=== PATIENT | female | born 1940 | race Caucasian/White ===

== ENCOUNTER 2016-11-30 17:49 | Inpatient (IN) | payer BC, OTHER ==
[~2016-11-30] VITALS: Ht 157.5 cm; Wt 96.7 kg
[~2016-11-30 17:49] MED LIST: ASPI81TA28 PO; COLE1TAB5 PO; GLC/500 PO; LEVO125T4 PO; LSN5 PO; METF-384 PO; OMEP20CA9 PO; PANC1CAP PO; PB30 PO; SIMV-151 PO; SOLI10TA2 PO; VENL75CA73 PO
[2016-11-30] MEDS ORDERED: DEXTROSE 50% 50 ML SYR IV STA ×2 (18:16→20:33)
--- NOTE | 2016-11-30 18:20 | DIAGNOSTIC IMAGING REPORT ---
SINGLE VIEW CHEST CLINICAL HISTORY: Syncope. FINDINGS: An AP, portable, upright chest radiograph is compared to study dated 04/17/2016. The examination is degraded by portable technique and patient rotation. The heart is top normal for projection and there is atherosclerotic calcification of the thoracic aorta. The pulmonary vasculature is noncongested. Chronic interstitial thickening is similar to previous. There is bibasilar atelectasis. No airspace consolidation is seen typical for pneumonia. There is no large pleural effusion or pneumothorax seen. The skeletal structures are osteopenic. Degenerative changes noted in the right shoulder and thoracic spine. Cholecystectomy clips are seen in the right upper quadrant. IMPRESSION: Bibasilar atelectasis with no acute cardiopulmonary abnormality. Electronically signed by: Mat Ramachandran M.D. 11/30/2016 6:18 PM Dictated Date/Time: 11/30/2016 6:17 PM
[2016-11-30 18:29] LABS: HEMATOCRIT 39.2 % (37-47); MEAN CELL VOLUME 86.3 fL (80-100); MEAN CORPUSCULAR HEMOGLOBIN 29.3 pg (25-34); MEAN CORPUSCULAR HGB CONC 33.9 g/dl (32-36); MEAN PLATELET VOLUME 11.8 fL (7.4-10.4); PLATELET COUNT 188 K/uL (130-400); RED BLOOD COUNT 4.54 M/uL (4.2-5.4); WHITE BLOOD COUNT 15.45 K/uL (4.8-10.8)
[2016-11-30 18:49] LABS: ALKALINE PHOSPHATASE 122 U/L (45-117); ALT/SGPT 25 U/L (12-78); AST/SGOT 12 U/L (15-37); BLOOD UREA NITROGEN 24 mg/dl (7-18); BUN/CREATININE RATIO 29.1 (10-20); CALCIUM 8.9 mg/dl (8.5-10.1); CARBON DIOXIDE 23 mmol/L (21-32); CHLORIDE 108 mmol/L (98-107); CREATININE 0.83 mg/dl (0.60-1.20); GLUCOSE 20 mg/dl (70-99); POTASSIUM 2.8 mmol/L (3.5-5.1); SODIUM 143 mmol/L (136-145)
[2016-11-30 18:51] LABS: BASO % 0.3 %; BASO ABS # 0.04 K/uL (0-0.2); COMPLETE YES; EOS % 0.8 %; IG% 0.3 %; LYMPH % 12.4 %; LYMPH ABS # 1.91 K/uL (1.2-3.4); NEUT % 80.2 %
[2016-11-30] MEDS ORDERED: AMR2 PO (18:51)
[2016-11-30] MEDS ORDERED: POTASSIUM CHLORIDE 10 MEQ TABCR PO STA (18:53)
[2016-11-30] MEDS ORDERED: POTASSIUM CHLORIDE 10 MEQ / 100ML WTR IV STA (18:53)
[2016-11-30] MEDS ORDERED: LEVE500T PO (18:55)
[2016-11-30] MEDS ORDERED: PHEN64.8 PO ×2 (19:01)
[2016-11-30 19:02] LABS: PARTIAL THROMBOPLASTIN RATIO 0.9; PROTHROMBIN TIME (PATIENT) 10.8 SECONDS (9.0-12.0)
[2016-11-30] MEDS ORDERED: BISACODYL 10 MG SUPP PR PRN (21:00)
[2016-11-30] MEDS ORDERED: MoRPHine SULFATE 4 MG/ML 1 ML CARP\\VIAL IV PRN (21:00)
[2016-11-30] MEDS ORDERED: MoRPHine SULFATE 2 MG/ML CARP IV PRN (21:00)
[2016-11-30] MEDS ORDERED: COLESTIPOL HCL 1 GM TAB PO PRN (21:00)
[2016-11-30] MEDS ORDERED: LORAZEPAM 2 MG/ML 1 ML VIAL IV PRN ×2 (21:00)
[2016-11-30] MEDS ORDERED: GLUCOSE 40% GEL 15 GM TUBE PO PRN (21:00)
[2016-11-30] MEDS ORDERED: PROMETHAZINE HCL INJ 12.5 MG in SODIUM CHLORIDE 0.9% 50ML 50 ML IV PRN (21:00)
[2016-11-30] MEDS ORDERED: ZOLPIDEM TARTRATE 5 MG TAB PO PRN (21:00)
[2016-11-30] MEDS ORDERED: SIMVASTATIN 20 MG TAB PO SCH (21:00)
[2016-11-30] MEDS ORDERED: DEXTROSE 50% 50 ML SYR IV PRN (21:00)
[2016-11-30] MEDS ORDERED: DiphenhydrAMINE HCL 50 MG/ML VIAL IV PRN (21:00)
[2016-11-30] MEDS ORDERED: GLUCAGON FOR INJ 1 MG VIAL SQ PRN (21:00)
[2016-11-30] MEDS ORDERED: PHENOBARBITAL 32.4 MG TAB PO SCH (21:00)
[2016-11-30] MEDS ORDERED: ONDANSETRON INJ 2 MG/ML 2 ML VIAL IV PRN ×2 (21:00)
[2016-11-30] MEDS ORDERED: GLUCOSE 10 TABS/TUBE PO PRN (21:00)
[2016-11-30] MEDS ORDERED: ACETAMINOPHEN 325 MG TAB PO PRN (21:00)
[2016-11-30] MEDS: DOCUSATE SODIUM 100 MG CAP PO SCH (21:00)
[2016-11-30] MEDS ORDERED: ALUMINUM/MAGNESIUM/SIMETH (MAALOX MAX) 30 ML UDC PO PRN (21:00)
[2016-11-30] MEDS ORDERED: MAGNESIUM HYDROXIDE SUSP 30 ML UDC PO PRN (21:00)
[2016-11-30] MEDS ORDERED: D5NSS + 20MEQ KCL 1,000 ML IV SCH (21:15)
[2016-11-30] MEDS ORDERED: NITROGLYCERIN 0.4 MG SL PER TAB CHARGE SL PRN (21:15)
[2016-11-30 21:38] VITALS: BMI 39.4
--- NOTE | 2016-11-30 21:43 | EMERGENCY ROOM VISIT NOTE ---
History Report prepared by Lalitha: Milka Ramirez Under the Supervision of: Dr. Elmer Lanier M.D. First contact with patient: 17:50 Chief Complaint: HYPOGLYCEMIA Stated Complaint: HYPOGLYCEMIA History of Present Illness The patient is a 76 year old female who presents to the Emergency Room via EMS with complaints of hypoglycemia that was first noticed an hour ago. Symptoms associated with this episode of hypoglycemia include altered mental status. weakness, and diaphoresis. Per the patient's granddaughter, the patient was saying her last goodbyes to her daughter today as her daughter is not well. The patient's granddaughter noticed that the patient was becoming weak and eventually passed out about an hour STARCHMAKER. She called the ambulance at this time. The patient's blood sugar was found to be 27 at this time, per the granddaughter. She was given IV dextrose by the ambulance crew after which she woke up. The patient suffers from dementia. Her granddaughter, who is her power of senior trial attorney, states that the patient took her own medications this morning. There are, however, 3 other pill boxes that she had access to and the other 2 people are on insulin and other diabetic medications. She also states that she only had an egg sandwich today and didn't need anything else. The granddaughters do not feel that the patient took an intentional overdose or is suicidal in any way. They will call home to see if any pills are missing. HPI Limited d/t dementia Source of History: family History Limited By: dementia Onset: 1 hour STARCHMAKER Position: other (Global ) Modifying Factors (Worsening): other (None) Associated Symptoms: + diaphoresis, + weakness, No SOB, No abdominal pain, No chest pain, No fevers, No headache, No vomiting Note: Additional associated symptoms include AMS Review of Systems Limited due to dementia. Past Medical & Surgical Medical Problems: (1) Congestive Heart Failure Nos (2) Coronary Atherosclerosis Of [place] Coronary Vessel (3) Diab Patsy Wo Compl, Type Ii Or Unspec Type, Not Uncntrld (4) Epilepsy (5) Hypertension Nos (6) Pericardial Disease Nos (7) pericardial window (8) Pneumonia, Organism Nos (9) Pure Hypercholesterolem (10) Urin Tract Infection Nos Surgical Problems: (1) History of cholecystectomy Family History Diabetes mellitus Hypertension Seizures Social History Smoking Status: Never Smoker Alcohol Use: none Drug Use: none Housing Status: lives with family Occupation Status: retired Current/Historical Medications Scheduled Aspirin (Aspirin Ec), 81 MG PO QAM Glimepiride (Glimepiride), 2 MG PO DAILY Levetiractam (Levetiracetam), 1,500 MG PO BID Levothyroxine Sodium (Levothyroxine Sodium), 125 MCG PO QAM Lisinopril (Lisinopril), 5 MG PO QAM Pancrelipase (Lipase-Protease- (Creon), 2 CAP PO AC Phenobarbital (Phenobarbital), 2 TABS PO HS Phenobarbital (Phenobarbital), 64.8 MG PO QAM Simvastatin (Simvastatin), 20 MG PO HS Solifenacin (Vesicare), 10 MG PO QAM Venlafaxine Hcl (Venlafaxine Extended Rel), 75 MG PO QAM Scheduled PRN Colestipol Hcl (Colestipol Hcl), 1 TAB PO DAILY PRN for Diarrhea Allergies Coded Allergies: Sulfa Antibiotics (Verified Allergy, Unknown, UNKNOWN, 11/30/16) Sitagliptin (Verified Adverse Reaction, Unknown, abd pain, 11/30/16) Physical Exam Vital Signs Date Time Temp Pulse Resp B/P Pulse Ox O2 Delivery O2 Flow Rate FiO2 11/30/16 20:57 80 20 141/76 97 Room Air 11/30/16 19:42 85 20 137/68 97 Room Air 11/30/16 19:09 86 11/30/16 18:17 36.7 102 18 176/81 93 Room Air Physical Exam Constitutional: Vital signs reviewed. Clammy to touch. Follows commands. Eyes: Pupils are equal round reactive to light. Conjunctiva are noninjected. ENT: Pharynx is clear without erythema or exudate. Mucous membranes are moist. Neck supple without meningeal signs. Respiratory: Clear to auscultation bilaterally. Breath sounds are equal bilaterally. Cardiovascular: Regular rate and rhythm. No rubs or gallops. GI: Soft, nondistended and nontender. Bowel sounds are present. Musculoskeletal: No peripheral edema. No lower extremity tenderness. Integumentary: No cyanosis. Neurological: The patient is awake and slow to respond. Cranial nerves II-XII are intact except very hard of hearing. Motor is intact in all extremities. Sensation is intact to light touch all extremities. Normal speech. No pronator drift. Psychiatric: Unable to assess affect secondary to dementia Medical Decision & Procedures ER Provider Diagnostic Interpretation: X-ray results as stated below per interpretation by me and the radiologist: SINGLE VIEW CHEST CLINICAL HISTORY: Syncope. FINDINGS: An AP, portable, upright chest radiograph is compared to study dated 04/17/2016. The examination is degraded by portable technique and patient rotation. The heart is top normal for projection and there is atherosclerotic calcification of the thoracic aorta. The pulmonary vasculature is noncongested. Chronic interstitial thickening is similar to previous. There is bibasilar atelectasis. No airspace consolidation is seen typical for pneumonia. There is no large pleural effusion or pneumothorax seen. The skeletal structures are osteopenic. Degenerative changes noted in the right shoulder and thoracic spine. Cholecystectomy clips are seen in the right upper quadrant. IMPRESSION: Bibasilar atelectasis with no acute cardiopulmonary abnormality. Electronically signed by: Mat Ramachandran M.D. 11/30/2016 6:18 PM Dictated Date/Time: 11/30/2016 6:17 PM Laboratory Results 11/30/16 18:21 Red Blood Count 4.54, Mean Corpuscular Volume 86.3, Mean Corpuscular Hemoglobin 29.3, Mean Corpuscular Hemoglobin Concent 33.9, Mean Platelet Volume 11.8, Neutrophils (%) (Auto) 80.2, Lymphocytes (%) (Auto) 12.4, Monocytes (%) (Auto) 6.0, Eosinophils (%) (Auto) 0.8, Basophils (%) (Auto) 0.3, Neutrophils # (Auto) 12.40, Lymphocytes # (Auto) 1.91, Monocytes # (Auto) 0.93, Eosinophils # (Auto) 0.13, Basophils # (Auto) 0.04 11/30/16 18:21 Test 11/30/16 18:21 11/30/16 18:30 11/30/16 21:01 White Blood Count 15.45 K/uL (4.8-10.8) Red Blood Count 4.54 M/uL (4.2-5.4) Hemoglobin 13.3 g/dL (12.0-16.0) Hematocrit 39.2 % (37-47) Mean Corpuscular Volume 86.3 fL (80-100) Mean Corpuscular Hemoglobin 29.3 pg (25-34) Mean Corpuscular Hemoglobin Concent 33.9 g/dl (32-36) Platelet Count 188 K/uL (130-400) Mean Platelet Volume 11.8 fL (7.4-10.4) Neutrophils (%) (Auto) 80.2 % Lymphocytes (%) (Auto) 12.4 % Monocytes (%) (Auto) 6.0 % Eosinophils (%) (Auto) 0.8 % Basophils (%) (Auto) 0.3 % Neutrophils # (Auto) 12.40 K/uL (1.4-6.5) Lymphocytes # (Auto) 1.91 K/uL (1.2-3.4) Monocytes # (Auto) 0.93 K/uL (0.11-0.59) Eosinophils # (Auto) 0.13 K/uL (0-0.5) Basophils # (Auto) 0.04 K/uL (0-0.2) RDW Standard Deviation 42.3 fL (36.4-46.3) RDW Coefficient of Variation 13.3 % (11.5-14.5) Immature Granulocyte % (Auto) 0.3 % Immature Granulocyte # (Auto) 0.04 K/uL (0.00-0.02) Red Blood Cell Morphology Unremarkable Prothrombin Time 10.8 SECONDS (9.0-12.0) Prothromb Time International Ratio 1.0 (0.9-1.1) Activated Partial Thromboplast Time 22.6 SECONDS (21.0-31.0) Partial Thromboplastin Ratio 0.9 Anion Gap 12.0 mmol/L (3-11) Est Creatinine Clear Calc Drug Dose 64.0 ml/min Estimated GFR () 79.9 Estimated GFR (Non- 69.0 BUN/Creatinine Ratio 29.1 (10-20) Calcium Level 8.9 mg/dl (8.5-10.1) Total Bilirubin 0.1 mg/dl (0.2-1) Direct Bilirubin < 0.1 mg/dl (0-0.2) Aspartate Amino Transf (AST/SGOT) 12 U/L (15-37) Alanine Aminotransferase (ALT/SGPT) 25 U/L (12-78) Alkaline Phosphatase 122 U/L (45-117) Total Protein 7.7 gm/dl (6.4-8.2) Albumin 3.9 gm/dl (3.4-5.0) Lipase 214 U/L (73-393) Bedside Troponin I 0.000 ng/ml (0-0.045) Bedside Glucose 69 mg/dl (70-90) Laboratory results as reviewed by me. Medications Administered Medications (Trade) Dose Ordered Sig/Jo Ann Route Start Time Stop Time Status Last Admin Dose Admin Dextrose (Dextrose 50% 50ML Syringe) 25 ml NOW STAT IV 11/30/16 18:16 11/30/16 18:17 DC 11/30/16 18:25 25 ML Potassium Chloride (Kcl 10 Meq / Wtr) 10 meq NOW STAT IV 11/30/16 18:53 11/30/16 18:54 DC 11/30/16 19:21 10 MEQ Potassium Chloride (Klor-Con M10) 40 meq NOW STAT PO 11/30/16 18:53 11/30/16 18:54 DC 11/30/16 19:20 40 MEQ Dextrose 25 ml 25 ml NOW STAT IV 11/30/16 20:33 11/30/16 20:34 DC 11/30/16 20:34 25 ML Potassium Chloride/Dextrose/ Sod Cl (D5nss + 20meq KCl) 1,000 ml @ 125 mls/hr Q8H IV 11/30/16 21:15 12/30/16 21:14 11/30/16 21:19 125 MLS/HR ECG Indication: weakness Rate (beats per minute): 102 Rhythm: sinus tachycardia Findings: other (Fusion complexes, non specific intraventricular block ) Comparison ECG Date: April 17, 2016 Change: no significant change ED Course 1753: The patient was evaluated in room B3. A complete history and physical exam was performed. 1810: according to the ED pharmacist, review of her external medication shows that the patient is also on Amaryl. 1815: The patient's blood sugar is 64 at this time. 1816: Ordered Dextrose 25 ml IV. 183: Per the nurse, the patient is awake, alert, and eating after d-50. 1843: Upon reevaluation, the patient is still awake and alert. 1853: Ordered Potassium Chloride 40 meq PO, Potassium Chloride 10 meq IV. 1901: The patient is still awake, alert, and eating. I discussed the test results with the patient and her granddaughters. 2032: Patient's granddaughters state there are no missing pills. IV potassium infusing at this time. The patient is awake and alert. 2032: Ordered Dextrose 25 ml IV. 2036: BSG 48. Patient awake and alert. Discussed plan to hospitalize. 2040: I spoke with Dr. Lennon of [facility]. We discussed the patient and her results. The patient will be further evaluated by Dr. Lennon. Medical Decision This is a 76-year-old female presents with altered mental status and hypoglycemia. I did perform a limited focused review of portions of the patient 's old chart on the electronic medical record. The patient has had no recent pertinent visits to this hospital. I did evaluate the patient as noted above. The patient is presenting with altered mental status secondary to hypoglycemia. I did obtain history from the patient as well as her granddaughter due to her altered mental status and history of dementia. The patient was placed on a continuous case monitor. I did check a bedside blood sugar which was low. The patient was given D50 25 mL IV. She came more awake and alert at that time and was able to drink and eat. I did order and personally review the patient's 12-lead EKG and chest x- ray as described above. I did order and review the patient's blood work as noted in the electronic medical record. She has hypokalemia and hypoglycemia. I did treat her with IV potassium as well as oral potassium. The patient's granddaughter states that the patient is not suicidal and they checked to see if any pills are missing and verified that there were not. She did not accidentally take more than she should've. Because she is on a sulfonylurea we did observe her for longer in the emergency department. She ate a full meal but her blood sugar began to trend downward again. She was given D50 25 mL IV again. I did recommend hospitalization for continued monitoring of her blood sugars. I did discuss the case with the hospitalist and case manager specialist. Consults Time Called: 2036 Consulting Physician: Dr. Lennon ([facility]) Returned Call: [address] Lennon of [facility]. We discussed the patient and her results. The patient will be further evaluated by Dr. Lennon. Impression Primary Impression: Hypoglycemia Additional Impression: Hypokalemia Scribe Attestation The scribe's documentation has been prepared under my direct and personally reviewed by me in its entirety. I confirm that the note above accurately reflects all work, treatment, procedures, and medical decision making performed by me. Departure Information Dispostion Being Evaluated By Hospitalist Referrals Kelli Gates C.R.N.P (PCP) Patient Instructions My [facility] Problem Qualifiers
[2016-11-30] MEDS ORDERED: PNEUMOCOCCAL ADMINISTRATION CHARGE ONE (22:00)
[2016-11-30] MEDS ORDERED: PNEUMOCOCCAL POLYSACCHARIDES 25 MCG/0.5 ML VIAL/SYR IM. ONE (22:00)
[2016-11-30] MEDS: INSULIN ASPART 100 UNITS/ML 3 ML PEN SC SCH (22:15)
[2016-11-30] MEDS: LEVETIRACETAM 500 MG TAB PO SCH (22:22)
[2016-11-30] MEDS: VESICARE~ORDER AWAITING ACTION SCH (22:29)
[2016-11-30 22:33] VITALS: BP 157/87; PULSE 87; TEMP 36.8; O2SAT 95
[2016-11-30 23:59] VITALS: O2SAT 95
[2016-12-01] VITALS (8 sets, daily range): BP systolic 105–135; BP diastolic 46–81; PULSE 73–80; TEMP 36.2–36.6; O2SAT 95–98; Ht 157.5 cm; Wt 96.7 kg
--- NOTE | 2016-12-01 03:35 | History and Physical ---
History & Physical Date & Time of Service: Dec 01, 2016 at 03:23 Chief Complaint: Altered Mental Status, Hypoglycemia Primary Care Physician: Kelli Gates C.R.N.P History of Present Illness Source: patient The patient is a 76-year-old female who presents emergency department via EMS due to an episode of low blood sugar that began 1 hour prior to arrival. She was first noted to have altered mental status, feeling generally weak, and sweaty and ultimately passed out. The patient has been in morning for her sick daughter, has not been eating as well as usual, and has been taking her glimepiride and metformin diabetic medications as usual. Her blood sugar was found to be 27 field, he was given IV dextrose by the ambulance crew briefly woke up. The patient does have dementia, and her granddaughter reports that the patient does take her medications. It is unknown at this time it the patient had taken additional medication than as directed. *. Past Medical/Surgical History Medical Problems: (1) Congestive Heart Failure Nos Status: Chronic (2) Coronary Atherosclerosis Of [place] Coronary Vessel Status: Chronic (3) Diab Patsy Wo Compl, Type Ii Or Unspec Type, Not Uncntrld Status: Chronic (4) Epilepsy Status: Chronic (5) Hypertension Nos Status: Chronic (6) Pericardial Disease Nos Status: Resolved (7) pericardial window Status: Resolved (8) Pneumonia, Organism Nos Status: Resolved (9) Pure Hypercholesterolem Status: Chronic (10) Urin Tract Infection Nos Status: Resolved Surgical Problems: (1) History of cholecystectomy Status: Resolved Family History Diabetes mellitus Hypertension Seizures Social History Smoking Status: Never Smoker Smokeless Tobacco Use: No Alcohol Use: none Drug Use: none Housing status: lives with family Occupational Status: retired Immunizations History of Influenza Vaccine: Yes Influenza Vaccine Date: Dec 30, 2007 History of Tetanus Vaccine?: Yes Tetanus Immunization Date: Dec 30, 2007 History of Pneumococcal: Yes Pneumococcal Date: Dec 30, 2007 History of Hepatitis B Vaccine: No Multi-Drug Resistant Organisms History of MDRO: No Allergies Coded Allergies: Sulfa Antibiotics (Verified Allergy, Unknown, UNKNOWN, 11/30/16) Sitagliptin (Verified Adverse Reaction, Unknown, abd pain, 11/30/16) Home Medications Scheduled Aspirin (Aspirin Ec), 81 MG PO QAM Glimepiride (Glimepiride), 2 MG PO DAILY Levetiractam (Levetiracetam), 1,500 MG PO BID Levothyroxine Sodium (Levothyroxine Sodium), 125 MCG PO QAM Lisinopril (Lisinopril), 5 MG PO QAM Pancrelipase (Lipase-Protease- (Creon), 2 CAP PO AC Phenobarbital (Phenobarbital), 2 TABS PO HS Phenobarbital (Phenobarbital), 64.8 MG PO QAM Simvastatin (Simvastatin), 20 MG PO HS Solifenacin (Vesicare), 10 MG PO QAM Venlafaxine Hcl (Venlafaxine Extended Rel), 75 MG PO QAM Scheduled PRN Colestipol Hcl (Colestipol Hcl), 1 TAB PO DAILY PRN for Diarrhea Review of Systems The patient denies chest pain, palpitations, shortness of breath, cough, lower extremity swelling, vision change, hearing change, sore throat, fevers, chills, sweats, weight change, fatigue, nausea, vomiting, abdominal pain, pelvic pain, blood in urine or stool, dysuria, urinary frequency or urgency, lightheadedness , dizziness, headache, memory loss, rash, abnormal bruising or bleeding, imbalance, focal weakness, numbness or tingling in arms or legs, arthralgias or myalgias, back or neck pain, night sweats, or allergy symptoms. The review of systems is otherwise negative other than for that already noted above, and at least 10 systems have been reviewed. Physical Exam Vital Signs Date Time Temp Pulse Resp B/P Pulse Ox O2 Delivery O2 Flow Rate FiO2 12/01/16 00:06 36.5 73 15 126/81 97 Room Air 11/30/16 23:59 95 Room Air 11/30/16 22:33 36.8 87 18 157/87 95 Room Air 11/30/16 21:38 Room Air 11/30/16 20:57 80 20 141/76 97 Room Air 11/30/16 19:42 85 20 137/68 97 Room Air 11/30/16 19:09 86 11/30/16 18:17 36.7 102 18 176/81 93 Room Air The patient is awake, well-developed and adequately nourished, alert and oriented 3, normocephalic and atraumatic, lying in bed and in no acute distress. HEENT--PERRL, EOMI, mucous membranes and oropharynx dry. Neck--supple, no JVD or bruits, thyroid normal, trachea midline, no adenopathy. Heart--normal S1 and S2, no extra beats, no murmurs, rubs or gallops. Lungs--clear bilaterally with good air movement, no respiratory distress, no accessory muscle use. Abdomen--normal bowel sounds and soft, nontender and nondistended, no hernias or masses, no organomegaly. Extremities--no cyanosis, clubbing or edema. There are good distal pulses b/l. Dermatologic--normal skin turgor, normal color, warm and dry, no abnormal lymph nodes, no rash. Neurologic--cranial nerves II through XII grossly intact, motor and sensory examination normal. Rheumatologic--normal range of motion, nontender, muscles and joints. Psychiatric--normal affect. Diagnostics Laboratory Results Results Past 24 Hours Test 11/30/16 18:12 11/30/16 18:21 11/30/16 18:30 11/30/16 19:12 Range/Units Bedside Glucose 64 158 70-90 mg/dl White Blood Count 15.45 4.8-10.8 K/uL Red Blood Count 4.54 4.2-5.4 M/uL Hemoglobin 13.3 12.0-16.0 g/dL Hematocrit 39.2 37-47 % Mean Corpuscular Volume 86.3 80-100 fL Mean Corpuscular Hemoglobin 29.3 25-34 pg Mean Corpuscular Hemoglobin Concent 33.9 32-36 g/dl Platelet Count 188 130-400 K/uL Mean Platelet Volume 11.8 7.4-10.4 fL Neutrophils (%) (Auto) 80.2 % Lymphocytes (%) (Auto) 12.4 % Monocytes (%) (Auto) 6.0 % Eosinophils (%) (Auto) 0.8 % Basophils (%) (Auto) 0.3 % Neutrophils # (Auto) 12.40 1.4-6.5 K/uL Lymphocytes # (Auto) 1.91 1.2-3.4 K/uL Monocytes # (Auto) 0.93 0.11-0.59 K/uL Eosinophils # (Auto) 0.13 0-0.5 K/uL Basophils # (Auto) 0.04 0-0.2 K/uL RDW Standard Deviation 42.3 36.4-46.3 fL RDW Coefficient of Variation 13.3 11.5-14.5 % Immature Granulocyte % (Auto) 0.3 % Immature Granulocyte # (Auto) 0.04 0.00-0.02 K/uL Red Blood Cell Morphology Unremarkable Prothrombin Time 10.8 9.0-12.0 SECONDS Prothromb Time International Ratio 1.0 0.9-1.1 Activated Partial Thromboplast Time 22.6 21.0-31.0 SECONDS Partial Thromboplastin Ratio 0.9 Sodium Level 143 136-145 mmol/L Potassium Level 2.8 3.5-5.1 mmol/L Chloride Level 108 98-107 mmol/L Carbon Dioxide Level 23 21-32 mmol/L Anion Gap 12.0 3-11 mmol/L Blood Urea Nitrogen 24 7-18 mg/dl Creatinine 0.83 0.60-1.20 mg/dl Est Creatinine Clear Calc Drug Dose 64.0 ml/min Estimated GFR () 79.9 Estimated GFR (Non- 69.0 BUN/Creatinine Ratio 29.1 10-20 Random Glucose 20 70-99 mg/dl Calcium Level 8.9 8.5-10.1 mg/dl Total Bilirubin 0.1 0.2-1 mg/dl Direct Bilirubin < 0.1 0-0.2 mg/dl Aspartate Amino Transf (AST/SGOT) 12 15-37 U/L Alanine Aminotransferase (ALT/SGPT) 25 12-78 U/L Alkaline Phosphatase 122 45-117 U/L Total Protein 7.7 6.4-8.2 gm/dl Albumin 3.9 3.4-5.0 gm/dl Lipase 214 73-393 U/L Bedside Troponin I 0.000 0-0.045 ng/ml Test 11/30/16 20:28 11/30/16 21:01 11/30/16 21:46 11/30/16 22:40 Range/Units Bedside Glucose 48 69 58 74 70-90 mg/dl Test 12/01/16 00:09 Range/Units Bedside Glucose 145 70-90 mg/dl Diagnostic Radiology [~ rep ct add3]] SINGLE VIEW CHEST CLINICAL HISTORY: Syncope. FINDINGS: An AP, portable, upright chest radiograph is compared to study dated 04/17/2016. The examination is degraded by portable technique and patient rotation. The heart is top normal for projection and there is atherosclerotic calcification of the thoracic aorta. The pulmonary vasculature is noncongested. Chronic interstitial thickening is similar to previous. There is bibasilar atelectasis. No airspace consolidation is seen typical for pneumonia. There is no large pleural effusion or pneumothorax seen. The skeletal structures are osteopenic. Degenerative changes noted in the right shoulder and thoracic spine. Cholecystectomy clips are seen in the right upper quadrant. IMPRESSION: Bibasilar atelectasis with no acute cardiopulmonary abnormality. Electronically signed by: Mat Ramachandran M.D. 11/30/2016 6:18 PM Dictated Date/Time: 11/30/2016 6:17 PM The status of this report is Signed. Draft = Not yet reviewed or approved by Radiologist. Signed = Reviewed and EKG EKG shows sinus tachycardia at 102 bpm, left axis deviation, intraventricular conduction delay, there are no acute ST-T changes. Impression Assessment and Plan Hypoglycemia in diabetes mellitus causing altered mental status--patient will be admitted to the telemetry unit for close glucose monitoring. We'll hold glyburide 2 mg by mouth daily and metformin. We'll follow blood sugars every 2 hours for the first 12 hours and then before meals and at bedtime. We'll place on D5 normal saline with potassium chloride 20 mEq at 125 ML's per hour. Hypertension/hypokalemia-- continue lisinopril 5 mg by mouth every morning, IV fluids noted above, and recheck BMP and magnesium level in a.m. Hypothyroidism--continue levothyroxine sodium 125 g by mouth every morning. Seizure disorder--continue phenobarbital at current dosing, and Keppra 1500 mg by mouth twice a day. Her symptoms were not caused by seizure-like activity. Hypercholesterolemia--continue simvastatin 20 mg by mouth at bedtime. Depression--continue venlafaxine ER 75 mg by mouth every morning. Bladder spasm--continue Vesicare 10 mg by mouth every morning. Pancreatic insufficiency--continue pancrelipase 2 capsules by mouth before meals Level of Care Telemetry Advanced Directives Existing Advance Directive: No Existing Living Will: Yes Existing Power of Endoscopy Support Specialist: Yes Resuscitation Status FULL RESUSCITATION VTE Prophylaxis VTE Risk Assessment Done? Y/N: Yes Risk Level: Moderate Given or contraindicated: SCD's Social Service Consult None Apply
[2016-12-01] MEDS ORDERED: NovoLIN-R INSULIN PER UNIT CHARGE SQ STA (04:21)
[2016-12-01 05:59] LABS: BASO % 0.2 %; BASO ABS # 0.01 K/uL (0-0.2); COMPLETE YES; EOS % 0.9 %; IG% 0.2 %; LYMPH ABS # 1.02 K/uL (1.2-3.4); MEAN CELL VOLUME 88.2 fL (80-100); MEAN CORPUSCULAR HEMOGLOBIN 29.5 pg (25-34); MEAN CORPUSCULAR HGB CONC 33.4 g/dl (32-36); MEAN PLATELET VOLUME 11.9 fL (7.4-10.4); MONO % 8.3 %; NEUT % 74.4 %; PLATELET COUNT 135 K/uL (130-400); RED BLOOD COUNT 3.97 M/uL (4.2-5.4); WHITE BLOOD COUNT 6.38 K/uL (4.8-10.8)
[2016-12-01] MEDS ORDERED: LEVOTHYROXINE 125 MCG TAB PO SCH (06:00)
[2016-12-01 06:10] LABS: PROTHROMBIN TIME (PATIENT) 11.2 SECONDS (9.0-12.0)
[2016-12-01] MEDS: PANCREAZE (LIPASE 16,800U) CAP PO SCH ×2 (06:15→12:29)
[2016-12-01 06:36] LABS: ALKALINE PHOSPHATASE 99 U/L (45-117); ALT/SGPT 20 U/L (12-78); AST/SGOT 17 U/L (15-37); BLOOD UREA NITROGEN 17 mg/dl (7-18); BUN/CREATININE RATIO 21.4 (10-20); CALCIUM 8.3 mg/dl (8.5-10.1); CARBON DIOXIDE 24 mmol/L (21-32); CHLORIDE 110 mmol/L (98-107); CREATININE 0.78 mg/dl (0.60-1.20); GLUCOSE 185 mg/dl (70-99); MAGNESIUM 1.6 mg/dl (1.8-2.4); POTASSIUM 4.6 mmol/L (3.5-5.1); SODIUM 142 mmol/L (136-145)
[2016-12-01] MEDS: VESICARE~ORDER AWAITING ACTION SCH (07:17)
[2016-12-01] MEDS: DOCUSATE SODIUM 100 MG CAP PO SCH (07:36)
[2016-12-01] MEDS: LEVETIRACETAM 500 MG TAB PO SCH (07:38)
[2016-12-01] MEDS: INSULIN ASPART 100 UNITS/ML 3 ML PEN SC SCH ×2 (07:46→12:28)
[2016-12-01] MEDS ORDERED: PHENOBARBITAL 32.4 MG TAB PO SCH (09:00)
[2016-12-01] MEDS ORDERED: NYSTATIN POWDER 15GM BTL EXT SCH (09:00)
[2016-12-01] MEDS ORDERED: ASPIRIN 81 MG ECTAB PO SCH (09:00)
[2016-12-01] MEDS ORDERED: VENLAFAXINE HCL XR 75 MG CAPXR PO SCH (09:00)
[2016-12-01] MEDS ORDERED: LISINOPRIL 5 MG TAB PO SCH (09:00)
--- NOTE | 2016-12-01 09:34 | Clinical Documentation Query ---
ENRIQUE KAPLAN : CLINICAL DOCUMENTATION QUERY Patient is a 76 year old female presenting for the evaluation and treatment of hypoglycemia in the setting of oral antidiabetics and limited oral intake. Symptoms included "altered mental status", weakness, diaphoresis, and ultimately loss of consciousness. She was administered IV dextrose by EMS staff with resolution of her symptoms. Consider clarification as suggested below as this directly impacts DRG assignment and therefore quantitative measures of risk of mortality and severity of illness. Thank you. In your clinical opinion is this patient being managed for: ( ) Metabolic encephalopathy secondary to drug induced hypoglycemia, POA, resolved ( ) Other explanation of clinical findings (Please Explain) ( ) Unable to determine (Please Define) ( ) Need to Discuss ( ) Not Agree The medical record reflects the following clinical findings, treatment, and risk factors. Clinical Indicators: As above Treatment: Telemetry, dextrose containing solutions IV, holding of glyburide and metformin, serial BSG's. Risk Factors: Administration of oral antidiabetics with limited oral intake. Please clarify and document your clinical opinion in the progress notes and discharge summary. Terms such as "probable", "suspected", "likely", "questionable", "possible", or "still to be ruled out" are acceptable. IF IN AGREEMENT, YOU MUST DOCUMENT ABOVE DIAGNOSTIC STATEMENT IN DAILY PROGRESS NOTES AND DISCHARGE SUMMARY. This document is not part of the patient's record. Thank You, eCcil Chowdary, SULEMA [phone]
--- NOTE | 2016-12-01 10:12 | Discharge Instructions ---
Discharge Instructions Date of Service Dec 01, 2016. Admission Reason for Admission: Altered Mental Status, Hypoglycemia Discharge Discharge Diagnosis / Problem: Hypoglycemia (low blood sugar) Discharge Goals Goal(s): Decrease discomfort, Improve function, Increase independence, Improve disease control Activity Recommendations Activity Limitations: resume your previous activity Lifting Limitations: no more than 25 pounds Exercise/Sports Limitations: as tolerated Shower/Bathe: no limitations (with assistance if needed) Driving or Machine Use: DO NOT DRIVE . Instructions / Follow-Up Instructions / Follow-Up You were admitted to [facility] with hypoglycemia ( low blood sugar) and diagnosed with hypoglycemia due to administration of Insulin. It is very important that you DO NOT TAKE ANOTHER PERSON's INSULIN! This can be extremely dangerous, causing your glucose levels to drop so low it can cause . Continue taking your glimepiride as directed every day. - You should continue this medication because it did not cause your blood sugar to drop down low. Your blood sugar dropped because of the Humalog which was given to you at home, which was not prescribed to you. - Check you blood sugar with all meals and at bedtime. - If glucose is high, consider washing your hands well, then recheck it. IF higher than 300, call your PCP. Monitor your diet to help control blood sugar at home. Limit the amount of carbohydrates (pasta, bread, potatoes, etc), and junk food like candy and soda. Call your primary care provider (PCP) or return to the emergency room if you develop lightheadedness, dizziness, weakness or confusion as these can be signs of hypoglycemia. If you blood glucose drops below 70 drink a glass of orange juice, or a small can of soda to help increase the number, recheck glucose level, and call your PCP. Follow up with your primary care physician within 1 week. Current Hospital Diet Patient's current hospital diet: Diabetes Type 2 Diet, AHA Diet (Heart Healthy) Discharge Diet Recommended Diet: AHA Diet (Heart Healthy), Diabetes Type 2 Diet Procedures Procedures Performed: None Pending Studies Studies pending at discharge: no Medical Emergencies . Who to Call and When: Medical Emergencies: If at any time you feel your situation is an emergency, please call 911 immediately. . Non-Emergent Contact Non-Emergency issues call your: Primary Care Provider Call Non-Emergent contact if: temperature is above 100.5, you have any medication questions Chest pain, shortness of breath, abdominal pain, nausea, vomiting, diarrhea, constipation, lightheadedness, dizziness, confusion, or if you have other concerns regarding your health. . . "Provider Documentation" section prepared by Sultana Dowell. VTE Core Measure Inpt VTE Proph given/why not?: SCD's
--- NOTE | 2016-12-01 10:58 | Discharge Summary ---
Discharge Summary Date of Service Dec 01, 2016. (Skylar Dowell PA-C) Discharge Summary Admission Date: Nov 30, 2016 at 21:06 Discharge Date: Dec 01, 2016 Discharge Disposition: Home Principal Diagnosis: Hypoglycemia Problems/Secondary Diagnoses: DM type Ii, HTN, CHF, CAD, hyperlipidemia, Epilepsy or other seizure disorder, pancreatic insufficiency, depression Immunizations: Have You Had Influenza Vaccine: Yes Influenza Vaccine Date: Dec 30, 2007 History of Tetanus Vaccine?: Yes Tetanus Immunization Date: Dec 30, 2007 History of Pneumococcal: Yes Pneumococcal Date: Dec 30, 2007 History of Hepatitis B Vaccine: No Procedures: SINGLE VIEW CHEST CLINICAL HISTORY: Syncope. FINDINGS: An AP, portable, upright chest radiograph is compared to study dated 04/17/2016. The examination is degraded by portable technique and patient rotation. The heart is top normal for projection and there is atherosclerotic calcification of the thoracic aorta. The pulmonary vasculature is noncongested. Chronic interstitial thickening is similar to previous. There is bibasilar atelectasis. No airspace consolidation is seen typical for pneumonia. There is no large pleural effusion or pneumothorax seen. The skeletal structures are osteopenic. Degenerative changes noted in the right shoulder and thoracic spine. Cholecystectomy clips are seen in the right upper quadrant. IMPRESSION: Bibasilar atelectasis with no acute cardiopulmonary abnormality. Electronically signed by: Mat Ramachandran M.D. 11/30/2016 6:18 PM Dictated Date/Time: 11/30/2016 6:17 PM The status of this report is Signed. Consultations: None (Skylar Dowell PA-C) Medication Reconciliation Continued Medications: Aspirin (Aspirin Ec) 81 Mg Tab 81 MG PO QAM Colestipol Hcl (Colestipol Hcl) 1 Gm Tab 1 TAB PO DAILY PRN for Diarrhea Glimepiride (Glimepiride) 2 Mg Tab 2 MG PO DAILY, #30 Levetiractam (Levetiracetam) 500 Mg Tab 1500 MG PO BID, #180 Levothyroxine Sodium (Levothyroxine Sodium) 125 Mcg Tab 125 MCG PO QAM Lisinopril (Lisinopril) 5 Mg Tab 5 MG PO QAM Pancrelipase (Lipase-Protease- (Creon) 1 Cap Cap 2 CAP PO AC Phenobarbital (Phenobarbital) 64.8 Mg Tab 2 TABS PO HS, #90 Phenobarbital (Phenobarbital) 64.8 Mg Tab 64.8 MG PO QAM Simvastatin (Simvastatin) 20 Mg Tab 20 MG PO HS Solifenacin (Vesicare) 10 Mg Tab 10 MG PO QAM, TAB Venlafaxine Hcl (Venlafaxine Extended Rel) 75 Mg Cap 75 MG PO QAM Discharge Exam The patient was seen and examined this morning. Pt reports doing well, feels tired this morning. She reports her daughters tammy gave her insulin the night before she came in for a blood glucose of >500 but is unsure how much. She reports eating and drinking the same as usual. Pt's daughter is dying, and she has been mourning this so would like to get home. She denies any other acute complaints. Review of Systems: Constitutional: No chills, No fever, No sweats Eyes: No problem reported ENT: No problem reported Respiratory: No cough, No shortness of breath, No sputum Cardiovascular: No chest pain, No palpitations Abdomen: No constipation, No diarrhea, No nausea, No pain, No vomiting Musculoskeletal: No calf pain, No joint pain, No swelling Genitourinary - Female: No dysuria Neurologic: No balance problems, No numbness/tingling, No weakness Endocrine: No fatigue Integumentary: No itch, No rash Physical Exam: General Appearance: WD/WN, no apparent distress Eyes: PERRL, EOMI ENT: hearing grossly normal, pharynx normal, + pertinent finding (mucous membranes moist) Neck: supple, no JVD Respiratory/Chest: chest non-tender, lungs clear, no respiratory distress, no accessory muscle use Cardiovascular: regular rate, rhythm, no murmur, normal peripheral pulses Abdomen / GI: normal bowel sounds, non tender, soft, no organomegaly Extremities: normal inspection, no calf tenderness, normal capillary refill , no pedal edema Neurologic/Psychiatric: alert, normal mood/affect, oriented x 3 Skin: normal color, warm/dry (Skylar Dowell PA-C) Hospital Course H&P per Dr. Webber History of Present Illness Source: patient The patient is a 76-year-old female who presents emergency department via EMS due to an episode of low blood sugar that began 1 hour prior to arrival. She was first noted to have altered mental status, feeling generally weak, and sweaty and ultimately passed out. The patient has been in morning for her sick daughter, has not been eating as well as usual, and has been taking her glimepiride and metformin diabetic medications as usual. Her blood sugar was found to be 27 field, he was given IV dextrose by the ambulance crew briefly woke up. The patient does have dementia, and her granddaughter reports that the patient does take her medications. It is unknown at this time it the patient had taken additional medication than as directed. Physical Exam Vital Signs Date Time Temp Pulse Resp B/P Pulse Ox O2 Delivery O2 Flow Rate FiO2 12/01/16 00:06 36.5 73 15 126/81 97 Room Air 11/30/16 23:59 95 Room Air 11/30/16 22:33 36.8 87 18 157/87 95 Room Air 11/30/16 21:38 Room Air 11/30/16 20:57 80 20 141/76 97 Room Air 11/30/16 19:42 85 20 137/68 97 Room Air 11/30/16 19:09 86 11/30/16 18:17 36.7 102 18 176/81 93 Room Air The patient is awake, well-developed and adequately nourished, alert and oriented 3, normocephalic and atraumatic, lying in bed and in no acute distress. HEENT--PERRL, EOMI, mucous membranes and oropharynx dry. Neck--supple, no JVD or bruits, thyroid normal, trachea midline, no adenopathy. Heart--normal S1 and S2, no extra beats, no murmurs, rubs or gallops. Lungs--clear bilaterally with good air movement, no respiratory distress, no accessory muscle use. Abdomen--normal bowel sounds and soft, nontender and nondistended, no hernias or masses, no organomegaly. Extremities--no cyanosis, clubbing or edema. There are good distal pulses b/l. Dermatologic--normal skin turgor, normal color, warm and dry, no abnormal lymph nodes, no rash. Neurologic--cranial nerves II through XII grossly intact, motor and sensory examination normal. Rheumatologic--normal range of motion, nontender, muscles and joints. Psychiatric--normal affect. Hospital Course: Hypoglycemia in diabetes mellitus causing altered mental status - secondary to administration of humalog 5 U by daughter's fiance. Discussion held with family members via phone to not use other medications when they are not prescribed to that person. - The patient does not take metformin, hasn't since Nov due to diarrhea. - Glucose improved with D5NS + KCl- 20 mEq at 125 ml/hr - The patient can resume glimiperide at the time of discharge. - Follow up has been scheduled with her PCP within 1 week by nurse navigator. - Discharge instructions as in EMR Hypertension/hypokalemia- continue lisinopril 5 mg by mouth every morning, IV fluids noted above, and recheck BMP and magnesium level in a.m. Hypothyroidism- continue levothyroxine sodium 125 g by mouth every morning. Seizure disorder- continue phenobarbital at current dosing, and Keppra 1500 mg by mouth twice a day. Her symptoms were not caused by seizure-like activity. Hypercholesterolemia- -continue simvastatin 20 mg by mouth at bedtime. Depression- -continue venlafaxine ER 75 mg by mouth every morning. Bladder spasm -continue Vesicare 10 mg by mouth every morning. Pancreatic insufficiency -continue pancrelipase 2 capsules by mouth before meals Total Time Spent: Greater than 30 minutes This includes examination of the patient, discharge planning, medication reconciliation, and communication with other providers. (Skylar Dowell PA-C) JOHANN Physician Supervision Note: I interviewed and examined the patient. Discussed with Skylar Dowell PAC and agree with findings and plan as documented in the note. Any exceptions or clarifications are listed here: None Pt presented with low blood glucose after been given insulin sc by her son that was prescribed to himself, no issues since admission vitals reviewed cardiac is regular, lungs are clear ok for discharge to resume her usual home medications Documented By: Elmer Vásquez (Elmer Vásquez M.D.) Discharge Instructions Please refer to the electronic Patient Visit Report (Discharge Instructions) for additional information. (Skylar Dowell, MARY) Follow-Up Follow up with your Primary Care Provider within 1 week. (Skylar Dowell PA-C) Additional Copies To Kelli Gates C.R.NNicholasP
[2017-04-12] MEDS ORDERED: CEFU1TAB35 PO (16:14)
== END 2016-12-01 13:47 | disposition home or self-care (01) | DRG 639 ==
LOC: ENRESERVDT → ENRESERVTM → EDBD 17:49 → C.EDB 17:49 → C.2E 21:06
PROVIDERS: ADMIT Hospitalist; ATTEND Internal Medicine
DX: E11.649 Type 2 diabetes mellitus with hypoglycemia without coma (principal); E87.6 Hypokalemia; F03.90 Unspecified dementia, unspecified severity, without behavioral disturbance, psychotic disturbance, mood disturbance, and anxiety; I11.0 Hypertensive heart disease with heart failure; N32.89 Other specified disorders of bladder; I50.9 Heart failure, unspecified; K86.89 Other specified diseases of pancreas; E03.9 Hypothyroidism, unspecified; I25.10 Atherosclerotic heart disease of native coronary artery without angina pectoris; G40.909 Epilepsy, unspecified, not intractable, without status epilepticus; E78.00 Pure hypercholesterolemia, unspecified; Z83.3 Family history of diabetes mellitus; Z82.49 Family history of ischemic heart disease and other diseases of the circulatory system; Z82.0 Family history of epilepsy and other diseases of the nervous system; Z79.82 Long term (current) use of aspirin; Z79.899 Other long term (current) drug therapy

== ENCOUNTER 2016-12-16 12:45 | Emergency (ER) | payer BC, OTHER ==
[~2016-12-16] VITALS: Ht 152.4 cm; Wt 95.0 kg
[~2016-12-16 12:45] MED LIST changes: +AMR2 PO; -GLC/500 PO; +LEVE500T PO; -METF-384 PO; -OMEP20CA9 PO; -PB30 PO; +PHEN64.8 PO
[2016-12-16 12:48] VITALS: TEMP 36.4; Ht 152.4 cm; Wt 95.0 kg
[2016-12-16 13:25] VITALS: O2SAT 97
[2016-12-16] MEDS ORDERED: SODIUM CHLORIDE 0.9% 500ML 500 ML IV STA (13:42)
[2016-12-16] MEDS ORDERED: SODIUM CHLORIDE 0.9% 1000ML 1,000 ML IV STA (13:42)
[2016-12-16 13:55] LABS: BASO % 0.4 %; BASO ABS # 0.02 K/uL (0-0.2); COMPLETE YES; EOS % 3.7 %; HEMATOCRIT 36.1 % (37-47); IG% 0.2 %; LYMPH % 16.3 %; LYMPH ABS # 0.84 K/uL (1.2-3.4); MEAN CELL VOLUME 90.9 fL (80-100); MEAN CORPUSCULAR HEMOGLOBIN 29.7 pg (25-34); MEAN CORPUSCULAR HGB CONC 32.7 g/dl (32-36); MEAN PLATELET VOLUME 11.7 fL (7.4-10.4); MONO % 5.8 %; NEUT % 73.6 %; PLATELET COUNT 127 K/uL (130-400); RED BLOOD COUNT 3.97 M/uL (4.2-5.4); WHITE BLOOD COUNT 5.14 K/uL (4.8-10.8)
[2016-12-16 14:06] LABS: PARTIAL THROMBOPLASTIN RATIO 0.8; PROTHROMBIN TIME (PATIENT) 10.6 SECONDS (9.0-12.0)
--- NOTE | 2016-12-16 14:09 | DIAGNOSTIC IMAGING REPORT ---
CHEST ONE VIEW PORTABLE CLINICAL HISTORY: Pain, radiating to the abdomen COMPARISON STUDY: 11/30/2016 FINDINGS: The heart is mildly enlarged. There is no failure. There is no lobar consolidation. There is minor basilar atelectasis. No pleural effusions are visualized. There is no free intraperitoneal air.[ IMPRESSION: No active disease in the chest. Electronically signed by: Micheal Perez M.D. 12/16/2016 2:07 PM Dictated Date/Time: 12/16/2016 2:07 PM
[2016-12-16 14:21] LABS: ALKALINE PHOSPHATASE 149 U/L (45-117); ALT/SGPT 22 U/L (12-78); AST/SGOT 23 U/L (15-37); BETA-HYDROXYBUTYRATE 0.61 mg/dL (0.2-2.81); BLOOD UREA NITROGEN 17 mg/dl (7-18); BUN/CREATININE RATIO 17.3 (10-20); CALCIUM 8.5 mg/dl (8.5-10.1); CARBON DIOXIDE 27 mmol/L (21-32); CHLORIDE 103 mmol/L (98-107); CKMB/CK RATIO 1.4 (0-3.0); GLUCOSE 445 mg/dl (70-99); MAGNESIUM 1.7 mg/dl (1.8-2.4); POTASSIUM 4.3 mmol/L (3.5-5.1); SODIUM 138 mmol/L (136-145)
--- NOTE | 2016-12-16 14:50 | DIAGNOSTIC IMAGING REPORT ---
CT HEAD WITHOUT CONTRAST (CT) CLINICAL HISTORY: Confusion, acute alteration in mental status. COMPARISON STUDY: 04/17/2016 TECHNIQUE: Axial CT of the brain is performed from the vertex to the skull base. IV contrast was not administered for this examination. CT DOSE: 614.27 mGy.cm FINDINGS: No intra or extra-axial mass lesions are visualized. There is no CT evidence of acute cortical infarction. There is no evidence of midline shift. There is no acute hemorrhage. No calvarial fractures are visualized. There are subtle white matter hypodensities likely on a small vessel basis. There is mild dilatation of the anterior horns of the lateral ventricles, similar to December 2013. There is no evidence of acute sinusitis. Post craniotomy changes are visualized on the left. IMPRESSION: Post craniotomy changes. No acute intracranial findings. Electronically signed by: Micheal Perez M.D. 12/16/2016 2:48 PM Dictated Date/Time: 12/16/2016 2:46 PM
[2016-12-16 14:54] LABS: URINE APPEARANCE CLOUDY (CLEAR); URINE BILIRUBIN NEG (NEG); URINE COLOR YELLOW; URINE EPITHELIAL CELL AUTO >30 /lpf (0-5); URINE NITRITE POS (NEG); URINE SPECIFIC GRAVITY 1.013 (1.000-1.030); UROBILINOGEN NEG (NEG)
[2016-12-16] MEDS ORDERED: ACETAMINOPHEN 500 MG TAB PO STA (14:59)
[2016-12-16 15:02] LABS: MANUAL MICROSCOPIC REQUIRED? NO; REVIEW REQ? NO
[2016-12-16 15:11] LABS: VEN BLOOD GAS BASE EXCESS 1.4 mmol/L; VENOUS BLOOD GAS PCO2 56 mmHg (38.0-50.0); VENOUS BLOOD GAS PO2 27 mmHg
[2016-12-16 15:12] LABS: VEN BLD GAS O2 SATURATION < 60.0 %
[2016-12-16] MEDS ORDERED: NovoLIN-R INSULIN PER UNIT CHARGE IV STA (15:40)
[2016-12-16] MEDS ORDERED: CEFTRIAXONE SOD INJ 1 GM ADDVIAL IV STA (15:40)
[2016-12-16] MEDS ORDERED: MAGNESIUM SULFATE 1GM / D5W 1 GM BAG IV STA (15:40)
[2016-12-16] MEDS ORDERED: INSULIN GLARGINE PER UNIT 15 UNITS in SYRINGE 0 ML SC STA (16:41)
[2016-12-16] MEDS ORDERED: NovoLIN-R INSULIN PER UNIT CHARGE SC STA (16:41)
[2016-12-16] MEDS ORDERED: LANTUS PER UNIT CHARGE SQ STA (16:44)
[2016-12-16] MEDS ORDERED: DTR5 PO (16:48)
[2016-12-16] MEDS ORDERED: PRLSR20 PO (16:48)
[2016-12-16] MEDS ORDERED: INSDGI SC (17:19)
[2016-12-16 18:00] VITALS: BP 129/55; PULSE 86; O2SAT 96
--- NOTE | 2016-12-16 22:17 | EMERGENCY ROOM VISIT NOTE ---
History Report prepared by Lalitha: Tonia Collins Under the Supervision of: Dr. Demetri Dalal D.O. First contact with patient: 13:32 Chief Complaint: HYPERGLYCEMIA Stated Complaint: BLOOD SUGAR IS 571 Nursing Triage Summary: PT HERE WITH HIGH BSG SINCE LAST PM. PT STATES IS WEAK. PT STATES HAS HAD COLD SX. POOR HISTORIAN History of Present Illness The patient is a 76 year old female who presents to the Emergency Room with complaints of persistent high blood sugar starting last night. Her blood sugar is up to 571. She had pancakes last night and some chips. She notes that she does not take insulin. She is unsure when she was diagnosed with diabetes. She has had trouble breathing which is not worse when she is lying flat. She reports more swelling in legs than usual. The patient has been urinating more than usual. The patient seems more confused than usual according to her family. They states that she has been staggering and off balance. Patient denies any chest pain, abdominal pain, nausea, vomiting, or fever. The patient has a history of hypertension, seizures, and high cholesterol. She has had a mini stroke. She denies any history of heart failure. She states she has been taking her medications. She denies any alcohol or tobacco use. She was seen in the ED not too long ago for hypoglycemia. Source of History: patient Onset: last night Position: other (global) Quality: other (high blood sugar) Timing: other (persistent) Associated Symptoms: + SOB, No abdominal pain, No chest pain, No fevers, No nausea, No vomiting Note: Pt reports increased swelling in the legs and increased urinary frequency. Pt seems confused and off balance according to her family. Review of Systems See HPI for pertinent positives & negatives. A total of 10 systems reviewed and were otherwise negative. Past Medical & Surgical Medical Problems: (1) Congestive Heart Failure Nos (2) Coronary Atherosclerosis Of [place] Coronary Vessel (3) Diab Patsy Wo Compl, Type Ii Or Unspec Type, Not Uncntrld (4) Epilepsy (5) Hypertension Nos (6) Pericardial Disease Nos (7) pericardial window (8) Pneumonia, Organism Nos (9) Pure Hypercholesterolem (10) Urin Tract Infection Nos Surgical Problems: (1) History of cholecystectomy Family History Diabetes mellitus Hypertension Seizures Social History Smoking Status: Never Smoker Alcohol Use: none Drug Use: none Housing Status: lives with family Occupation Status: retired Current/Historical Medications Scheduled Aspirin (Aspirin Ec), 81 MG PO QAM Glimepiride (Glimepiride), 2 MG PO DAILY Insulin Glargine (Lantus), 15 UNITS SC QAM Levothyroxine Sodium (Levothyroxine Sodium), 125 MCG PO QAM Lisinopril (Lisinopril), 5 MG PO QAM Omeprazole (Prilosec), 20 MG PO DAILY Oxybutynin Chloride (Oxybutynin Chloride), 2.5 MG PO BID Phenobarbital (Phenobarbital), 2 TABS PO HS Phenobarbital (Phenobarbital), 64.8 MG PO QAM Simvastatin (Simvastatin), 20 MG PO HS Venlafaxine Hcl (Venlafaxine Extended Rel), 75 MG PO QAM Scheduled PRN Colestipol Hcl (Colestipol Hcl), 1 TAB PO DAILY PRN for Diarrhea Allergies Coded Allergies: Sulfa Antibiotics (Verified Allergy, Unknown, UNKNOWN, 11/30/16) Sitagliptin (Verified Adverse Reaction, Unknown, abd pain, 11/30/16) Physical Exam Vital Signs Date Time Temp Pulse Resp B/P Pulse Ox O2 Delivery O2 Flow Rate FiO2 12/16/16 18:00 86 20 129/55 96 Room Air 12/16/16 17:15 Room Air 12/16/16 16:26 81 20 119/69 98 Room Air 12/16/16 14:45 68 18 127/60 98 Room Air 12/16/16 13:25 97 Room Air 12/16/16 13:23 73 12/16/16 12:48 36.4 79 16 169/87 97 Room Air Physical Exam GENERAL: Patient is awake, alert, and in no acute distress. Patient is resting comfortably and showing no signs of anxiety EYES: The conjunctivae are clear. The pupils are round and reactive. EARS, NOSE, MOUTH AND THROAT: The nose is without any evidence of any deformity. Mucous membranes are dry, tongue is midline NECK: The neck is nontender and supple. RESPIRATORY: Normal respiratory effort is noted there is no evidence of wheezing rhonchi or rales CARDIOVASCULAR: Regular rate and rhythm noted there no murmurs rubs or gallops normal S1 normal S2 GASTROINTESTINAL: The abdomen is soft. Bowel sounds are present in all quadrants. Abdomen is nontender MUSCULOSKELETAL/EXTREMITIES: There is no evidence of gross deformity full range of motion is noted in the hips and shoulders SKIN: Warm and dry. Trace pedal edema bilaterally. NEUROLOGIC: Patient is awake alert and oriented x3 strength is symmetric. Medical Decision & Procedures ER Provider Diagnostic Interpretation: X-ray results as stated below per interpretation by me and the radiologist. Radiology results as stated below per my review and radiologist interpretation: CHEST ONE VIEW PORTABLE CLINICAL HISTORY: Pain, radiating to the abdomen COMPARISON STUDY: 11/30/2016 FINDINGS: The heart is mildly enlarged. There is no failure. There is no lobar consolidation. There is minor basilar atelectasis. No pleural effusions are visualized. There is no free intraperitoneal air.[ IMPRESSION: No active disease in the chest. Electronically signed by: Micheal Perez M.D. 12/16/2016 2:07 PM Dictated Date/Time: 12/16/2016 2:[address] HEAD WITHOUT CONTRAST (CT) CLINICAL HISTORY: Confusion, acute alteration in mental status. COMPARISON STUDY: 04/17/2016 TECHNIQUE: Axial CT of the brain is performed from the vertex to the skull base. IV contrast was not administered for this examination. CT DOSE: 614.27 mGy.cm FINDINGS: No intra or extra-axial mass lesions are visualized. There is no CT evidence of acute cortical infarction. There is no evidence of midline shift. There is no acute hemorrhage. No calvarial fractures are visualized. There are subtle white matter hypodensities likely on a small vessel basis. There is mild dilatation of the anterior horns of the lateral ventricles, similar to December 2013. There is no evidence of acute sinusitis. Post craniotomy changes are visualized on the left. IMPRESSION: Post craniotomy changes. No acute intracranial findings. Electronically signed by: Micheal Perez M.D. 12/16/2016 2:48 PM Dictated Date/Time: 12/16/2016 2:46 PM Laboratory Results 12/16/16 13:15 Red Blood Count 3.97, Mean Corpuscular Volume 90.9, Mean Corpuscular Hemoglobin 29.7, Mean Corpuscular Hemoglobin Concent 32.7, Mean Platelet Volume 11.7, Neutrophils (%) (Auto) 73.6, Lymphocytes (%) (Auto) 16.3, Monocytes (%) (Auto) 5.8, Eosinophils (%) (Auto) 3.7, Basophils (%) (Auto) 0.4, Neutrophils # (Auto) 3.78, Lymphocytes # (Auto) 0.84, Monocytes # (Auto) 0.30, Eosinophils # (Auto) 0.19, Basophils # (Auto) 0.02 12/16/16 13:15 Test 12/16/16 13:15 12/16/16 14:13 12/16/16 14:55 12/16/16 17:43 White Blood Count 5.14 K/uL (4.8-10.8) Red Blood Count 3.97 M/uL (4.2-5.4) Hemoglobin 11.8 g/dL (12.0-16.0) Hematocrit 36.1 % (37-47) Mean Corpuscular Volume 90.9 fL (80-100) Mean Corpuscular Hemoglobin 29.7 pg (25-34) Mean Corpuscular Hemoglobin Concent 32.7 g/dl (32-36) Platelet Count 127 K/uL (130-400) Mean Platelet Volume 11.7 fL (7.4-10.4) Neutrophils (%) (Auto) 73.6 % Lymphocytes (%) (Auto) 16.3 % Monocytes (%) (Auto) 5.8 % Eosinophils (%) (Auto) 3.7 % Basophils (%) (Auto) 0.4 % Neutrophils # (Auto) 3.78 K/uL (1.4-6.5) Lymphocytes # (Auto) 0.84 K/uL (1.2-3.4) Monocytes # (Auto) 0.30 K/uL (0.11-0.59) Eosinophils # (Auto) 0.19 K/uL (0-0.5) Basophils # (Auto) 0.02 K/uL (0-0.2) RDW Standard Deviation 46.1 fL (36.4-46.3) RDW Coefficient of Variation 13.9 % (11.5-14.5) Immature Granulocyte % (Auto) 0.2 % Immature Granulocyte # (Auto) 0.01 K/uL (0.00-0.02) Prothrombin Time 10.6 SECONDS (9.0-12.0) Prothromb Time International Ratio 1.0 (0.9-1.1) Activated Partial Thromboplast Time 21.7 SECONDS (21.0-31.0) Partial Thromboplastin Ratio 0.8 Anion Gap 8.0 mmol/L (3-11) Est Creatinine Clear Calc Drug Dose 50.1 ml/min Estimated GFR () 63.8 Estimated GFR (Non- 55.1 BUN/Creatinine Ratio 17.3 (10-20) Calcium Level 8.5 mg/dl (8.5-10.1) Magnesium Level 1.7 mg/dl (1.8-2.4) Total Bilirubin 0.1 mg/dl (0.2-1) Direct Bilirubin mg/dl (0-0.2) Aspartate Amino Transf (AST/SGOT) 23 U/L (15-37) Alanine Aminotransferase (ALT/SGPT) 22 U/L (12-78) Alkaline Phosphatase 149 U/L (45-117) Total Creatine Kinase 59 U/L (26-192) Creatine Kinase MB 0.8 ng/ml (0.5-3.6) Creatine Kinase MB Ratio 1.4 (0-3.0) Troponin I < 0.015 ng/ml (0-0.045) Pro-B-Type Natriuretic Peptide 296 pg/ml (0-900) Total Protein 6.9 gm/dl (6.4-8.2) Albumin 3.5 gm/dl (3.4-5.0) Lipase 300 U/L (73-393) Beta-Hydroxybutyric Acid 0.61 mg/dL (0.2-2.81) Thyroid Stimulating Hormone (TSH) 5.500 uIu/ml (0.300-4.500) Free Thyroxine 0.89 ng/dl (0.80-1.60) Phenobarbital Level 30.4 mcg/mL (15.0-40.0) Urine Color YELLOW Urine Appearance CLOUDY (CLEAR) Urine pH 6.0 (4.5-7.5) Urine Specific [place] 1.013 (1.000-1.030) Urine Protein NEG (NEG) Urine Glucose (UA) 3+ (NEG) Urine Ketones NEG (NEG) Urine Occult Blood NEG (NEG) Urine Nitrite POS (NEG) Urine Bilirubin NEG (NEG) Urine Urobilinogen NEG (NEG) Urine Leukocyte Esterase SMALL (NEG) Urine WBC (Auto) >30 /hpf (0-5) Urine RBC (Auto) 5-10 /hpf (0-4) Urine Hyaline Casts (Auto) 1-5 /lpf (0-5) Urine Epithelial Cells (Auto) >30 /lpf (0-5) Urine Bacteria (Auto) 4+ (NEG) Venous Blood pH 7.32 (7.36-7.41) Venous Blood Partial Pressure CO2 56 mmHg (38.0-50.0) Venous Blood Partial Pressure O2 27 mmHg Venous Blood HCO3 28 mmol/L Venous Blood Oxygen Saturation < 60.0 % Venous Blood Base Excess 1.4 mmol/L Bedside Glucose 121 mg/dl (70-90) Laboratory results per my review. Medications Administered Medications (Trade) Dose Ordered Sig/Jo Ann Route Start Time Stop Time Status Last Admin Dose Admin Sodium Chloride 1,000 ml @ 125 mls/hr Q8H STAT IV 12/16/16 13:42 12/16/16 18:29 DC 12/16/16 14:44 125 MLS/HR Sodium Chloride (Nss 500ml) 500 ml @ 999 mls/hr Q31M STAT IV 12/16/16 13:42 12/16/16 14:12 DC 12/16/16 13:42 999 MLS/HR Acetaminophen (Tylenol Tab) 1,000 mg NOW STAT PO 12/16/16 14:59 12/16/16 15:00 DC 12/16/16 15:04 1,000 MG Magnesium Sulfate (Magnesium Sulfate) 1 gm NOW STAT IV 12/16/16 15:40 12/16/16 15:42 DC 12/16/16 15:59 1 GM Ceftriaxone Sodium (Rocephin Inj) 1 gm NOW STAT IV 12/16/16 15:40 12/16/16 15:42 DC 12/16/16 15:59 1 GM Insulin Human Regular (novoLIN-R U-100 PER UNIT) 6 units NOW STAT IV 12/16/16 15:40 12/16/16 15:42 DC 12/16/16 15:58 6 UNITS Insulin Glargine (Lantus Per Unit) 15 units NOW STAT SQ 12/16/16 16:44 12/16/16 16:45 DC 12/16/16 17:47 15 UNITS ECG Indication: weakness Rate (beats per minute): 73 Rhythm: normal sinus Findings: no ectopy, other (no ST segment abnormalities) Comparison ECG Date: 12/01/2016 Change: no significant change ED Course 1341: The patient was evaluated in room A9B. A complete history and physical examination were performed. 1342: NSS 500 ml @ 999 mls/hr IV, NSS 1000 ml @ 125 mls/hr IV. 1459: Acetaminophen 1000 mg PO. 1540: Insulin Human Regular 6 units IV, Rocephin Inj 1 gm IV, Magnesium Sulfate 1 gm IV. 1641: Insulin Human Regular 6 units SC. 1644: Insulin Glargine 15 units SQ. 1718: Upon reevaluation, the patient is resting comfortably. I discussed the results and treatment plan with her. She verbalized agreement of the treatment plan. She was discharged home. Medical Decision Prior records/ancillary studies reviewed and summarized above. Nursing notes reviewed. Additional history obtained from the patient's family members. Differential diagnosis: Etiologies such as metabolic, infection, hypo/hyperglycemia, electrolyte abnormalities, cardiac sources, intracerebral event, toxicologic, neurologic, as well as others were entertained. The patient is a 76-year-old female who presented to the emergency department for evaluation of hyperglycemia. The patient is a history of diabetes but only takes oral diabetes medications at this time. The patient is treated with IV fluids as well as insulin in the emergency apartment the patient also was found have signs of urinary tract infection. She was started on IV antibiotics. I discussed the patient's laboratory and radiographic studies with her. She was encouraged to drink plenty clear liquids and continue all medications as prescribed. I discussed his case with the emergency department case liner. They were able to discuss the case with the diabetic teaching nurse. At this time I discussed the case with the emergency department pharmacist and we were able to determine a starting dose for insulin on this patient. She was encouraged to continue all medications as prescribed and follow-up with her primary care physician as soon as possible. She was also encouraged to return to the emergency department immediately if symptoms change worsen or the need arises. Impression Primary Impression: Hyperglycemia Additional Impressions: UTI (urinary tract infection) Hypomagnesemia Dehydration Scribe Attestation The scribe's documentation has been prepared under my direction and personally reviewed by me in its entirety. I confirm that the note above accurately reflects all work, treatment, procedures, and medical decision making performed by me. Departure Information Dispostion Home / Self-Care Prescriptions Insulin Glargine (Lantus) 100 Unit/Ml Inj 15 UNITS SC QAM, #6 VIAL Prov: Demetri Dalal, DO 12/16/16 Referrals Kelli Gates C.R.N.P (PCP) Forms HOME CARE DOCUMENTATION FORM, IMPORTANT VISIT INFORMATION, WORK / SCHOOL INSTRUCTIONS Patient Instructions Hyperglycemia, My [facility], Urinary Tract Infecs Women Additional Instructions Follow-up with your family doctor this Monday. Drink plenty clear liquids. Continue all medications as prescribed. I would recommend having her electrolytes rechecked again with her family doctor next week. Problem Qualifiers Additional Impressions: UTI (urinary tract infection) Urinary tract infection type: acute cystitis Hematuria presence: without hematuria Qualified Codes: N30.00 - Acute cystitis without hematuria
[2016-12-16] MEDS ORDERED: CEPH500C2 PO (22:18)
[2016-12-17 05:40] LABS: ESTIMATED AVERAGE GLUCOSE 189 mg/dl; HA1C FLAG Normal (Normal)
[2017-04-12] MEDS ORDERED: CEFU1TAB35 PO (16:14)
== END 2016-12-16 18:02 | disposition home or self-care (01) ==
LOC: C.EDB 12:47 → C.EDA 18:02
DX: E11.65 Type 2 diabetes mellitus with hyperglycemia (principal); N30.00 Acute cystitis without hematuria; E83.42 Hypomagnesemia; E86.0 Dehydration; I10 Essential (primary) hypertension; G40.909 Epilepsy, unspecified, not intractable, without status epilepticus; E78.00 Pure hypercholesterolemia, unspecified; Z86.73 Personal history of transient ischemic attack (TIA), and cerebral infarction without residual deficits; I50.9 Heart failure, unspecified; I25.10 Atherosclerotic heart disease of native coronary artery without angina pectoris; Z83.3 Family history of diabetes mellitus; Z82.49 Family history of ischemic heart disease and other diseases of the circulatory system; Z82.0 Family history of epilepsy and other diseases of the nervous system; Z79.82 Long term (current) use of aspirin; Z79.4 Long term (current) use of insulin

== ENCOUNTER → 2017-01-04 | Outpatient (CLI) | payer BC ==
[~2017-01-04] MED LIST changes: +CEFU1TAB35 PO; +CEPH500C2 PO; +CHOL20007 PO; +DTR5 PO; +FLUT0.15 NAE; +INSDGI SC; +LCTX; -LEVE500T PO; -LEVO125T4 PO; +LEVO125T5 PO; +MIRA1TAB3 PO; +PRLSR20 PO; -SOLI10TA2 PO
== END | disposition home or self-care (01) ==
LOC: C.LABPVFM 11:33
PROVIDERS: ATTEND Nurse Practitioner
DX: E55.9 Vitamin D deficiency, unspecified (principal)

== ENCOUNTER → 2017-04-10 | Outpatient (CLI) | payer BC ==
[~2017-04-10] MED LIST changes: +LEVO125T4 PO; -LEVO125T5 PO
== END | disposition home or self-care (01) ==
LOC: C.LABSPEC 17:11
PROVIDERS: ATTEND Nurse Practitioner Family
DX: N39.0 Urinary tract infection, site not specified (principal)

== ENCOUNTER → 2017-04-11 | Outpatient (CLI) | payer BC ==
--- NOTE | 2017-04-11 15:18 | DIAGNOSTIC IMAGING REPORT ---
(RENAL)RETROPERITON COMP HISTORY: Tract infection N39.0 Recurrent [id number] COMPARISON: None. FINDINGS: Right kidney: Maximum dimension 10.7 cm. No evidence for hydronephrosis. Normal corticomedullary differentiation and cortical thickness. Left kidney: Maximum dimension 9.6 cm. No evidence for hydronephrosis. Normal corticomedullary differentiation and cortical thickness. Bladder: No bladder wall thickening. The bilateral ureteral jets were identified. IMPRESSION: Normal renal ultrasound. The above report was generated using voice recognition software. It may contain grammatical, syntax or spelling errors. Electronically signed by: Billy Mar M.D. 04/11/2017 3:16 PM Dictated Date/Time: 04/11/2017 3:16 PM
== END | disposition home or self-care (01) ==
LOC: C.ULTR 14:02
PROVIDERS: ATTEND Nurse Practitioner Family
DX: N39.0 Urinary tract infection, site not specified (principal)

== ENCOUNTER 2017-04-14 15:19 | Emergency (ER) | payer BC ==
[~2017-04-14] VITALS: Ht 152.4 cm; Wt 98.4 kg
[~2017-04-14 15:19] MED LIST changes: -CHOL20007 PO; -FLUT0.15 NAE; -LCTX; -MIRA1TAB3 PO; -PANC1CAP PO
[2017-04-14 15:26] VITALS: TEMP 36.7; Ht 152.4 cm; Wt 98.4 kg
--- NOTE | 2017-04-14 16:02 | EMERGENCY ROOM VISIT NOTE ---
History Report prepared by Lalitha: Milka Ramirez Under the Supervision of: Dr. Khadijah Valadez D.O. First contact with patient: 15:55 Chief Complaint: NAUSEA Stated Complaint: STOMACH PAIN Nursing Triage Summary: nausea all day denies v/d/or constipation History of Present Illness The patient is a 77 year old female who presents to the Emergency Room with complaints of constant nausea that started yesterday. Associated symptoms include urinary frequency, abdominal discomfort and loss of appetite. The patient reports having a bladder and kidney ultrasound performed yesterday secondary to abdominal pressure. States she is being evaluated for issues of incontinence. She denies vomiting, diarrhea, hematochezia, fevers, chills. hematuria, or any additional associated symptoms. Denies any recent travel, no recent illness, no change in medications, no change in diet. Patient denies sick contact recently. Source of History: patient Onset: Yesterday Position: abdomen, other (GI System ) Timing: constant Modifying Factors (Worsening): other (None) Modifying Factors (Relieving): other (None) Associated Symptoms: + urinary symptoms (Frequency), No fevers, No chills, No vomiting, No hematochezia, No diarrhea Review of Systems See HPI for pertinent positives & negatives. A total of 10 systems reviewed and were otherwise negative. 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 (3) Diab Patsy Wo Compl, Type Ii Or Unspec Type, Not Uncntrld (4) Epilepsy (5) Hypertension Nos (6) Pericardial Disease Nos (7) pericardial window (8) Pneumonia, Organism Nos (9) Pure Hypercholesterolem (10) Urin Tract Infection Nos Surgical Problems: (1) History of cholecystectomy Family History Diabetes mellitus Hypertension Seizures Social History Smoking Status: Never Smoker Alcohol Use: none Drug Use: none Housing Status: lives with family Occupation Status: retired Current/Historical Medications Scheduled Cefuroxime Axetil (Cefuroxime Axetil), 500 MG PO BID Cholecalciferol (Vitamin D3), 2,000 UNIT PO DAILY Fluticasone Propionate (Nasal) (Flonase Allergy Relief), 1 SPRAY SHARMILA BID Glimepiride (Glimepiride), 2 MG PO DAILY Insulin Glargine (Lantus), 15 UNITS SC QAM Levothyroxine Sodium (Levothyroxine Sodium), 125 MCG PO QAM Lisinopril (Lisinopril), 5 MG PO QAM Mirabegron (Myrbetriq Er), 50 MG PO DAILY Omeprazole (Prilosec), 20 MG PO DAILY Oxybutynin Chloride (Oxybutynin Chloride), 2.5 MG PO BID Pancrelipase (Lipase-Protease- (Creon), 72,000 UNIT PO UD Phenobarbital (Phenobarbital), 129.6 MG PO HS Phenobarbital (Phenobarbital), 64.8 MG PO QAM Simvastatin (Simvastatin), 20 MG PO HS Venlafaxine Hcl (Venlafaxine Extended Rel), 75 MG PO QAM Scheduled PRN Colestipol Hcl (Colestipol Hcl), 1 TAB PO DAILY PRN for Diarrhea Miscellaneous Medications Lactobacillus Acidophilus (Floranex), Unknown Dose Allergies Coded Allergies: Sulfa Antibiotics (Verified Allergy, Unknown, UNKNOWN, 04/14/17) Sitagliptin (Verified Adverse Reaction, Unknown, abd pain, 04/14/17) Physical Exam Vital Signs Date Time Temp Pulse Resp B/P (MAP) Pulse Ox O2 Delivery O2 Flow Rate FiO2 04/14/17 20:25 79 20 116/65 94 Room Air 04/14/17 18:27 73 16 113/56 95 Room Air 04/14/17 17:01 89 04/14/17 16:55 72 16 113/56 94 Room Air 04/14/17 15:26 36.7 85 20 122/58 94 Room Air Physical Exam GENERAL: alert, well appearing, well nourished, no distress, non-toxic EYE EXAM: normal conjunctiva, PERRL and EOM's grossly intact OROPHARYNX: Edentulous. no exudate, no erythema, lips, buccal mucosa, and tongue normal and mucous membranes are moist NECK: supple, no nuchal rigidity, no adenopathy, non-tender LUNGS: Clear to auscultation. Normal chest wall mechanics HEART: no murmurs, S1 normal and S2 normal ABDOMEN: Central abdominal discomfort, dull to percussion, abdomen soft, normo- active bowel sounds, no masses, no rebound or guarding. BACK: Back is symmetrical on inspection and there is no deformity, no midline tenderness, no CVA tenderness. SKIN: no rashes and no bruising UPPER EXTREMITIES: upper extremities are grossly normal. LOWER EXTREMITIES: No pitting edema. NEURO EXAM: Normal sensorium, cranial nerves II-XII grossly intact, normal speech, no gross weakness of arms, no gross weakness of legs. Medical Decision & Procedures ER Provider Diagnostic Interpretation: Radiology results have been interpreted by the radiologist and reviewed by me. CT ABD/PELVIS IV CONTRAST ONLY CLINICAL HISTORY: Abdominal pain, nausea, vomiting. COMPARISON STUDY: 03/29/2015 TECHNIQUE: Following the IV administration of 116 mL of Optiray-320, CT scan of the abdomen and pelvis was performed from the lung bases to the proximal femurs. Images are reviewed in the axial, sagittal, and coronal planes. IV contrast was administered without complication. A dose lowering technique was utilized adhering to the principles of ALARA. CT DOSE: 1198.07 mGy.cm FINDINGS: Lower chest: There is a calcified granuloma within the right middle lobe. There is respiratory motion artifact Liver: There is mild intrahepatic biliary ductal dilatation, similar to the prior study Gallbladder: Surgically absent Spleen: Normal in size and attenuation. Pancreas: Unremarkable. Adrenal glands: Unremarkable. Kidneys: No renal masses are visualized. There is no significant hydronephrosis. There is minimal prominence the proximal right ureter. Bowel: There are no transition zones indicate bowel obstruction. The appendix appears normal. There is no acute diverticulitis. There is fecal retention. Peritoneum: There is no intraperitoneal free air or abdominal ascites. Vasculature: The abdominal aorta is normal in course and caliber. Adenopathy: None. Pelvic viscera: The uterus is surgically absent. Prominence of the vaginal tissues remain similar to prior studies. Skeletal structures: No destructive osseous lesions are seen. IMPRESSION: 1. No acute abdominal or pelvic findings 2. Surgically absent gallbladder with stable mild intrahepatic biliary ductal dilatation 3. Normal appendix 4. No evidence of bowel obstruction. No evidence of free air 5. Fecal retention 6. No evidence of acute diverticulitis Electronically signed by: Micheal Perez M.D. 04/14/2017 7:12 PM Dictated Date/Time: 04/14/2017 7:03 PM Laboratory Results 04/14/17 16:22 Red Blood Count 4.18, Mean Corpuscular Volume 90.9, Mean Corpuscular Hemoglobin 29.4, Mean Corpuscular Hemoglobin Concent 32.4, Mean Platelet Volume 12.0, Neutrophils (%) (Auto) 76.5, Lymphocytes (%) (Auto) 15.1, Monocytes (%) (Auto) 5.5, Eosinophils (%) (Auto) 2.4, Basophils (%) (Auto) 0.4, Neutrophils # (Auto) 5.15, Lymphocytes # (Auto) 1.02, Monocytes # (Auto) 0.37, Eosinophils # (Auto) 0.16, Basophils # (Auto) 0.03 04/14/17 16:22 Test 04/14/17 16:22 04/14/17 17:34 04/14/17 18:23 White Blood Count 6.74 K/uL (4.8-10.8) Red Blood Count 4.18 M/uL (4.2-5.4) Hemoglobin 12.3 g/dL (12.0-16.0) Hematocrit 38.0 % (37-47) Mean Corpuscular Volume 90.9 fL (80-100) Mean Corpuscular Hemoglobin 29.4 pg (25-34) Mean Corpuscular Hemoglobin Concent 32.4 g/dl (32-36) Platelet Count 133 K/uL (130-400) Mean Platelet Volume 12.0 fL (7.4-10.4) Neutrophils (%) (Auto) 76.5 % Lymphocytes (%) (Auto) 15.1 % Monocytes (%) (Auto) 5.5 % Eosinophils (%) (Auto) 2.4 % Basophils (%) (Auto) 0.4 % Neutrophils # (Auto) 5.15 K/uL (1.4-6.5) Lymphocytes # (Auto) 1.02 K/uL (1.2-3.4) Monocytes # (Auto) 0.37 K/uL (0.11-0.59) Eosinophils # (Auto) 0.16 K/uL (0-0.5) Basophils # (Auto) 0.03 K/uL (0-0.2) RDW Standard Deviation 44.9 fL (36.4-46.3) RDW Coefficient of Variation 13.7 % (11.5-14.5) Immature Granulocyte % (Auto) 0.1 % Immature Granulocyte # (Auto) 0.01 K/uL (0.00-0.02) Anion Gap 5.0 mmol/L (3-11) Est Creatinine Clear Calc Drug Dose 55.3 ml/min Estimated GFR () 71.0 Estimated GFR (Non- 61.3 BUN/Creatinine Ratio 29.6 (10-20) Calcium Level 8.8 mg/dl (8.5-10.1) Total Bilirubin 0.5 mg/dl (0.2-1) Aspartate Amino Transf (AST/SGOT) 14 U/L (15-37) Alanine Aminotransferase (ALT/SGPT) 20 U/L (12-78) Alkaline Phosphatase 111 U/L (45-117) Troponin I < 0.015 ng/ml (0-0.045) Total Protein 6.8 gm/dl (6.4-8.2) Albumin 3.5 gm/dl (3.4-5.0) Globulin 3.3 gm/dl (2.5-4.0) Albumin/Globulin Ratio 1.1 (0.9-2) Lipase 193 U/L (73-393) Urine Color YELLOW Urine Appearance CLEAR (CLEAR) Urine pH 5.5 (4.5-7.5) Urine Specific [place] 1.010 (1.000-1.030) Urine Protein NEG (NEG) Urine Glucose (UA) NEG (NEG) Urine Ketones NEG (NEG) Urine Occult Blood NEG (NEG) Urine Nitrite NEG (NEG) Urine Bilirubin NEG (NEG) Urine Urobilinogen NEG (NEG) Urine Leukocyte Esterase SMALL (NEG) Urine WBC (Auto) 1-5 /hpf (0-5) Urine RBC (Auto) 0-4 /hpf (0-4) Urine Hyaline Casts (Auto) 1-5 /lpf (0-5) Urine Epithelial Cells (Auto) >30 /lpf (0-5) Urine Bacteria (Auto) NEG (NEG) Lactic Acid Level 0.5 mmol/L (0.4-2.0) Laboratory results per my review. Medications Administered Medications (Trade) Dose Ordered Sig/Jo Ann Route Start Time Stop Time Status Last Admin Dose Admin Ondansetron HCl (Zofran Inj) 4 mg NOW STAT IV 04/14/17 16:07 04/14/17 16:09 DC 04/14/17 16:07 4 MG Sodium Chloride 1,000 ml @ 250 mls/hr Q4H STAT IV 04/14/17 16:07 04/14/17 20:06 DC 7/21/17 16:07 250 MLS/HR ECG Indication: nausea Rate (beats per minute): 72 Rhythm: sinus rhythm Findings: no acute ischemic change, left axis deviation, no ectopy, other ( Normal intervals ) ED Course 1556: The patient was evaluated in room C12. A complete history and physical exam was performed. 1607: Ordered Sodium Chloride 1,000 ml @ 250 mls/hr IV, Zofran Injection 4 mg IV. 1917: Upon reevaluation, the patient has no further nausea or pain. Patient will complete PO challenge. 1930: Upon reevaluation, the patient is feeling better. I discussed the findings and the treatment plan with the patient. She verbalizes agreement and understanding. She was discharged home. Medical Decision Differential diagnosis: Etiologies such as gastroenteritis, food borne illness, infections, appendicitis , diverticulitis, inflammatory bowel disease, obstruction, GI bleed, biliary pathology, as well as others were entertained. Patient well-appearing here despite complaints. Vital signs reassuring. No evidence of bacteremia/sepsis, CT otherwise reassuring. Discussed possibly related to constipation. No evidence of additional infectious process, acute GI or pathology, no evidence of vascular pathology. Doubt cardiac pathology given negative troponin after greater than 8 hours of symptoms and reassuring EKG. Patient tolerated by mouth here without incident, was able to her with a steady gait. Discussed adequate hydration and diet, occasional use of over-the- counter GI medications to aid in constipation. Doubt UTI, urine specimen suboptimal. Patient and family aware of all results, discussed close follow-up with family doctor as a precaution, symptoms to watch and return for, they verbalized understanding were agreeable with plan. Blood Pressure Screening Patient's blood pressure: Elevated blood pressure Blood pressure disposition: Elevated BP felt to be situational Impression Primary Impression: Abdominal pain Additional Impressions: Nausea Constipation Scribe Attestation The scribe's documentation has been prepared under my direction and personally reviewed by me in its entirety. I confirm that the note above accurately reflects all work, treatment, procedures, and medical decision making performed by me. Departure Information Dispostion Home / Self-Care Referrals No Doctor, Assigned (PCP) Forms HOME CARE DOCUMENTATION FORM, IMPORTANT VISIT INFORMATION Patient Instructions My [facility] [id number] Additional Instructions Please continue regular medications as prescribed. Please sip water at frequent intervals to stay well-hydrated and eat a bland diet until you're feeling better. Please follow up with your family doctor to recheck your condition. If you have any recurrent or worsening abdominal pain, develop recurrent nausea or started vomiting, develop fevers or chills, notice a change in your bowel movements including black or bloody stools, develop dizziness, chest pain, trouble breathing, or you have any other new concerns, please return to the emergency room. Problem Qualifiers Primary Impression: Abdominal pain Abdominal location: generalized Qualified Codes: R10.84 - Generalized abdominal pain Additional Impressions: Constipation Constipation type: unspecified constipation type Qualified Codes: K59.00 - Constipation, unspecified
[2017-04-14] MEDS ORDERED: SODIUM CHLORIDE 0.9% 1000ML 1,000 ML IV STA (16:07)
[2017-04-14] MEDS ORDERED: ONDANSETRON INJ 2 MG/ML 2 ML VIAL IV STA (16:07)
[2017-04-14] MEDS ORDERED: FLUT0.15 NAE (16:14)
[2017-04-14] MEDS ORDERED: MIRA1TAB3 PO (16:14)
[2017-04-14] MEDS ORDERED: CHOL20007 PO (16:14)
[2017-04-14] MEDS ORDERED: PANC1CAP PO (16:14)
[2017-04-14] MEDS ORDERED: LCTX (16:14)
[2017-04-14 17:04] LABS: BASO % 0.4 %; BASO ABS # 0.03 K/uL (0-0.2); COMPLETE YES; EOS % 2.4 %; IG% 0.1 %; LYMPH % 15.1 %; LYMPH ABS # 1.02 K/uL (1.2-3.4); MEAN CELL VOLUME 90.9 fL (80-100); MEAN CORPUSCULAR HEMOGLOBIN 29.4 pg (25-34); MEAN CORPUSCULAR HGB CONC 32.4 g/dl (32-36); MONO % 5.5 %; NEUT % 76.5 %; PLATELET COUNT 133 K/uL (130-400); RED BLOOD COUNT 4.18 M/uL (4.2-5.4); WHITE BLOOD COUNT 6.74 K/uL (4.8-10.8)
[2017-04-14 17:27] LABS: ALT/SGPT 20 U/L (12-78); AST/SGOT 14 U/L (15-37); BLOOD UREA NITROGEN 27 mg/dl (7-18); BUN/CREATININE RATIO 29.6 (10-20); CALCIUM 8.8 mg/dl (8.5-10.1); CARBON DIOXIDE 27 mmol/L (21-32); CHLORIDE 108 mmol/L (98-107); CREATININE 0.91 mg/dl (0.60-1.20); GLUCOSE 100 mg/dl (70-99); POTASSIUM 4.3 mmol/L (3.5-5.1); SODIUM 140 mmol/L (136-145)
[2017-04-14 17:33] LABS: ALB/GLOB RATIO 1.1 (0.9-2); ALKALINE PHOSPHATASE 111 U/L (45-117)
[2017-04-14 17:50] LABS: URINE APPEARANCE CLEAR (CLEAR); URINE BILIRUBIN NEG (NEG); URINE COLOR YELLOW; URINE EPITHELIAL CELL AUTO >30 /lpf (0-5); URINE NITRITE NEG (NEG); URINE PH 5.5 (4.5-7.5); UROBILINOGEN NEG (NEG); ZZUR CULT IF INDIC CLEAN CATCH NO
[2017-04-14 17:54] LABS: MANUAL MICROSCOPIC REQUIRED? NO; REVIEW REQ? NO
[2017-04-14] MEDS ORDERED: OPTIRAY 320 IV PRN (19:00)
--- NOTE | 2017-04-14 19:13 | DIAGNOSTIC IMAGING REPORT ---
CT ABD/PELVIS IV CONTRAST ONLY CLINICAL HISTORY: Abdominal pain, nausea, vomiting. COMPARISON STUDY: 03/29/2015 TECHNIQUE: Following the IV administration of 116 mL of Optiray-320, CT scan of the abdomen and pelvis was performed from the lung bases to the proximal femurs. Images are reviewed in the axial, sagittal, and coronal planes. IV contrast was administered without complication. A dose lowering technique was utilized adhering to the principles of ALARA. CT DOSE: 1198.07 mGy.cm FINDINGS: Lower chest: There is a calcified granuloma within the right middle lobe. There is respiratory motion artifact Liver: There is mild intrahepatic biliary ductal dilatation, similar to the prior study Gallbladder: Surgically absent Spleen: Normal in size and attenuation. Pancreas: Unremarkable. Adrenal glands: Unremarkable. Kidneys: No renal masses are visualized. There is no significant hydronephrosis. There is minimal prominence the proximal right ureter. Bowel: There are no transition zones indicate bowel obstruction. The appendix appears normal. There is no acute diverticulitis. There is fecal retention. Peritoneum: There is no intraperitoneal free air or abdominal ascites. Vasculature: The abdominal aorta is normal in course and caliber. Adenopathy: None. Pelvic viscera: The uterus is surgically absent. Prominence of the vaginal tissues remain similar to prior studies. Skeletal structures: No destructive osseous lesions are seen. IMPRESSION: 1. No acute abdominal or pelvic findings 2. Surgically absent gallbladder with stable mild intrahepatic biliary ductal dilatation 3. Normal appendix 4. No evidence of bowel obstruction. No evidence of free air 5. Fecal retention 6. No evidence of acute diverticulitis Electronically signed by: Micheal Perez M.D. 04/14/2017 7:12 PM Dictated Date/Time: 04/14/2017 7:03 PM
[2017-04-14 20:25] VITALS: BP 116/65; PULSE 79; O2SAT 94
== END 2017-04-14 20:31 | disposition home or self-care (01) ==
LOC: C.EDB 15:24 → C.EDC 20:31
DX: R10.9 Unspecified abdominal pain (principal); R11.0 Nausea; K59.00 Constipation, unspecified; I10 Essential (primary) hypertension; E78.00 Pure hypercholesterolemia, unspecified; I25.10 Atherosclerotic heart disease of native coronary artery without angina pectoris; I50.9 Heart failure, unspecified; G40.909 Epilepsy, unspecified, not intractable, without status epilepticus; Z87.440 Personal history of urinary (tract) infections; Z90.49 Acquired absence of other specified parts of digestive tract; Z79.4 Long term (current) use of insulin; Z79.899 Other long term (current) drug therapy; Z88.2 Allergy status to sulfonamides; Z88.8 Allergy status to other drugs, medicaments and biological substances; Z83.3 Family history of diabetes mellitus; Z82.49 Family history of ischemic heart disease and other diseases of the circulatory system; Z82.0 Family history of epilepsy and other diseases of the nervous system

== ENCOUNTER → 2017-05-01 | Outpatient (CLI) | payer BC ==
[~2017-05-01] MED LIST changes: -ASPI81TA28 PO; -CEPH500C2 PO; +CHOL20007 PO; +FLUT0.15 NAE; +LCTX; +MIRA1TAB3 PO; +PANC1CAP PO
[2017-05-01 18:43] LABS: ALT/SGPT 22 U/L (12-78); BLOOD UREA NITROGEN 28 mg/dl (7-18); BUN/CREATININE RATIO 25.2 (10-20); CALCIUM 8.5 mg/dl (8.5-10.1); CARBON DIOXIDE 30 mmol/L (21-32); CHLORIDE 105 mmol/L (98-107); GLUCOSE 85 mg/dl (70-99); POTASSIUM 4.6 mmol/L (3.5-5.1); SODIUM 139 mmol/L (136-145)
[2017-05-01 18:56] LABS: ALB/GLOB RATIO 1.1 (0.9-2); ALKALINE PHOSPHATASE 113 U/L (45-117); AST/SGOT 18 U/L (15-37)
[2017-05-02 06:38] LABS: ESTIMATED AVERAGE GLUCOSE 143 mg/dl; HA1C FLAG Normal (Normal)
== END | disposition home or self-care (01) ==
LOC: C.LABPVFM 14:06
PROVIDERS: ATTEND Nurse Practitioner
DX: E03.9 Hypothyroidism, unspecified (principal); E11.65 Type 2 diabetes mellitus with hyperglycemia

== ENCOUNTER → 2017-08-31 | Outpatient (CLI) | payer BC ==
[~2017-08-31] MED LIST changes: -INSDGI SC; -LEVO125T4 PO; +LEVO125T5 PO
[2017-08-31 18:07] LABS: CHOLESTEROL/HDL RATIO 2.3
[2017-08-31 18:55] LABS: BASO % 0.3 %; BASO ABS # 0.02 K/uL (0-0.2); COMPLETE YES; EOS % 3.3 %; HEMATOCRIT 37.5 % (37-47); IG% 0.3 %; LYMPH ABS # 1.14 K/uL (1.2-3.4); MEAN CELL VOLUME 91.7 fL (80-100); MEAN CORPUSCULAR HEMOGLOBIN 30.6 pg (25-34); MEAN CORPUSCULAR HGB CONC 33.3 g/dl (32-36); MEAN PLATELET VOLUME 12.9 fL (7.4-10.4); MONO % 7.7 %; NEUT % 69.4 %; PLATELET COUNT 127 K/uL (130-400); PLT ESTIMATE DECREASED; RED BLOOD COUNT 4.09 M/uL (4.2-5.4)
[2017-09-01 06:44] LABS: ESTIMATED AVERAGE GLUCOSE 151 mg/dl; HA1C FLAG Normal (Normal)
== END | disposition home or self-care (01) ==
LOC: C.LABPVFM 14:10
PROVIDERS: ATTEND Nurse Practitioner
DX: E78.5 Hyperlipidemia, unspecified (principal); G40.909 Epilepsy, unspecified, not intractable, without status epilepticus; E11.65 Type 2 diabetes mellitus with hyperglycemia

== ENCOUNTER → 2017-09-20 | Outpatient (CLI) | payer BC ==
[~2017-09-20] MED LIST changes: +ACET-1693 PO; +CEPH500C PO; +INSDGI SC; +INSDGI SQ; +LACT1TAB4 PO; +LISI-730 PO; -LSN5 PO; +LSX20 PO; +PHEN-876 PO; +POLY1POW2 PO; +SOLI10TA2 PO
--- NOTE | 2017-09-21 13:48 | MAMMOGRAPHY REPORT ---
BILATERAL DIGITAL SCREENING MAMMOGRAM TOMOSYNTHESIS WITH CAD: 09/20/2017 CLINICAL HISTORY: Routine screening. Patient has no complaints. TECHNIQUE: Breast tomosynthesis in addition to standard 2D mammography was performed. Current study was also evaluated with a Computer Aided Detection (CAD) system. COMPARISON: Comparison is made to exams dated: 08/23/2016 mammogram, 11/26/2012 mammogram, 11/25/2011 ma mmogram, 11/23/2010 mammogram, 11/18/2009 mammogram - [facility], and 10/31/2008. BREAST COMPOSITION: There are scattered areas of fibroglandular density in both breasts. FINDINGS: There are diffuse bilateral benign rim calcifications, coarse rodlike calcifications and mi ld vascular calcifications in the breasts. No suspicious mass, architectural distortion or cluster o f suspicious microcalcifications is seen. IMPRESSION: ACR BI-RADS CATEGORY 1: NEGATIVE There is no mammographic evidence of malignancy. A 1 year screening mammogram is recommended. The pa tient will receive written notification of the results. Approximately 10% of breast cancers are not detected with mammography. A negative mammographic report should not delay biopsy if a clinically suggestive mass is present. Ariela Gonzalez M.D. ay/:09/20/2017 17:37:57 Geology Associate: Katy CLAYTON(Florencia)(Barry), [facility] letter sent: Normal 1/2 BI-RADS Code: ACR BI-RADS Category 1: Negative
== END | disposition home or self-care (01) ==
LOC: C.MAMM 17:25
PROVIDERS: ATTEND Nurse Practitioner
DX: Z12.31 Encounter for screening mammogram for malignant neoplasm of breast (principal)

== ENCOUNTER 2017-10-16 19:44 | Emergency (ER) | payer BC ==
[~2017-10-16] VITALS: Ht 154.9 cm; Wt 110.2 kg
[~2017-10-16 19:44] MED LIST changes: -ACET-1693 PO; -CEPH500C PO; -INSDGI SC; -INSDGI SQ; -LACT1TAB4 PO; -LISI-730 PO; +LSN5 PO; -LSX20 PO; -PHEN-876 PO; -POLY1POW2 PO; -SOLI10TA2 PO
[2017-10-16 19:47] VITALS: TEMP 36.5; Ht 154.9 cm; Wt 110.2 kg
--- NOTE | 2017-10-16 21:15 | EMERGENCY ROOM VISIT NOTE ---
History Report prepared by Lalitha: Subha Wright Under the Supervision of: Dr. Khadijah Valadez D.O. First contact with patient: 20:59 Chief Complaint: CHEST PAIN Stated Complaint: CHEST PAIN Nursing Triage Summary: Pt complains of right sided chest pain since this afternoon. Pt has scabbed area to right upper chest. Denies any cardiac history. History of Present Illness The patient is a 77 year old female who presents to the Emergency Room with complaints of intermittent right sided chest pain beginning about 9 hours ago. The patient states her pain shoots straight through to her back. She denies and radiation of her pain to her arm. She states her pain worsens with she takes a deep breath and with movement. The patient denies any recent illness. The patient denies any cardiac history. Pt denies headache, cough, change in vision , fevers, dizziness, lightheadedness, shortness of breath, nausea, vomiting, diarrhea, pain with urination, and melena. No recent medication changes. No similar episodes prior. No current pain. Source of History: patient Onset: 9 hours ago Position: chest (right) Quality: other (radiated straight through to back) Modifying Factors (Worsening): breathing Associated Symptoms: + chest pain, + back pain, No fevers, No headache, No cough, No SOB, No nausea, No vomiting, No diarrhea, No urinary symptoms Review of Systems See HPI for pertinent positives & negatives. A total of 10 systems reviewed and were otherwise negative. 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 (3) Diab Patsy Wo Compl, Type Ii Or Unspec Type, Not Uncntrld (4) Epilepsy (5) Hypertension Nos (6) Pericardial Disease Nos (7) pericardial window (8) Pneumonia, Organism Nos (9) Pure Hypercholesterolem (10) Urin Tract Infection Nos Surgical Problems: (1) History of cholecystectomy Family History Diabetes mellitus Hypertension Seizures Social History Smoking Status: Never Smoker Alcohol Use: none Drug Use: none Housing Status: lives with family Occupation Status: retired Current/Historical Medications Scheduled Cholecalciferol (Vitamin D3), 2,000 UNIT PO DAILY Fluticasone Propionate (Nasal) (Flonase Allergy Relief), 1 SPRAY SHARMILA BID Glimepiride (Glimepiride), 2 MG PO DAILY Insulin Glargine (Lantus), 15 UNITS SQ QAM Levothyroxine Sodium (Levothyroxine Sodium), 125 MCG PO QAM Lisinopril (Lisinopril), 5 MG PO QAM Mirabegron (Myrbetriq Er), 50 MG PO DAILY Omeprazole (Prilosec), 20 MG PO DAILY Oxybutynin Chloride (Oxybutynin Chloride), 2.5 MG PO BID Pancrelipase (Lipase-Protease- (Creon), 72,000 UNIT PO UD Phenobarbital (Phenobarbital), 129.6 MG PO HS Phenobarbital (Phenobarbital), 64.8 MG PO QAM Simvastatin (Simvastatin), 20 MG PO HS Venlafaxine Hcl (Venlafaxine Extended Rel), 75 MG PO QAM Scheduled PRN Colestipol Hcl (Colestipol Hcl), 1 TAB PO DAILY PRN for Diarrhea Allergies Coded Allergies: Sulfa Antibiotics (Verified Allergy, Unknown, UNKNOWN, 10/16/17) Sitagliptin (Verified Adverse Reaction, Unknown, abd pain, 10/16/17) Physical Exam Vital Signs Date Time Temp Pulse Resp B/P (MAP) Pulse Ox O2 Delivery O2 Flow Rate FiO2 10/17/17 01:10 70 18 142/76 96 Room Air 10/16/17 23:07 72 18 141/74 96 Room Air 10/16/17 21:52 73 10/16/17 21:22 80 18 137/53 96 Room Air 10/16/17 19:47 36.5 81 20 136/76 95 Room Air Physical Exam GENERAL: alert, well appearing, well nourished, no distress, non-toxic EYE EXAM: normal conjunctiva, PERRL and EOM's grossly intact OROPHARYNX: no exudate, no erythema, lips, buccal mucosa, and tongue normal and mucous membranes are moist NECK: supple, no nuchal rigidity, no adenopathy, non-tender LUNGS: Clear to auscultation. Normal chest wall mechanics HEART: no murmurs, S1 normal and S2 normal ABDOMEN: abdomen soft, non-tender, normo-active bowel sounds, no masses, no rebound or guarding. BACK: Back is symmetrical on inspection and there is no deformity, no midline tenderness, no CVA tenderness. CHEST: Mild reproducible right chest wall pain, no evidence of trauma. Single area of excoriation noted right upper chest wall, no surrounding erythema, not consistent with cellulitis or zoster SKIN: no rashes and no bruising UPPER EXTREMITIES: upper extremities are grossly normal. Nml ROM, nml pulses, no edema. LOWER EXTREMITIES: No pitting edema. Nml pulses, nml ROM. NEURO EXAM: Normal sensorium, cranial nerves II-XII grossly intact, normal speech, no gross weakness of arms, no gross weakness of legs. Medical Decision & Procedures ER Provider Diagnostic Interpretation: Radiology results have been interpreted by the radiologist and reviewed by me. CHEST ONE VIEW PORTABLE FINDINGS: Mild cardiomegaly. Lungs are clear. Diaphragms are smooth. Costophrenic angles are sharp. IMPRESSION: Mild cardiomegaly. Otherwise negative study. The above report was generated using voice recognition software. It may contain grammatical, syntax or spelling errors. Electronically signed by: Billy Mar M.D. Laboratory Results 10/16/17 22:10 Red Blood Count 3.99, Mean Corpuscular Volume 92.5, Mean Corpuscular Hemoglobin 30.3, Mean Corpuscular Hemoglobin Concent 32.8, Mean Platelet Volume 11.9, Neutrophils (%) (Auto) 73.8, Lymphocytes (%) (Auto) 15.5, Monocytes (%) (Auto) 7.6, Eosinophils (%) (Auto) 2.5, Basophils (%) (Auto) 0.3, Neutrophils # (Auto) 4.49, Lymphocytes # (Auto) 0.94, Monocytes # (Auto) 0.46, Eosinophils # (Auto) 0.15, Basophils # (Auto) 0.02 10/16/17 21:30 Test 10/16/17 21:30 10/16/17 22:10 Anion Gap 6.0 mmol/L (3-11) Est Creatinine Clear Calc Drug Dose 59.7 ml/min Estimated GFR () 70.1 Estimated GFR (Non- 60.5 BUN/Creatinine Ratio 27.1 (10-20) Calcium Level 8.5 mg/dl (8.5-10.1) Magnesium Level 1.6 mg/dl (1.8-2.4) Total Bilirubin 0.1 mg/dl (0.2-1) Aspartate Amino Transf (AST/SGOT) 15 U/L (15-37) Alanine Aminotransferase (ALT/SGPT) 21 U/L (12-78) Alkaline Phosphatase 131 U/L (45-117) Troponin I < 0.015 ng/ml (0-0.045) Pro-B-Type Natriuretic Peptide 343 pg/ml (0-1800) Total Protein 7.0 gm/dl (6.4-8.2) Albumin 3.4 gm/dl (3.4-5.0) Globulin 3.6 gm/dl (2.5-4.0) Albumin/Globulin Ratio 1.0 (0.9-2) White Blood Count 6.08 K/uL (4.8-10.8) Red Blood Count 3.99 M/uL (4.2-5.4) Hemoglobin 12.1 g/dL (12.0-16.0) Hematocrit 36.9 % (37-47) Mean Corpuscular Volume 92.5 fL (80-100) Mean Corpuscular Hemoglobin 30.3 pg (25-34) Mean Corpuscular Hemoglobin Concent 32.8 g/dl (32-36) Platelet Count 112 K/uL (130-400) Mean Platelet Volume 11.9 fL (7.4-10.4) Neutrophils (%) (Auto) 73.8 % Lymphocytes (%) (Auto) 15.5 % Monocytes (%) (Auto) 7.6 % Eosinophils (%) (Auto) 2.5 % Basophils (%) (Auto) 0.3 % Neutrophils # (Auto) 4.49 K/uL (1.4-6.5) Lymphocytes # (Auto) 0.94 K/uL (1.2-3.4) Monocytes # (Auto) 0.46 K/uL (0.11-0.59) Eosinophils # (Auto) 0.15 K/uL (0-0.5) Basophils # (Auto) 0.02 K/uL (0-0.2) RDW Standard Deviation 47.3 fL (36.4-46.3) RDW Coefficient of Variation 14.0 % (11.5-14.5) Immature Granulocyte % (Auto) 0.3 % Immature Granulocyte # (Auto) 0.02 K/uL (0.00-0.02) Activated Partial Thromboplast Time 24.4 SECONDS (21.0-31.0) Partial Thromboplastin Ratio 0.9 D-Dimer 560 ug/L FEU (0-500) Laboratory results per my review. Medications Administered Medications (Trade) Dose Ordered Sig/Jo Ann Route Start Time Stop Time Status Last Admin Dose Admin Magnesium Sulfate (Magnesium Sulfate) 2 gm NOW STAT IV 10/16/17 22:06 10/16/17 22:09 DC 10/16/17 22:14 2 GM ECG Indication: chest pain Rate (beats per minute): 76 Rhythm: sinus rhythm Findings: T-wave inversion (in aVL), no acute ischemic change, left axis deviation, no ectopy, other (normal intervals baseline artifact ) Comparison ECG Date: 04/14/17 Change: T wave changes are new. EKG interpreted by me. ED Course 2107: The patient was evaluated in room C2B. A complete history and physical exam was performed. 0035: Pt reevaluated and updated on results. CTA chest pending. Will sign out to Dr. De Jesus. Medical Decision Differential diagnosis: Etiologies such as cardiac ischemia, aortic dissection, pulmonary embolism, pneumonia, pneumothorax, musculoskeletal, infections, pericarditis, myocarditis , esophageal rupture, gastrointestinal, as well as others were entertained. I have a low suspicion for ACS or acute cardiac pathology. Patient's troponin negative after greater than 8 hours of pain intermittently. Pain reproducible and seems worse with movement of the arm and palpation despite patient not recalling any specific trauma or change in activity. No evidence of acute respiratory pathology, labs otherwise reassuring, vital signs stable throughout patient with some hypertension noted here, however has history of hypertension. Doubt hypertensive urgency/emergency. No evidence of vascular pathology, doubt occult infectious etiology. Patient otherwise had no complaints, was well -appearing throughout, tolerating sips of by mouth at bedside. Discussed plan with she and family that if patient continues to be well-appearing and CAT scan of the chest negative, but I feel she can be safely discharged home to follow closely with her family doctor. They verbalized understanding were agreeable with plan. Discussed symptoms to watch and return for, they verbalized understanding. Medication Reconcilliation Current Medication List: was personally reviewed by me Blood Pressure Screening Patient's blood pressure: Elevated blood pressure Blood pressure disposition: Elevated BP felt to be situational Impression Primary Impression: Right-sided chest pain Scribe Attestation The scribe's documentation has been prepared under my direction and personally reviewed by me in its entirety. I confirm that the note above accurately reflects all work, treatment, procedures, and medical decision making performed by me. Departure Information Dispostion Home / Self-Care Referrals Kelli Gates C.R.N.P (PCP) Patient Instructions My [facility] Additional Instructions Please call and follow-up with your regular doctor about your pain today. If you have any worsening symptoms or new concerns, please return to the emergency room. Please continue your regular medicines as prescribed. Please drink plenty of water. Do not engage in any heavy lifting or strenuous activity until you are seen by your family doctor. If you have any recurrent pain, develop trouble breathing, vomiting, fevers, dizziness, pain into the arm, or you have any other new or concerning symptoms, please return to the emergency room.
--- NOTE | 2017-10-16 21:51 | DIAGNOSTIC IMAGING REPORT ---
CHEST ONE VIEW PORTABLE CLINICAL HISTORY: chest pain dyspnea COMPARISON STUDY: 12/16/2016 FINDINGS: Mild cardiomegaly. Lungs are clear. Diaphragms are smooth. Costophrenic angles are sharp. IMPRESSION: Mild cardiomegaly. Otherwise negative study. The above report was generated using voice recognition software. It may contain grammatical, syntax or spelling errors. Electronically signed by: Billy Mar M.D. 10/16/2017 9:50 PM Dictated Date/Time: 10/16/2017 9:49 PM
[2017-10-16 21:59] LABS: ALBUMIN 3.4 gm/dl (3.4-5.0); ALT/SGPT 21 U/L (12-78); BLOOD UREA NITROGEN 25 mg/dl (7-18); CALCIUM 8.5 mg/dl (8.5-10.1); CARBON DIOXIDE 27 mmol/L (21-32); CREATININE 0.92 mg/dl (0.60-1.20); GLUCOSE 235 mg/dl (70-99); POTASSIUM 4.3 mmol/L (3.5-5.1); SODIUM 139 mmol/L (136-145)
[2017-10-16 22:05] LABS: ALKALINE PHOSPHATASE 131 U/L (45-117); AST/SGOT 15 U/L (15-37)
[2017-10-16] MEDS ORDERED: MAGNESIUM SULFATE 1GM / D5W 1 GM BAG IV STA (22:06)
[2017-10-16 22:17] LABS: BASO % 0.3 %; BASO ABS # 0.02 K/uL (0-0.2); EOS % 2.5 %; EOS ABS # 0.15 K/uL (0-0.5); HEMATOCRIT 36.9 % (37-47); HEMOGLOBIN 12.1 g/dL (12.0-16.0); IG# 0.02 K/uL (0.00-0.02); LYMPH % 15.5 %; LYMPH ABS # 0.94 K/uL (1.2-3.4); MEAN CELL VOLUME 92.5 fL (80-100); MEAN CORPUSCULAR HEMOGLOBIN 30.3 pg (25-34); MEAN CORPUSCULAR HGB CONC 32.8 g/dl (32-36); MEAN PLATELET VOLUME 11.9 fL (7.4-10.4); MONO % 7.6 %; MONO ABS # 0.46 K/uL (0.11-0.59); NEUT % 73.8 %; NEUT ABS # 4.49 K/uL (1.4-6.5); PLATELET COUNT 112 K/uL (130-400); RED CELL DISTRIBUTION WIDTH SD 47.3 fL (36.4-46.3); WHITE BLOOD COUNT 6.08 K/uL (4.8-10.8)
[2017-10-16 22:38] LABS: PTT PATIENT 24.4 SECONDS (21.0-31.0)
[2017-10-16] MEDS ORDERED: OPTIRAY 320 IV PRN (23:15)
[2017-10-16] MEDS ORDERED: INSDGI SQ (23:42)
[2017-10-17 01:10] VITALS: BP 142/76; PULSE 70; O2SAT 96
--- NOTE | 2017-10-17 06:58 | EMERGENCY ROOM VISIT NOTE ---
ED Visit Note First contact with patient: 00:20 77 yr old female signed out to me by Dr Valadez pending CT PE study. Already here several hours after having symptoms > 6 hours of reproducible right chest discomfort worse with moving right arm and palpation. She is in no distress, happy and looks well. CT PE is read as negative. Patient was discharged per plan in no distress very much wanting to go home.
--- NOTE | 2017-10-17 07:34 | DIAGNOSTIC IMAGING REPORT ---
CHEST CTA for PULMONARY ARTERIES CT DOSE: 437.39 mGy.cm HISTORY: Atypical chest pain. Elevated d-dimer. TECHNIQUE: Multiaxial CT images of the chest were performed following the intravenous administration of contrast to evaluate the pulmonary arteries. Maximal intensity projection images were also obtained. A dose lowering technique was utilized adhering to the principles of ALARA. COMPARISON STUDY: Chest 10/16/2017. FINDINGS: Punctate calcified granuloma within the spleen. Cholecystectomy. The visualized liver appears unremarkable. The heart is mildly enlarged. No pleural or pericardial effusions. A few borderline enlarged mediastinal lymph nodes. Dominant right peritracheal lymph node measures 10 mm. Punctate calcified granuloma seen within the left upper lobe and right middle lobe. Linear densities within the right middle lobe favor subsegmental atelectasis. No focal lung consolidations to suggest pneumonia. Normal caliber thoracic aorta with no evidence for dissection. No filling defects to suggest pulmonary embolus. IMPRESSION: 1. No evidence for pulmonary embolus. 2. A few borderline enlarged mediastinal lymph nodes. 3. Mild cardiomegaly. Electronically signed by: Nate Holt M.D. 10/17/2017 7:33 AM Dictated Date/Time: 10/17/2017 7:27 AM
== END 2017-10-17 01:18 | disposition home or self-care (01) ==
LOC: C.EDB 19:45 → C.EDC 10-17 01:18
DX: R07.9 Chest pain, unspecified (principal); I10 Essential (primary) hypertension; I25.10 Atherosclerotic heart disease of native coronary artery without angina pectoris; E11.9 Type 2 diabetes mellitus without complications; G40.909 Epilepsy, unspecified, not intractable, without status epilepticus; E78.00 Pure hypercholesterolemia, unspecified; Z79.4 Long term (current) use of insulin; Z83.3 Family history of diabetes mellitus; Z82.49 Family history of ischemic heart disease and other diseases of the circulatory system; Z82.0 Family history of epilepsy and other diseases of the nervous system

== ENCOUNTER → 2017-10-20 | Outpatient (CLI) | payer BC ==
[~2017-10-20] MED LIST changes: -CEFU1TAB35 PO; +INSDGI SQ; -LCTX
== END | disposition home or self-care (01) ==
LOC: C.LABPVFM 15:05
PROVIDERS: ATTEND Nurse Practitioner Family
DX: E83.42 Hypomagnesemia (principal); R07.89 Other chest pain

== ENCOUNTER → 2017-12-25 | Outpatient (CLI) | payer BC ==
[2017-12-25 17:38] LABS: BASO % 0.5 %; BASO ABS # 0.03 K/uL (0-0.2); EOS % 4.1 %; EOS ABS # 0.27 K/uL (0-0.5); IG# 0.01 K/uL (0.00-0.02); LYMPH % 20.7 %; LYMPH ABS # 1.35 K/uL (1.2-3.4); MEAN CELL VOLUME 91.1 fL (80-100); MEAN CORPUSCULAR HEMOGLOBIN 30.4 pg (25-34); MEAN CORPUSCULAR HGB CONC 33.3 g/dl (32-36); MEAN PLATELET VOLUME 12.3 fL (7.4-10.4); MONO % 7.5 %; MONO ABS # 0.49 K/uL (0.11-0.59); NEUT ABS # 4.37 K/uL (1.4-6.5); PLATELET COUNT 139 K/uL (130-400); RED CELL DISTRIBUTION WIDTH CV 13.8 % (11.5-14.5); RED CELL DISTRIBUTION WIDTH SD 45.5 fL (36.4-46.3); WHITE BLOOD COUNT 6.52 K/uL (4.8-10.8)
[2017-12-25 17:49] LABS: ALBUMIN 3.7 gm/dl (3.4-5.0); ALT/SGPT 30 U/L (12-78); AST/SGOT 17 U/L (15-37); BLOOD UREA NITROGEN 21 mg/dl (7-18); CALCIUM 8.7 mg/dl (8.5-10.1); CARBON DIOXIDE 28 mmol/L (21-32); CREATININE 1.15 mg/dl (0.60-1.20); GLUCOSE 120 mg/dl (70-99); POTASSIUM 4.5 mmol/L (3.5-5.1); SODIUM 139 mmol/L (136-145)
[2017-12-25 17:51] LABS: ALKALINE PHOSPHATASE 145 U/L (45-117); TOTAL PROTEIN 7.3 gm/dl (6.4-8.2)
[2017-12-26 07:00] LABS: HEMOGLOBIN A1C 8.3 % (4.5-5.6)
== END | disposition home or self-care (01) ==
LOC: C.LABPVFM 15:08
PROVIDERS: ATTEND Nurse Practitioner
DX: E83.42 Hypomagnesemia (principal); E11.65 Type 2 diabetes mellitus with hyperglycemia; D69.6 Thrombocytopenia, unspecified

== ENCOUNTER → 2018-01-01 | Outpatient (CLI) | payer BC | END | disposition home or self-care (01) | LOC: C.LABSPEC 17:06 | PROVIDERS: ATTEND Urology | DX: N39.0 Urinary tract infection, site not specified (principal) ==

== ENCOUNTER 2018-01-05 14:35 | Emergency (ER) | payer BC ==
[~2018-01-05] VITALS: Ht 152.4 cm; Wt 110.0 kg
[2018-01-05 14:39] VITALS: TEMP 36.7; Ht 152.4 cm; Wt 110.0 kg
--- NOTE | 2018-01-05 15:28 | EMERGENCY ROOM VISIT NOTE ---
History Report prepared by Lalitha: Willy Torrez Under the Supervision of: Dr. Cooper Gomez M.D. First contact with patient: 15:20 Chief Complaint: SORETHROAT Stated Complaint: SORE THROAT, FILLING UP WITH FLUID History of Present Illness The patient is a 77 year old female who presents to the Emergency Room with complaints of a persistent illness that started a couple days ago. She states that she has a sore throat, and her legs are swelling up with fluid. The patient says that the swelling started a couple days ago as well. She adds that she has had a mild cough that is productive. She notes that she has chest pain with shortness of breath. Per the patient's family, the patient was recently seen at the [facility], and was diagnosed with a UTI, but has not picked up the antibiotics prescribed yet. The patient notes no history of CHF. She denies any recent long travels. Source of History: patient, family Onset: A couple days ago Position: other (global) Quality: other (illness) Associated Symptoms: + sorethroat, + cough, + chest pain, + SOB Note: Associated symptoms: Leg swelling. Review of Systems See HPI for pertinent positives and negatives. A total of ten systems were reviewed and were otherwise negative. Past Medical & Surgical Medical Problems: (1) Congestive Heart Failure Nos (2) Coronary Atherosclerosis Of [place] Coronary Vessel (3) Diab Patsy Wo Compl, Type Ii Or Unspec Type, Not Uncntrld (4) Epilepsy (5) Hypertension Nos (6) Pericardial Disease Nos (7) pericardial window (8) Pneumonia, Organism Nos (9) Pure Hypercholesterolem (10) Urin Tract Infection Nos Surgical Problems: (1) History of cholecystectomy Family History Diabetes mellitus Hypertension Seizures Social History Smoking Status: Never Smoker Alcohol Use: none Drug Use: none Housing Status: lives with family Occupation Status: retired Current/Historical Medications Scheduled Cholecalciferol (Vitamin D3), 2,000 UNIT PO DAILY Fluticasone Propionate (Nasal) (Flonase Allergy Relief), 1 SPRAY SHARMILA BID Glimepiride (Glimepiride), 2 MG PO DAILY Insulin Glargine (Lantus), 15 UNITS SQ QAM Levothyroxine Sodium (Levothyroxine Sodium), 125 MCG PO QAM Lisinopril (Lisinopril), 5 MG PO QAM Mirabegron (Myrbetriq Er), 50 MG PO DAILY Omeprazole (Prilosec), 20 MG PO DAILY Oxybutynin Chloride (Oxybutynin Chloride), 2.5 MG PO BID Pancrelipase (Lipase-Protease- (Creon), 72,000 UNIT PO UD Phenobarbital (Phenobarbital), 129.6 MG PO HS Phenobarbital (Phenobarbital), 64.8 MG PO QAM Simvastatin (Simvastatin), 20 MG PO HS Venlafaxine Hcl (Venlafaxine Extended Rel), 75 MG PO QAM Scheduled PRN Colestipol Hcl (Colestipol Hcl), 1 TAB PO DAILY PRN for Diarrhea Allergies Coded Allergies: Sulfa Antibiotics (Verified Allergy, Unknown, UNKNOWN, 10/16/17) Sitagliptin (Verified Adverse Reaction, Unknown, abd pain, 10/16/17) Physical Exam Vital Signs Date Time Temp Pulse Resp B/P (MAP) Pulse Ox O2 Delivery O2 Flow Rate FiO2 01/05/18 19:55 78 20 124/52 96 Room Air 01/05/18 19:36 89 01/05/18 18:08 77 18 114/55 94 Room Air 01/05/18 16:38 81 18 122/61 94 Room Air 01/05/18 15:54 96 Room Air 01/05/18 15:54 95 Room Air 01/05/18 15:26 82 01/05/18 14:45 93 Room Air 01/05/18 14:39 36.7 101 20 126/70 94 Room Air Physical Exam Physical Exam GENERAL: She is oriented to person, place, and time. She appears well- developed and well-nourished. She does not appear distressed. ____ HENT: Exam performed. Head: Normocephalic and atraumatic. Right Ear: External ear normal. No mastoid tenderness. Left Ear: External ear normal. No mastoid tenderness. Mouth/Throat: No teeth. The oropharynx is clear and moist. No trismus in the jaw. No dental abscesses or uvula swelling. No oropharyngeal exudate or tonsillar abscesses. ____ EYES: Conjunctivae and EOM are normal. Pupils are equal, round, and reactive to light. Right eye exhibits no discharge. Left eye exhibits no discharge. No scleral icterus. ____ NECK: Normal range of motion. Neck supple. No JVD present. No spinous process tenderness present. No carotid bruit present. No rigidity. No tracheal deviation and normal range of motion present. No Brudzinski's sign and no Kernig 's sign noted. ____ CV: Normal rate, regular rhythm, normal heart sounds and intact distal pulses. There is no peripheral edema. Palpable radial pulses bue. ____ PULM/CHEST: Effort normal and breath sounds normal. No respiratory distress. No stridor. She has no wheezes. She has no rales. Chest Wall: She exhibits no tenderness. ____ ABD: The abdomen is soft. Bowel sounds are normal. She has no distension. No mass is present. There is no tenderness. There is no rebound, no guarding, no Winn's sign and no tenderness at McBurney's point. Rovsig negative MUSC/SKEL: Normal range of motion. 2+ pitting edema bilateral lower extremities. LYMPH: No cervical adenopathy. ____ NEURO: She is alert and oriented to person, place, and time. She has normal strength. No cranial nerve deficit or sensory deficit. Coordination and gait normal. GCS eye subscore is 4. GCS verbal subscore is 5. GCS motor subscore is 6. Cerebellar tests wnl. ____ SKIN: Skin is warm and dry. She is not diaphoretic. ____ PSYCH: She has a normal mood and affect. She behavior is normal. Judgment and thought content normal. ____ Medical Decision & Procedures ER Provider Diagnostic Interpretation: X-ray: Per my interpretation, radiologist review. CHEST 2 VIEWS ROUTINE CLINICAL HISTORY: 77 years-old Female presenting with cp sob. TECHNIQUE: PA and lateral views of the chest were obtained. COMPARISON: 10/16/2017 and CTA from 10/17/2017. FINDINGS: Atherosclerosis of aortic arch. Cardiac silhouette enlarged. Mildly low lung volumes. No focal opacity. No pleural effusion or pneumothorax. Osseous structures normal. Cholecystectomy clips noted. IMPRESSION: 1. Cardiomegaly. No other convincing evidence of acute cardiopulmonary disease. Electronically signed by: Marvel Arellano M.D. 01/05/2018 4:23 PM Dictated Date/Time: 01/05/2018 4:22 PM Laboratory Results 01/05/18 15:45 Red Blood Count 4.03, Mean Corpuscular Volume 89.8, Mean Corpuscular Hemoglobin 29.3, Mean Corpuscular Hemoglobin Concent 32.6, Mean Platelet Volume 12.1, Neutrophils (%) (Auto) 70.4, Lymphocytes (%) (Auto) 18.1, Monocytes (%) (Auto) 6.4, Eosinophils (%) (Auto) 4.4, Basophils (%) (Auto) 0.5, Neutrophils # (Auto) 3.84, Lymphocytes # (Auto) 0.99, Monocytes # (Auto) 0.35, Eosinophils # (Auto) 0.24, Basophils # (Auto) 0.03 01/05/18 15:45 Test 01/05/18 15:45 01/05/18 16:48 01/05/18 18:34 White Blood Count 5.46 K/uL (4.8-10.8) Red Blood Count 4.03 M/uL (4.2-5.4) Hemoglobin 11.8 g/dL (12.0-16.0) Hematocrit 36.2 % (37-47) Mean Corpuscular Volume 89.8 fL (80-100) Mean Corpuscular Hemoglobin 29.3 pg (25-34) Mean Corpuscular Hemoglobin Concent 32.6 g/dl (32-36) Platelet Count 124 K/uL (130-400) Mean Platelet Volume 12.1 fL (7.4-10.4) Neutrophils (%) (Auto) 70.4 % Lymphocytes (%) (Auto) 18.1 % Monocytes (%) (Auto) 6.4 % Eosinophils (%) (Auto) 4.4 % Basophils (%) (Auto) 0.5 % Neutrophils # (Auto) 3.84 K/uL (1.4-6.5) Lymphocytes # (Auto) 0.99 K/uL (1.2-3.4) Monocytes # (Auto) 0.35 K/uL (0.11-0.59) Eosinophils # (Auto) 0.24 K/uL (0-0.5) Basophils # (Auto) 0.03 K/uL (0-0.2) RDW Standard Deviation 44.7 fL (36.4-46.3) RDW Coefficient of Variation 13.6 % (11.5-14.5) Immature Granulocyte % (Auto) 0.2 % Immature Granulocyte # (Auto) 0.01 K/uL (0.00-0.02) Platelet Estimate DECREASED Anion Gap 1.0 mmol/L (3-11) Est Creatinine Clear Calc Drug Dose 46.8 ml/min Estimated GFR () 53.5 Estimated GFR (Non- 46.2 BUN/Creatinine Ratio 26.5 (10-20) Calcium Level 8.4 mg/dl (8.5-10.1) Magnesium Level 1.8 mg/dl (1.8-2.4) Pro-B-Type Natriuretic Peptide 222 pg/ml (0-1800) Urine Color YELLOW Urine Appearance CLOUDY (CLEAR) Urine pH 6.0 (4.5-7.5) Urine Specific [place] 1.018 (1.000-1.030) Urine Protein NEG (NEG) Urine Glucose (UA) NEG (NEG) Urine Ketones NEG (NEG) Urine Occult Blood 1+ (NEG) Urine Nitrite POS (NEG) Urine Bilirubin NEG (NEG) Urine Urobilinogen NEG (NEG) Urine Leukocyte Esterase MODERATE (NEG) Urine WBC (Auto) >30 /hpf (0-5) Urine RBC (Auto) 10-30 /hpf (0-4) Urine Hyaline Casts (Auto) 1-5 /lpf (0-5) Urine Epithelial Cells (Auto) >30 /lpf (0-5) Urine Bacteria (Auto) 4+ (NEG) Troponin I < 0.015 ng/ml (0-0.045) Laboratory results reviewed by me ECG Per My Interpretation Indication: SOB/dyspnea Rate (beats per minute): 82 Rhythm: sinus rhythm Findings: PVC, other (NV, QRS, and QTC intervals are within normal limits. No ST elevation or ST depression.) ED Course 152: The patient was evaluated in room B7. A complete history and physical exam was performed. 1940: Vital signs stable. Labs including 2 sets of troponins, proBNP, rapid strep, and imaging within normal limits. I reevaluated the patient and she is resting comfortably. Discussed results and discharge instructions: she verbalized understanding and agreement. The patient is ready for discharge. DISCHARGE - Plan of care discussed with patient and questions answered. The patient was given both verbal and printed discharge instructions. The patient verbalized understanding and ability to comply. The patient is to seek outpatient follow up as noted in the discharge instructions. The patient verbalized understanding and ability to comply. The patient is discharged in stable condition. The patient was instructed to return for worsening symptoms. Medical Decision Vital signs stable. Labs including 2 sets of troponins, proBNP, rapid strep, and imaging within normal limits. I reevaluated the patient and she is resting comfortably. Discussed results and discharge instructions: she verbalized understanding and agreement. The patient is ready for discharge. DISCHARGE - Plan of care discussed with patient and questions answered. The patient was given both verbal and printed discharge instructions. The patient verbalized understanding and ability to comply. The patient is to seek outpatient follow up as noted in the discharge instructions. The patient verbalized understanding and ability to comply. The patient is discharged in stable condition. The patient was instructed to return for worsening symptoms. Medication Reconcilliation Current Medication List: was personally reviewed by me Blood Pressure Screening Patient's blood pressure: Normal blood pressure Impression Primary Impression: Viral syndrome Additional Impression: Dyspnea Scribe Attestation The scribe's documentation has been prepared under my direction and personally reviewed by me in its entirety. I confirm that the note above accurately reflects all work, treatment, procedures, and medical decision making performed by me. The chart was completed utilizing [employer] voice recognition software. Grammatical errors, random word insertions, pronoun errors, and incomplete sentences are an occasional consequence of this system due to software limitations, ambient noise, and hardware issues. Any formal questions or concerns about the content, text, or information contained within the body of this dictation should be directly addressed to the physician for clarification. Departure Information Dispostion Home / Self-Care Referrals No Doctor, Assigned (PCP) [facility] Patient Instructions ED Dyspnea Shortness of Breath, ED Viral Syndrome, [facility] Problem Qualifiers Additional Impression: Dyspnea Dyspnea type: unspecified Qualified Codes: R06.00 - Dyspnea, unspecified
[2018-01-05 15:54] VITALS: O2SAT 96
[2018-01-05 16:22] LABS: HEMATOCRIT 36.2 % (37-47); HEMOGLOBIN 11.8 g/dL (12.0-16.0); MEAN CELL VOLUME 89.8 fL (80-100); MEAN CORPUSCULAR HEMOGLOBIN 29.3 pg (25-34); MEAN CORPUSCULAR HGB CONC 32.6 g/dl (32-36); MEAN PLATELET VOLUME 12.1 fL (7.4-10.4); PLATELET COUNT 124 K/uL (130-400); RED CELL DISTRIBUTION WIDTH CV 13.6 % (11.5-14.5); RED CELL DISTRIBUTION WIDTH SD 44.7 fL (36.4-46.3); WHITE BLOOD COUNT 5.46 K/uL (4.8-10.8)
[2018-01-05 16:23] LABS: BASO % 0.5 %; BASO ABS # 0.03 K/uL (0-0.2); BLOOD UREA NITROGEN 30 mg/dl (7-18); CALCIUM 8.4 mg/dl (8.5-10.1); CARBON DIOXIDE 29 mmol/L (21-32); CREATININE 1.15 mg/dl (0.60-1.20); EOS % 4.4 %; EOS ABS # 0.24 K/uL (0-0.5); GLUCOSE 221 mg/dl (70-99); IG# 0.01 K/uL (0.00-0.02); LYMPH % 18.1 %; LYMPH ABS # 0.99 K/uL (1.2-3.4); MONO % 6.4 %; MONO ABS # 0.35 K/uL (0.11-0.59); NEUT % 70.4 %; NEUT ABS # 3.84 K/uL (1.4-6.5); SODIUM 138 mmol/L (136-145)
--- NOTE | 2018-01-05 16:24 | DIAGNOSTIC IMAGING REPORT ---
CHEST 2 VIEWS ROUTINE CLINICAL HISTORY: 77 years-old Female presenting with cp sob. TECHNIQUE: PA and lateral views of the chest were obtained. COMPARISON: 10/16/2017 and CTA from 10/17/2017. FINDINGS: Atherosclerosis of aortic arch. Cardiac silhouette enlarged. Mildly low lung volumes. No focal opacity. No pleural effusion or pneumothorax. Osseous structures normal. Cholecystectomy clips noted. IMPRESSION: 1. Cardiomegaly. No other convincing evidence of acute cardiopulmonary disease. Electronically signed by: Marvel Arellano M.D. 01/05/2018 4:23 PM Dictated Date/Time: 01/05/2018 4:22 PM
[2018-01-05 19:55] VITALS: BP 124/52; PULSE 78; O2SAT 96
== END 2018-01-05 19:58 | disposition home or self-care (01) ==
LOC: C.EDB 14:36
DX: B34.9 Viral infection, unspecified (principal); R06.00 Dyspnea, unspecified; I11.0 Hypertensive heart disease with heart failure; I25.10 Atherosclerotic heart disease of native coronary artery without angina pectoris; E11.9 Type 2 diabetes mellitus without complications; G40.909 Epilepsy, unspecified, not intractable, without status epilepticus; Z87.01 Personal history of pneumonia (recurrent); E78.00 Pure hypercholesterolemia, unspecified; Z90.49 Acquired absence of other specified parts of digestive tract; Z87.440 Personal history of urinary (tract) infections; Z83.3 Family history of diabetes mellitus; Z82.49 Family history of ischemic heart disease and other diseases of the circulatory system; Z82.0 Family history of epilepsy and other diseases of the nervous system; Z79.4 Long term (current) use of insulin; Z79.899 Other long term (current) drug therapy; Z88.2 Allergy status to sulfonamides; Z88.8 Allergy status to other drugs, medicaments and biological substances

== ENCOUNTER 2018-01-18 12:28 | Emergency (ER) | payer BC ==
[~2018-01-18] VITALS: Ht 152.4 cm; Wt 109.3 kg
[2018-01-18 12:39] VITALS: TEMP 36.9; Ht 152.4 cm; Wt 109.3 kg
[2018-01-18] MEDS ORDERED: ONDANSETRON INJ 2 MG/ML 2 ML VIAL IV STA (12:44)
[2018-01-18] MEDS ORDERED: SODIUM CHLORIDE 0.9% 1000ML 1,000 ML IV STA (12:44)
[2018-01-18] MEDS ORDERED: MoRPHine SULFATE 4 MG/ML 1 ML CARP\\VIAL IV STA (12:45)
[2018-01-18] MEDS ORDERED: OPTIRAY 320 IV PRN (13:00)
[2018-01-18 13:20] LABS: ALBUMIN 3.1 gm/dl (3.4-5.0); ALT/SGPT 17 U/L (12-78); AST/SGOT 12 U/L (15-37); BLOOD UREA NITROGEN 27 mg/dl (7-18); CALCIUM 8.3 mg/dl (8.5-10.1); CARBON DIOXIDE 26 mmol/L (21-32); CREATININE 1.12 mg/dl (0.60-1.20); GLUCOSE 265 mg/dl (70-99); LIPASE 180 U/L (73-393); SODIUM 137 mmol/L (136-145)
[2018-01-18 13:23] LABS: ALKALINE PHOSPHATASE 127 U/L (45-117); TOTAL PROTEIN 6.8 gm/dl (6.4-8.2)
[2018-01-18 13:31] LABS: BASO % 0.4 %; BASO ABS # 0.02 K/uL (0-0.2); EOS % 3.2 %; EOS ABS # 0.15 K/uL (0-0.5); HEMATOCRIT 36.4 % (37-47); IG# 0.02 K/uL (0.00-0.02); LYMPH % 14.4 %; LYMPH ABS # 0.67 K/uL (1.2-3.4); MEAN PLATELET VOLUME 12.6 fL (7.4-10.4); MONO ABS # 0.42 K/uL (0.11-0.59); NEUT % 72.6 %; NEUT ABS # 3.38 K/uL (1.4-6.5); PLATELET COUNT 97 K/uL (130-400); RED CELL DISTRIBUTION WIDTH CV 13.7 % (11.5-14.5); RED CELL DISTRIBUTION WIDTH SD 45.8 fL (36.4-46.3); WHITE BLOOD COUNT 4.66 K/uL (4.8-10.8)
--- NOTE | 2018-01-18 14:11 | DIAGNOSTIC IMAGING REPORT ---
CT ABD/PELVIS IV CONTRAST ONLY CLINICAL HISTORY: Right lower quadrant abdominal pain COMPARISON STUDY: 04/14/2017 TECHNIQUE: Following the IV administration of 93 mL of [id number]-320, CT scan of the abdomen and pelvis was performed from the lung bases to the proximal femurs. Images are reviewed in the axial, sagittal, and coronal planes. IV contrast was administered without complication. A dose lowering technique was utilized adhering to the principles of ALARA. CT DOSE: 1501.73 mGy.cm FINDINGS: Lower chest: There are borderline enlarged left hilar lymph nodes. The heart is mildly enlarged. There is respiratory motion artifact. There are no pleural effusions. Liver: There is mild central biliary ductal prominence, unchanged the prior study. No focal masses are visualized. Gallbladder: Surgically absent Spleen: Normal in size and attenuation. Pancreas: Unremarkable. Adrenal glands: Unremarkable. Kidneys: There is mild right-sided hydronephrosis and hydroureter, down to the level of the iliac crossing. No calculi are visualized. This finding is slightly more pronounced than on the preceding examination. The kidneys are lobulated in contour. No solid renal masses are visualized. Bowel: There are no transition zones indicate bowel obstruction. The appendix appears normal. There is mild fecal retention. There is no evidence of acute diverticulitis. Peritoneum: There is no intraperitoneal free air or abdominal ascites. Vasculature: The abdominal aorta is normal in course and caliber. Adenopathy: None. Pelvic viscera: The uterus is surgically absent. Skeletal structures: No destructive osseous lesions are seen. IMPRESSION: 1. No evidence of bowel obstruction. No evidence of free air 2. Surgically absent gallbladder with stable mild intrahepatic biliary ductal dilatation 3. Normal appendix 4. Mild fecal retention 5. No evidence of acute diverticulitis 6. Mild right-sided hydronephrosis and hydroureter down to the level of the iliac crossing. This finding is more pronounced than on the preceding study. No ureteral calculi are visualized. Electronically signed by: Micheal Perez M.D. 01/18/2018 2:09 PM Dictated Date/Time: 01/18/2018 1:56 PM
[2018-01-18] MEDS ORDERED: POLY1POW2 PO (14:19)
[2018-01-18 15:40] VITALS: BP 121/97; PULSE 78; O2SAT 98
--- NOTE | 2018-01-18 19:05 | EMERGENCY ROOM VISIT NOTE ---
History Report prepared by Lalitha: Popeye Pham Under the Supervision of: Dr. Suman Botello D.O. First contact with patient: 12:29 Chief Complaint: ABDOMINAL PAIN Stated Complaint: abd pain History of Present Illness The patient is a 77 year old female who presents to the Emergency Room with complaints of constant abdominal pain that began this morning at 0900, 3 hours and 45 minutes ago. The patient describes her pain as a "sharp" sensation, and notes that it is focal to the lower abdomen. She rates the severity of her pain as a 3/10. There has not been any nausea, vomiting, diarrhea, urinary burning, or URI symptoms. She had a bowel movement yesterday. The patient has a history of cholecystectomy and hysterectomy. No other exacerbating or remitting factors. Source of History: patient Onset: 3 hours and 45 minutes ago Position: abdomen Symptom Intensity: 3/10 Quality: sharp Timing: constant Associated Symptoms: No nausea, No vomiting, No diarrhea, No urinary symptoms Review of Systems See HPI for pertinent positives & negatives. A total of 10 systems reviewed and were otherwise negative. Past Medical & Surgical Medical Problems: (1) Congestive Heart Failure Nos (2) Coronary Atherosclerosis Of [place] Coronary Vessel (3) Diab Patsy Wo Compl, Type Ii Or Unspec Type, Not Uncntrld (4) Epilepsy (5) Hypertension Nos (6) Pericardial Disease Nos (7) pericardial window (8) Pneumonia, Organism Nos (9) Pure Hypercholesterolem (10) Urin Tract Infection Nos Surgical Problems: (1) History of cholecystectomy Family History Diabetes mellitus Hypertension Seizures Social History Smoking Status: Never Smoker Alcohol Use: none Drug Use: none Housing Status: lives with family Occupation Status: retired Current/Historical Medications Scheduled Cholecalciferol (Vitamin D3), 2,000 UNIT PO DAILY Fluticasone Propionate (Nasal) (Flonase Allergy Relief), 1 SPRAY SHARMILA BID Glimepiride (Glimepiride), 2 MG PO DAILY Insulin Glargine (Lantus), 15 UNITS SQ QAM Levothyroxine Sodium (Levothyroxine Sodium), 125 MCG PO QAM Lisinopril (Lisinopril), 5 MG PO QAM Omeprazole (Prilosec), 20 MG PO DAILY Oxybutynin Chloride (Oxybutynin Chloride), 2.5 MG PO BID Pancrelipase (Lipase-Protease- (Creon), 72,000 UNIT PO UD Phenobarbital (Phenobarbital), 129.6 MG PO HS Phenobarbital (Phenobarbital), 64.8 MG PO QAM Polyethylene Glycol 3350 (Bulk (Polyethylene Glycol 3350), 17 GM PO DAILY Simvastatin (Simvastatin), 20 MG PO HS Venlafaxine Hcl (Venlafaxine Extended Rel), 75 MG PO QAM Scheduled PRN Colestipol Hcl (Colestipol Hcl), 1 TAB PO DAILY PRN for Diarrhea Allergies Coded Allergies: Sulfa Antibiotics (Verified Allergy, Unknown, UNKNOWN, 01/18/18) Sitagliptin (Verified Adverse Reaction, Unknown, abd pain, 01/18/18) Physical Exam Vital Signs Date Time Temp Pulse Resp B/P (MAP) Pulse Ox O2 Delivery O2 Flow Rate FiO2 01/18/18 15:40 78 18 121/97 98 Room Air 01/18/18 13:59 76 18 131/71 93 Room Air 01/18/18 12:43 84 01/18/18 12:39 36.9 83 14 151/73 96 Room Air Physical Exam GENERAL: Sitting up in bed, alert, well appearing, well nourished, no distress, non-toxic EYE EXAM: normal conjunctiva. OROPHARYNX: no exudate, no erythema, lips, buccal mucosa, and tongue normal and mucous membranes are moist NECK: supple, no nuchal rigidity, no adenopathy, non-tender LUNGS: Clear to auscultation. Normal chest wall mechanics HEART: no murmurs, S1 normal and S2 normal ABDOMEN: abdomen soft, and tender to palpation in the RLQ, normo-active bowel sounds, no masses, no rebound or guarding. BACK: Back is symmetrical on inspection and there is no deformity, no midline tenderness, no CVA tenderness. SKIN: no rashes and no bruising UPPER EXTREMITIES: upper extremities are grossly normal. LOWER EXTREMITIES: No pitting edema. NEURO EXAM: Normal sensorium, cranial nerves II-XII grossly intact, normal speech, no gross weakness of arms, no gross weakness of legs. Medical Decision & Procedures ER Provider Diagnostic Interpretation: Radiology results as stated below per my review and the radiologist's interpretation: CT ABD/PELVIS IV CONTRAST ONLY CLINICAL HISTORY: Right lower quadrant abdominal pain COMPARISON STUDY: 04/14/2017 TECHNIQUE: Following the IV administration of 93 mL of [id number]-320, CT scan of the abdomen and pelvis was performed from the lung bases to the proximal femurs. Images are reviewed in the axial, sagittal, and coronal planes. IV contrast was administered without complication. A dose lowering technique was utilized adhering to the principles of ALARA. CT DOSE: 1501.73 mGy.cm FINDINGS: Lower chest: There are borderline enlarged left hilar lymph nodes. The heart is mildly enlarged. There is respiratory motion artifact. There are no pleural effusions. Liver: There is mild central biliary ductal prominence, unchanged the prior study. No focal masses are visualized. Gallbladder: Surgically absent Spleen: Normal in size and attenuation. Pancreas: Unremarkable. Adrenal glands: Unremarkable. Kidneys: There is mild right-sided hydronephrosis and hydroureter, down to the level of the iliac crossing. No calculi are visualized. This finding is slightly more pronounced than on the preceding examination. The kidneys are lobulated in contour. No solid renal masses are visualized. Bowel: There are no transition zones indicate bowel obstruction. The appendix appears normal. There is mild fecal retention. There is no evidence of acute diverticulitis. Peritoneum: There is no intraperitoneal free air or abdominal ascites. Vasculature: The abdominal aorta is normal in course and caliber. Adenopathy: None. Pelvic viscera: The uterus is surgically absent. Skeletal structures: No destructive osseous lesions are seen. IMPRESSION: 1. No evidence of bowel obstruction. No evidence of free air 2. Surgically absent gallbladder with stable mild intrahepatic biliary ductal dilatation 3. Normal appendix 4. Mild fecal retention 5. No evidence of acute diverticulitis 6. Mild right-sided hydronephrosis and hydroureter down to the level of the iliac crossing. This finding is more pronounced than on the preceding study. No ureteral calculi are visualized. Electronically signed by: Micheal Perez M.D. 01/18/2018 2:09 PM Dictated Date/Time: 01/18/2018 1:56 PM Laboratory Results 01/18/18 12:55 Red Blood Count 4.00, Mean Corpuscular Volume 91.0, Mean Corpuscular Hemoglobin 30.0, Mean Corpuscular Hemoglobin Concent 33.0, Mean Platelet Volume 12.6, Neutrophils (%) (Auto) 72.6, Lymphocytes (%) (Auto) 14.4, Monocytes (%) (Auto) 9.0, Eosinophils (%) (Auto) 3.2, Basophils (%) (Auto) 0.4, Neutrophils # (Auto) 3.38, Lymphocytes # (Auto) 0.67, Monocytes # (Auto) 0.42, Eosinophils # (Auto) 0.15, Basophils # (Auto) 0.02 01/18/18 12:55 Test 01/18/18 12:55 01/18/18 14:35 White Blood Count 4.66 K/uL (4.8-10.8) Red Blood Count 4.00 M/uL (4.2-5.4) Hemoglobin 12.0 g/dL (12.0-16.0) Hematocrit 36.4 % (37-47) Mean Corpuscular Volume 91.0 fL (80-100) Mean Corpuscular Hemoglobin 30.0 pg (25-34) Mean Corpuscular Hemoglobin Concent 33.0 g/dl (32-36) Platelet Count 97 K/uL (130-400) Mean Platelet Volume 12.6 fL (7.4-10.4) Neutrophils (%) (Auto) 72.6 % Lymphocytes (%) (Auto) 14.4 % Monocytes (%) (Auto) 9.0 % Eosinophils (%) (Auto) 3.2 % Basophils (%) (Auto) 0.4 % Neutrophils # (Auto) 3.38 K/uL (1.4-6.5) Lymphocytes # (Auto) 0.67 K/uL (1.2-3.4) Monocytes # (Auto) 0.42 K/uL (0.11-0.59) Eosinophils # (Auto) 0.15 K/uL (0-0.5) Basophils # (Auto) 0.02 K/uL (0-0.2) RDW Standard Deviation 45.8 fL (36.4-46.3) RDW Coefficient of Variation 13.7 % (11.5-14.5) Immature Granulocyte % (Auto) 0.4 % Immature Granulocyte # (Auto) 0.02 K/uL (0.00-0.02) Platelet Estimate DECREASED Giant Platelets 1+ Anion Gap 4.0 mmol/L (3-11) Est Creatinine Clear Calc Drug Dose 47.9 ml/min Estimated GFR () 55.3 Estimated GFR (Non- 47.7 BUN/Creatinine Ratio 23.7 (10-20) Calcium Level 8.3 mg/dl (8.5-10.1) Total Bilirubin 0.3 mg/dl (0.2-1) Direct Bilirubin < 0.1 mg/dl (0-0.2) Aspartate Amino Transf (AST/SGOT) 12 U/L (15-37) Alanine Aminotransferase (ALT/SGPT) 17 U/L (12-78) Alkaline Phosphatase 127 U/L (45-117) Total Protein 6.8 gm/dl (6.4-8.2) Albumin 3.1 gm/dl (3.4-5.0) Lipase 180 U/L (73-393) Urine Color YELLOW Urine Appearance CLEAR (CLEAR) Urine pH 6.0 (4.5-7.5) Urine Specific [employer] 1.018 (1.000-1.030) Urine Protein NEG (NEG) Urine Glucose (UA) NEG (NEG) Urine Ketones NEG (NEG) Urine Occult Blood NEG (NEG) Urine Nitrite NEG (NEG) Urine Bilirubin NEG (NEG) Urine Urobilinogen NEG (NEG) Urine Leukocyte Esterase NEG (NEG) Urine WBC (Auto) 1-5 /hpf (0-5) Urine RBC (Auto) 0-4 /hpf (0-4) Urine Hyaline Casts (Auto) 0 /lpf (0-5) Urine Epithelial Cells (Auto) 10-20 /lpf (0-5) Urine Bacteria (Auto) NEG (NEG) Laboratory results per my review. Medications Administered Medications (Trade) Dose Ordered Sig/Jo Ann Route Start Time Stop Time Status Last Admin Dose Admin Sodium Chloride 1,000 ml @ 999 mls/hr Q1H1M STAT IV 01/18/18 12:44 01/18/18 13:44 DC 01/18/18 13:14 999 MLS/HR Ondansetron HCl (Zofran Inj) 4 mg NOW STAT IV 01/18/18 12:44 01/18/18 12:45 DC 01/18/18 13:14 4 MG Morphine Sulfate (MoRPHine SULFATE INJ) 4 mg NOW STAT IV 01/18/18 12:45 01/18/18 12:46 DC 01/18/18 13:15 4 MG ED Course ED COURSE: Vital signs were reviewed and showed situationally hypertensive vitals. The patients medical record was reviewed The above diagnostic studies were performed and reviewed. ED treatments and interventions as stated above. 1232: The patient was evaluated in room C5. A complete history and physical examination was performed. 1244: Ordered Zofran 4 mg IV, Sodium Chloride 1000 mL @ 999 mL/hr IV, Morphine Sulfate 4 mg IV. 1421: I checked on the patient she is updated and comfortable. 1508: I discussed the case with Dr. Kell Puente. She states the patient can follow up as an outpatient. 1515: Upon reevaluation, the patient is resting in bed.I discussed my findings with the patient and she understands and agrees with the treatment plan. Based on the patients age, coexisting illnesses, exam and lab findings the decision to treat as an outpatient was made. The patient remained stable while under my care. The patient appeared well at the time of discharge. Medical Decision Differential diagnoses includes but is not limited to gastritis, peptic ulcer disease, GERD, gallbladder disease, pancreatitis, small bowel obstruction, acute coronary syndrome, pericarditis, ischemic bowel, irritable bowel disease, irritable bowel syndrome, appendicitis, diverticulitis, malignancy, hernia, urinary tract infection, torsion, perforation, trauma, infectious. Pt with RLQ abd pain. Benign abdomen on exam. Mild hydro on CT but otherwise benign. Labs including CBC and BMP is unremarkable. elevated BSG. Bili and lfts were normal. UA clean on cath. D/w Uro recommend follow up as out patient. [place] was not B/L to suggest 2/2 urinary retention. Pt given IV narcs. [place] better. vitals stable. Discussed with Pt concerning signs and symptoms to watch out for. Pt was instructed to follow up with their PCP and discussed with the patient their option to return to the ED at anytime for persistent or worsening symptoms. The appropriate anticipatory guidance and out-patient management, including indications for return to the emergency department, were explained at length to the patient and understood. Consults Time Called: 1509 Consulting Physician: Dr. Kell Puente Returned Call: 1503 I discussed the case with Dr. Kell Puente. She states the patient can follow up as an outpatient. Impression Primary Impression: RLQ abdominal pain Additional Impression: Hydroureter Scribe Attestation The scribe's documentation has been prepared under my direction and personally reviewed by me in its entirety. I confirm that the note above accurately reflects all work, treatment, procedures, and medical decision making performed by me. Departure Information Dispostion Home / Self-Care Referrals No Doctor, Assigned (PCP) Forms Call Back Authorization, HOME CARE DOCUMENTATION FORM, IMPORTANT VISIT INFORMATION Patient Instructions My [facility] Additional Instructions Please follow up with your primary care doctor with in the next 24 hours. Any worsening of your symptoms, please return to the ED immediately. This includes any fevers greater than 100.4, worsening pain, chest pain, shortness breath, persistent nausea, vomiting, unable to eat or drink, or any other concerning signs or symptoms from your standpoint. Please follow-up with urology as she had some mild swelling of the right ureter. You have an appointment Monday at [address] Bae office. Problem Qualifiers
== END 2018-01-18 16:02 | disposition home or self-care (01) ==
LOC: EDBD 12:28 → C.EDC 12:29
DX: R10.31 Right lower quadrant pain (principal); N13.4 Hydroureter; G40.909 Epilepsy, unspecified, not intractable, without status epilepticus; I25.10 Atherosclerotic heart disease of native coronary artery without angina pectoris; E11.9 Type 2 diabetes mellitus without complications; I10 Essential (primary) hypertension; Z87.01 Personal history of pneumonia (recurrent); Z87.440 Personal history of urinary (tract) infections; Z90.710 Acquired absence of both cervix and uterus; Z90.49 Acquired absence of other specified parts of digestive tract; Z88.1 Allergy status to other antibiotic agents; Z88.8 Allergy status to other drugs, medicaments and biological substances; Z83.3 Family history of diabetes mellitus; Z82.49 Family history of ischemic heart disease and other diseases of the circulatory system; Z82.0 Family history of epilepsy and other diseases of the nervous system; Z79.4 Long term (current) use of insulin; Z79.899 Other long term (current) drug therapy

== ENCOUNTER 2018-02-14 17:06 | Emergency (ER) | payer BC ==
[~2018-02-14] VITALS: Ht 154.9 cm; Wt 111.1 kg
[~2018-02-14 17:06] MED LIST changes: -ACET-1693 PO; -INSDGI SC; -LACT1TAB4 PO; -MIRA1TAB3 PO; -OPTIRAY 300 IV PRN; -SOLI10TA2 PO
[2018-02-14 17:11] VITALS: TEMP 36.6; Ht 154.9 cm; Wt 111.1 kg
[2018-02-14] MEDS ORDERED: SOLI10TA2 PO (17:56)
[2018-02-14] MEDS ORDERED: ACET-1693 PO (17:56)
[2018-02-14] MEDS ORDERED: LACT1TAB4 PO (17:56)
[2018-02-14] MEDS ORDERED: MIRA1TAB3 PO (17:56)
[2018-02-14] MEDS ORDERED: INSDGI SC (17:56)
--- NOTE | 2018-02-14 18:18 | EMERGENCY ROOM VISIT NOTE ---
History First contact with patient: 17:16 Chief Complaint: FALL Stated Complaint: FELL HERE WHILE HAVING TEST,HIT HEAD BACK CHIN History of Present Illness The patient is a 77 year old female who presents to the Emergency Room after having a fall at the hospital. Patient was having a intravenous pyelogram done in the hospital earlier today. She was sitting on a stool when the stool slid out from underneath her. She fell and hit her back and her head. She did not become unconscious, no urinary incontinence, bowel incontinence, tongue biting, shaking, arm, weakness, leg weakness, facial droop, chest pain, palpitations or shortness of breath. After the fall she went home and this is when she told her family about the fall so they brought her back into the hospital to be evaluated. Ever since the fall she has been complaining of a mild headache and upper back pain. Source of History: patient Onset: this afternoon Position: head Symptom Intensity: mild Quality: dull Timing: constant Associated Symptoms: + headache, + back pain Review of Systems 10 systems were reviewed and were negative except for pertinent positives and negatives as noted in the HPI Past Medical/Surgical History Medical Problems: (1) Congestive Heart Failure Nos (2) Coronary Atherosclerosis Of [place] Coronary Vessel (3) Diab Patsy Wo Compl, Type Ii Or Unspec Type, Not Uncntrld (4) Epilepsy (5) Hypertension Nos (6) Pericardial Disease Nos (7) pericardial window (8) Pneumonia, Organism Nos (9) Pure Hypercholesterolem (10) Urin Tract Infection Nos Surgical Problems: (1) History of cholecystectomy Family History Diabetes mellitus Hypertension Seizures Social History Smoking Status: Never Smoker Alcohol Use: none Drug Use: none Housing Status: lives with family Occupation Status: retired Current/Historical Medications Scheduled Cholecalciferol (Vitamin D3), 2,000 UNIT PO QAM Fluticasone Propionate (Nasal) (Flonase Allergy Relief), 1 SPRAY SHARMILA BID Glimepiride (Glimepiride), 2 MG PO QAM Insulin Glargine (Lantus), 15 UNITS SQ QAM Insulin Glargine (Lantus), 10 UNITS SC QPM Lactobacillus (Floranex), 1 TAB PO QAM Levothyroxine Sodium (Levothyroxine Sodium), 125 MCG PO QAM Lisinopril (Lisinopril), 5 MG PO QAM Mirabegron (Myrbetriq Er), 50 MG PO QAM Omeprazole (Prilosec), 20 MG PO QAM Pancrelipase (Lipase-Protease- (Creon), 72,000 UNIT PO UD Phenobarbital (Phenobarbital), 129.6 MG PO HS Phenobarbital (Phenobarbital), 64.8 MG PO QAM Simvastatin (Simvastatin), 20 MG PO HS Solifenacin (Vesicare), 10 MG PO QAM Venlafaxine Hcl (Venlafaxine Extended Rel), 75 MG PO QAM Scheduled PRN Acetaminophen Tab (Tylenol), 325-650 MG PO Q4H PRN for Pain Colestipol Hcl (Colestipol Hcl), 1 TAB PO QAM PRN for Diarrhea Physical Exam Vital Signs Date Time Temp Pulse Resp B/P (MAP) Pulse Ox O2 Delivery O2 Flow Rate FiO2 02/14/18 19:06 72 17 151/82 97 Room Air 02/14/18 17:11 36.6 86 16 110/57 95 Room Air Physical Exam HEENT: Head - normocephalic and atraumatic. Pupils are equal, round, and reactive to light. Extraocular eye muscles are intact and sclera are anicteric. Ears - bilaterally patent canals with noninjected tympanic membranes and no evidence of hemotympanum. Nose - moist nasal mucosa without discharge. Mouth - poor dentition. Oropharynx is nonerythematous and there is no tonsillar exudate or edema noted. Neck: Supple; no JVD, nuchal rigidity, cervical lymphadenopathy, or auscultated bruits. Heart: Regular rate and rhythm. There is a normal S1 and S2 with no murmurs, clicks, or gallops appreciated. Lungs: Clear to auscultation bilaterally with no wheezes, rales, or rhonchi. Abdomen: Soft, completely nontender, nondistended, with good bowel sounds. There are no palpable pulsatile masses or hepatosplenomegaly. There is no guarding, rigidity, or rebound noted. Extremities: No evidence of cyanosis, or clubbing. There are easily palpable peripheral pulses. Mild lower extremity pitting edema Neuro:The patient is awake and alert, oriented to day, time, and place. Muscle strength is 5/5 in all 4 extremities. The patient has equal permanent waver strength and equal pedal push and pull. There are no cerebellar signs. Back: no obvious deformities, pain to palpation at T4 along spinous process, no paraspinal pain Chest: pain to palpation over left upper chest over the ribs Head: no contusion of head, no bleeding of scalp Medical Decision & Procedures ER Provider Diagnostic Interpretation: Images were reviewed by myself and radiology TWO VIEW CHEST CLINICAL HISTORY: Atypical chest pain. Fall. FINDINGS: PA and lateral chest radiographs are compared to study dated 01/05/2018. The AP view is degraded by apical lordotic positioning. The heart is enlarged and there is atherosclerotic calcification of the thoracic aorta. The pulmonary vasculature is noncongested. Chronic interstitial thickening is similar to previous. No airspace consolidation or pleural effusion is identified. Calcified granulomas are noted at the right lung base. There is no pneumothorax. The skeletal structures are osteopenic. The bony thorax appears intact. Calcific tendinopathy is seen in the left shoulder. Cholecystectomy clips are identified in the upper abdomen. IMPRESSION: Cardiomegaly with no active disease in the chest. CT SCAN OF THE BRAIN WITHOUT IV CONTRAST CLINICAL HISTORY: Fall with head injury. COMPARISON STUDY: CT of the brain dated 12/16/2016. TECHNIQUE: Unenhanced axial CT scan of the brain is performed from the vertex to the skull base. A dose lowering technique was utilized adhering to the principles of ALARA. CT DOSE: 537.48 mGy.cm FINDINGS: Brain parenchyma: There are age-related involutional changes noting mild subcortical and periventricular microangiopathic change. Small chronic lacunar infarcts are identified in the left cerebellar hemisphere. There is no hemorrhage, mass effect, or evidence of acute territorial ischemia by CT criteria. [place]-white matter is preserved. No extra-axial fluid collection is seen. Ventricles, sulci, cisterns: Prominent secondary to involutional change. Intracranial vasculature: There is atherosclerotic calcification of the cavernous carotid and vertebral arteries. Calvarium: The skeletal structures are osteopenic. No depressed calvarial fracture is seen. There are postoperative changes from left frontal craniotomy. Sinuses and mastoids: The visualized paranasal sinuses are clear. The mastoid air cells are well pneumatized. Orbits: The bony orbits are grossly intact. There are bilateral ocular lens implants. IMPRESSION: There is no hemorrhage, mass effect, or evidence of acute territorial ischemia by CT criteria. THORACIC SPINE 3 VIEWS CLINICAL HISTORY: Fall with thoracic back pain. FINDINGS: AP, lateral, and swimmer's views of the thoracic spine are compared to study dated 01/26/2008. The skeletal structures are osteopenic. There is no radiographic evidence of acute fracture or malalignment. Vertebral body height and alignment are maintained throughout the thoracic spine. The transverse processes and pedicles are grossly intact as seen on the frontal view. Mild multilevel degenerative disc space narrowing is noted. The heart is enlarged. The lung parenchyma is clear as imaged. Cholecystectomy clips are noted. IMPRESSION: There is no radiographic evidence of fracture or malalignment involving the thoracic spine. ED Course 174: patient was seen and examined by myself 1800: I discussed the plan with Dr. Yang and it was decided to order CT head, CXR and XRay of thoracic spine 194: CT scan of the patients head and CXR returned without any acute findings. Patient was reassessed and was doing well and in no distress 2030: Phone radiology and got xray results of thoracic spine which were normal. Patient was updated and was given instructions and plan for discharge. Patient was in agreement. Medical Decision Differential diagnosis includes subarachnoid haemorrhoid, skull fracture, cervical spine fracture, rib fracture, pneumothorax Donna is a 77 year old female who fell of a stool while at the radiology department in the hospital. Her vitals signs were stable during her time in the ED and she had minimal tenderness to palpation of the left upper chest and thoracic spine. Due to the fact that she had hit her head, a CT scan of her head was ordered as well as a CXR and thoracic spine xray. All of these returned without any acute changes. She was instructed to use tylenol as well as ice the area of discomfort. Patient was discharged home with family and is to follow up with her PCP in the next 3-4 days. Patient was in agreement with this plan. Impression Primary Impression: Fall Additional Impression: Thoracic back pain Departure Information Dispostion Home / Self-Care Condition GOOD Referrals Kelli Gates, C.R.N.P (PCP) Patient Instructions My [facility] Indexing Additional Instructions Patient had a fall where she hit her head. Images ordered included a CXR, thoracic spine xray and CT of her head. These all returned as normal. Please use ice and tylenol to help with your pain from the fall. If you have any recurrent falls, worsening headache, worsening back pain, visual changes or difficulty breathing then please come back to the emergency department, otherwise please follow up with your PCP in the next 2-3 days. Problem Qualifiers
--- NOTE | 2018-02-14 18:20 | EMERGENCY ROOM VISIT NOTE ---
History Report prepared by Lalitha: Subha Wright Under the Supervision of: Dr. Mat Yang M.D. First contact with patient: 17:16 Chief Complaint: FALL Stated Complaint: FELL HERE WHILE HAVING TEST,HIT HEAD BACK CHIN History of Present Illness The patient is a 77 year old female who presents to the Emergency Room with complaints of an episode of a fall occurring this afternoon. The patient had an IVP study today at [facility], [place]. After the study she was sitting on a stool when she slipped back off of the stool and hit her head and back on the ground. She denies any loss of consciousness, vision changes, neck pain, chest pain, or palpitations. The patient then went home and told her family that she fell and they made her come to the ED to be evaluated for her fall. The patient notes a mild headache, upper back soreness, and right shoulder pain. She is not on any blood thinners. The patient has a history of epilepsy, TIA, and diabetes. Source of History: patient Onset: this afternoon Position: other (generalized) Quality: other (fall) Timing: other (episode) Associated Symptoms: + headache, + back pain, No LOC, No neck pain, No chest pain Review of Systems See HPI for pertinent positives & negatives. A total of 10 systems reviewed and were otherwise negative. Past Medical & Surgical Medical Problems: (1) Congestive Heart Failure Nos (2) Coronary Atherosclerosis Of [place] Coronary Vessel (3) Diab Patsy Wo Compl, Type Ii Or Unspec Type, Not Uncntrld (4) Epilepsy (5) Hypertension Nos (6) Pericardial Disease Nos (7) pericardial window (8) Pneumonia, Organism Nos (9) Pure Hypercholesterolem (10) Urin Tract Infection Nos Surgical Problems: (1) History of cholecystectomy Family History Diabetes mellitus Hypertension Seizures Social History Smoking Status: Never Smoker Alcohol Use: none Drug Use: none Housing Status: lives with family Occupation Status: retired Current/Historical Medications Scheduled Cholecalciferol (Vitamin D3), 2,000 UNIT PO QAM Fluticasone Propionate (Nasal) (Flonase Allergy Relief), 1 SPRAY SHARMILA BID Glimepiride (Glimepiride), 2 MG PO QAM Insulin Glargine (Lantus), 15 UNITS SQ QAM Insulin Glargine (Lantus), 10 UNITS SC QPM Lactobacillus (Floranex), 1 TAB PO QAM Levothyroxine Sodium (Levothyroxine Sodium), 125 MCG PO QAM Lisinopril (Lisinopril), 5 MG PO QAM Mirabegron (Myrbetriq Er), 50 MG PO QAM Omeprazole (Prilosec), 20 MG PO QAM Pancrelipase (Lipase-Protease- (Creon), 72,000 UNIT PO UD Phenobarbital (Phenobarbital), 129.6 MG PO HS Phenobarbital (Phenobarbital), 64.8 MG PO QAM Simvastatin (Simvastatin), 20 MG PO HS Solifenacin (Vesicare), 10 MG PO QAM Venlafaxine Hcl (Venlafaxine Extended Rel), 75 MG PO QAM Scheduled PRN Acetaminophen Tab (Tylenol), 325-650 MG PO Q4H PRN for Pain Colestipol Hcl (Colestipol Hcl), 1 TAB PO QAM PRN for Diarrhea Allergies Coded Allergies: Sulfa Antibiotics (Verified Allergy, Unknown, UNKNOWN, 02/14/18) Sitagliptin (Verified Adverse Reaction, Intermediate, ABD PAIN, 02/14/18) Physical Exam Vital Signs Date Time Temp Pulse Resp B/P (MAP) Pulse Ox O2 Delivery O2 Flow Rate FiO2 02/14/18 21:22 68 135/71 97 02/14/18 19:06 72 17 151/82 97 Room Air 02/14/18 17:11 36.6 86 16 110/57 95 Room Air Physical Exam GENERAL: Patient is in no acute distress. HEENT: No acute trauma, normocephalic atraumatic, mucous membranes moist, no nasal congestion, no scleral icterus. No scalpel hematoma. NECK: No stridor, no adenopathy, no meningismus, trachea is midline. No posterior C-spine tenderness. BACK: Tender to upper thoracic spine, no contusion or bony stepoff. LUNGS: Clear to auscultation bilaterally, no wheeze, no rhonchi, breath sounds equal. HEART: Without murmurs gallops or rubs, regular rate and rhythm. ABDOMEN: Soft, nontender, bowel sounds positive, no hernias, no peritonitis. EXTREMITIES: Moderate bilateral pedal edema. No cyanosis, full range of motion of all the joints without pain or difficulty, no signs for acute trauma. NEUROLOGIC: Oriented x 3, no acute motor or sensory deficits, no focal weakness. SKIN: No rash, no jaundice, no diaphoresis. Medical Decision & Procedures ER Provider Diagnostic Interpretation: Radiology results as stated below per my review and radiologist interpretation: CT SCAN OF THE BRAIN WITHOUT IV CONTRAST FINDINGS: Brain parenchyma: There are age-related involutional changes noting mild subcortical and periventricular microangiopathic change. Small chronic lacunar infarcts are identified in the left cerebellar hemisphere. There is no hemorrhage, mass effect, or evidence of acute territorial ischemia by CT criteria. Brooks-white matter is preserved. No extra-axial fluid collection is seen. Ventricles, sulci, cisterns: Prominent secondary to involutional change. Intracranial vasculature: There is atherosclerotic calcification of the cavernous carotid and vertebral arteries. Calvarium: The skeletal structures are osteopenic. No depressed calvarial fracture is seen. There are postoperative changes from left frontal craniotomy. Sinuses and mastoids: The visualized paranasal sinuses are clear. The mastoid air cells are well pneumatized. Orbits: The bony orbits are grossly intact. There are bilateral ocular lens implants. IMPRESSION: There is no hemorrhage, mass effect, or evidence of acute territorial ischemia by CT criteria. Electronically signed by: Mat Ramachandran M.D. TWO VIEW CHEST CLINICAL HISTORY: Atypical chest pain. Fall. FINDINGS: PA and lateral chest radiographs are compared to study dated 01/05/2018. The AP view is degraded by apical lordotic positioning. The heart is enlarged and there is atherosclerotic calcification of the thoracic aorta. The pulmonary vasculature is noncongested. Chronic interstitial thickening is similar to previous. No airspace consolidation or pleural effusion is identified. Calcified granulomas are noted at the right lung base. There is no pneumothorax. The skeletal structures are osteopenic. The bony thorax appears intact. Calcific tendinopathy is seen in the left shoulder. Cholecystectomy clips are identified in the upper abdomen. IMPRESSION: Cardiomegaly with no active disease in the chest. Electronically signed by: Mat Ramachandran M.D. THORACIC SPINE 3 VIEWS CLINICAL HISTORY: Fall with thoracic back pain. FINDINGS: AP, lateral, and swimmer's views of the thoracic spine are compared to study dated 01/26/2008. The skeletal structures are osteopenic. There is no radiographic evidence of acute fracture or malalignment. Vertebral body height and alignment are maintained throughout the thoracic spine. The transverse processes and pedicles are grossly intact as seen on the frontal view. Mild multilevel degenerative disc space narrowing is noted. The heart is enlarged. The lung parenchyma is clear as imaged. Cholecystectomy clips are noted. IMPRESSION: There is no radiographic evidence of fracture or malalignment involving the thoracic spine. Electronically signed by: Mat Ramachandran M.D. ED Course 1814: The patient was evaluated in room C2B. A complete history and physical exam was performed. Medical Decision Differential diagnoses include: intracranial bleed, skull fracture, rib fracture , C-spine or T-spine injury. The patient presents after a fall earlier today. She fell off a stool. No loss of consciousness. Brain CT shows no acute bleed or mass-effect. No skull fracture. On exam, there was no evidence for injury to the cervical spine. Thoracic spine series shows some arthritis, no acute fracture. Chest film does not show pneumonia, pneumothorax or rib fracture. On exam, the patient did not have any evidence for injury to her extremities. Her abdomen was soft and nontender. She was not toxic. The patient was reassured by her testing. She is being discharged with ice, Tylenol and some time. If worsening, she can return. She has contused her back , the head injury seems superficial. Medication Reconcilliation Current Medication List: was personally reviewed by me Blood Pressure Screening Patient's blood pressure: Elevated blood pressure Blood pressure disposition: Elevated BP felt to be situational Impression Primary Impression: Head trauma Additional Impressions: Thoracic back pain Fall Scribe Attestation The scribe's documentation has been prepared under my direction and personally reviewed by me in its entirety. I confirm that the note above accurately reflects all work, treatment, procedures, and medical decision making performed by me. Departure Information Dispostion Home / Self-Care Referrals Kelli Gates C.R.N.P (PCP) Forms HOME CARE DOCUMENTATION FORM, IMPORTANT VISIT INFORMATION Patient Instructions My [facility] Additional Instructions You had a fall at the radiologists office. We did a CXR, Thoracic spine Xray and CT scan of your head which did not show any acute findings. We will be sending you home with follow up with your PCP. Please make sure to stay well hydrated and avoid ambulation if you are feeling dizzy or light headed. Problem Qualifiers
--- NOTE | 2018-02-14 19:05 | DIAGNOSTIC IMAGING REPORT ---
CT SCAN OF THE BRAIN WITHOUT IV CONTRAST CLINICAL HISTORY: Fall with head injury. COMPARISON STUDY: CT of the brain dated 12/16/2016. TECHNIQUE: Unenhanced axial CT scan of the brain is performed from the vertex to the skull base. A dose lowering technique was utilized adhering to the principles of ALARA. CT DOSE: 537.48 mGy.cm FINDINGS: Brain parenchyma: There are age-related involutional changes noting mild subcortical and periventricular microangiopathic change. Small chronic lacunar infarcts are identified in the left cerebellar hemisphere. There is no hemorrhage, mass effect, or evidence of acute territorial ischemia by CT criteria. Brooks-white matter is preserved. No extra-axial fluid collection is seen. Ventricles, sulci, cisterns: Prominent secondary to involutional change. Intracranial vasculature: There is atherosclerotic calcification of the cavernous carotid and vertebral arteries. Calvarium: The skeletal structures are osteopenic. No depressed calvarial fracture is seen. There are postoperative changes from left frontal craniotomy. Sinuses and mastoids: The visualized paranasal sinuses are clear. The mastoid air cells are well pneumatized. Orbits: The bony orbits are grossly intact. There are bilateral ocular lens implants. IMPRESSION: There is no hemorrhage, mass effect, or evidence of acute territorial ischemia by CT criteria. Electronically signed by: Mat Ramachandran M.D. 02/14/2018 7:04 PM Dictated Date/Time: 02/14/2018 7:01 PM
--- NOTE | 2018-02-14 19:57 | DIAGNOSTIC IMAGING REPORT ---
TWO VIEW CHEST CLINICAL HISTORY: Atypical chest pain. Fall. FINDINGS: PA and lateral chest radiographs are compared to study dated 01/05/2018. The AP view is degraded by apical lordotic positioning. The heart is enlarged and there is atherosclerotic calcification of the thoracic aorta. The pulmonary vasculature is noncongested. Chronic interstitial thickening is similar to previous. No airspace consolidation or pleural effusion is identified. Calcified granulomas are noted at the right lung base. There is no pneumothorax. The skeletal structures are osteopenic. The bony thorax appears intact. Calcific tendinopathy is seen in the left shoulder. Cholecystectomy clips are identified in the upper abdomen. IMPRESSION: Cardiomegaly with no active disease in the chest. Electronically signed by: Mat Ramachandran M.D. 02/14/2018 7:56 PM Dictated Date/Time: 02/14/2018 7:55 PM
--- NOTE | 2018-02-14 21:01 | DIAGNOSTIC IMAGING REPORT ---
THORACIC SPINE 3 VIEWS CLINICAL HISTORY: Fall with thoracic back pain. FINDINGS: AP, lateral, and swimmer's views of the thoracic spine are compared to study dated 01/26/2008. The skeletal structures are osteopenic. There is no radiographic evidence of acute fracture or malalignment. Vertebral body height and alignment are maintained throughout the thoracic spine. The transverse processes and pedicles are grossly intact as seen on the frontal view. Mild multilevel degenerative disc space narrowing is noted. The heart is enlarged. The lung parenchyma is clear as imaged. Cholecystectomy clips are noted. IMPRESSION: There is no radiographic evidence of fracture or malalignment involving the thoracic spine. Electronically signed by: Mat Ramachandran M.D. 02/14/2018 8:59 PM Dictated Date/Time: 02/14/2018 7:56 PM
[2018-02-14 21:22] VITALS: BP 135/71; PULSE 68; O2SAT 97
== END 2018-02-14 21:15 | disposition home or self-care (01) ==
LOC: C.EDB 17:07 → C.EDC 21:15
DX: M54.6 Pain in thoracic spine (principal); W08.XXXA Fall from other furniture, initial encounter; I50.9 Heart failure, unspecified; Y92.239 Unspecified place in hospital as the place of occurrence of the external cause; I25.10 Atherosclerotic heart disease of native coronary artery without angina pectoris; E11.9 Type 2 diabetes mellitus without complications; G40.909 Epilepsy, unspecified, not intractable, without status epilepticus; I11.0 Hypertensive heart disease with heart failure; Z87.01 Personal history of pneumonia (recurrent); E78.00 Pure hypercholesterolemia, unspecified; Z87.440 Personal history of urinary (tract) infections; Z86.73 Personal history of transient ischemic attack (TIA), and cerebral infarction without residual deficits; Z79.899 Other long term (current) drug therapy; Z79.4 Long term (current) use of insulin; Z90.49 Acquired absence of other specified parts of digestive tract; Z83.3 Family history of diabetes mellitus; Z82.49 Family history of ischemic heart disease and other diseases of the circulatory system; Z82.0 Family history of epilepsy and other diseases of the nervous system

== ENCOUNTER → 2018-02-14 | Outpatient (CLI) | payer BC ==
[~2018-02-14] MED LIST changes: +ACET-1693 PO; +INSDGI SC; +LACT1TAB4 PO; +OPTIRAY 300 IV PRN; +POLY1POW2 PO; +SOLI10TA2 PO
--- NOTE | 2018-02-14 15:58 | DIAGNOSTIC IMAGING REPORT ---
IVP W/OR W/O TOMOGRAMS CLINICAL HISTORY: 77 years-old Female presenting with N13.30 Hydronephrosis of right kidney. TECHNIQUE: Initially, an abdominal disaster or damage control specialist radiograph was obtained. Subsequently, an intravenous pyelogram was performed following administration of 100 mL of Optiray 300 with tomographic images acquired in the corticomedullary and excretory phases of enhancement. Overhead views of the renal collecting system and bladder were obtained in multiple obliquities both pre and post voiding. COMPARISON: CT from 01/18/2018. FINDINGS: Initial radiograph demonstrates moderate stool burden, which degrades evaluation for renal calculi. Allowing for this, no radiographic evidence of nephrolithiasis. Left pelvic phleboliths noted. No gross pneumoperitoneum. Degenerative changes of the lumbar spine. After intravenous contrast menstruation, symmetric enhancement of the kidneys. Excretion is noted from both kidneys. Evaluation limited by patient body habitus. The right kidney demonstrates mild pelvocaliectasis and moderate right hydroureter. The right ureter remains dilated without evidence of filling defect at least to the level of the pelvic brim. The distal right ureter is poorly visualized and nondistended. The left urinary collecting system does not demonstrate filling defect to suggest mass. No stenosis of the left ureter. The bladder distends normally. Adequate decompression of the urinary bladder on post void imaging. IMPRESSION: 1. 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 Findings are unchanged since most recent CT. As no mass or calculus is apparent, findings could suggest adhesions/scarring as a cause of stenosis given the patient's clinical history of hysterectomy. Electronically signed by: Marvel Arellano M.D. 02/14/2018 3:56 PM Dictated Date/Time: 02/14/2018 3:52 PM
== END | disposition home or self-care (01) ==
LOC: C.RAD 13:06
PROVIDERS: ATTEND Urology
DX: N13.30 Unspecified hydronephrosis (principal)

== ENCOUNTER → 2018-04-27 | Outpatient (CLI) | payer BC ==
[~2018-04-27] MED LIST changes: +ACET-1693 PO; -COLE1TAB5 PO; -DTR5 PO; +INSDGI SC; +LACT1TAB4 PO; +LISI-730 PO; -LSN5 PO; +MIRA1TAB3 PO; -POLY1POW2 PO; +SOLI10TA2 PO
[2018-04-27 18:00] LABS: BLOOD UREA NITROGEN 29 mg/dl (7-18); CALCIUM 8.3 mg/dl (8.5-10.1); CARBON DIOXIDE 27 mmol/L (21-32); CREATININE 1.26 mg/dl (0.60-1.20); GLUCOSE 261 mg/dl (70-99); POTASSIUM 4.6 mmol/L (3.5-5.1); SODIUM 136 mmol/L (136-145)
[2018-04-28 06:19] LABS: HEMOGLOBIN A1C 8.9 % (4.5-5.6)
== END | disposition home or self-care (01) ==
LOC: C.LABPVFM 14:53
PROVIDERS: ATTEND Nurse Practitioner
DX: E11.65 Type 2 diabetes mellitus with hyperglycemia (principal); E03.9 Hypothyroidism, unspecified; E55.9 Vitamin D deficiency, unspecified

== ENCOUNTER 2018-05-22 18:22 | Emergency (ER) | payer BC ==
[~2018-05-22] VITALS: Ht 160 cm; Wt 109.0 kg
[~2018-05-22 18:22] MED LIST changes: -LEVO125T5 PO; -PHEN64.8 PO; -SIMV-151 PO
[2018-05-22 18:25] VITALS: TEMP 37; Ht 160 cm; Wt 109.0 kg
[2018-05-22] MEDS ORDERED: CEPHALEXIN MONOHYDRATE 250 MG CAP PO STA (18:34)
[2018-05-22] MEDS ORDERED: PHENAZOPYRIDINE HCL 200 MG TAB PO STA (18:34)
[2018-05-22] MEDS ORDERED: LEVO125T5 PO (18:36)
--- NOTE | 2018-05-22 18:36 | EMERGENCY ROOM VISIT NOTE ---
History Report prepared by Lalitha: Pura Mcintosh Under the Supervision of: Dr. Mat Yang M.D. First contact with patient: 18:27 Chief Complaint: URINARY SYMPTOMS Stated Complaint: BLADDER INFECTION History of Present Illness The patient is a 78 year old female who presents to the Emergency Room with complaints of constant urinary infection symptoms beginning 3 days ago. She notes she has been attempting to urinate, but is only able to produce a small amount of urine, and experiences burning. The patient denies fevers, vomiting, flank pain, diarrhea, or vomiting. She reports a long history of UTIs, but is unsure when her most recent one was. Source of History: patient Onset: 3 days ago Position: pelvis Quality: other (urinary infection symptoms) Timing: constant Associated Symptoms: No fevers, No vomiting Review of Systems See HPI for pertinent positives & negatives. A total of 10 systems reviewed and were otherwise negative. Past Medical & Surgical Medical Problems: (1) Congestive Heart Failure Nos (2) Coronary Atherosclerosis Of [place] Coronary Vessel (3) Diab Patsy Wo Compl, Type Ii Or Unspec Type, Not Uncntrld (4) Epilepsy (5) Hypertension Nos (6) Pericardial Disease Nos (7) pericardial window (8) Pneumonia, Organism Nos (9) Pure Hypercholesterolem (10) Urin Tract Infection Nos Surgical Problems: (1) History of cholecystectomy Family History Diabetes mellitus Hypertension Seizures Social History Smoking Status: Never Smoker Alcohol Use: none Drug Use: none Housing Status: lives with family Occupation Status: retired Current/Historical Medications Scheduled Cephalexin Monohydrate (Keflex), 500 MG PO TID Cholecalciferol (Vitamin D3), 2,000 UNIT PO QAM Fluticasone Propionate (Nasal) (Flonase Allergy Relief), 1 SPRAY SHARMILA BID Furosemide (Furosemide), 10 MG PO DAILY Glimepiride (Glimepiride), 2 MG PO QAM Insulin Glargine (Lantus), 15 UNITS SQ QAM Insulin Glargine (Lantus), 10 UNITS SC QPM Insulin Glargine (Lantus), 18 UNITS SQ QAM Lactobacillus (Floranex), 1 TAB PO QAM Levothyroxine Sodium (Levothyroxine Sodium), 125 MCG PO QAM Lisinopril (Lisinopril), 5 MG PO QAM Mirabegron (Myrbetriq Er), 50 MG PO QAM Omeprazole (Prilosec), 20 MG PO QAM Pancrelipase (Lipase-Protease- (Creon), 72,000 UNIT PO UD Phenobarbital (Phenobarbital), 129.6 MG PO HS Phenobarbital (Phenobarbital), 64.8 MG PO QAM Simvastatin (Simvastatin), 20 MG PO HS Solifenacin (Vesicare), 10 MG PO QAM Venlafaxine Hcl (Venlafaxine Extended Rel), 75 MG PO QAM Scheduled PRN Acetaminophen Tab (Tylenol), 325-650 MG PO Q4H PRN for Pain Colestipol Hcl (Colestipol Hcl), 1 GM PO DAILY PRN for DIARRHEA Phenazopyridine HCl (Pyridium), 200 MG PO TID PRN for Frequency/Burning w/ Urination Allergies Coded Allergies: Sulfa Antibiotics (Verified Allergy, Unknown, UNKNOWN, 03/02/18) Sitagliptin (Verified Adverse Reaction, Intermediate, ABD PAIN, 03/02/18) Physical Exam Vital Signs Date Time Temp Pulse Resp B/P (MAP) Pulse Ox O2 Delivery O2 Flow Rate FiO2 05/22/18 18:25 37.0 89 20 129/80 94 Physical Exam GENERAL: Patient is in no acute distress. HEENT: No acute trauma, normocephalic atraumatic, mucous membranes moist, no nasal congestion, no scleral icterus. NECK: No stridor, no adenopathy, no meningismus, trachea is midline. LUNGS: Clear to auscultation bilaterally, no wheeze, no rhonchi, breath sounds equal. HEART: Without murmurs gallops or rubs, regular rate and rhythm. ABDOMEN: Soft, bowel sounds positive, no hernias, no peritonitis. Mild tenderness over bladder. BACK: No flank discomfort with percussion. EXTREMITIES: No cyanosis or edema, full range of motion of all the joints without pain or difficulty, no signs for acute trauma. NEUROLOGIC: Oriented x 3, no acute motor or sensory deficits, no focal weakness. SKIN: No rash, no jaundice, no diaphoresis. Medical Decision & Procedures Laboratory Results Test 05/22/18 18:45 Urine Color YELLOW Urine Appearance CLOUDY (CLEAR) Urine pH 7.0 (4.5-7.5) Urine Specific [place] 1.021 (1.000-1.030) Urine Protein 3+ (NEG) Urine Glucose (UA) NEG (NEG) Urine Ketones NEG (NEG) Urine Occult Blood 1+ (NEG) Urine Nitrite POS (NEG) Urine Bilirubin NEG (NEG) Urine Urobilinogen NEG (NEG) Urine Leukocyte Esterase LARGE (NEG) Urine WBC (Auto) >30 /hpf (0-5) Urine RBC (Auto) 5-10 /hpf (0-4) Urine Hyaline Casts (Auto) 1-5 /lpf (0-5) Urine Epithelial Cells (Auto) 20-30 /lpf (0-5) Urine Bacteria (Auto) 4+ (NEG) Urine Pathogenic Casts /lpf (0) Laboratory results reviewed by me. Medications Administered Medications (Trade) Dose Ordered Sig/Jo Ann Route Start Time Stop Time Status Last Admin Dose Admin Phenazopyridine HCl (Pyridium Tab) 200 mg NOW STAT PO 05/22/18 18:34 05/22/18 18:35 DC 05/22/18 18:57 200 MG Cephalexin Monohydrate (Keflex Cap) 500 mg NOW STAT PO 05/22/18 18:34 05/22/18 18:35 DC 05/22/18 18:57 500 MG ED Course 182: The patient was evaluated in room C1B. A complete history and physical exam was performed. 1833: Ordered Keflex Cap 500 mg PO, Pyridium Tab 200 mg PO. 1920: Reevaluated the patient. Discussed results and discharge instructions: she verbalized understanding and agreement. The patient is ready for discharge. Medical Decision Differential diagnoses include: UTI, urinary retention, pyelonephritis, dehydration, vaginal irritation. Patient presents with urinary symptoms. She has no fever, there has been no vomiting, there is no flank pain. She has a history of UTI. Urinalysis does show infection, urine culture is pending. The patient was given oral Keflex and oral Pyridium. She is being discharged on both of these meds, if worsening, she can return. Medication Reconcilliation Current Medication List: was personally reviewed by me Blood Pressure Screening Patient's blood pressure: Normal blood pressure Blood pressure disposition: Did not require urgent referral Impression Primary Impression: UTI (urinary tract infection) Scribe Attestation The scribe's documentation has been prepared under my direction and personally reviewed by me in its entirety. I confirm that the note above accurately reflects all work, treatment, procedures, and medical decision making performed by me. Departure Information Dispostion Home / Self-Care Prescriptions Phenazopyridine HCl (Pyridium) 200 Mg Tab 200 MG PO TID Y for Frequency/Burning w/Urination, #6 TAB Prov: Mat Yang M.D. 05/22/18 Cephalexin Monohydrate (Keflex) 500 Mg Cap 500 MG PO TID for 7 Days, #21 CAP Prov: Mat Yang M.D. 05/22/18 Referrals Kelli Gates C.R.N.P (PCP) Forms HOME CARE DOCUMENTATION FORM, IMPORTANT VISIT INFORMATION Patient Instructions My [facility] Additional Instructions keflex 3x per day for 1 week use pyridium 3x per day for 2 days fluids rest return for fever, vomiting or worsening symptoms Problem Qualifiers Primary Impression: UTI (urinary tract infection) Urinary tract infection type: acute cystitis Hematuria presence: without hematuria Qualified Codes: N30.00 - Acute cystitis without hematuria
[2018-05-22] MEDS ORDERED: PHEN64.8 PO ×2 (19:01)
[2018-05-22] MEDS ORDERED: LSX20 PO (19:29)
[2018-05-22] MEDS ORDERED: COLE1TAB5 PO (19:29)
[2018-05-22] MEDS ORDERED: INSDGI SQ (19:29)
[2018-05-22] MEDS ORDERED: CEPH500C PO (19:31)
[2018-05-22] MEDS ORDERED: PHEN-876 PO (19:31)
[2018-05-22 19:41] VITALS: BP 107/80; PULSE 67; O2SAT 92
[2018-05-22] MEDS ORDERED: MIRA1TAB3 PO (19:46)
[2018-05-22] MEDS ORDERED: AMR2 PO (19:46)
[2018-05-22] MEDS ORDERED: SIMV-151 PO (21:27)
== END 2018-05-22 19:41 | disposition home or self-care (01) ==
LOC: C.EDB 18:23 → C.EDC 19:41
DX: N30.00 Acute cystitis without hematuria (principal); I50.9 Heart failure, unspecified; I25.10 Atherosclerotic heart disease of native coronary artery without angina pectoris; E11.9 Type 2 diabetes mellitus without complications; G40.909 Epilepsy, unspecified, not intractable, without status epilepticus; I11.0 Hypertensive heart disease with heart failure; E78.00 Pure hypercholesterolemia, unspecified; Z79.4 Long term (current) use of insulin; Z79.899 Other long term (current) drug therapy; Z88.2 Allergy status to sulfonamides; Z88.8 Allergy status to other drugs, medicaments and biological substances

== ENCOUNTER 2022-01-06 03:00 | Observation (INO) ==
[2022-01-06 04:05] LABS: Basophils # (auto) 0.01 K/uL (0-0.2); Basophils % (auto) 0.1 %; Eosinophils # (auto) 0.13 K/uL (0-0.5); Eosinophils % (auto) 1.9 %; Hematocrit (blood only) 37.2 % (37-47); Hemoglobin 12.3 g/dL (12.0-16.0); Immature Granulocytes # (auto) 0.02 K/uL (0.00-0.02); Immature Granulocytes % (auto) 0.3 %; Lymphocytes # (auto) 0.71 K/uL (1.2-3.4); Lymphocytes % (auto) 10.5 %; Mean Corpuscular Hemoglobin 30.3 pg (25-34); Mean Corpuscular Hgb Conc 33.1 g/dL (32-36); Mean Corpuscular Volume 91.6 fL (80-100); Mean Platelet Volume 12.2 fL (7.4-10.4); Monocytes # (auto) 0.43 K/uL (0.11-0.59); Monocytes % (auto) 6.4 %; Neutrophils # (auto) 5.45 K/uL (1.4-6.5); Neutrophils % (auto) 80.8 %; Platelet Count 145 K/uL (130-400); RDW Coefficient of Variation 13.5 % (11.5-14.5); RDW Standard Deviation 44.8 fL (36.4-46.3); Red Blood Count 4.06 M/uL (4.2-5.4); White Blood Count 6.75 K/uL (4.8-10.8)
[2022-01-06] MEDS: SODIUM CHLORIDE 0.9% 1000ML 1,000 ML IV SCH ×3 (04:18→22:22)
[2022-01-06 04:27] LABS: Alanine Aminotransferase 12 U/L (7-52); Albumin Globulin Ratio 1.3 (0.9-2); Albumin Level 3.8 gm/dl (3.4-5.0); Alkaline Phosphatase 111 U/L (34-104); Anion Gap 7 (3-11); Aspartate Aminotransferase 12 U/L (13-39); BUN Creatinine Ratio 32.1 (10-20); Bilirubin,Total 0.3 mg/dl (0.2-1.0); Blood Urea Nitrogen 27 mg/dl (6-23); Calcium 8.8 mg/dl (8.5-10.1); Carbon Dioxide 27 mmol/L (21-32); Chloride 101 mmol/L (98-107); Est GFR (African American) 76.1 ml/min; Est GFR (Non-African American) 65.6 ml/min; Globulin 2.9 gm/dl (2.5-4.0); Lipase 28 U/L (11-82); Magnesium 1.5 mg/dl (1.7-2.4); Potassium 4.4 mmol/L (3.5-5.1); Sodium 135 mmol/L (136-145); Total Protein 6.7 gm/dl (6.0-8.3); Troponin I High Sensitivity 16.1 pg/ml (0-14)
[2022-01-06 04:28] LABS: Glucose 311 mg/dl (70-99(Fasting))
[2022-01-06 04:34] LABS: Thyroid Stimulating Hormone 6.481 uIu/ml (0.300-4.500)
[2022-01-06 04:49] LABS: Appearance Urine Clear (Clear); Bacteria Urine Automated 4+ (Negative); Bilirubin Urine Negative (Negative); Blood Urine Negative (Negative); Cast Urine Automated 0 /lpf (0-5); Color Urine Yellow; Glucose Urine UA Negative (Negative); Ketones Urine Negative (Negative); Leukocyte Esterase Urine 1+ (Negative); Nitrite Urine Negative (Negative); Protein Urine Negative (Negative); RBC Urine Automated 0-4 /hpf (0-4); Specific Gravity Urine 1.011 (1.000-1.030); Urobilinogen Urine Negative (Negative); pH Urine 5.5 (4.5-7.5)
[2022-01-06] MEDS: MAGNESIUM SULFATE / D5W 1 GM/100 ML BAG IV SCH ×2 (05:15→06:16)
[2022-01-06 05:30] LABS: T4 Free Thyroxine 0.79 ng/dl (0.61-1.60)
--- NOTE | 2022-01-06 06:18 | Emergency Department Note ---
History of Present Illness General Chief complaint: Fall Stated complaint: Fall, Dizziness, Nausea Time Seen by Provider: 01/06/22 03:22 Source: patient and family Mode of arrival: EMS Limitations: patient cooperation History of Present Illness Provider complaint: Dizziness, weakness, fall Onset (ago): day(s) 2 Treatments prior to arrival: none This is an 81-year-old female comes in complaining of weakness, dizziness, and fall. Patient is hard of hearing and is a poor historian. Daughter at bedside tries to assist with history. Daughter bedside does live with the patient and states she got up and was using her walker attempting to go to the bathroom when she fell. Patient denies striking her head or losing consciousness. She states she fell landing on her right hand side. Daughter states she has been lightheaded intermittently over the last 2 days. She denies any change in diet or medications. Denies any recent fevers or chills. She denies any change in bowel movements. She states she does urinate frequently however has not noticed any change in the color or odor. Patient denies any recent illness, fevers or chills. She denies any abdominal pain. She states she is intermittently nauseated although does not vomit. She cannot pinpoint a pattern for or trigger for her episodes of lightheadedness or her nausea. Pt seen during a time of high acuity and national emergency pandemic while wearing PPE. Home Medications Medication Instructions Recorded Confirmed Type aspirin 81 mg tablet,delayed 81 mg PO DAILY 08/20/19 11/26/21 History release cholecalciferol (vitamin D3) 50 2,000 unit PO DAILY 08/20/19 11/26/21 History mcg (2,000 unit) tablet (Vitamin D3) multivitamin 1 tab PO DAILY 08/20/19 11/26/21 History lancets 33 gauge (OneTouch Delica #100 ea 08/13/20 11/26/21 Rx Lancets) colestipol 1 gram tablet 1 g PO DAILY PRN #30 tab 03/25/21 11/26/21 Rx lisinopril 5 mg tablet 5 mg PO DAILY #30 tab 04/01/21 11/26/21 Rx simvastatin 20 mg tablet 20 mg PO HS #30 tab 04/01/21 11/26/21 Rx venlafaxine 75 mg capsule,extended 75 mg PO DAILY #30 cap 04/01/21 11/26/21 Rx release 24 hr furosemide 20 mg tablet 10 mg PO QAM #15 tab 09/23/21 11/26/21 Rx blood sugar diagnostic #100 ea 10/14/21 11/26/21 Rx mirabegron 50 mg tablet,extended 50 mg PO DAILY #90 tab 11/10/21 11/26/21 Rx release 24 hr (Myrbetriq) solifenacin 10 mg tablet 10 mg PO DAILY #90 tab 11/10/21 11/26/21 Rx insulin aspar prot-insulin aspart 25 unit SUBCUT BID #15 ml 11/26/21 11/26/21 Rx 100 unit/mL (70-30) subcutaneous pen (Novolog Mix 70-30FlexPen U-100) levothyroxine 137 mcg capsule 137 mcg PO DAILY #30 cap 11/26/21 Rx omeprazole 40 mg capsule,delayed 40 mg PO QAM #30 cap 11/29/21 Rx release [id number]-[id number] 2 cap PO .COMPLEX #240 cap 12/31/21 Rx 36,000-114,000-180,000 unit capsule,delay rel (Creon) pen needle, diabetic 31 gauge x #60 ea 12/31/21 Rx 3/16" (Unifine Pentips) phenobarbital 64.8 mg tablet See Rx Instructions .ROUTE 12/31/21 Rx .COMPLEX #90 tab Allergies Allergy/AdvReac Type Severity Reaction Status Date / Time Sulfa (Sulfonamide Allergy Intermediate SICK TO Verified 11/26/21 08:21 Antibiotics) STOMACH sitagliptin AdvReac Intermediate ABD PAIN Verified 11/26/21 08:21 Past Med/Surg History Medical History (Updated 01/09/22 @ 03:44 by Khadijah Valadez, DO) Balance problems Choking episode occurring during daytime Depression Diabetes mellitus type 2 with complications, uncontrolled Dyslipidemia Epilepsy Falls frequently Gait abnormality GERD (gastroesophageal reflux disease) Hydronephrosis of right kidney Hypertension Hypothyroidism Memory impairment Osteoarthritis Pancreatic insufficiency Peripheral neuropathy Subdural hematoma, chronic Urinary symptom or sign Surgical History (Updated 01/06/22 @ 10:06 by Rock Vance) History of cholecystectomy History of cholecystectomy History of craniotomy ? 5 YEARS AGO - [facility] History of hysterectomy History of nasal surgery VERBALIZED NOSE SURGERY History of tooth extraction Family History Daughter Family history of diabetes mellitus Colorectal cancer Denies family history of Ovarian cancer Prostate cancer Myocardial infarction Breast cancer Social History (Updated 01/06/22 @ 10:06 by Rock Vance) Smoking Status: Never smoker Second Hand Exposure: No; Do You Dip or Chew Tobacco: No; Tobacco Cessation Education Requested by Patient: No Hx Alcohol Use: No Hx Substance Use: No Preferred Language: Indonesian Communication Ability: Effective Euclid Operator Required: No Beliefs That Will Affect Care: None marital status: / Current Living Situation: Family Current Living Situation Comment: lives with daughter current occupational status: retired Other Information That Helps Us Care for You: No Feels Safe at Home: Yes Safety Concerns: Feels Safe At This Time Dental Care, Regularly: No Seatbelt Use: always Assistive Devices: Walker Review of Systems A total of 10 systems reviewed and were otherwise negative All systems reviewed & are unremarkable except as noted in HPI & below Physical Exam Vital Signs Vital Signs - 24 hr 01/06/22 03:03 01/06/22 03:33 01/06/22 04:00 Temperature 36.8 C Temperature Source Oral Pulse Rate 95 H 88 86 Pulse Rate from SpO2 Sensor 88 87 Respiratory Rate 18 14 14 Respiratory Effort / Characteristics Non-Labored Spontaneous Respiratory Depth Normal Respiratory Pattern Regular Blood Pressure 151/75 H 167/85 H Blood Pressure Mean 100 112 Pulse Oximetry 94 93 94 Oxygen Delivery Method Room Air Sepsis Recent Fever Within 48 Hours No Sepsis New/Unexplained Change in Mental Status No Sepsis Action Taken by Nursing No Action Required 01/06/22 04:28 01/06/22 05:00 01/06/22 05:01 Temperature Temperature Source Pulse Rate 98 H 85 89 Pulse Rate from SpO2 Sensor 97 H 89 Respiratory Rate 15 14 13 Respiratory Effort / Characteristics Respiratory Depth Respiratory Pattern Blood Pressure 167/85 H 135/72 Blood Pressure Mean 112 93 Pulse Oximetry 95 96 Oxygen Delivery Method Sepsis Recent Fever Within 48 Hours Sepsis New/Unexplained Change in Mental Status Sepsis Action Taken by Nursing 01/06/22 06:00 01/06/22 07:00 Temperature Temperature Source Pulse Rate 86 80 Pulse Rate from SpO2 Sensor 86 81 Respiratory Rate 15 16 Respiratory Effort / Characteristics Respiratory Depth Respiratory Pattern Blood Pressure 134/55 L 147/76 H Blood Pressure Mean 81 99 Pulse Oximetry 94 96 Oxygen Delivery Method Sepsis Recent Fever Within 48 Hours Sepsis New/Unexplained Change in Mental Status Sepsis Action Taken by Nursing GENERAL: alert, well appearing, well nourished, no distress, non-toxic, [place] HEAD: nc/at, no reyes signs, no raccoon eyes EYE EXAM: normal conjunctiva, PERRL and EOM's grossly intact OROPHARYNX: no exudate, no erythema, lips, buccal mucosa, and tongue normal and mucous membranes are dry NECK: supple, no nuchal rigidity, no adenopathy, non-tender LUNGS: Clear to auscultation. Normal chest wall mechanics, no w/r/r HEART: no murmurs, S1 normal and S2 normal ABDOMEN: abdomen soft, non-tender, normo-active bowel sounds, no masses, no rebound or guarding. BACK: Back is symmetrical on inspection and there is no deformity, no midline tenderness, no CVA tenderness. SKIN: no rashes and no bruising UPPER EXTREMITIES: upper extremities are grossly normal. FROM, nml pulses b/l. No deformity or evidence of trauma. No pain with palpation. LOWER EXTREMITIES: No pitting edema. FROM, nml pulses b/l. No deformity or evidence of trauma. No pain with palpation NEURO EXAM: Confused to chronology events but knows person, place, and general time constraints, cranial nerves II-XII grossly intact, normal speech, no gross weakness of arms, no gross weakness of legs. Gross sensation intact. Of note when nursing staff was helping to get her situated and disrobed, several live insects were noted within the patient's clothing and coming off of her while they were assisting her in getting into a gown Course Course 0612: Discussed with daughter, Emani. Administered Medications Acetaminophen (Acetaminophen 325 Mg Tab) 650 mg PO Q4H PRN PRN Reason: Pain or Fever Stop: 02/05/22 11:35 Last Admin: 01/07/22 22:29 Dose: 650 mg Documented by: [id number] Admin: 01/07/22 08:00 Dose: 650 mg Documented by: [id number] Admin: 01/06/22 19:27 Dose: 650 mg Documented by: [id number] Lipase/Protease/Amylase (Pancreaze (Lipase 10,500u) Cap) 2 cap PO TIDM KIRA Stop: 02/05/22 11:35 Last Admin: 01/08/22 17:06 Dose: 2 cap Documented by: [id number] Admin: 01/08/22 12:20 Dose: 2 cap Documented by: [id number] Admin: 01/08/22 08:05 Dose: 2 cap Documented by: [id number] Admin: 01/07/22 17:31 Dose: 2 cap Documented by: [id number] Admin: 01/07/22 12:25 Dose: 2 cap Documented by: [id number] Admin: 01/07/22 07:52 Dose: 2 cap Documented by: [id number] Admin: 01/06/22 17:16 Dose: 2 cap Documented by: [id number] Admin: 01/06/22 14:16 Dose: Not Given Documented by: [id number] Admin: 01/06/22 13:49 Dose: 2 cap Documented by: [id number] Aspirin (Aspirin 81 Mg Ectab) 81 mg PO DAILY KIRA Stop: 02/06/22 08:59 Last Admin: 01/08/22 08:06 Dose: 81 mg Documented by: [id number] Admin: 01/07/22 07:52 Dose: 81 mg Documented by: [id number] Cephalexin HCl (Cephalexin 500 Mg Cap) 500 mg PO BID KIRA Stop: 01/13/22 08:59 Last Admin: 01/08/22 20:41 Dose: 500 mg Documented by: [id number] Admin: 01/08/22 09:48 Dose: 500 mg Documented by: [id number] Cyanocobalamin (Cyanocobalamin 1000 Mcg/Ml Vial) 1,000 mcg IM QAM KIRA Stop: 01/12/22 08:59 Last Admin: 01/08/22 08:07 Dose: 1,000 mcg Documented by: [id number] Admin: 01/07/22 11:14 Dose: 1,000 mcg Documented by: [id number] Diclofenac Sodium (Diclofenac Sod 1% Gel 100 Gm Tube) 4 gm EXT QID KIRA Stop: 02/05/22 16:59 Last Admin: 01/08/22 20:39 Dose: 4 gm Documented by: [id number] Admin: 01/08/22 17:07 Dose: 4 gm Documented by: [id number] Admin: 01/08/22 12:19 Dose: 4 gm Documented by: [id number] Admin: 01/08/22 08:08 Dose: 4 gm Documented by: [id number] Admin: 01/07/22 21:26 Dose: 4 gm Documented by: [id number] Admin: 01/07/22 17:31 Dose: 4 gm Documented by: [id number] Admin: 01/07/22 12:25 Dose: 4 gm Documented by: [id number] Admin: 01/07/22 07:52 Dose: 4 gm Documented by: [id number] Admin: 01/06/22 20:51 Dose: 4 gm Documented by: [id number] Admin: 01/06/22 17:33 Dose: 4 gm Documented by: [id number] Heparin Sodium (Porcine) (Heparin Sod 5,000 Unit/0.5 Ml Vial) 5,000 units SQ Q8 KIRA Stop: 02/06/22 08:59 Last Admin: 01/08/22 20:43 Dose: 5,000 units Documented by: [id number] Admin: 01/08/22 13:37 Dose: 5,000 units Documented by: [id number] Admin: 01/08/22 06:24 Dose: 5,000 units Documented by: [id number] Admin: 01/07/22 21:36 Dose: 5,000 units Documented by: [id number] Admin: 01/07/22 14:31 Dose: 5,000 units Documented by: [id number] Admin: 01/07/22 07:53 Dose: 5,000 units Documented by: [id number] Insulin Aspart (Insulin Aspart Per Unit) 0 units SC ACHS KIRA Stop: 02/05/22 11:35 Last Admin: 01/08/22 20:38 Dose: Not Given Documented by: [id number] Cosigned by: [id number] Admin: 01/08/22 17:18 Dose: 1 units Documented by: [id number] Cosigned by: [id number] Admin: 01/08/22 12:32 Dose: 8 units Documented by: [id number] Cosigned by: [id number] Admin: 01/08/22 08:34 Dose: 1 units Documented by: [id number] Cosigned by: [id number] Admin: 01/07/22 21:36 Dose: 3 units Documented by: [id number] Cosigned by: [id number] Admin: 01/07/22 17:26 Dose: 9 units Documented by: [id number] Cosigned by: [id number] Admin: 01/07/22 12:11 Dose: 11 units Documented by: [id number] Cosigned by: [id number] Admin: 01/07/22 08:00 Dose: 8 units Documented by: [id number] Cosigned by: [id number] Admin: 01/06/22 21:25 Dose: Not Given Documented by: [id number] Cosigned by: [id number] Admin: 01/06/22 17:41 Dose: 10 units Documented by: [id number] Cosigned by: [id number] Admin: 01/06/22 14:12 Dose: 9 units Documented by: [id number] Cosigned by: [id number] Insulin Glargine (Insulin Glargine Solostar 100 Units/Ml 3 Ml Pen) 15 units SC BID [facility] Stop: 02/05/22 20:59 Last Admin: 01/08/22 20:40 Dose: 15 units Documented by: [id number] Cosigned by: [id number] Admin: 01/08/22 08:34 Dose: 15 units Documented by: [id number] Cosigned by: [id number] Admin: 01/07/22 21:36 Dose: 15 units Documented by: [id number] Cosigned by: [id number] Admin: 01/07/22 07:53 Dose: 15 units Documented by: [id number] Cosigned by: [id number] Admin: 01/06/22 21:26 Dose: 15 units Documented by: [id number] Cosigned by: [id number] Lactobacillus Acidophilus (Advanced Probiotic 1250 Mg Capsule) 2 cap PO DAILY [facility] Stop: 02/06/22 08:59 Last Admin: 01/08/22 08:06 Dose: 2 cap Documented by: [id number] Admin: 01/07/22 07:52 Dose: 2 cap Documented by: [id number] Levothyroxine Sodium ([facility]othy[facility]ine S[facility] 150 [facility]g [facility]: 02/06/22 06:29 Last Admin: 01/08/22 06:24 Dose: 150 mcg Documented by: [id number] Admin: 01/07/22 06:10 Dose: 150 mcg Documented by: [id number] Miconazole Nitrate (Miconazole Nitrate Powder 43 Gm) 1 appln EXT PRN PRN PRN Reason: Affected Skin Folds Stop: 02/05/22 14:42 Last Admin: 01/07/22 08:01 Dose: 1 appln Documented by: [id number] Admin: 01/06/22 16:03 Dose: 1 appln Documented by: [id number] Multivitamins (Multivitamin Tab) 1 tab PO DAILY [facility] Stop: 02/06/22 08:59 Last Admin: 01/08/22 08:06 Dose: 1 tab Documented by: [id number] Admin: 01/07/22 07:52 Dose: 1 tab Documented by: [id number] Pantoprazole Sodium (Pantoprazole 40 Mg Tab) 40 mg PO QAM KIRA Stop: 02/06/22 08:59 Last Admin: 01/08/22 08:07 Dose: 40 mg Documented by: [id number] Admin: 01/07/22 07:52 Dose: 40 mg Documented by: [id number] Phenobarbital (Phenobarbital 30 Mg Tab) 120 mg PO QPM KIRA Stop: 02/05/22 20:59 Last Admin: 01/08/22 20:38 Dose: 120 mg Documented by: [id number] Admin: 01/07/22 21:27 Dose: 120 mg Documented by: [id number] Admin: 01/06/22 20:55 Dose: 120 mg Documented by: [id number] Phenobarbital (Phenobarbital 30 Mg Tab) 60 mg PO QAM [facility] Stop: 02/05/22 08:59 Last Admin: 01/08/22 09:47 Dose: 60 mg Documented by: [id number] Admin: 01/07/22 08:06 Dose: 60 mg Documented by: [id number] Simvastatin (Simvastatin 20 Mg Tab) 20 mg PO HS [facility] Stop: 02/05/22 20:59 Last Admin: 01/08/22 20:42 Dose: 20 mg Documented by: [id number] Admin: 01/07/22 21:28 Dose: 20 mg Documented by: [id number] Admin: 01/06/22 20:52 Dose: 20 mg Documented by: [id number] Sucralfate (Sucralfate 1 Gm/10 Ml Udc) 1 gm PO QID KIRA Stop: 02/06/22 20:59 Last Admin: 01/08/22 20:40 Dose: 1 gm Documented by: [id number] Admin: 01/08/22 17:12 Dose: 1 gm Documented by: [id number] Admin: 01/08/22 12:19 Dose: 1 gm Documented by: [id number] Admin: 01/08/22 08:07 Dose: 1 gm Documented by: [id number] Admin: 01/07/22 21:30 Dose: 1 gm Documented by: [id number] Thiamine HCl (Thiamine Hcl 100 Mg Tab) 200 mg PO BID KIRA Stop: 02/07/22 08:59 Last Admin: 01/08/22 20:42 Dose: 200 mg Documented by: [id number] Admin: 01/08/22 09:48 Dose: 200 mg Documented by: [id number] Venlafaxine HCl (Venlafaxine Hcl Xr 75 Mg Capxr) 75 mg PO DAILY KIRA Stop: 02/06/22 08:59 Last Admin: 01/08/22 08:06 Dose: 75 mg Documented by: [id number] Admin: 01/07/22 07:52 Dose: 75 mg Documented by: [id number] Vitamin D (Cholecalciferol 1,000 Units 25 Mcg Tab) 2,000 units PO DAILY KIRA Stop: 02/06/22 08:59 Last Admin: 01/08/22 08:07 Dose: 2,000 units Documented by: [id number] Admin: 01/07/22 07:51 Dose: 2,000 units Documented by: [id number] Discontinued Medications Ceftriaxone Sodium (Ceftriaxone Sodium 2000mg/70ml D5w) Confirm Administered Dose 2,000 mg IV .ST-MED ONE Stop: 01/06/22 10:48 Last Admin: 01/06/22 11:01 Dose: Not Given Documented by: [id number] Sodium Chloride (Nss 1000ml) 1,000 mls @ 75 mls/hr IV .[id number] [facility] Stop: 02/05/22 03:59 Last Infusion: 01/07/22 09:54 Dose: 0 mls/hr Documented by: [id number] Admin: 01/06/22 22:22 Dose: 75 mls/hr Documented by: [id number] Infusion: 01/06/22 22:22 Dose: 75 mls/hr Documented by: [id number] Infusion: 01/06/22 19:20 Dose: 75 mls/hr Documented by: [id number] Admin: 01/06/22 13:49 Dose: 125 mls/hr Documented by: [id number] Infusion: 01/06/22 13:49 Dose: 125 mls/hr Documented by: [id number] Infusion: 01/06/22 11:00 Dose: 125 mls/hr Documented by: [id number] Infusion: 01/06/22 09:00 Dose: 0 mls/hr Documented by: [id number] Admin: 01/06/22 04:18 Dose: 125 mls/hr Documented by: [id number] Magnesium Sulfate/Dextrose (Magnesium Sulfate / D5w) 1 gm in 100 mls @ 100 mls/hr IV Q1H KIRA Stop: 01/06/22 06:49 Last Infusion: 01/06/22 07:15 Dose: 0 mls/hr Documented by: [id number] Admin: 01/06/22 06:16 Dose: 100 mls/hr Documented by: [id number] Infusion: 01/06/22 06:15 Dose: 100 mls/hr Documented by: [id number] Admin: 01/06/22 05:15 Dose: 100 mls/hr Documented by: [id number] Ceftriaxone Sodium (Rocephin) 2,000 mg in 70 mls @ 140 mls/hr IV NOW [facility] Stop: 01/06/22 08:34 Last Infusion: 01/06/22 11:30 Dose: 0 mls/hr Documented by: [id number] Admin: 01/06/22 11:00 Dose: 140 mls/hr Documented by: [id number] Ceftriaxone Sodium 2,000 mg/ (Dextrose) 70 mls @ 100 mls/hr IV DAILY [facility]; Protocol Stop: 01/12/22 08:59 Last Infusion: 01/07/22 08:42 Dose: 0 mls/hr Documented by: [id number] Admin: 01/07/22 08:00 Dose: 100 mls/hr Documented by: [id number] Insulin Glargine (Insulin Glargine Solostar 100 Units/Ml 3 Ml Pen) 10 units SC BID [facility] Stop: 02/05/22 11:35 Last Admin: 01/06/22 14:13 Dose: 10 units Documented by: [id number] Cosigned by: [id number] Miscellaneous (Patient's Height And/Or Weight Needed) 1 ea N/A Q2H [facility] Stop: 02/05/22 12:14 Last Admin: 01/06/22 14:22 Dose: 1 ea Documented by: [id number] Admin: 01/06/22 14:16 Dose: 1 ea Documented by: [id number] Admin: 01/06/22 13:49 Dose: 1 ea Documented by: [id number] Phenobarbital (Phenobarbital 30 Mg Tab) 60 mg PO QAM [facility] Stop: 02/05/22 08:59 Last Admin: 01/06/22 19:13 Dose: Not Given Documented by: [id number] Medical Decision Making Differential Diagnosis Differential diagnosis includes etiologies such as benign positional vertigo, dehydration, hypovolemia, anemia, tumor, infection, hypoglycemia, electrolyte abnormalities, cardiac sources, intracerebral event, toxicologic, neurologic, as well as others were entertained. Medical Records Attestation: I reviewed the patient's medical records. Home Medications Current Medication List: was personally reviewed by me Laboratory Data Attestation: I reviewed the patient's lab results. Result diagrams: 01/06/22 03:15 01/07/22 05:32 Lab Results 01/06/22 01/06/22 01/06/22 Range/Units 03:15 03:15 03:15 WBC 6.75 (4.8-10.8) K/uL RBC 4.06 L (4.2-5.4) M/uL Hgb 12.3 (12.0-16.0) g/dL Hct 37.2 (37-47) % MCV 91.6 (80-100) fL MCH 30.3 (25-34) pg MCHC 33.1 (32-36) g/dL RDW Std Deviation 44.8 (36.4-46.3) fL RDW Coeff of Mauro 13.5 (11.5-14.5) % Plt Count 145 (130-400) K/uL MPV 12.2 H (7.4-10.4) fL Immature Gran % (Auto) 0.3 % Neut % (Auto) 80.8 % Lymph % (Auto) 10.5 % Dawes % (Auto) 6.4 % Eos % (Auto) 1.9 % Baso % (Auto) 0.1 % Neut # (Auto) 5.45 (1.4-6.5) K/uL Lymph # (Auto) 0.71 L (1.2-3.4) K/uL Dawes # (Auto) 0.43 (0.11-0.59) K/uL Eos # (Auto) 0.13 (0-0.5) K/uL Baso # (Auto) 0.01 (0-0.2) K/uL Immature Gran # (Auto) 0.02 (0.00-0.02) K/uL Sodium 135 L (136-145) mmol/L Potassium 4.4 (3.5-5.1) mmol/L Chloride 101 (98-107) mmol/L Carbon Dioxide 27 (21-32) mmol/L Anion Gap 7 (3-11) BUN 27 H (6-23) mg/dl Creatinine 0.84 (0.6-1.2) mg/dl Est Cr Clr Drug Dosing Not Reportable Est GFR ( Amer) 76.1 ml/min Est GFR (Non-Af Amer) 65.6 ml/min BUN/Creatinine Ratio 32.1 H (10-20) Glucose 311 H* (70-99(Fasting)) mg/dl Estimat Average Glucose mg/dl Hemoglobin A1c (4.5-5.6) % Calcium 8.8 (8.5-10.1) mg/dl Magnesium 1.5 L (1.7-2.4) mg/dl Total Bilirubin 0.3 (0.2-1.0) mg/dl AST 12 L (13-39) U/L ALT 12 (7-52) U/L Alkaline Phosphatase 111 H (34-104) U/L Troponin I High Sens 16.1 H (0-14) pg/ml Total Protein 6.7 (6.0-8.3) gm/dl Albumin 3.8 (3.4-5.0) gm/dl Globulin 2.9 (2.5-4.0) gm/dl Albumin/Globulin Ratio 1.3 (0.9-2) Lipase 28 (11-82) U/L TSH 6.481 H (0.300-4.500) uIu/ml Free T4 0.79 (0.61-1.60) ng/dl Urine Color Urine Appearance (Clear) Urine pH (4.5-7.5) Ur Specific [place] (1.000-1.030) Urine Protein (Negative) Urine Glucose (UA) (Negative) Urine Ketones (Negative) Urine Blood (Negative) Urine Nitrite (Negative) Urine Bilirubin (Negative) Urine Urobilinogen (Negative) Ur Leukocyte Esterase (Negative) Urine WBC (Auto) (0-5) /hpf Urine RBC (Auto) (0-4) /hpf U Hyaline Cast (Auto) (0-5) /lpf U Epithel Cells (Auto) (0-5) /lpf Urine Bacteria (Auto) (Negative) 01/06/22 01/06/22 01/06/22 Range/Units 03:15 04:30 06:32 WBC (4.8-10.8) K/uL RBC (4.2-5.4) M/uL Hgb (12.0-16.0) g/dL Hct (37-47) % MCV (80-100) fL MCH (25-34) pg MCHC (32-36) g/dL RDW Std Deviation (36.4-46.3) fL RDW Coeff of Mauro (11.5-14.5) % Plt Count (130-400) K/uL MPV (7.4-10.4) fL Immature Gran % (Auto) % Neut % (Auto) % Lymph % (Auto) % Dawes % (Auto) % Eos % (Auto) % Baso % (Auto) % Neut # (Auto) (1.4-6.5) K/uL Lymph # (Auto) (1.2-3.4) K/uL Dawes # (Auto) (0.11-0.59) K/uL Eos # (Auto) (0-0.5) K/uL Baso # (Auto) (0-0.2) K/uL Immature Gran # (Auto) (0.00-0.02) K/uL Sodium (136-145) mmol/L Potassium (3.5-5.1) mmol/L Chloride (98-107) mmol/L Carbon Dioxide (21-32) mmol/L Anion Gap (3-11) BUN (6-23) mg/dl Creatinine (0.6-1.2) mg/dl Est Cr Clr Drug Dosing Est GFR ( Amer) ml/min Est GFR (Non-Af Amer) ml/min BUN/Creatinine Ratio (10-20) Glucose (70-99(Fasting)) mg/dl Estimat Average Glucose 214 mg/dl Hemoglobin A1c 9.1 H (4.5-5.6) % Calcium (8.5-10.1) mg/dl Magnesium (1.7-2.4) mg/dl Total Bilirubin (0.2-1.0) mg/dl AST (13-39) U/L ALT (7-52) U/L Alkaline Phosphatase (34-104) U/L Troponin I High Sens 15.2 H (0-14) pg/ml Total Protein (6.0-8.3) gm/dl Albumin (3.4-5.0) gm/dl Globulin (2.5-4.0) gm/dl Albumin/Globulin Ratio (0.9-2) Lipase (11-82) U/L TSH (0.300-4.500) uIu/ml Free T4 (0.61-1.60) ng/dl Urine Color Yellow Urine Appearance Clear (Clear) Urine pH 5.5 (4.5-7.5) Ur Specific [place] 1.011 (1.000-1.030) Urine Protein Negative (Negative) Urine Glucose (UA) Negative (Negative) Urine Ketones Negative (Negative) Urine Blood Negative (Negative) Urine Nitrite Negative (Negative) Urine Bilirubin Negative (Negative) Urine Urobilinogen Negative (Negative) Ur Leukocyte Esterase 1+ H (Negative) Urine WBC (Auto) 10-30 H (0-5) /hpf Urine RBC (Auto) 0-4 (0-4) /hpf U Hyaline Cast (Auto) 0 (0-5) /lpf U Epithel Cells (Auto) 5-10 H (0-5) /lpf Urine Bacteria (Auto) 4+ H (Negative) Imaging Data Radiologist's Impression: Cervical Spine CT 01/06/22 03:[address] DOSE: 432.03 mGycm HISTORY: fall TECHNIQUE: Multiaxial CT images of the cervical spine were performed and reformatted in the sagittal and coronal plane without the use of contrast. A dose lowering technique was utilized adhering to the principles of ALARA. COMPARISON: None. FINDINGS: No fractures. No subluxation. Prevertebral soft tissues and the C1-C2 interval are intact. No pneumothorax. Severe degenerative disc disease with reversal of the normal lordotic curvature. IMPRESSION: No fractures within the cervical spine. ACT 112: Negative or not required by law. Electronically signed by: Nate Holt M.D. 01/06/2022 7:41 AM Chest X-Ray 01/06/22 03:54 XR chest 1V portable HISTORY: 81 years-old Female dizzy, weak acute weakness COMPARISON: Chest radiograph 01/16/2020 TECHNIQUE: Portable AP view of the chest FINDINGS: Linear transversely oriented lucency projecting over the lower chest is likely artifactual. The cardiac silhouette is enlarged. Subcentimeter calcified granulomata of the right lung base redemonstrated along with subsegmental bibasilar atelectasis. No pneumothorax, pleural effusion or overt pulmonary ed radha. Degenerative changes of the shoulders and spine. IMPRESSION: Cardiomegaly without acute process. ACT 112: Negative or not required by law. The above report was generated using voice recognition software. It may contain grammatical, syntax or spelling errors. Electronically signed by: Channing Craig M.D. 01/06/2022 6:[address] 01/06/22 03:54 CT head/brain wo con CLINICAL HISTORY: 81 years-old Female with dizzy, fall. Acute head trauma status post fall. Acute dizziness TECHNIQUE: Multiple axial CT images of the head were obtained without contrast. A dose lowering technique was utilized adhering to the principles of ALARA. CT DOSE: 638.56 mGycm COMPARISON: CT cervical spine of same day, head CT 07/22/2019 FINDINGS: No acute intracranial hemorrhage, midline shift, intracranial mass, hydrocephalus, territorial ischemia or abnormal extra-axial collection. Mild ventriculomegaly is redemonstrated, likely on an ex vacuo basis. The transverse dimension of the lateral ventricles measures up to 5.5 cm on image 11 which is unchanged. Age-related involutional changes. No acute calvarial fracture. Prior left frontal craniotomy. The paranasal sinuses, mastoid air cells, and middle ear cavities are clear. IMPRESSION: No acute intracranial abnormality. ACT 112: Negative or not required by law. The above report was generated using voice recognition software. It may contain grammatical, syntax or spelling errors. Electronically signed by: Channing Craig M.D. 01/06/2022 7:[address] C-spine: Impression: No evidence of fracture or malalignment. Reversal of the normal cervical lordosis centered at C3-4. Multilevel cervical spondylosis noted. The prevertebral and paraspinal soft tissues are grossly unremarkable. Visualized lung apices are clear. Radiologist: Gilmer Taylor MD ECG Data Attestation: I personally reviewed and interpreted this ECG as follows: Indication: + weakness Rate (beats per minute): 95 Rhythm: + normal sinus ECG Intervals/blocks: + First degree AV block, + Normal QRS and + Normal QT ECG [place]: + Left axis deviation ECG ST segments: + Nonspecific ST abnormalities MDM Narrative This is an elderly female who presents with weakness and dizziness and fall this evening. She is a poor historian but admits to dizziness the last 2 days. Denies injury. Labs sent and imaging performed. Patient unable to stand at bedside with assistance. She did appear dehydrated and given complaint for ur inary frequency, antibiotics given for possible evolving UTI. Given concern for poor hygiene and living conditions that family at bedside did not disclose or seem concerned by, I did contact additional family listed for the patient. Case discussed with hospitalist for additional evaluation given weakness and need for case mgmt involvement. An order was placed for continuous cardiac monitoring. The monitor shows a rate of __72_ with _normal sinus_ rhythm. Impression & Plan Weakness, Fall, Dehydration, Acute UTI (urinary tract infection), Poor hygiene Discharge Plan Visit Data Chief Complaint: Fall Stated Complaint: Fall, Dizziness, Nausea Discharge Problem: Weakness, Fall, Dehydration, Acute UTI (urinary tract infection), Poor hygiene Patient Disposition: Admitted As Inpatient Discharge Instructions Interventions: ED Discharge Assessment Last Done: 01/06/22 10:16 Discharge Problem: Fall Qualifiers: Encounter type: initial encounter Qualified Code(s): W19.XXXA - Unspecified fall, initial encounter
--- NOTE | 2022-01-06 06:48 | XRay Report ---
XR chest 1V portable HISTORY: 81 years-old Female dizzy, weak acute weakness COMPARISON: Chest radiograph 01/16/2020 TECHNIQUE: Portable AP view of the chest FINDINGS: Linear transversely oriented lucency projecting over the lower chest is likely artifactual. The cardi ac silhouette is enlarged. Subcentimeter calcified granulomata of the right lung base redemonstrated along with subsegmental bibasilar atelectasis. No pneumothorax, pleural effusion or overt pulmonary e magdiel. Degenerative changes of the shoulders and spine. IMPRESSION: Cardiomegaly without acute process. ACT 112: Negative or not required by law. The above report was generated using voice recognition software. It may contain grammatical, syntax o r spelling errors. Electronically signed by: Channing Craig M.D. 01/06/2022 6:46 AM
--- NOTE | 2022-01-06 07:05 | CT Scan Report ---
CT head/brain wo con CLINICAL HISTORY: 81 years-old Female with dizzy, fall. Acute head trauma status post fall. Acute di zziness TECHNIQUE: Multiple axial CT images of the head were obtained without contrast. A dose lowering tech nique was utilized adhering to the principles of ALARA. CT DOSE: 638.56 mGycm COMPARISON: CT cervical spine of same day, head CT 07/22/2019 FINDINGS: No acute intracranial hemorrhage, midline shift, intracranial mass, hydrocephalus, territorial ischem ia or abnormal extra-axial collection. Mild ventriculomegaly is redemonstrated, likely on an ex vacuo basis. The transverse dimension of the lateral ventricles measures up to 5.5 cm on image 11 which is unchanged. Age-related involutional changes. No acute calvarial fracture. Prior left frontal craniotomy. The paranasal sinuses, mastoid air cells , and middle ear cavities are clear. IMPRESSION: No acute intracranial abnormality. ACT 112: Negative or not required by law. The above report was generated using voice recognition software. It may contain grammatical, syntax o r spelling errors. Electronically signed by: Channing Craig M.D. 01/06/2022 7:03 AM
--- NOTE | 2022-01-06 07:42 | CT Scan Report ---
CERVICAL SPINE CT CT DOSE: 432.03 mGycm HISTORY: fall TECHNIQUE: Multiaxial CT images of the cervical spine were performed and reformatted in the sagittal and coronal plane without the use of contrast. A dose lowering technique was utilized adhering to th e principles of ALARA. COMPARISON: None. FINDINGS: No fractures. No subluxation. Prevertebral soft tissues and the C1-C2 interval are intact. No pneumothorax. Severe degenerative disc disease with reversal of the normal lordotic curvature. IMPRESSION: No fractures within the cervical spine. ACT 112: Negative or not required by law. Electronically signed by: Nate Holt M.D. 01/06/2022 7:41 AM
[2022-01-06] MEDS ORDERED: cefTRIAXone SODIUM 2,000 MG/70 ML BAG IV STA (08:05)
[2022-01-06] MEDS ORDERED: PHENobarbitaL 30 MG TAB PO SCH (09:00)
--- NOTE | 2022-01-06 10:08 | History & Physical Report ---
Date of Service January 06, 2022 Assessment & Plan (1) Fall: Plan: h/o frequent falls in the past. 1 such fall led to SDH years ago requiring craniotomy at [facility]? She has peripheral neuropathy - likely due to diabetes - along with OA of knees and probable OA of hips. All of these issues will lend itself to falls. Fortunately it does not appear she has had any bony injuries from today's fall. Dizziness/lightheadedness precipitated her fall today. She does not describe discrete vertigo. CT head negative for ICH or fracture. Check orthostatics. Check a vitamin B12 level. Check pelvic x-rays and b/l hips given her c/o left anterior hip pain. Check CPK due to her fall. PT, OT evals. HOLD anticholinergic agents for urinary incontinence as these meds can cause dizziness and enhance fall risk. (2) UTI (urinary tract infection): Plan: u/a suggestive of UTI. send culture. s/p rocephin in ER; will continue upon admission. (3) Hypomagnesemia: Plan: likely 2nd to lasix use. replace. repeat level in am. (4) Left hip pain: Plan: In light of her fall check pelvic and b/l hip films - r/o hip fracture, r/o pelvic fracture. Suspect some element of OA of hip at minimum. (5) Diabetes mellitus type 2 with complications, uncontrolled: Plan: HbA1C >9%. Change 70/30 insulin to lantus-novolog. Start lantus 10 units BID. Novolog - correction factor 30, carb ratio 1:10. DM diet. BSGs ac/hs. Has associated diabetic neuropathy. (6) Dyslipidemia: Plan: Continue statin. (7) Epilepsy: Plan: I presume she developed seizures in the setting of her prior SDH?? She takes phenobarbital at home. Ordered level - therapeutic. Continue phenobarbital at home dosing. (8) GERD (gastroesophageal reflux disease): Plan: Cont PPI. (9) Gait abnormality: Plan: Likely multifactorial. Leg-length discrepancy, OA of knees and/or hips, neuropathy, previous brain injury from SDH, etc. PT, OT evals. (10) Hypertension: Plan: Hold lasix. Hold lisinopril. Trend BPs. (11) Hypothyroidism: Plan: TSH was high at 11 in early November. In response to such her synthroid was increased from 125mcg to 137mcg. Her TSH has improved but has not achieved euthyroid state despite that dose increase. Since it has been about 5-6 weeks of the new dose reasonable to increase synthroid to 150mcg starting tomorrow. Repeat TSH in 6 weeks as outpatient. (12) Memory impairment: Plan: By report. Due to prior SDH? Other? (13) Pancreatic insufficiency: Plan: Continue creon TID w/ meals + snacks prn. (14) Peripheral neuropathy: Plan: I assume it is due to uncontrolled DM. Check B12 to be complete. Suspect that her neuropathy is contributing to fall risk. (15) Depression: Plan: Cont home meds. (16) History of subdural hematoma: Plan: Noted. No acute SDH or other ICH on CT head today. (17) Infestation by bed bug: Plan: According to the ER attending and ER staff there was evidence of suspected bed bugs on examination in the ER. As precautionary measure she has been placed on contact precautions. (18) DVT prophylaxis: Plan: Heparin 5000 TID starting tomorrow. Plan: Daughter Emani Herrera updated by phone extensively. History of Present Illness Chief Complaint: fall Primary Care Provider: SUDARSHAN Stoner 81yo female with h/o T2DM, seizure disorder, prior h/o SDH, pancreatic insufficiency, hyperlipidemia, HTN, hypothyroidism, and cognitive impairment who presents from home due to a fall. Patient states she was in her bedroom, got out of bed to go to the bathroom, took a few steps, then fell to the ground. She did have mild dizziness/lightheadedness just prior to the fall but did not lose consciousness. She denies any pain in any location as a result of the fall. Denies hitting her head. She reports feeling mildly dizzy for 2-3 days. No vertigo. No focal motor weakness. However, while in the ER, she was very weak and it took 2 nurses to stand her at bedside. Patient has a history of falls over the years. She had an additional fall sometime in the last month. Upon presentation today her blood sugar was quite elevated at ~300. I spoke with her daughter, Emani Herrera, who stated that her mother's sugars are always high and that BSGs in the 300s is typical. Emani also reported that her mother is very sedentary. During the ER attending's physical exam assessment there was concern for bed bug infestation. Emani reported that she went to her mother's home and, with the assistance of her sister Vidya, they looked throughout the house and under the beds but found no e vidence of bed bugs. Of note - the patient lives with her daughter, Vidya Hernandez. During my assessment the patient denied any pruritis of her skin in any location. Allergies Allergy/AdvReac Type Severity Reaction Status Date / Time Sulfa (Sulfonamide Allergy Intermediate SICK TO Verified 11/26/21 08:21 Antibiotics) STOMACH sitagliptin AdvReac Intermediate ABD PAIN Verified 11/26/21 08:21 Home Medications Medication Instructions Recorded Confirmed Type aspirin 81 mg tablet,delayed 81 mg PO DAILY 08/20/19 11/26/21 History release cholecalciferol (vitamin D3) 50 2,000 unit PO DAILY 08/20/19 11/26/21 History mcg (2,000 unit) tablet (Vitamin D3) multivitamin 1 tab PO DAILY 08/20/19 11/26/21 History lancets 33 gauge (OneTouch Delica #100 ea 08/13/20 11/26/21 Rx Lancets) colestipol 1 gram tablet 1 g PO DAILY PRN #30 tab 03/25/21 11/26/21 Rx lisinopril 5 mg tablet 5 mg PO DAILY #30 tab 04/01/21 11/26/21 Rx simvastatin 20 mg tablet 20 mg PO HS #30 tab 04/01/21 11/26/21 Rx venlafaxine 75 mg capsule,extended 75 mg PO DAILY #30 cap 04/01/21 11/26/21 Rx release 24 hr furosemide 20 mg tablet 10 mg PO QAM #15 tab 09/23/21 11/26/21 Rx blood sugar diagnostic #100 ea 10/14/21 11/26/21 Rx mirabegron 50 mg tablet,extended 50 mg PO DAILY #90 tab 11/10/21 11/26/21 Rx release 24 hr (Myrbetriq) solifenacin 10 mg tablet 10 mg PO DAILY #90 tab 11/10/21 11/26/21 Rx insulin aspar prot-insulin aspart 25 unit SUBCUT BID #15 ml 11/26/21 11/26/21 Rx 100 unit/mL (70-30) subcutaneous pen (Novolog Mix 70-30FlexPen U-100) levothyroxine 137 mcg capsule 137 mcg PO DAILY #30 cap 11/26/21 Rx omeprazole 40 mg capsule,delayed 40 mg PO QAM #30 cap 11/29/21 Rx release rrutdm-rcafyyuc-qxhofun 2 cap PO .COMPLEX #240 cap 12/31/21 Rx 36,000-114,000-180,000 unit capsule,delay rel (Creon) pen needle, diabetic 31 gauge x #60 ea 12/31/21 Rx 3/16" (Unifine Pentips) phenobarbital 64.8 mg tablet See Rx Instructions .ROUTE 12/31/21 Rx .COMPLEX #90 tab Past Med/Surg History Medical History (Updated 01/06/22 @ 20:15 by Rock Vance) Balance problems Choking episode occurring during daytime Depression Diabetes mellitus type 2 with complications, uncontrolled Dyslipidemia Epilepsy Falls frequently Gait abnormality GERD (gastroesophageal reflux disease) Hydronephrosis of right kidney Hypertension Hypothyroidism Memory impairment Osteoarthritis Pancreatic insufficiency Peripheral neuropathy Subdural hematoma, chronic Urinary symptom or sign Surgical History (Updated 01/06/22 @ 10:06 by Rock Vance) History of cholecystectomy History of cholecystectomy History of craniotomy ? 5 YEARS AGO - [facility] History of hysterectomy History of nasal surgery VERBALIZED NOSE SURGERY History of tooth extraction Family History Daughter Family history of diabetes mellitus Colorectal cancer Denies family history of Ovarian cancer Prostate cancer Myocardial infarction Breast cancer Social History (Updated 01/06/22 @ 10:06 by Rock Vance) Smoking Status: Never smoker Second Hand Exposure: No; Do You Dip or Chew Tobacco: No; Tobacco Cessation Education Requested by Patient: No Hx Alcohol Use: No Hx Substance Use: No Preferred Language: Swedish Communication Ability: Effective Pressure Welder Required: No Beliefs That Will Affect Care: None marital status: Current Living Situation: Family Current Living Situation Comment: lives with daughter current occupational status: retired Other Information That Helps Us Care for You: No Feels Safe at Home: Yes Safety Concerns: Feels Safe At This Time Dental Care, Regularly: No Seatbelt Use: always Assistive Devices: Cane, Glasses and Walker Review of Systems Review of Systems: gen - no fevers or chills; good appetite; no weight change eyes - no visual change HENT - no sore throat; some chronic dysphagia neck - no pain CV - no chest pain or orthopnea pulm - no dyspnea; chronic cough GI - mild upper abd pain due to "hiatal hernia"; no vomiting, diarrhea, blood in stool - no hematuria or dysuria musculo - b/l knee pain chronic; chronic "soreness" left anterior hip neuro - no paresthesias; no headaches; dizziness x 2-3 days but no vertigo skin - denies rash or pruritis endo - when asked about blood sugars at home she couldn't tell me specific values psych - chronic depression due to losing her years ago Physical Exam Physical Exam: Gen - obese, NAD, pleasant Eyes - Pupils equal b/l HENT - MM modestly dry, no lesions Neck - no JVD, no thyroidmegaly Heart - RRR, s1 s2, no murmur Lungs - CTA b/l Abd - soft NT ND BS+ Ext - <1+ edema b/l, pulses 2+ b/l Musculo - OA changes of b/l knees, crepitus of knees; marked decreased passive ROM of both hips but particularly the left hip; no pain with doing passive ROM of her hips or knees; left leg is shorter than her right leg Skin - intertrigo of pannus; I don't see bed bug bites on her torso, limbs Psych - awake, alert, oriented to person/place Neuro - strength 5/5 x 4 exts; no facial droop; DTRs 2+ b/l upper/lower extremities Results & Data Results & Data ([facility]) Vital Signs (Past 12 Hours) Vital Signs Temp Pulse Resp BP Pulse Ox 01/06/22 07:00 80 16 147/76 H 96 01/06/22 06:00 86 15 134/55 L 94 01/06/22 05:01 89 13 135/72 96 01/06/22 05:00 85 14 01/06/22 04:28 98 H 15 167/85 H 95 01/06/22 04:00 86 14 167/85 H 94 01/06/22 03:33 88 14 93 01/06/22 03:03 36.8 C 95 H 18 151/75 H 94 Laboratory Results Laboratory Results - last 24 hr 01/06/22 01/06/22 01/06/22 03:15 03:15 03:15 WBC 6.75 RBC 4.06 L Hgb 12.3 Hct 37.2 MCV 91.6 MCH 30.3 MCHC 33.1 RDW Std Deviation 44.8 RDW Coeff of Mauro 13.5 Plt Count 145 MPV 12.2 H Immature Gran % (Auto) 0.3 Neut % (Auto) 80.8 Lymph % (Auto) 10.5 Burt % (Auto) 6.4 Eos % (Auto) 1.9 Baso % (Auto) 0.1 Neut # (Auto) 5.45 Lymph # (Auto) 0.71 L Burt # (Auto) 0.43 Eos # (Auto) 0.13 Baso # (Auto) 0.01 Immature Gran # (Auto) 0.02 Sodium 135 L Potassium 4.4 Chloride 101 Carbon Dioxide 27 Anion Gap 7 BUN 27 H Creatinine 0.84 Est Cr Clr Drug Dosing Not Reportable Est GFR ( Amer) 76.1 Est GFR (Non-Af Amer) 65.6 BUN/Creatinine Ratio 32.1 H Glucose 311 H* POC Glucose Estimat Average Glucose Hemoglobin A1c Calcium 8.8 Magnesium 1.5 L Total Bilirubin 0.3 AST 12 L ALT 12 Alkaline Phosphatase 111 H Total Creatine Kinase Troponin I High Sens 16.1 H Total Protein 6.7 Albumin 3.8 Globulin 2.9 Albumin/Globulin Ratio 1.3 Lipase 28 Vitamin B12 TSH 6.481 H Free T4 0.79 Urine Color Urine Appearance Urine pH Ur Specific [place] Urine Protein Urine Glucose (UA) Urine Ketones Urine Blood Urine Nitrite Urine Bilirubin Urine Urobilinogen Ur Leukocyte Esterase Urine WBC (Auto) Urine RBC (Auto) U Hyaline Cast (Auto) U Epithel Cells (Auto) Urine Bacteria (Auto) Phenobarbital SARS-CoV-2, RNA, NAAT 01/06/22 01/06/22 01/06/22 03:15 04:30 06:32 WBC RBC Hgb Hct MCV MCH MCHC RDW Std Deviation RDW Coeff of Mauro Plt Count MPV Immature Gran % (Auto) Neut % (Auto) Lymph % (Auto) Burt % (Auto) Eos % (Auto) Baso % (Auto) Neut # (Auto) Lymph # (Auto) Burt # (Auto) Eos # (Auto) Baso # (Auto) Immature Gran # (Auto) Sodium Potassium Chloride Carbon Dioxide Anion Gap BUN Creatinine Est Cr Clr Drug Dosing Est GFR ( Amer) Est GFR (Non-Af Amer) BUN/Creatinine Ratio Glucose POC Glucose Estimat Average Glucose 214 Hemoglobin A1c 9.1 H Calcium Magnesium Total Bilirubin AST ALT Alkaline Phosphatase Total Creatine Kinase Troponin I High Sens 15.2 H Total Protein Albumin Globulin Albumin/Globulin Ratio Lipase Vitamin B12 TSH Free T4 Urine Color Yellow Urine Appearance Clear Urine pH 5.5 Ur Specific [place] 1.011 Urine Protein Negative Urine Glucose (UA) Negative Urine Ketones Negative Urine Blood Negative Urine Nitrite Negative Urine Bilirubin Negative Urine Urobilinogen Negative Ur Leukocyte Esterase 1+ H Urine WBC (Auto) 10-30 H Urine RBC (Auto) 0-4 U Hyaline Cast (Auto) 0 U Epithel Cells (Auto) 5-10 H Urine Bacteria (Auto) 4+ H Phenobarbital SARS-CoV-2, RNA, NAAT 01/06/22 01/06/22 01/06/22 09:11 10:18 13:41 WBC RBC Hgb Hct MCV MCH MCHC RDW Std Deviation RDW Coeff of Mauro Plt Count MPV Immature Gran % (Auto) Neut % (Auto) Lymph % (Auto) Burt % (Auto) Eos % (Auto) Baso % (Auto) Neut # (Auto) Lymph # (Auto) Burt # (Auto) Eos # (Auto) Baso # (Auto) Immature Gran # (Auto) Sodium Potassium Chloride Carbon Dioxide Anion Gap BUN Creatinine Est Cr Clr Drug Dosing Est GFR ( Amer) Est GFR (Non-Af Amer) BUN/Creatinine Ratio Glucose POC Glucose 306 H* Estimat Average Glucose Hemoglobin A1c Calcium Magnesium Total Bilirubin AST ALT Alkaline Phosphatase Total Creatine Kinase Troponin I High Sens Total Protein Albumin Globulin Albumin/Globulin Ratio Lipase Vitamin B12 TSH Free T4 Urine Color Urine Appearance Urine pH Ur Specific [place] Urine Protein Urine Glucose (UA) Urine Ketones Urine Blood Urine Nitrite Urine Bilirubin Urine Urobilinogen Ur Leukocyte Esterase Urine WBC (Auto) Urine RBC (Auto) U Hyaline Cast (Auto) U Epithel Cells (Auto) Urine Bacteria (Auto) Phenobarbital 29.2 SARS-CoV-2, RNA, NAAT NEGATIVE 01/06/22 01/06/22 01/06/22 16:45 17:55 17:55 WBC RBC Hgb Hct MCV MCH MCHC RDW Std Deviation RDW Coeff of Mauro Plt Count MPV Immature Gran % (Auto) Neut % (Auto) Lymph % (Auto) Burt % (Auto) Eos % (Auto) Baso % (Auto) Neut # (Auto) Lymph # (Auto) Burt # (Auto) Eos # (Auto) Baso # (Auto) Immature Gran # (Auto) Sodium Potassium Chloride Carbon Dioxide Anion Gap BUN Creatinine Est Cr Clr Drug Dosing Est GFR ( Amer) Est GFR (Non-Af Amer) BUN/Creatinine Ratio Glucose POC Glucose 261 H Estimat Average Glucose Hemoglobin A1c Calcium Magnesium Total Bilirubin AST ALT Alkaline Phosphatase Total Creatine Kinase 69 Troponin I High Sens 13.4 Total Protein Albumin Globulin Albumin/Globulin Ratio Lipase Vitamin B12 Pending TSH Free T4 Urine Color Urine Appearance Urine pH Ur Specific [place] Urine Protein Urine Glucose (UA) Urine Ketones Urine Blood Urine Nitrite Urine Bilirubin Urine Urobilinogen Ur Leukocyte Esterase Urine WBC (Auto) Urine RBC (Auto) U Hyaline Cast (Auto) U Epithel Cells (Auto) Urine Bacteria (Auto) Phenobarbital SARS-CoV-2, RNA, NAAT 01/06/22 19:41 WBC RBC Hgb Hct MCV MCH MCHC RDW Std Deviation RDW Coeff of Mauro Plt Count MPV Immature Gran % (Auto) Neut % (Auto) Lymph % (Auto) Burt % (Auto) Eos % (Auto) Baso % (Auto) Neut # (Auto) Lymph # (Auto) Burt # (Auto) Eos # (Auto) Baso # (Auto) Immature Gran # (Auto) Sodium Potassium Chloride Carbon Dioxide Anion Gap BUN Creatinine Est Cr Clr Drug Dosing Est GFR ( Amer) Est GFR (Non-Af Amer) BUN/Creatinine Ratio Glucose POC Glucose 117 H Estimat Average Glucose Hemoglobin A1c Calcium Magnesium Total Bilirubin AST ALT Alkaline Phosphatase Total Creatine Kinase Troponin I High Sens Total Protein Albumin Globulin Albumin/Globulin Ratio Lipase Vitamin B12 TSH Free T4 Urine Color Urine Appearance Urine pH Ur Specific [place] Urine Protein Urine Glucose (UA) Urine Ketones Urine Blood Urine Nitrite Urine Bilirubin Urine Urobilinogen Ur Leukocyte Esterase Urine WBC (Auto) Urine RBC (Auto) U Hyaline Cast (Auto) U Epithel Cells (Auto) Urine Bacteria (Auto) Phenobarbital SARS-CoV-2, RNA, NAAT Diagnostic Findings CXR - no infiltrates CT head - FINDINGS: No acute intracranial hemorrhage, midline shift, intracranial mass, hydrocephalus, territorial ischemia or abnormal extra-axial collection. Mild ventriculomegaly is redemonstrated, likely on an ex vacuo basis. The transverse dimension of the lateral ventricles measures up to 5.5 cm on image 11 which is unchanged. Age-related involutional changes. No acute calvarial fracture. Prior left frontal craniotomy. The paranasal sinuses, mastoid air cells, and middle ear cavities are clear. IMPRESSION: No acute intracranial abnormality. Cervical Spine CT - no fractures EKG - my reading - NSR, left axis deviation, ILBBB, 1st degree AV block, no ST changes Code Status & VTE Plan Code Status DNR/DNI PG Care Time/CCT Total # of Minutes Spent Total Time Spent with Patient: Total time spent is greater than 50% in coordination of care (as documented) at patient's floor/unit and/or counseling patient: Coding Level of Care Code 16575 Initial Inpt Care Lvl 3 Diagnoses Fall W19.XXXA UTI (urinary tract infection) N39.0 Hypomagnesemia E83.42 Diabetes mellitus type 2 with complications, uncontrolled E11.8; E11.65 Dyslipidemia E78.5 Epilepsy G40.909 GERD (gastroesophageal reflux disease) K21.9 Gait abnormality R26.9 Hypertension I10 Hypothyroidism E03.9 Memory impairment R41.3 Pancreatic insufficiency K86.89 Peripheral neuropathy G62.9 Depression F32.9 History of subdural hematoma Z86.79 DVT prophylaxis Z29.9 Infestation by bed bug B88.8 Left hip pain M25.552
[2022-01-06 10:32] LABS: Estimated Average Glucose 214 mg/dl; Hemoglobin A1C 9.1 % (4.5-5.6)
[2022-01-06] MEDS ORDERED: cefTRIAXone SODIUM 2000MG/70ML D5W IV ONE (10:47)
[2022-01-06] MEDS ORDERED: ONDANSETRON INJ 2 MG/ML 2 ML VIAL IV PRN (11:36)
[2022-01-06] MEDS ORDERED: INSULIN GLARGINE SOLOSTAR 100 UNITS/ML 3 ML PEN SC SCH (11:36)
[2022-01-06] MEDS ORDERED: COLESTIPOL HCL 1 GM TAB PO PRN (11:36)
[2022-01-06] MEDS ORDERED: PANCREAZE (LIPASE 10,500U) CAP PO PRN (12:21)
[2022-01-06] MEDS: PANCREAZE (LIPASE 10,500U) CAP PO SCH ×3 (13:49→17:16)
[2022-01-06] MEDS: PATIENT'S HEIGHT AND/OR WEIGHT NEEDED SCH ×3 (13:49→14:22)
[2022-01-06] MEDS: INSULIN ASPART PER UNIT SC SCH ×3 (14:12→21:25)
[2022-01-06] MEDS: MICONAZOLE NITRATE POWDER 43 GM EXT PRN (16:03)
[2022-01-06] MEDS: DICLOFENAC SOD 1% GEL 100 GM TUBE EXT SCH ×2 (17:33→20:51)
--- NOTE | 2022-01-06 17:40 | XRay Report ---
XR hip RENATO 2v w pelvis CLINICAL HISTORY: s/p fall, left hip pain; eval fx. COMPARISON STUDY: No previous studies for comparison. TECHNIQUE: AP pelvis and 2 bilateral hip views FINDINGS: This is a limited examination due to a large panniculus superimposed over the hips bilatera lly. Bones: There is no evidence for an acute fracture or dislocation. There is no lytic or blastic lesion . Joints: There is mild narrowing hip joint spaces superiorly, bilaterally. The bones are in anatomic a lignment. Soft tissues: There is no focal soft tissue abnormality. There is no radiopaque foreign body. IMPRESSION: 1. Limited examination with no definite evidence for displaced hip fracture. 2. If the patient's pain persists, CT of the pelvis and both hips would be necessary for further eval uation. ACT 112: Negative or not required by law. Electronically signed by: Greyson Waggoner M.D. 01/06/2022 5:38 PM
[2022-01-06 18:34] LABS: Troponin I High Sensitivity 13.4 pg/ml (0-14)
[2022-01-06] MEDS: ACETAMINOPHEN 325 MG TAB PO PRN (19:27)
[2022-01-06] MEDS: SIMVASTATIN 20 MG TAB PO SCH (20:52)
[2022-01-06] MEDS: PHENobarbitaL 30 MG TAB PO SCH (20:55)
[2022-01-06] MEDS: INSULIN GLARGINE SOLOSTAR 100 UNITS/ML 3 ML PEN SC SCH (21:26)
[2022-01-07] MEDS: LEVOTHYROXINE SODIUM 150 MCG TABLET PO SCH (06:10)
--- NOTE | 2022-01-07 06:21 | Electrocardiogram Report ---
Test Reason : Blood Pressure : / mmHG Vent. Rate : 095 BPM Atrial Rate : 095 BPM P-R Int : 216 ms QRS Dur : 116 ms QT Int : 376 ms P-R-T Axes : 076 -51 076 degrees QTc Int : 472 ms Sinus rhythm with 1st degree A-V block Left axis deviation Low voltage QRS Abnormal ECG When compared with ECG of 16-JAN-2020 15:48, ME interval has increased Nonspecific T wave abnormality no longer evident in Inferior leads Confirmed by Rao Holley ([id number]) on 01/07/2022 6:21:22 AM Referred By: REFERRED SELF Confirmed By:Rao Holley
[2022-01-07] MEDS ORDERED: LEVOTHYROXINE SODIUM 137 MCG TABLET PO SCH (06:30)
[2022-01-07 07:37] LABS: BUN Creatinine Ratio 18.8 (10-20); Calcium 8.4 mg/dl (8.5-10.1); Creatinine Clr Calc Pharmacy 66.2 ml/min; Est GFR (Non-African American) 64.7 ml/min; Magnesium 1.8 mg/dl (1.7-2.4); Potassium 3.8 mmol/L (3.5-5.1)
[2022-01-07] MEDS: CHOLECALCIFEROL 1,000 UNITS 25 MCG TAB PO SCH (07:51)
[2022-01-07] MEDS: PANCREAZE (LIPASE 10,500U) CAP PO SCH ×3 (07:52→17:31)
[2022-01-07] MEDS: ADVANCED PROBIOTIC 1250 MG CAPSULE PO SCH (07:52)
[2022-01-07] MEDS: PANTOprazole 40 MG TAB PO SCH (07:52)
[2022-01-07] MEDS: MULTIVITAMIN TAB PO SCH (07:52)
[2022-01-07] MEDS: DICLOFENAC SOD 1% GEL 100 GM TUBE EXT SCH ×4 (07:52→21:26)
[2022-01-07] MEDS: ASPIRIN 81 MG ECTAB PO SCH (07:52)
[2022-01-07] MEDS: VENLAFAXINE HCL XR 75 MG CAPXR PO SCH (07:52)
[2022-01-07] MEDS: HEPARIN SOD 5,000 UNIT/0.5 ML VIAL SQ SCH ×3 (07:53→21:36)
[2022-01-07] MEDS: INSULIN GLARGINE SOLOSTAR 100 UNITS/ML 3 ML PEN SC SCH ×2 (07:53→21:36)
[2022-01-07] MEDS: ACETAMINOPHEN 325 MG TAB PO PRN ×2 (08:00→22:29)
[2022-01-07] MEDS: INSULIN ASPART PER UNIT SC SCH ×4 (08:00→21:36)
[2022-01-07] MEDS: MICONAZOLE NITRATE POWDER 43 GM EXT PRN (08:01)
[2022-01-07] MEDS: PHENobarbitaL 30 MG TAB PO SCH ×2 (08:06→21:27)
[2022-01-07] MEDS ORDERED: cefTRIAXone SODIUM 2,000 MG in DEXTROSE 5% 50 ML IV SCH (09:00)
[2022-01-07] MEDS: CYANOCOBALAMIN 1000 MCG/ML VIAL IM SCH (11:14)
--- NOTE | 2022-01-07 21:07 | Hospitalist Progress Note ---
Date of Service January 07, 2022 Assessment & Plan (1) Vitamin B12 deficiency: Plan: level = 214. in light of gait disturbance, balance issues/falls, neuropathy, and low platelets will replace parenterally while hospitalized. start IM shots 1000mcg daily x 5 days. then change to PO B12 1000mcg daily thereafter. replace 6-12 months. check B1 and folate levels to be complete. (2) Physical deconditioning: Plan: multifactorial - #1, poorly controlled DM, obesity, hip OA, knee OA, etc. PT, OT. both advising rehab. (3) Fall: Plan: h/o frequent falls in the past. 1 such fall led to SDH years ago requiring craniotomy at [facility]? She has peripheral neuropathy - likely due to diabetes - along with OA of knees and probable OA of hips. All of these issues will lend itself to falls. #1 above can also contribute. Fortunately it does not appear she has had any bony injuries from her pre- admission fall. Dizziness/lightheadedness precipitated her fall. She does not describe discrete vertigo. CT head negative for ICH or fracture. Orthostatics negative. Replace low B12. Check a B1 level. Pelvic x-rays/hip x-rays noted to be neg for fracture. CPK wnl. Cont PT, OT. stop anticholingergic agents as these can precipitate dizziness. (4) UTI (urinary tract infection): Plan: 2nd to GNR. cont rocephin. hopefully convert to PO abx tomorrow pending final cx result. (5) Hypomagnesemia: Plan: replaced resolved (6) Left hip pain: Plan: no fracture 2nd to OA (7) Diabetes mellitus type 2 with complications, uncontrolled: Plan: HbA1C >9%. Changed 70/30 insulin to lantus-novolog. Improved control with basal-bolus insulin. Cont both. (8) Dyslipidemia: Plan: Continue statin. (9) Epilepsy: Plan: I presume she developed seizures in the setting of her prior SDH?? She takes phenobarbital at home. Ordered level - therapeutic. Continue phenobarbital at home dosing. (10) GERD (gastroesophageal reflux disease): Plan: Cont PPI. This may be the cause of her mild upper abdominal discomfort. Add carafate 1gm QID and re-eval. (11) Gait abnormality: Plan: Likely multifactorial. Leg-length discrepancy, OA of knees and/or hips, neuropathy, previous brain injury from SDH, etc. PT, OT evals done; rehab advised. B12 def will contribute to gait issues. (12) Hypertension: Plan: BPs are rising. Will need to resume her BP meds in am tomorrow. (13) Hypothyroidism: Plan: TSH was high at 11 in early November. In response to such her synthroid was increased from 125mcg to 137mcg as outpatient. Her TSH has improved but has not achieved euthyroid state despite that dose increase. Since it has been about 5-6 weeks of the new dose reasonable to increase synthroid to 150mcg. Repeat TSH in 6 weeks as outpatient. (14) Memory impairment: Plan: By report. Due to prior SDH? B12 def could contribute. Check a B1 level to be complete. can't rule out early MCI or dementia. (15) Pancreatic insufficiency: Plan: Continue creon TID w/ meals + snacks prn. (16) Peripheral neuropathy: Plan: I assume it is due to uncontrolled DM. B12 def could be contributing. Replace low B12. Could consider gabapentin but hold off for now. (17) Depression: Plan: Cont home meds. (18) History of subdural hematoma: Plan: Noted. No acute SDH or other ICH on CT head at time of ER presentation. (19) Infestation by bed bug: Plan: According to the ER attending and ER staff there was evidence of suspected bed bugs on examination in the ER. I confirmed today that an actual bed bug was indeed captured and confirmed to be such by EVS. Infection control aware. I do not see evidence of head lice on exam today. Remains on contact precautions. (20) DVT prophylaxis: Plan: Heparin 5000 TID Plan: Daughter Emani Herrera updated by phone extensively yesterday and again today I confirmed with Emani that her mother's case has been referred to our Service Excellence team in response to the lost/discarded personal belongings including eye glasses & shoes dispo planning - rehab if patient agreeable Admission and Anticipated Discharge Date Admission Date: January 06, 2022 Subjective tele overnight wnl pt resting in bed during the visit she is distressed by the whole issue of the bed bugs discovered at ER presentation she is upset that her clothes, diabetic shoes, and new glasses were thrown away inadvertently she wants to go home denies any new physical complaints eating well Review of Systems Review of Systems: gen - no fevers cv - no cp, no orthopnea pulm - no cough or dyspnea at rest GI - slight abd pain upper epigastric region, nausea or emesis Physical Exam Physical Exam: Gen - obese, NAD HENT - MMM today Neck - no JVD Heart - RRR, s1 s2, no murmur Lungs - CTA b/l Abd - soft; slight tenderness high epigastric region; ND BS+ Ext - trace edema b/l, pulses 2+ b/l Skin - I don't see bed bug bites on her torso, limbs; no actual bed bugs witnessed during the visit; scalp/hair - no nits, no louse, no evidence of head lice psych - anxious/agitated Results & Data Results & Data ([facility]) Vital Signs (Past 12 Hours) Vital Signs Temp Pulse Pulse Resp BP Pulse Ox 01/07/22 16:49 36.2 C L 88 20 169/82 H 94 01/07/22 14:19 73 Laboratory Results Laboratory Results - last 24 hr 01/06/22 01/07/22 01/07/22 17:55 05:32 07:21 Sodium 141 Potassium 3.8 Chloride 107 Carbon Dioxide 28 Anion Gap 6 BUN 16 Creatinine 0.85 Est Cr Clr Drug Dosing 66.2 Est GFR ( Amer) 75.0 Est GFR (Non-Af Amer) 64.7 BUN/Creatinine Ratio 18.8 Glucose 105 H POC Glucose 128 H Calcium 8.4 L Magnesium 1.8 Vitamin B12 214 01/07/22 01/07/22 01/07/22 11:12 15:45 20:14 Sodium Potassium Chloride Carbon Dioxide Anion Gap BUN Creatinine Est Cr Clr Drug Dosing Est GFR ( Amer) Est GFR (Non-Af Amer) BUN/Creatinine Ratio Glucose POC Glucose 183 H 151 H 176 H Calcium Magnesium Vitamin B12 Diagnostic Findings urine cx - GNR PG Care Time/CCT Total # of Minutes Spent Total Time Spent with Patient: Total time spent is greater than 50% in coordination of care (as documented) at patient's floor/unit and/or counseling patient: Coding Level of Care Code 84999 Subseq Hosp Care Lvl 3 Diagnoses Fall W19.XXXA UTI (urinary tract infection) N39.0 Hypomagnesemia E83.42 Left hip pain M25.552 Diabetes mellitus type 2 with complications, uncontrolled E11.8; E11.65 Dyslipidemia E78.5 Epilepsy G40.909 GERD (gastroesophageal reflux disease) K21.9 Gait abnormality R26.9 Hypertension I10 Hypothyroidism E03.9 Memory impairment R41.3 Pancreatic insufficiency K86.89 Peripheral neuropathy G62.9 Depression F32.9 History of subdural hematoma Z86.79 Infestation by bed bug B88.8 DVT prophylaxis Z29.9 Vitamin B12 deficiency E53.8 Physical deconditioning R53.81
[2022-01-07] MEDS: SIMVASTATIN 20 MG TAB PO SCH (21:28)
[2022-01-07] MEDS: SUCRALFATE 1 GM/10 ML UDC PO SCH (21:30)
[2022-01-08] MEDS: HEPARIN SOD 5,000 UNIT/0.5 ML VIAL SQ SCH ×3 (06:24→20:43)
[2022-01-08] MEDS: LEVOTHYROXINE SODIUM 150 MCG TABLET PO SCH (06:24)
[2022-01-08] MEDS: PANCREAZE (LIPASE 10,500U) CAP PO SCH ×3 (08:05→17:06)
[2022-01-08] MEDS: MULTIVITAMIN TAB PO SCH (08:06)
[2022-01-08] MEDS: VENLAFAXINE HCL XR 75 MG CAPXR PO SCH (08:06)
[2022-01-08] MEDS: ADVANCED PROBIOTIC 1250 MG CAPSULE PO SCH (08:06)
[2022-01-08] MEDS: ASPIRIN 81 MG ECTAB PO SCH (08:06)
[2022-01-08] MEDS: CYANOCOBALAMIN 1000 MCG/ML VIAL IM SCH (08:07)
[2022-01-08] MEDS: SUCRALFATE 1 GM/10 ML UDC PO SCH ×4 (08:07→20:40)
[2022-01-08] MEDS: PANTOprazole 40 MG TAB PO SCH (08:07)
[2022-01-08] MEDS: CHOLECALCIFEROL 1,000 UNITS 25 MCG TAB PO SCH (08:07)
[2022-01-08] MEDS: DICLOFENAC SOD 1% GEL 100 GM TUBE EXT SCH ×4 (08:08→20:39)
[2022-01-08] MEDS: INSULIN ASPART PER UNIT SC SCH ×5 (08:34→20:38)
[2022-01-08] MEDS: INSULIN GLARGINE SOLOSTAR 100 UNITS/ML 3 ML PEN SC SCH ×2 (08:34→20:40)
[2022-01-08] MEDS: PHENobarbitaL 30 MG TAB PO SCH ×2 (09:47→20:38)
[2022-01-08] MEDS: THIAMINE HCL 100 MG TAB PO SCH ×2 (09:48→20:42)
[2022-01-08] MEDS: cephALEXin 500 MG CAP PO SCH ×2 (09:48→20:41)
[2022-01-08] MEDS: SIMVASTATIN 20 MG TAB PO SCH (20:42)
--- NOTE | 2022-01-08 21:01 | Hospitalist Progress Note ---
Date of Service January 08, 2022 Assessment & Plan (1) Vitamin B12 deficiency: Plan: level = 214. in light of gait disturbance, balance issues/falls, neuropathy, and low platelets will replace parenterally while hospitalized. start IM shots 1000mcg daily x 5 days. first dose 01/07/22. then change to PO B12 1000mcg daily thereafter. replace 6-12 months. check B1 and folate levels to be complete. while waiting for B1 level (send-out, will take a week) will place on thiamine 200mg BID empirically. (2) Physical deconditioning: Plan: multifactorial - #1, poorly controlled DM, obesity, hip OA, knee OA, etc. PT, OT. both advising rehab. she is agreeable. social work to help with post-d/c dispo. (3) Fall: Plan: h/o frequent falls in the past. 1 such fall led to SDH years ago requiring craniotomy at [facility]? She has peripheral neuropathy - likely due to diabetes - along with OA of knees and probable OA of hips. All of these issues will lend itself to falls. #1 above can also contribute. Fortunately it does not appear she has had any bony injuries from her pre- admission fall. Dizziness/lightheadedness precipitated her fall. She does not describe discrete vertigo. CT head negative for ICH or fracture. Orthostatics negative. Replace low B12. Check a B1 level. Pelvic x-rays/hip x-rays noted to be neg for fracture. CPK wnl. Cont PT, OT. stop anticholingergic agents as these can precipitate dizziness. pt reports dizziness is now fully resolved. was she dizzy due to UTI?? (4) UTI (urinary tract infection): Plan: 2nd to castillo-sensitive e.coli. change rocephin to keflex 500mg BID x 5 additional days. (5) Hypomagnesemia: Plan: replaced resolved (6) Left hip pain: Plan: no fracture 2nd to OA (7) Diabetes mellitus type 2 with complications, uncontrolled: Plan: HbA1C >9%. Changed 70/30 insulin to lantus-novolog. Improved control with basal-bolus insulin. Cont both without changes today. (8) Dyslipidemia: Plan: Continue statin. (9) Epilepsy: Plan: I presume she developed seizures in the setting of her prior SDH?? She takes phenobarbital at home. Ordered level - therapeutic. Continue phenobarbital at home dosing. (10) GERD (gastroesophageal reflux disease): Plan: Cont PPI. This may be the cause of her mild upper abdominal discomfort. Added carafate 1gm QID yesterday and it seemed to help. IF she continues with c/o pain will consider CT a/p. (11) Gait abnormality: Plan: Likely multifactorial. Leg-length discrepancy, OA of knees and/or hips, neuropathy, previous brain injury from SDH, etc. PT, OT evals done; rehab advised. B12 def will contribute to gait issues. May have component of R sided trochanteric bursitis, too, which will make gait issues worse. Could consider a steroid injection for such if she continues with pain. (12) Hypertension: Plan: BPs are rising but at times are very normal. Hold off on resuming SILVIA; cont to monitor. (13) Hypothyroidism: Plan: TSH was high at 11 in early November. In response to such her synthroid was increased from 125mcg to 137mcg as outpatient. Her TSH has improved but has not achieved euthyroid state despite that dose increase. Since it has been about 5-6 weeks of the new dose reasonable to increase synthroid to 150mcg. Repeat TSH in 6 weeks as outpatient. (14) Memory impairment: Plan: By report. Due to prior SDH? B12 def could contribute. Check a B1 level to be complete. While awaiting the level place on empiric B1 as noted above. can't rule out early MCI or dementia. (15) Pancreatic insufficiency: Plan: Continue creon TID w/ meals + snacks prn. (16) Peripheral neuropathy: Plan: I assume it is due to uncontrolled DM. B12 def could be contributing. Replace low B12. Could consider gabapentin but hold off for now. (17) Depression: Plan: Cont home meds. (18) History of subdural hematoma: Plan: Noted. No acute SDH or other ICH on CT head at time of ER presentation. (19) Infestation by bed bug: Plan: According to the ER attending and ER staff there was evidence of suspected bed bugs on examination in the ER. I confirmed today that an actual bed bug was indeed captured and confirmed to be such by EVS. Infection control aware. I once again do not see evidence of head lice on exam today. Remains on contact precautions. (20) DVT prophylaxis: Plan: Heparin 5000 TID Plan: Daughter Emani Herrera updated by phone extensively yesterday I confirmed with Emani that her mother's case has been referred to our Service Excellence team in response to the lost/discarded personal belongings including eye glasses & shoes dispo planning - rehab post-d/c patient agreeable can stop telemetry -- move to med/surg Admission and Anticipated Discharge Date Admission Date: January 06, 2022 Subjective tele overnight once again wl we discussed rehab post-d/c -- she is agreeable to such denies ANY itchy rash in any location denies scalp pruritis still with a mild amount of post-prandial upper epigastric discomfort but not severe enough that she is unable to eat no N/V no diarrhea dizziness resolved no new complaints of note - daughter dropped off glasses to her and she is happy about that Review of Systems Review of Systems: gen - no fevers, good appetite, energy ok cv - no chest pain, no orthopnea pulm - no dyspnea GI - no lower abdominal pain musculo - chronic lateral R hip pain - worse with walking; does not hurt to lay on it at night-time Physical Exam Physical Exam: Gen - obese, NAD HENT - MMM Neck - no JVD Heart - RRR, s1 s2, no murmur Lungs - CTA b/l Abd - soft; again slight tenderness high epigastric region; ND BS+; no peritoneal signs Ext - trace edema b/l, pulses 2+ b/l musculo - tender over R trochanteric bursal region with palpation; right leg is longer than left leg; bony OA changes of b/l knees; right leg is larger in girth in comparison to left leg Skin - scalp/hair - again no nits, no louse, no evidence of head lice psych - pleasant today, no anxiety like yesterday Results & Data Results & Data ([facility]) Vital Signs (Past 12 Hours) Vital Signs Temp Pulse Pulse Resp BP Pulse Ox Pulse Ox 01/08/22 20:00 36.5 C 68 20 143/76 H 94 01/08/22 11:38 36.7 C 72 18 156/87 H 94 01/08/22 11:00 94 01/08/22 09:13 69 Laboratory Results Laboratory Results - last 24 hr 01/08/22 01/08/22 01/08/22 07:18 07:18 07:21 POC Glucose 117 H Vitamin B1 Pending Folate 15.69 01/08/22 01/08/22 01/08/22 11:28 16:32 20:19 POC Glucose 218 H 99 102 H Vitamin B1 Folate PG Care Time/CCT Total # of Minutes Spent Total Time Spent with Patient: Total time spent is greater than 50% in coordination of care (as documented) at patient's floor/unit and/or counseling patient: Coding Level of Care Code 84593 Subseq Hosp Care Lvl 2 Diagnoses Vitamin B12 deficiency E53.8 Physical deconditioning R53.81 Fall W19.XXXA UTI (urinary tract infection) N39.0 Hypomagnesemia E83.42 Left hip pain M25.552 Diabetes mellitus type 2 with complications, uncontrolled E11.8; E11.65 Dyslipidemia E78.5 Epilepsy G40.909 GERD (gastroesophageal reflux disease) K21.9 Gait abnormality R26.9 Hypertension I10 Hypothyroidism E03.9 Memory impairment R41.3 Pancreatic insufficiency K86.89 Peripheral neuropathy G62.9 Depression F32.9 History of subdural hematoma Z86.79 Infestation by bed bug B88.8 DVT prophylaxis Z29.9
[2022-01-09] MEDS: LEVOTHYROXINE SODIUM 150 MCG TABLET PO SCH (06:26)
[2022-01-09] MEDS: HEPARIN SOD 5,000 UNIT/0.5 ML VIAL SQ SCH ×3 (06:26→21:52)
[2022-01-09] MEDS: MULTIVITAMIN TAB PO SCH (09:13)
[2022-01-09] MEDS: cephALEXin 500 MG CAP PO SCH ×2 (09:13→21:51)
[2022-01-09] MEDS: PANCREAZE (LIPASE 10,500U) CAP PO SCH ×3 (09:13→17:41)
[2022-01-09] MEDS: ADVANCED PROBIOTIC 1250 MG CAPSULE PO SCH (09:13)
[2022-01-09] MEDS: SUCRALFATE 1 GM/10 ML UDC PO SCH ×4 (09:13→21:50)
[2022-01-09] MEDS: CHOLECALCIFEROL 1,000 UNITS 25 MCG TAB PO SCH (09:13)
[2022-01-09] MEDS: ASPIRIN 81 MG ECTAB PO SCH (09:13)
[2022-01-09] MEDS: PANTOprazole 40 MG TAB PO SCH (09:13)
[2022-01-09] MEDS: VENLAFAXINE HCL XR 75 MG CAPXR PO SCH (09:13)
[2022-01-09] MEDS: THIAMINE HCL 100 MG TAB PO SCH ×2 (09:13→21:49)
[2022-01-09] MEDS: INSULIN GLARGINE SOLOSTAR 100 UNITS/ML 3 ML PEN SC SCH ×2 (09:14→21:54)
[2022-01-09] MEDS: DICLOFENAC SOD 1% GEL 100 GM TUBE EXT SCH ×4 (09:14→21:48)
[2022-01-09] MEDS: CYANOCOBALAMIN 1000 MCG/ML VIAL IM SCH (09:14)
[2022-01-09] MEDS: INSULIN ASPART PER UNIT SC SCH ×4 (09:15→21:52)
[2022-01-09] MEDS: PHENobarbitaL 30 MG TAB PO SCH ×2 (09:29→21:48)
[2022-01-09 10:00] LABS: Calcium 8.7 mg/dl (8.5-10.1); Creatinine Clr Calc Pharmacy 53.4 ml/min; Est GFR (African American) 58.1 ml/min; Est GFR (Non-African American) 50.1 ml/min; Potassium 3.9 mmol/L (3.5-5.1)
[2022-01-09] MEDS: SIMVASTATIN 20 MG TAB PO SCH (21:51)
--- NOTE | 2022-01-09 22:20 | Hospitalist Progress Note ---
Date of Service January 09, 2022 Assessment & Plan (1) Vitamin B12 deficiency: Plan: level = 214. in light of gait disturbance, balance issues/falls, neuropathy, and low platelets will replace parenterally while hospitalized. start IM shots 1000mcg daily x 5 days. first dose 01/07/22. then change to PO B12 1000mcg daily thereafter. replace 6-12 months. check B1 and folate levels to be complete. while waiting for B1 level (send-out, will take a week) she is on thiamine 200mg BID empirically. (2) Physical deconditioning: Plan: multifactorial - #1, poorly controlled DM, obesity, hip OA, knee OA, etc. PT, OT. both advising rehab. she is agreeable for the most part. social work to help with post-d/c dispo. (3) Fall: Plan: h/o frequent falls in the past. 1 such fall led to SDH years ago requiring craniotomy at [facility]? She has peripheral neuropathy - likely due to diabetes - along with OA of knees and probable OA of hips. All of these issues will lend itself to falls. #1 above can also contribute. Fortunately it does not appear she has had any bony injuries from her pre- admission fall. Dizziness/lightheadedness precipitated her fall. She does not describe discrete vertigo. CT head negative for ICH or fracture. Orthostatics negative. Replace low B12. Check a B1 level. Pelvic x-rays/hip x-rays noted to be neg for fracture. CPK wnl. Cont PT, OT. stop anticholingergic agents as these can precipitate dizziness. pt reports dizziness is now fully resolved. My suspicion is that the UTI was a big culprit in her presentation. (4) UTI (urinary tract infection): Plan: 2nd to castillo-sensitive e.coli. s/p rocephin x 2 days. now on keflex 500mg BID x 5 additional days, day #2 of PO abx. (5) Hypomagnesemia: Plan: replaced resolved (6) Left hip pain: Plan: no fracture 2nd to OA also c/o R lateral hip pain at times - likely trochanteric bursitis follow for now (7) Diabetes mellitus type 2 with complications, uncontrolled: Plan: HbA1C >9%. Changed 70/30 insulin to lantus-novolog. Improved control with basal-bolus insulin. Cont both without changes today. (8) Dyslipidemia: Plan: Continue statin. (9) Epilepsy: Plan: I presume she developed seizures in the setting of her prior SDH. She takes phenobarbital at home. level here therapeutic. Continue phenobarbital at home dosing. (10) GERD (gastroesophageal reflux disease): Plan: Cont PPI. Yesterday's mild epigastric pain resolved with addition of carafate. Cont both the PPI + carafate. (11) Gait abnormality: Plan: Likely multifactorial. Leg-length discrepancy, OA of knees and/or hips, neuropathy, previous brain injury from SDH, etc. PT, OT evals done; rehab advised. B12 def will contribute to gait issues. May have component of R sided trochanteric bursitis, too, which will make gait issues worse. Could consider a steroid injection for such but pain is better today so defer for now. (12) Hypertension: Plan: BPs are rising but at times are very normal. Hold off on resuming SILVIA; cont to monitor. (13) Hypothyroidism: Plan: TSH was high at 11 in early November. In response to such her synthroid was increased from 125mcg to 137mcg as outpatient. Her TSH has improved but has not achieved euthyroid state despite that dose increase. Since it has been about 5-6 weeks of the new dose reasonable to increase synthroid to 150mcg. Repeat TSH in 6 weeks as outpatient. (14) Memory impairment: Plan: By report. Due to prior SDH? B12 def could contribute. Check a B1 level to be complete. While awaiting the level place on empiric B1 as noted above. can't rule out early MCI or dementia. (15) Pancreatic insufficiency: Plan: Continue creon TID w/ meals + snacks prn. (16) Peripheral neuropathy: Plan: I assume it is due to uncontrolled DM. B12 def could be contributing. Replacing the low B12. Could consider gabapentin but hold off for now given her gait issues, tendency towards dizziness, etc. (17) Depression: Plan: Cont home meds. (18) History of subdural hematoma: Plan: Noted. No acute SDH or other ICH on CT head at time of ER presentation. (19) Infestation by bed bug: Plan: According to the ER attending and ER staff there was evidence of suspected bed bugs on examination in the ER. I confirmed today that an actual bed bug was indeed captured and confirmed to be such by EVS. Infection control aware. Remains on contact precautions. (20) DVT prophylaxis: Plan: Heparin 5000 TID Plan: Daughter Emani Herrera updated by phone this evening She would still like her mother to go to rehab post-d/c I previously had told Emani that her mother's case had been referred to our Service Excellence team in response to the lost/discarded personal belongings including eye glasses & shoes dispo planning - rehab post-d/c Admission and Anticipated Discharge Date Admission Date: January 06, 2022 Subjective no events overnight feels good dizziness completely resolved no epigastric discomfort R lateral hip pain - better today knees better w/ voltaren gel no N/V she voiced that perhaps she doesn't want to go to rehab post-d/c "I need to get home to my daughter" Review of Systems Review of Systems: gen - no fevers or chills cv - no chest pain, dyspnea, orthopnea pulm - no cough or congestion or dyspnea at rest GI - no abd pain, nausea, emesis; moving bowels Physical Exam Physical Exam: Gen - obese, NAD, looks good HENT - MMM Neck - no JVD Heart - RRR, s1 s2, no murmur Lungs - CTA b/l Abd - soft; NT; ND; BS+ Ext - trace edema b/l, pulses 2+ b/l musculo - no tenderness over R trochanteric bursal region with palpation; right leg is longer than left leg; bony OA changes of b/l knees; right leg is larger in girth in comparison to left leg as well Results & Data Results & Data ([facility]) Vital Signs (Past 12 Hours) Vital Signs Temp Pulse Resp BP Pulse Ox 01/09/22 16:00 36.7 C 75 20 127/74 94 01/09/22 11:30 36.4 C L 74 18 125/78 95 Laboratory Results Laboratory Results - last 24 hr 01/09/22 01/09/22 01/09/22 07:37 08:25 12:26 Sodium 140 Potassium 3.9 Chloride 105 Carbon Dioxide 29 Anion Gap 6 BUN 20 Creatinine 1.05 Est Cr Clr Drug Dosing 53.4 Est GFR ( Amer) 58.1 Est GFR (Non-Af Amer) 50.1 BUN/Creatinine Ratio 19.0 Glucose 128 H POC Glucose 81 125 H Calcium 8.7 01/09/22 01/09/22 17:23 20:06 Sodium Potassium Chloride Carbon Dioxide Anion Gap BUN Creatinine Est Cr Clr Drug Dosing Est GFR ( Amer) Est GFR (Non-Af Amer) BUN/Creatinine Ratio Glucose POC Glucose 154 H 150 H Calcium PG Care Time/CCT Total # of Minutes Spent Total Time Spent with Patient: Total time spent is greater than 50% in coordination of care (as documented) at patient's floor/unit and/or counseling patient: Coding Level of Care Code 71865 Subseq Hosp Care Lvl 2 Diagnoses Vitamin B12 deficiency E53.8 Physical deconditioning R53.81 Fall W19.XXXA UTI (urinary tract infection) N39.0 Hypomagnesemia E83.42 Left hip pain M25.552 Diabetes mellitus type 2 with complications, uncontrolled E11.8; E11.65 Dyslipidemia E78.5 Epilepsy G40.909 GERD (gastroesophageal reflux disease) K21.9 Gait abnormality R26.9 Hypertension I10 Hypothyroidism E03.9 Memory impairment R41.3 Pancreatic insufficiency K86.89 Peripheral neuropathy G62.9 Depression F32.9 History of subdural hematoma Z86.79 Infestation by bed bug B88.8 DVT prophylaxis Z29.9
[2022-01-10] MEDS: HEPARIN SOD 5,000 UNIT/0.5 ML VIAL SQ SCH ×3 (06:04→21:16)
[2022-01-10] MEDS: LEVOTHYROXINE SODIUM 150 MCG TABLET PO SCH (06:05)
[2022-01-10] MEDS: INSULIN ASPART PER UNIT SC SCH ×4 (08:32→21:25)
[2022-01-10] MEDS: PANTOprazole 40 MG TAB PO SCH (08:41)
[2022-01-10] MEDS: PHENobarbitaL 30 MG TAB PO SCH ×2 (08:41→21:21)
[2022-01-10] MEDS: cephALEXin 500 MG CAP PO SCH ×2 (08:41→21:16)
[2022-01-10] MEDS: THIAMINE HCL 100 MG TAB PO SCH ×2 (08:41→21:14)
[2022-01-10] MEDS: CHOLECALCIFEROL 1,000 UNITS 25 MCG TAB PO SCH (08:41)
[2022-01-10] MEDS: VENLAFAXINE HCL XR 75 MG CAPXR PO SCH (08:41)
[2022-01-10] MEDS: PANCREAZE (LIPASE 10,500U) CAP PO SCH ×3 (08:41→16:44)
[2022-01-10] MEDS: ADVANCED PROBIOTIC 1250 MG CAPSULE PO SCH (08:42)
[2022-01-10] MEDS: ASPIRIN 81 MG ECTAB PO SCH (08:42)
[2022-01-10] MEDS: CYANOCOBALAMIN 1000 MCG/ML VIAL IM SCH (08:42)
[2022-01-10] MEDS: DICLOFENAC SOD 1% GEL 100 GM TUBE EXT SCH ×4 (08:42→21:16)
[2022-01-10] MEDS: MULTIVITAMIN TAB PO SCH (08:42)
[2022-01-10] MEDS: INSULIN GLARGINE SOLOSTAR 100 UNITS/ML 3 ML PEN SC SCH ×2 (08:43→21:22)
[2022-01-10] MEDS: SUCRALFATE 1 GM/10 ML UDC PO SCH ×4 (08:43→21:14)
--- NOTE | 2022-01-10 19:34 | Hospitalist Progress Note ---
Date of Service January 10, 2022 Assessment & Plan (1) Vitamin B12 deficiency: Plan: level = 214. in light of gait disturbance, balance issues/falls, neuropathy, and low platelets will replace parenterally while hospitalized. started IM shots 1000mcg daily x 5 days. first dose 01/07/22. last dose 01/11/22. then change to PO B12 1000mcg daily thereafter. replace 6-12 months. checked B1 and folate levels to be complete. while waiting for B1 level (send-out, will take a week) she is on thiamine 200mg BID empirically. folate was normal. (2) Physical deconditioning: Plan: multifactorial - #1, poorly controlled DM, obesity, hip OA, knee OA, etc. PT, OT. both advising rehab. she is agreeable. social work with referrals to SNF for such. (3) Fall: Plan: h/o frequent falls in the past. 1 such fall led to SDH years ago requiring craniotomy at [facility]? She has peripheral neuropathy - likely due to diabetes - along with OA of knees and probable OA of hips. All of these issues will lend itself to falls. #1 above can also contribute. Fortunately it does not appear she has had any bony injuries from her pre- admission fall. Dizziness/lightheadedness precipitated her fall. She does not describe discrete vertigo. CT head negative for ICH or fracture. Orthostatics negative. Replacing low B12. Empiric thiamine supplementation while awaiting B1 level. Pelvic x-rays/hip x-rays noted to be neg for fracture. CPK wnl. Cont PT, OT. I stopped urinary anticholingergic agents as these can precipitate dizziness. pt reports dizziness is fully resolved. My suspicion is that the UTI was a big culprit in her presentation +/- too much BP medication (see below) +/- medication side effects from bladder spasm agents +/- B12 deficiency +/- low magnesium. (4) UTI (urinary tract infection): Plan: 2nd to castillo-sensitive e.coli. s/p rocephin x 2 days. now on keflex 500mg BID x 5 additional days, day #3 of PO abx. (5) Hypomagnesemia: Plan: replaced resolved (6) Left hip pain: Plan: no fracture 2nd to OA also c/o R lateral hip pain at times - likely trochanteric bursitis given her leg-length discrepancy follow for now (7) Diabetes mellitus type 2 with complications, uncontrolled: Plan: HbA1C >9%. Changed 70/30 insulin to lantus-novolog. Improved control with basal-bolus insulin. Cont both without changes today. (8) Dyslipidemia: Plan: Continue statin. (9) Epilepsy: Plan: I presume she developed seizures in the setting of her prior SDH years ago. She is on chronic phenobarbital. level here therapeutic. Continue phenobarbital at home dosing. (10) GERD (gastroesophageal reflux disease): Plan: Cont PPI. Earlier in the stay she had mild epigastric pain worsened by eating. Resolved with addition of carafate. Cont both the PPI + carafate. (11) Gait abnormality: Plan: Likely multifactorial. Leg-length discrepancy, OA of knees and/or hips, neuropathy, previous brain injury from SDH, etc. PT, OT evals done; rehab advised. B12 deficiency will contribute to gait issues as well. May have component of R sided trochanteric bursitis, too, which will make gait issues worse. Could consider a steroid injection for such but pain is better so defer for now. (12) Hypertension: Plan: Patient was taking lisinopril at home but most BPs have been acceptable without it. Continue to hold. (13) Hypothyroidism: Plan: TSH was high at 11 in early November. In response to such her synthroid was increased from 125mcg to 137mcg as o utpatient. Her TSH has improved but has not achieved euthyroid state despite that dose increase. Since it has been about 5-6 weeks of the new dose reasonable to increase synthroid to 150mcg. Repeat TSH in 6 weeks as outpatient. (14) Memory impairment: Plan: By report. Due to prior SDH? B12 def could contribute as well. Check a B1 level to be complete. While awaiting the level placed on empiric B1 as noted above. can't rule out early MCI or dementia. (15) Pancreatic insufficiency: Plan: Continue creon TID w/ meals + snacks prn. (16) Peripheral neuropathy: Plan: I assume it is due to uncontrolled DM. B12 def could be contributing. Replacing the low B12. Could consider gabapentin but hold off for now given her gait issues, tendency towards dizziness, etc. (17) Depression: Plan: Cont home meds. (18) History of subdural hematoma: Plan: Noted. No acute SDH or other ICH on CT head at time of ER presentation. (19) Infestation by bed bug: Plan: According to the ER attending and ER staff there was evidence of suspected bed bugs on examination in the ER. I confirmed with infection control office that an actual bed bug was indeed captured and confirmed to be such by EVS. There were then reports of ?head lice but I have not seen signs of such and staff haven't either. She has had NO symptoms of head lice. The bed bug issue does NOT need contact precautions as patient went through the "decon" process in the ER before transfer to the floor. Additionally she has no evidence of head lice. Thus, contact precautions canceled by infection control. (20) DVT prophylaxis: Plan: Heparin 5000 TID Plan: Daughter Emani Herrera updated by phone several times over the last few days Over the weekend it came to light that in addition to the pt's clothes being thrown away her glasses & diabetic shoes were also inadvertently discarded I previously had told Emani that her mother's case had been referred to our Service Excellence team in response to the lost/discarded personal belongings dispo planning - rehab post-d/c - Monday ?? Admission and Anticipated Discharge Date Admission Date: January 06, 2022 Subjective continues to feel well no complaints of dizziness during her PT session today denies any hip or knee pain today no dyspnea eating well; no abd pain with eating we discussed rehab post-d/c - told her that she may not discharge to rehab until monday was agreeable to this Review of Systems Review of Systems: gen - no fevers, good energy, good appetite skin - no rash or pruritis CV - no orthopnea or cp pulm - no dyspnea GI - no nausea/emesis/abd pain - incontinent of urine - using purewick Physical Exam Physical Exam: Gen - obese, NAD, looks very good HENT - MMM Neck - no JVD Heart - RRR, s1 s2, no murmur Lungs - CTA b/l Abd - soft; NT; ND; BS+ Ext - trace edema b/l, pulses 2+ b/l musculo - no tenderness over R trochanteric bursal region with palpation; right leg is longer than left leg; bony OA changes of b/l knees; right leg is larger in girth in comparison to left leg as well - all musculoskeletal exam findings are unchanged from prior exams psych - a/o x 3 Results & Data Results & Data ([facility]) Vital Signs (Past 12 Hours) Vital Signs Temp Pulse Resp BP Pulse Ox 01/10/22 16:03 36.6 C 69 16 115/71 95 01/10/22 07:40 36.8 C 75 16 110/68 93 Laboratory Results Laboratory Results - last 24 hr 01/09/22 01/10/22 01/10/22 20:06 07:35 11:30 POC Glucose 150 H 93 99 01/10/22 16:49 POC Glucose 97 PG Care Time/CCT Total # of Minutes Spent Total Time Spent with Patient: Total time spent is greater than 50% in coordination of care (as documented) at patient's floor/unit and/or counseling patient: Coding Level of Care Code 21083 Subseq Hosp Care Lvl 2 Diagnoses Vitamin B12 deficiency E53.8 Physical deconditioning R53.81 Fall W19.XXXA UTI (urinary tract infection) N39.0 Hypomagnesemia E83.42 Left hip pain M25.552 Diabetes mellitus type 2 with complications, uncontrolled E11.8; E11.65 Dyslipidemia E78.5 Epilepsy G40.909 GERD (gastroesophageal reflux disease) K21.9 Gait abnormality R26.9 Hypertension I10 Hypothyroidism E03.9 Memory impairment R41.3 Pancreatic insufficiency K86.89 Peripheral neuropathy G62.9 Depression F32.9 History of subdural hematoma Z86.79 Infestation by bed bug B88.8 DVT prophylaxis Z29.9
[2022-01-10] MEDS: SIMVASTATIN 20 MG TAB PO SCH (21:14)
[2022-01-11] MEDS: LEVOTHYROXINE SODIUM 150 MCG TABLET PO SCH (05:44)
[2022-01-11] MEDS: HEPARIN SOD 5,000 UNIT/0.5 ML VIAL SQ SCH ×3 (05:44→21:00)
[2022-01-11] MEDS: CHOLECALCIFEROL 1,000 UNITS 25 MCG TAB PO SCH (07:30)
[2022-01-11] MEDS: ADVANCED PROBIOTIC 1250 MG CAPSULE PO SCH (07:30)
[2022-01-11] MEDS: cephALEXin 500 MG CAP PO SCH ×2 (07:31→20:33)
[2022-01-11] MEDS: PANCREAZE (LIPASE 10,500U) CAP PO SCH ×3 (07:31→17:30)
[2022-01-11] MEDS: ASPIRIN 81 MG ECTAB PO SCH (07:31)
[2022-01-11] MEDS: PANTOprazole 40 MG TAB PO SCH (07:31)
[2022-01-11] MEDS: DICLOFENAC SOD 1% GEL 100 GM TUBE EXT SCH ×4 (07:32→20:33)
[2022-01-11] MEDS: CYANOCOBALAMIN 1000 MCG/ML VIAL IM SCH (07:32)
[2022-01-11] MEDS: VENLAFAXINE HCL XR 75 MG CAPXR PO SCH (07:32)
[2022-01-11] MEDS: THIAMINE HCL 100 MG TAB PO SCH ×2 (07:32→20:35)
[2022-01-11] MEDS: MULTIVITAMIN TAB PO SCH (07:32)
[2022-01-11] MEDS: SUCRALFATE 1 GM/10 ML UDC PO SCH ×4 (07:33→20:33)
[2022-01-11] MEDS: PHENobarbitaL 30 MG TAB PO SCH ×2 (07:38→20:59)
[2022-01-11] MEDS: INSULIN GLARGINE SOLOSTAR 100 UNITS/ML 3 ML PEN SC SCH ×2 (08:44→20:32)
[2022-01-11] MEDS: INSULIN ASPART PER UNIT SC SCH ×4 (08:46→20:32)
[2022-01-11] MEDS: SIMVASTATIN 20 MG TAB PO SCH (20:34)
--- NOTE | 2022-01-11 21:17 | Hospitalist Progress Note ---
Date of Service January 11, 2022 Assessment & Plan (1) Vitamin B12 deficiency: Plan: level = 214. in light of gait disturbance, balance issues/falls, neuropathy, and low platelets will replace parenterally while hospitalized. started IM shots 1000mcg daily x 5 days. first dose 01/07/22. last dose 01/11/22. then change to PO B12 1000mcg daily thereafter. replace 6-12 months. checked B1 and folate levels to be complete. while waiting for B1 level (send-out, will take a week) she is on thiamine 200mg BID empirically. folate was normal. (2) Physical deconditioning: Plan: multifactorial - #1, poorly controlled DM, obesity, hip OA, knee OA, etc. PT, OT. both advising rehab. she is agreeable. social work with referrals to SNF for such. (3) Fall: Plan: h/o frequent falls in the past. 1 such fall led to SDH years ago requiring craniotomy at [facility]? She has peripheral neuropathy - likely due to diabetes but also could be due to B12 deficiency- along with OA of knees and probable OA of hips. All of these issues will lend itself to falls. Fortunately it does not appear she has had any bony injuries from her pre-admis aniya fall. Dizziness/lightheadedness precipitated her fall. She does not describe discrete vertigo. CT head negative for ICH or fracture. Orthostatics negative. Replacing low B12. Empiric thiamine supplementation while awaiting B1 level. Pelvic x-rays/hip x-rays noted to be neg for fracture. CPK wnl. Cont PT, OT. Discontinued urinary anticholingergic agents as these can precipitate dizziness. pt reports dizziness is fully resolved. My suspicion is that the UTI was a big culprit in her presentation +/- too much BP medication (see below) +/- medication side effects from bladder spasm agents +/- B12 deficiency +/- low magnesium. (4) UTI (urinary tract infection): Plan: 2nd to castillo-sensitive e.coli. s/p rocephin x 2 days. now on keflex 500mg BID x 5 additional days, day #4 of PO abx. (5) Hypomagnesemia: Plan: replaced resolved (6) Left hip pain: Plan: no fracture 2nd to OA also c/o R lateral hip pain at times - likely trochanteric bursitis given her leg-length discrepancy follow for now (7) Diabetes mellitus type 2 with complications, uncontrolled: Plan: HbA1C >9%. Changed 70/30 insulin to lantus-novolog. Improved control with basal-bolus insulin. Cont both without changes today. (8) Dyslipidemia: Plan: Continue statin. (9) Epilepsy: Plan: I presume she developed seizures in the setting of her prior SDH years ago. She is on chronic phenobarbital. level here therapeutic. Continue phenobarbital at home dosing. (10) GERD (gastroesophageal reflux disease): Plan: Cont PPI. Earlier in the stay she had mild epigastric pain worsened by eating. Resolved with addition of carafate. Cont both the PPI + carafate. (11) Gait abnormality: Plan: Likely multifactorial. Leg-length discrepancy, OA of knees and/or hips, neuropathy, previous brain injury from SDH, etc. PT, OT evals done; rehab advised. B12 deficiency will contribute to gait issues as well. May have component of R sided trochanteric bursitis, too, which will make gait issues worse. Could consider a steroid injection for such but pain is better so defer for now. (12) Hypertension: Plan: Patient was taking lisinopril at home but most BPs have been acceptable without it. Continue to hold. (13) Hypothyroidism: Plan: TSH was high at 11 in early November. In response to such her synthroid was increased from 125mcg to 137mcg as outpatient. Her TSH has improved but has not achieved euthyroid state despite that dose increase. Since it has been about 5-6 weeks of the new dose reasonable to increase syn throid to 150mcg. Repeat TSH in 6 weeks as outpatient. (14) Memory impairment: Plan: By report. Due to prior SDH? B12 def could contribute as well. Check a B1 level to be complete. While awaiting the level placed on empiric B1 as noted above. can't rule out early MCI or dementia. (15) Pancreatic insufficiency: Plan: Continue creon TID w/ meals + snacks prn. (16) Peripheral neuropathy: Plan: I assume it is due to uncontrolled DM. B12 def could be contributing. Replacing the low B12. Could consider gabapentin but hold off for now given her gait issues, tendency towards dizziness, etc. (17) Depression: Plan: Cont home venlafaxine (18) History of subdural hematoma: Plan: Noted. No acute SDH or other ICH on CT head at time of ER presentation. (19) Infestation by bed bug: Plan: According to the ER attending and ER staff there was evidence of suspected bed bugs on examination in the ER. I confirmed with infection control office that an actual bed bug was indeed captured and confirmed to be such by EVS. There were then reports of ?head lice but I have not seen signs of such and staff haven't either. She has had NO symptoms of head lice. The bed bug issue does NOT need contact precautions as patient went through the "decon" process in the ER before transfer to the floor. Additionally she has no evidence of head lice. Thus, contact precautions canceled by infection control. (20) DVT prophylaxis: Plan: Heparin 5000 TID Plan: Daughter Emani Herrera updated by phone several times over the last few days Over the weekend it came to light that in addition to the pt's clothes being thrown away her glasses & diabetic shoes were also inadvertently discarded Previous hospitalist told Emani that her mother's case had been referred to our Service Excellence team in response to the lost/discarded personal belongings dispo planning -medically stable for discharge, awaiting insurance authorization but hopeful for discharge SNF tomorrow Admission and Anticipated Discharge Date Admission Date: January 06, 2022 Anticipated date of discharge: 01/12/22 Subjective Patient reports she feels very well and like she is improving. No further urinary symptoms. She is out of bed to chair and eating well. She has no chest pains or shortness of breath. Review of Systems Review of Systems: All systems reviewed & are unremarkable except as noted in HPI & below Physical Exam Constitutional: WD/WN, vitals as above Eyes: + anicteric sclerae ENMT: external ear and nose normal, oropharynx normal Neck: trachea midline, no thyromegaly Respiratory: normal respiratory effort, lungs clear to auscultation Cardiovascular: Rate/Rhythm: regular rate and regular rhythm Heart Sounds: no murmur Extremities: + edema (Trace pitting edema bilateral legs) Chest (Breasts): Chest: normal inspection of chest Gastrointestinal (Abdomen): normal bowel sounds, soft, nontender, no hepatosplenomegaly Musculoskeletal: Extremities: extremities normal to inspection; no cyanosis and no clubbing Skin: no rashes, warm and dry Neurologic: moves all extremities and awake; no focal motor deficits Psychiatric: A+Ox3, euthymic affect Lymphatic: no lymphedema Results & Data Results & Data ([facility]) Laboratory Results 01/11/22 01/11/22 01/11/22 Range/Units 20:29 17:45 17:14 POC Glucose 119 H 86 (70-99) mg/dl SARS-CoV-2, RNA, NAAT NEGATIVE (NEGATIVE) 01/11/22 01/11/22 Range/Units 12:18 08:23 POC Glucose 129 H 105 H (70-99) mg/dl SARS-CoV-2, RNA, NAAT (NEGATIVE) PG Care Time/CCT Total # of Minutes Spent Total Time Spent with Patient: Total time spent is greater than 50% in coordination of care (as documented) at patient's floor/unit and/or counseling patient: Coding Level of Care Code 18836 Subseq Hosp Care Lvl 1 Diagnoses Vitamin B12 deficiency E53.8 Physical deconditioning R53.81 Fall W19.XXXA UTI (urinary tract infection) N39.0 Hypomagnesemia E83.42 Left hip pain M25.552 Diabetes mellitus type 2 with complications, uncontrolled E11.8; E11.65 Dyslipidemia E78.5 Epilepsy G40.909 GERD (gastroesophageal reflux disease) K21.9 Gait abnormality R26.9 Hypertension I10 Hypothyroidism E03.9 Memory impairment R41.3 Pancreatic insufficiency K86.89 Peripheral neuropathy G62.9 Depression F32.9 History of subdural hematoma Z86.79 Infestation by bed bug B88.8 DVT prophylaxis Z29.9
[2022-01-12] MEDS: LEVOTHYROXINE SODIUM 150 MCG TABLET PO SCH (05:47)
[2022-01-12] MEDS: HEPARIN SOD 5,000 UNIT/0.5 ML VIAL SQ SCH ×2 (05:47→12:56)
[2022-01-12] MEDS: ADVANCED PROBIOTIC 1250 MG CAPSULE PO SCH (07:58)
[2022-01-12] MEDS: VENLAFAXINE HCL XR 75 MG CAPXR PO SCH (07:58)
[2022-01-12] MEDS: cephALEXin 500 MG CAP PO SCH (07:58)
[2022-01-12] MEDS: MULTIVITAMIN TAB PO SCH (07:58)
[2022-01-12] MEDS: PANTOprazole 40 MG TAB PO SCH (07:58)
[2022-01-12] MEDS: CHOLECALCIFEROL 1,000 UNITS 25 MCG TAB PO SCH (07:58)
[2022-01-12] MEDS: THIAMINE HCL 100 MG TAB PO SCH (07:59)
[2022-01-12] MEDS: PANCREAZE (LIPASE 10,500U) CAP PO SCH ×2 (07:59→12:22)
[2022-01-12] MEDS: DICLOFENAC SOD 1% GEL 100 GM TUBE EXT SCH ×2 (07:59→12:22)
[2022-01-12] MEDS: ASPIRIN 81 MG ECTAB PO SCH (07:59)
[2022-01-12] MEDS: SUCRALFATE 1 GM/10 ML UDC PO SCH ×2 (07:59→12:22)
[2022-01-12] MEDS: PHENobarbitaL 30 MG TAB PO SCH (08:20)
[2022-01-12] MEDS: INSULIN GLARGINE SOLOSTAR 100 UNITS/ML 3 ML PEN SC SCH (08:41)
[2022-01-12] MEDS: INSULIN ASPART PER UNIT SC SCH ×2 (08:44→12:24)
[2022-01-12] MEDS ORDERED: CYANOCOBALAMIN (B-12) 500 MCG TABLET PO SCH (09:00)
--- NOTE | 2022-01-12 12:41 | Discharge Summary ---
Date of Service January 12, 2022 Admission HPI Per Admitting Provider 81yo female with h/o T2DM, seizure disorder, prior h/o SDH, pancreatic insufficiency, hyperlipidemia, HTN, hypothyroidism, and cognitive impairment who presents from home due to a fall. Patient states she was in her bedroom, got out of bed to go to the bathroom, took a few steps, then fell to the ground. She did have mild dizziness/lightheadedness just prior to the fall but did not lose consciousness. She denies any pain in any location as a result of the fall. Denies hitting her head. She reports feeling mildly dizzy for 2-3 days. No vertigo. No focal motor weakness. However, while in the ER, she was very weak and it took 2 nurses to stand her at bedside. Patient has a history of falls over the years. She had an additional fall sometime in the last month. Upon presentation today her blood sugar was quite elevated at ~300. I spoke with her daughter, Emani Herrera, who stated that her mother's sugars are always high and that BSGs in the 300s is typical. Emani also reported that her mother is very sedentary. During the ER attending's physical exam assessment there was concern for bed bug infestation. Emani reported that she went to her mother's home and, with the assistance of her sister Vidya, they looked throughout the house and under the beds but found no evidence of bed bugs. Of note - the patient lives with her daughter, Vidya Hernandez. During my assessment the patient denied any pruritis of her skin in any location. Principal Diagnosis Fall, UTI, Vitamin B12 deficiency Discharge Exam Constitutional WD/WN, vitals as above Eyes + anicteric sclerae Neck trachea midline, no thyromegaly Respiratory normal respiratory effort, lungs clear to auscultation Cardiovascular Rate/Rhythm: regular rate and regular rhythm Heart Sounds: no murmur Extremities: + edema (Trace pitting edema bilateral legs) Chest (Breasts) Chest: normal inspection of chest Gastrointestinal (Abdomen) normal bowel sounds, soft, nontender, no hepatosplenomegaly Musculoskeletal Extremities: extremities normal to inspection; no cyanosis and no clubbing Skin no rashes, warm and dry Neurologic moves all extremities and awake; no focal motor deficits Psychiatric A+Ox3, euthymic affect Lymphatic no lymphedema Discharge Data Allergies Allergy/AdvReac Type Severity Reaction Status Date / Time Sulfa (Sulfonamide Allergy Intermediate SICK TO Verified 11/26/21 08:21 Antibiotics) STOMACH sitagliptin AdvReac Intermediate ABD PAIN Verified 11/26/21 08:21 Consultations 01/06/22 08:04 ED Decision to Admit Stat Ordered Studies 01/06/22 03:54 CT cervical spine wo con Urgent CT head/brain wo con Urgent Diabetes Follow up Diabetes Follow-up Needed for HgbA1c >9% Hospital Course (1) Vitamin B12 deficiency: level = 214. in light of gait disturbance, balance issues/falls, neuropathy, and low platelets will replace parenterally while hospitalized. started IM shots 1000mcg daily x 5 days. first dose 01/07/22. last dose 01/11/22. then change to PO B12 1000mcg daily thereafter. replace 6-12 months. checked B1 -still pending at time of discharge FOlate normal while waiting for B1 level (send-out, will take a week) she is on thiamine 200mg BID empirically. (2) Physical deconditioning: multifactorial - #1, poorly controlled DM, obesity, hip OA, knee OA, etc. PT, OT. both advising rehab (3) Fall: h/o frequent falls in the past. 1 such fall led to SDH years ago requiring craniotomy at [facility]? She has peripheral neuropathy - likely due to diabetes but also could be due to B12 deficiency- along with OA of knees and probable OA of hips. All of these issues will lend itself to falls. Fortunately it does not appear she has had any bony injuries from her pre- admission fall. Dizziness/lightheadedness precipitated her fall. She does not describe discrete vertigo. CT head negative for ICH or fracture. Orthostatics negative. Replacing low B12. Empiric thiamine supplementation while awaiting B1 level. Pelvic x-rays/hip x-rays noted to be neg for fracture. CPK wnl. Cont PT, OT. Discontinued urinary anticholingergic agents as these can precipitate dizziness. pt reports dizziness is fully resolved. My suspicion is that the UTI was a big culprit in her presentation +/- too much BP medication (see below) +/- medication side effects from bladder spasm agents +/- B12 deficiency +/- low magnesium. (4) UTI (urinary tract infection): 2nd to castillo-sensitive e.coli. s/p rocephin x 2 days. now on keflex 500mg BID to complete a 7 day course-needs 3 more doses after discharge (5) Hypomagnesemia: replaced resolved (6) Left hip pain: no fracture 2nd to OA also c/o R lateral hip pain at times - likely trochanteric bursitis given her leg-length discrepancy follow for now continue voltaren gel, tylenol for pain (7) Diabetes mellitus type 2 with complications, uncontrolled: HbA1C >9%. Changed 70/30 insulin to lantus-novolog while here, revert back to 70/30 on discharge at a lower dose than home as her eating habits here are not requiring as much insulin Improved control with basal-bolus insulin. (8) Dyslipidemia: Continue statin. (9) Epilepsy: I presume she developed seizures in the setting of her prior SDH years ago. She is on chronic phenobarbital. level here therapeutic. Continue phenobarbital at home dosing. (10) GERD (gastroesophageal reflux disease): Cont PPI. Earlier in the stay she had mild epigastric pain worsened by eating. Resolved with addition of carafate-complete 2 week course. Cont both the PPI + carafate. (11) Gait abnormality: Likely multifactorial. Leg-length discrepancy, OA of knees and/or hips, neuropathy, previous brain injury from SDH, etc. PT, OT evals done; rehab advised. B12 deficiency will contribute to gait issues as well. May have component of R sided trochanteric bursitis, too, which will make gait issues worse. Could consider a steroid injection for such but pain is better so defer for now. (12) Hypertension: Patient was taking lisinopril at home but most BPs have been acceptable without it. ok to restart for renal protection on discharge (13) Hypothyroidism: TSH was high at 11 in early November. In response to such her synthroid was increased from 125mcg to 137mcg as outpatient. Her TSH has improved but has not achieved euthyroid state despite that dose increase. Since it has been about 5-6 weeks of the new dose reasonable to increase synthroid to 150mcg. Repeat TSH in 6 weeks as outpatient. (14) Memory impairment: By report. Due to prior SDH? B12 def could contribute as well. Check a B1 level to be complete. While awaiting the level placed on empiric B1 as noted above. can't rule out early MCI or dementia. (15) Pancreatic insufficiency: Continue creon TID w/ meals + snacks prn. (16) Peripheral neuropathy: I assume it is due to uncontrolled DM. B12 def could be contributing. Replacing the low B12. (17) Depression: Cont home venlafaxine (18) History of subdural hematoma: Noted. No acute SDH or other ICH on CT head at time of ER presentation. (19) Infestation by bed bug: According to the ER attending and ER staff there was evidence of suspected bed bugs on examination in the ER. I confirmed with infection control office that an actual bed bug was indeed captured and confirmed to be such by EVS. There were then reports of ?head lice but I have not seen signs of such and staff haven't either. She has had NO symptoms of head lice. The bed bug issue does NOT need contact precautions as patient went through the "decon" process in the ER before transfer to the floor. Additionally she has no evidence of head lice. Thus, contact precautions canceled by infection control. (20) DVT prophylaxis: Heparin 5000 TID Over the weekend it came to light that in addition to the pt's clothes being thrown away her glasses & diabetic shoes were also inadvertently discarded Previous hospitalist told Emani that her mother's case had been referred to our Service Excellence team in response to the lost/discarded personal belongings dispo planning -medically stable for discharge to SNF today Total Time Total Time Spent Total Time Spent (In Minutes): 40 min Discharge Plan Discharge Items Patient Disposition: Transfer Care Home Fac Reason For Visit: FALL, UTI, HYPERGLYCEMIA, HYPOMAGNESEMIA Discharge Diagnosis: Fall, UTI, Vitamin B12 deficiency, hypomagnesemia Condition on Discharge: Good Activity: As commented below Lifting: Gradually increase as tolerated Bathing: No limitations Exercise/Sports: Gradually increase as tolerated Weightbearing: Full weightbearing Non-emergency contact: Primary Care Provider Call non-emergency contact if: you have any medication questions and your symptoms worsen Follow-up/Referrals: Kelli Gates CRNP [Primary Care Provider] - Diet: Carb Consistent or DM2 and Heart Healthy Addtl Attending Provider Instructions: Please finish out the course of antibiotics for the UTI. Ms. Hernandez needs daily PT/OT for rehab strengthening. Pending Studies at Discharge: Yes (Vitamin B1) Stand-Alone Forms: My [facility] Skilled Items Patient informed of condition?: Yes DNR: Yes Discharge Level of Care: Skilled Communicable Disease: No Discharge Prognosis: Improving Lines: None Urinary Catheter: No Medications and DC Order Prescriptions: New acetaminophen 325 mg Tablet 650 mg PO Q4H PRN (Reason: mild-moderate pain) Qty: 30 RF: 0 cephalexin 500 mg Capsule 500 mg PO BID Qty: 3 RF: 0 diclofenac sodium [Voltaren Arthritis Pain] 1 % Gel 4 g EXT QID Qty: 100 RF: 0 sucralfate 100 mg/mL Suspension 1 g PO QID 8 Days Qty: 320 RF: 0 Advanced Probiotic 625 mg (10 billion cell) Capsule 2 cap PO DAILY Qty: 60 RF: 0 levothyroxine [Synthroid] 150 mcg Tablet 150 mcg PO DAILYBB Qty: 30 RF: 0 cyanocobalamin (vitamin B-12) 1,000 mcg capsule 1,000 mcg PO DAILY Qty: 30 RF: 0 thiamine HCl (vitamin B1) 250 mg tablet 250 mg PO BID Qty: 60 RF: 0 Continued lisinopril 5 mg tablet 5 mg PO DAILY Qty: 30 RF: 11 venlafaxine 75 mg capsule,extended release 24hr 75 mg PO DAILY Qty: 30 RF: 11 simvastatin 20 mg tablet 20 mg PO HS Qty: 30 RF: 11 (DME) OneTouch Ultra Blue Test Strip Strip See Rx Instructions .ROUTE .MEDSUPPLY Qty: 100 RF: 5 omeprazole 40 mg capsule,delayed release(DR/EC) 40 mg PO QAM Qty: 30 RF: 11 (DME) pen needle, diabetic [Unifine Pentips] 31 gauge x 3/16" needle See Dose Instructions .ROUTE .MEDSUPPLY Qty: 60 RF: 11 Creon 36,000-114,000- 180,000 unit capsule,delayed release(DR/EC) 2 cap PO .COMPLEX Qty: 240 RF: 11 phenobarbital 64.8 mg tablet See Rx Instructions .ROUTE .COMPLEX Qty: 90 RF: 5 colestipol 1 gram tablet 1 g PO DAILY PRN (Reason: Diarrhea) Qty: 30 RF: 5 (DME) lancets [OneTouch Delica Lancets] 33 gauge misc See Dose Instructions .ROUTE .MEDSUPPLY Qty: 100 RF: 5 multivitamin Tablet 1 tab PO DAILY RF: 0 aspirin 81 mg Tablet,Delayed Release (Dr/Ec) 81 mg PO DAILY RF: 0 cholecalciferol (vitamin D3) [Vitamin D3] 2,000 unit Tablet 2,000 unit PO DAILY RF: 0 Changed furosemide 20 mg tablet 10 mg PO QAM PRN (Reason: leg swelling) Qty: 15 RF: 5 insulin asp prt-insulin aspart [Novolog Mix 70-30FlexPen U-100] 100 unit/mL (70-30) insulin pen 13 unit subcut BID Qty: 15 RF: 3 Discontinued levothyroxine 137 mcg capsule 137 mcg PO DAILY Qty: 30 RF: 2 Fluzone HighDose Quad 20-21 PF 240 mcg/0.7 mL syringe 0.7 ml IM ONCE Qty: 0.7 RF: 0 solifenacin 10 mg tablet 10 mg PO DAILY Qty: 90 RF: 3 Myrbetriq 50 mg tablet extended release 24 hr 50 mg PO DAILY Qty: 90 RF: 3 Discharge Orders: Discharge Order (Routine); Ordered 01/12/22 Ordered By: Kriss Fernandez Admission Data Admit Date/Time: 01/06/22 08:55 Attending Provider: Kriss Fernandez Admit Provider: Rock Vance Primary Care Provider: Kelli Gates Other Providers: Rock Vance ; [place] Coding Level of Care Code D/C DAY MANAGEMENT >30 MINS Diagnoses Vitamin B12 deficiency E53.8 Physical deconditioning R53.81 Fall W19.XXXA UTI (urinary tract infection) N39.0 Hypomagnesemia E83.42 Left hip pain M25.552 Diabetes mellitus type 2 with complications, uncontrolled E11.8; E11.65 Dyslipidemia E78.5 Epilepsy G40.909 GERD (gastroesophageal reflux disease) K21.9 Gait abnormality R26.9 Hypertension I10 Hypothyroidism E03.9 Memory impairment R41.3 Pancreatic insufficiency K86.89 Peripheral neuropathy G62.9 Depression F32.9 History of subdural hematoma Z86.79 Infestation by bed bug B88.8 DVT prophylaxis Z29.9
== END 2022-01-12 16:09 ==
LOC: ED 03:00 → INTOOBSV 08:55 → SUATTDRO 08:55 → EDINP 08:55 → 2W 10:16 → 3W 01-10 21:50

== ENCOUNTER 2023-12-19 13:58 | Inpatient (IN) ==
[2023-12-19 15:10] LABS: Hematocrit (blood only) 41.8 % (37.0-47.0); Hemoglobin 14.4 g/dl (12.0-16.0); Mean Corpuscular Hemoglobin 30.5 pg (25.0-34.0); Mean Corpuscular Hgb Conc 34.4 g/dL (32.0-36.0); Mean Corpuscular Volume 88.6 fL (80.0-100.0); Mean Platelet Volume 12.3 fL (9.4-12.4); Platelet Count 152 K/uL (130-400); RDW Coefficient of Variation 12.3 % (11.5-14.5); Red Blood Count 4.72 M/uL (4.20-5.40); White Blood Count 11.63 K/ul (4.8-10.8)
[2023-12-19 15:29] LABS: Basophils # (auto) 0.05 K/uL (0.00-0.20); Basophils % (auto) 0.4 %; Eosinophils # (auto) 0.02 K/uL (0.00-0.50); Eosinophils % (auto) 0.2 %; Immature Granulocytes # (auto) 0.05 K/uL (0.01-0.20); Immature Granulocytes % (auto) 0.4 %; Lymphocytes # (auto) 0.45 K/uL (1.20-3.40); Lymphocytes % (auto) 3.9 %; Monocytes # (auto) 0.45 K/uL (0.11-0.59); Monocytes % (auto) 3.9 %; Neutrophils # (auto) 10.61 K/uL (1.40-6.50); Neutrophils % (auto) 91.2 %
[2023-12-19 15:33] LABS: Prothrombin Time 10.7 Seconds (9.0-12.0)
[2023-12-19 15:36] LABS: Albumin Globulin Ratio 1.4 (0.9-2); Albumin Level 4.3 gm/dl (3.4-5.0); BUN Creatinine Ratio 21.1 (10-20); Bilirubin,Total 0.4 mg/dl (0.2-1.0); Calcium 9.7 mg/dl (8.6-10.3); Creatinine Clr Calc Pharmacy 40.5 ml/min; Est GFR (African American) 54.7 ml/min; Est GFR (Non-African American) 47.2 ml/min; Potassium 4.3 mmol/L (3.5-5.1); Total Protein 7.3 gm/dl (6.0-8.3)
--- NOTE | 2023-12-19 15:37 | XRay Report ---
XR chest 1V portable CLINICAL HISTORY: weakness TECHNIQUE: Single frontal radiograph of the chest was obtained. Comparison: Comparison is made to chest radiograph 02/17/2023 FINDINGS: No lines and tubes are seen. Calcified aortic knob is seen. The lungs are clear. No evidence of pleur al effusion or pneumothorax. IMPRESSION: No acute chest disease. ACT 112: Negative or not required by law. Electronically signed by: Gabriel Cuenca M.D. 12/19/2023 3:36 PM
--- NOTE | 2023-12-19 15:48 | Electrocardiogram Report ---
Test Reason : Blood Pressure : / mmHG Vent. Rate : 099 BPM Atrial Rate : 099 BPM P-R Int : 184 ms QRS Dur : 112 ms QT Int : 376 ms P-R-T Axes : 069 -54 082 degrees QTc Int : 482 ms Sinus rhythm with occasional Premature ventricular complexes Left axis deviation Low voltage QRS Poor R wave progression, consider anterior AL vs. lead placement vs. LVH Abnormal ECG When compared with ECG of 06-JAN-2022 03:08, Premature ventricular complexes are now Present VT interval has decreased Confirmed by Demetri Thao ([id number]) on 12/19/2023 3:48:02 PM Referred By: Confirmed By:Demetri Thao
[2023-12-19 15:51] LABS: Magnesium 1.4 mg/dl (1.7-2.4)
[2023-12-19 16:25] LABS: Base Excess VBG 7.6 mEq/L; HCO3 VBG 35 mmol/L; Oxygen Saturation VBG < 60.0 %; PCO2 VBG 57 mmHg (38-50); PO2 VBG 23 mmHg; pH VBG 7.39 (7.36-7.41)
[2023-12-19] MEDS: OPTIRAY 320 100ml IV ONE (16:34)
--- NOTE | 2023-12-19 16:48 | CT Scan Report ---
CT SCAN OF THE BRAIN WITHOUT IV CONTRAST CLINICAL HISTORY: Falls. COMPARISON STUDY: CT of the brain dated 01/06/2022. TECHNIQUE: Unenhanced axial CT scan of the brain is performed from the vertex to the skull base. A do se lowering technique was utilized adhering to the principles of ALARA. FINDINGS: Brain parenchyma: There is age-related involutional change noting mild subcortical and periventricula r microangiopathic disease. There is no hemorrhage, mass effect, or evidence of acute territorial isc hemia by CT criteria. A small focus of left frontal encephalomalacia is consistent with a remote insu lt. 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 Brooks-white matter differentia tion is preserved. No extra-axial fluid collection is seen. Ventricles, sulci, cisterns: Prominent secondary to involutional change. Intracranial vasculature: There is atherosclerotic calcification of the cavernous carotid and vertebr al arteries. Calvarium: The skeletal structures are osteopenic. There is postsurgical change from left-sided crani otomy. No depressed calvarial fracture is seen. Sinuses and mastoids: The visualized paranasal sinuses are clear. There is evidence of previous bilat eral mastoid surgery. Orbits: The bony orbits are grossly intact. There are bilateral ocular lens implants. IMPRESSION: 1. There is no hemorrhage, mass effect, or evidence of acute territorial ischemia by CT criteria. 2. Chronic and postsurgical changes as above. ACT 112: Negative or not required by law. Electronically signed by: Mat Ramachandran M.D. 12/19/2023 4:46 PM
[2023-12-19 16:56] LABS: Appearance Urine Turbid (Clear); Bacteria Urine Automated Negative (Negative); Bilirubin Urine Negative (Negative); Blood Urine 2+ (Negative); Color Urine Yellow; Glucose Urine UA 3+ (Negative); Ketones Urine 1+ (Negative); Leukocyte Esterase Urine 2+ (Negative); Nitrite Urine Negative (Negative); Protein Urine 2+ (Negative); Specific Gravity Urine 1.021 (1.000-1.030); Urobilinogen Urine Negative (Negative); WBC Urine Automated >30 /hpf (0-5)
[2023-12-19] MEDS: MAGNESIUM SULFATE / D5W 1 GM/100 ML BAG IV SCH (17:00)
--- NOTE | 2023-12-19 17:01 | CT Scan Report ---
CT cervical spine wo con CLINICAL HISTORY: recurrent falls TECHNIQUE: Multidetector row helical CT of the cervical spine was performed without administration of intravenous contrast. Coronal and sagittal reformations were obtained. Automated dose lowering techn iques and/or adjustment according to patient size were utilized for this exam. Comparison: Comparison is made to CT cervical spine 01/06/2022 FINDINGS: No acute fractures or subluxations are identified. Degenerative changes are seen in the visualized sp ine. The alignment is normal. Soft tissues are unremarkable. IMPRESSION: Degenerative changes without evidence of acute bony injury. ACT 112: Negative or not required by law. Electronically signed by: Gabriel Cuneca M.D. 12/19/2023 5:00 PM
--- NOTE | 2023-12-19 17:32 | CT Scan Report ---
CT abd pelvis IV con only CLINICAL HISTORY: recurrent falls TECHNIQUE: Helical axial images of the abdomen and pelvis were obtained and displayed. Automated dose lowering techniques and/or adjustment according to patient size were utilized for this exam. This e xam was performed with intravenous contrast. COMPARISON: Comparison is made to CT abdomen pelvis 01/18/2018 FINDINGS: Lower chest: For findings above the diaphragm, please see CT chest performed same day. Liver: Unremarkable. No focal lesions are seen. Gallbladder and biliary tree: Patient is status post cholecystectomy. Physiologic prominence of the b iliary ducts is noted. Pancreas: Unremarkable, no focal lesions. Spleen: Unremarkable. Adrenals: Unremarkable. Kidneys and ureters: Prominence of the right ureter is again seen without hydronephrosis. Bladder: Diffuse homogeneous wall thickening is seen. Reproductive organs: Patient is status post hysterectomy. Bowel: The appendix is normal. Hiatal hernia is seen. Lymph nodes Retroperitoneal: Unremarkable. Pelvic: Unremarkable. Mesenteric: Unremarkable. Peritoneum: Normal. Vessels: Atherosclerotic calcifications are seen. Abdominal wall: Unremarkable. Bones: Unremarkable. IMPRESSION: 1. No acute abnormalities are seen, in particular no acute fracture. 2. Bladder wall thickening is seen. Correlation for cystitis is recommended. 3. Additional findings as above. ACT 112: Negative or not required by law. Electronically signed by: Gabriel Cuenca M.D. 12/19/2023 5:31 PM
--- NOTE | 2023-12-19 19:52 | History & Physical Report ---
Date of Service December 19, 2023 Assessment & Plan (1) Fall: Plan: Patient fell off bed in the morning of 12/18; no head strike; felt dizzy prior to fall; endorses LOC Reportedly down for 1.5 hours Ambulates with a walker at baseline; recurrent falls over the past month Head/cervical spine CT without acute changes PT/OT consulted Fall precautions Case management consulted; patient's daughter/POA would like to discuss additional options for home health care, and placement if medically necessary; daughter has been in discussions with LUIS Perez CBC, BMP, mag (2) Diabetes mellitus type 2 with complications, uncontrolled: Plan: Last A1c at 13.2% on 10/20/2023 Glucose 386 on admission No anion gap Pharmacy glycemic consult Patient normally takes 100 units of the 70/30 daily Lantus BID; SSI with target range 110-140 Clear liquid diet (due to recurrent vomiting in the ED) and advance to T2DM diet as tolerated BSG ACHS Adjust regimen as needed (3) Hypomagnesemia: Plan: Mag 1.4 on arrival Magnesium sulfate 1 g IV x 3 Recheck a.m. mag (4) Nausea and vomiting: Plan: Patient endorses epigastric pain and driving to the ED with " green liquid" vomit CT A/P revealed no acute abnormalities; pancreas unremarkable Lipase ordered, pending Continue Creon Plasma-Lyte 125 mL/hr x 2 Zofran as needed for nausea/vomiting (5) Elevated troponin: Plan: Troponin 34-->41 on admission Trend q4h x 2 EKG revealed sinus rhythm with occasional PVCs at 99 bpm; QTc 482 Clinically, patient denies chest pain, pleuritic CP, or SOB Continuous telemetry monitoring (6) Acute UTI: Plan: Mild leukocytosis at 11.63 with neutrophil predominance; afebrile UA positive on admission A/P CT suggestive of cystitis Blood cultures ordered, pending Rocephin 2000 mg IV q24h Last UCx in 2021 grew pansensitive E. coli; follow current UCx Plan Disposition: Admit to [facility] w/ telemetry DNR/DNI Clear liquid diet, advance to T2DM diet as tolerated (aspiration precautions) VTE PPx: Teds History of Present Illness Chief Complaint: Weakness, recurrent falls Primary Care Provider: SUDARSHAN Stoner is an 83-year-old female with PMH of T2DM, depression, dyslipidemia, GERD, HTN, hypothyroidism, epilepsy, and memory impairment. Patient presented for increasing weakness, falls, and noncompliance with diabetic medications on 12/18. Patient is a poor historian at baseline, and most of the history is provided by her daughter/POA (Emani) at the bedside. Patient reports that she fell this morning while getting out of bed. She reports that she was dizzy just prior to her fall and that she lost full consciousness and fainted. She does not believe she struck her head. She was down for approximately 1.5 hours before being found by her other daughter, whom she lives with. Patient has had recurrent falls; 2 last week; 1 to the week before that. Patient's daughter at the bedside reports that her blood sugar has been poorly managed at home, and sometimes runs in the 600 range. Patient reports that she took her regular morning medications today, including her insulin. No recent change in medications. No facial droop or slurred speech today when she was found. While she does not have a history of strokes, she does have a history of seizures with the last being several years ago. Patient ambulates with a walker at baseline. She also notes that she has been having epigastric pain, nausea, and vomiting while in the ED. Patient's daughter reports that she has been vomiting a "green liquid". Daughter also notes that she has had some weight loss due to poor eating habits; over the past 6 weeks, she has lost approximately 14 pounds. Patient's daughter is requesting additional home health care if possible, and replacement if medically necessary. Vitals: Patient is hypertensive at 167/96 at time of admission; vitals otherwise stable. ED course: Magnesium sulfate 1 g IV ROS: Patient endorses dizziness with standing, ambulatory dysfunction, epigastric pain, dry heaves, N/V x multiple episodes (green liquid), and weakness/numbness/tingling in legs. Patient denies fever, chills, sweating, GAGNON, cough, CP, pleuritic CP, cough, pain in legs. Allergies Allergy/AdvReac Type Severity Reaction Status Date / Time Sulfa (Sulfonamide Allergy Intermediate SICK TO Verified 12/19/23 18:14 Antibiotics) STOMACH sitagliptin AdvReac Intermediate ABD PAIN Verified 12/19/23 18:14 Home Medications Medication Instructions Recorded Confirmed Type acetaminophen 325 mg tablet 650 mg (2 x 325 mg) PO Q4H PRN 01/12/22 12/19/23 Rx mild-moderate pain #30 tabs one touch glucose meter #1 ea 04/08/22 10/20/23 Rx pen needle, diabetic 31 gauge x #60 ea 11/02/22 10/20/23 Rx 3/16" (Unifine Pentips) insulin aspar prot-insulin aspart See Rx Instructions subcut BID #15 02/10/23 12/19/23 Rx 100 unit/mL (70-30) subcutaneous mL pen (Novolog Mix 70-30FlexPen U-100) colestipol 1 gram tablet 1 g PO DAILY PRN Diarrhea #30 tabs 03/13/23 12/19/23 Rx lancets 33 gauge #100 ea 05/08/23 10/20/23 Rx diclofenac sodium 1 % topical gel 4 g EXT QID PRN Pain 06/16/23 12/19/23 History (Voltaren Arthritis Pain) lisinopril 2.5 mg tablet 2.5 mg PO DAILY #30 tabs 08/08/23 12/19/23 Rx phenobarbital 64.8 mg tablet See Rx Instructions .Route 08/08/23 12/19/23 Rx .COMPLEX #90 tabs L.acidop,casei,lactis,rham-B.lact,andrew 2 cap PO DAILY #60 caps 09/11/23 12/19/23 Rx 625 mg (10 billion cell) capsule (Advanced Probiotic) cyanocobalamin (vitamin B-12) 1,000 mcg PO DAILY #30 caps 09/11/23 12/19/23 Rx 1,000 mcg capsule levothyroxine 150 mcg tablet 150 mcg PO DAILYBB #30 tabs 09/11/23 12/19/23 Rx (Synthroid) omeprazole 40 mg capsule,delayed 40 mg PO QAM #30 caps 09/11/23 12/19/23 Rx release simvastatin 20 mg tablet 20 mg PO HS #30 tabs 09/11/23 12/19/23 Rx thiamine HCl (vitamin B1) 250 mg 250 mg PO BID #60 tabs 09/11/23 12/19/23 Rx tablet venlafaxine 75 mg capsule,extended 75 mg PO DAILY #30 caps 09/11/23 12/19/23 Rx release 24 hr aspirin 81 mg tablet,delayed 81 mg PO DAILY #30 tabs 11/07/23 12/19/23 Rx release cholecalciferol (vitamin D3) 50 2,000 unit PO DAILY #30 tabs 11/07/23 12/19/23 Rx mcg (2,000 unit) tablet (Vitamin D3) emauilvc-yrh-xgsvh acid 0.4 1 tab PO DAILY #30 tabs 11/07/23 12/19/23 Rx mg-lycopene 300 mcg-lutein 250 mcg tablet (Sentry Senior) blood sugar diagnostic #300 ea 12/01/23 Rx afuitm-tbdvvmlu-wztirlx 2 cap PO QID 12/19/23 12/19/23 History 36,000-114,000-180,000 unit capsule,delay rel (Creon) Past Med/Surg History Medical History Infestation by bed bug Gait abnormality Osteoarthritis GERD (gastroesophageal reflux disease) Balance problems Hypertension Choking episode occurring during daytime Subdural hematoma, chronic Peripheral neuropathy Pancreatic insufficiency Memory impairment Hypothyroidism Hydronephrosis of right kidney Falls frequently Dyslipidemia Diabetes mellitus type 2 with complications, uncontrolled Depression Epilepsy Surgical History History of cholecystectomy History of hysterectomy History of tooth extraction History of nasal surgery VERBALIZED NOSE SURGERY History of craniotomy ? 5 YEARS AGO - [facility] History of cholecystectomy Family History Daughter Family history of diabetes mellitus Colorectal cancer Denies family history of Ovarian cancer Prostate cancer Myocardial infarction Breast cancer Social History Smoking Status: Never smoker Second Hand Exposure: No; Do You Dip or Chew Tobacco: No; Hx Alcohol Use: No Hx Substance Use: No Preferred Language: Tajik Communication Ability: Effective Welder Apprentice Combination Required: No Beliefs That Will Affect Care: None marital status: / Current Living Situation: Family Current Living Situation Comment: daughter current occupational status: retired How many Children do You have: 7 Feels Safe at Home: Yes Safety Concerns: Feels Safe At This Time Childhood Exposure to Second-Hand Smoke: Yes Diet: regular caffeine: Yes Dental Care, Regularly: No Physical Activity Frequency: Does not Exercise Seatbelt Use: always Sunscreen Use: No Assistive Devices: Glasses and Walker Review of Systems Review of Systems: See HPI above Physical Exam Physical Exam: General: no acute distress; pleasant affect; non-toxic appearing; well- nourished; cooperative HEENT: normocephalic, atraumatic; no scleral icterus; PERRLA; hard of hearing Neck: supple; no lymphadenopathy; trachea midline Skin: warm, dry without signs of tenting; no cyanosis; no rashes, bruising, lesions, or erythema noted CV: chest wall NTP; RRR; S1/S2 normal; no murmurs/rubs/gallops; pulses intact and symmetric at radial, DP, and PT Lungs: no acute respiratory distress; symmetrical chest wall expansion; clear breath sounds across all lung ambrose w/o adventitious sounds; no wheezing ABD: Soft; epigastric region is tender to palpation; no signs of rashes, bruising, or erythema on the stomach MSK: no tics or fasciculations; no edema noted in the LEs b/l, nonerythematous Neuro: A&Ox3; slow to respond to question; some memory deficits; sensation grossly intact in the LEs b/l Results & Data Results & Data Vital Signs (Past 12 Hours) Vital Signs Temp Pulse Resp BP Pulse Ox O2 Del Method 12/19/23 19:00 99 H 16 12/19/23 19:00 167/96 H 12/19/23 18:00 100 H 10 L 95 12/19/23 18:00 116/70 12/19/23 17:45 100 H 12/19/23 17:00 100 H 15 96 12/19/23 17:00 146/88 H 12/19/23 16:00 99 H 16 95 12/19/23 16:00 155/91 H 12/19/23 15:52 104 H 19 94 12/19/23 15:52 145/112 H 12/19/23 15:00 93 H 14 114/69 94 12/19/23 14:56 95 Room Air 12/19/23 14:44 98 H 12/19/23 14:23 36.4 C L 99 H 18 114/69 95 Room Air 12/19/23 14:08 123 H 17 95 Laboratory Results Abnormal lab results 12/19/23 12/19/23 12/19/23 Range/Units 14:28 16:16 16:30 WBC 11.63 H (4.8-10.8) K/ul Neut # (Auto) 10.61 H (1.40-6.50) K/uL Lymph # (Auto) 0.45 L (1.20-3.40) K/uL VBG pCO2 57 H (38-50) mmHg Sodium 134 L (136-145) mmol/L Chloride 93 L (98-107) mmol/L BUN/Creatinine Ratio 21.1 H (10-20) Glucose 386 H* (70-99(Fasting)) mg/dl Magnesium 1.4 L (1.7-2.4) mg/dl Alkaline Phosphatase 114 H (34-104) U/L Troponin I High Sens 34.0 H (0-14) pg/ml Urine Appearance Turbid A (Clear) Urine Protein 2+ H (Negative) Urine Glucose (UA) 3+ H (Negative) Urine Ketones 1+ H (Negative) Urine Blood 2+ H (Negative) Ur Leukocyte Esterase 2+ H (Negative) Urine WBC (Auto) >30 H (0-5) /hpf Urine RBC (Auto) 5-10 H (0-4) /hpf U Epithel Cells (Auto) 10-20 H (0-5) /lpf 12/19/23 Range/Units 17:09 WBC (4.8-10.8) K/ul Neut # (Auto) (1.40-6.50) K/uL Lymph # (Auto) (1.20-3.40) K/uL VBG pCO2 (38-50) mmHg Sodium (136-145) mmol/L Chloride (98-107) mmol/L BUN/Creatinine Ratio (10-20) Glucose (70-99(Fasting)) mg/dl Magnesium (1.7-2.4) mg/dl Alkaline Phosphatase (34-104) U/L Troponin I High Sens 41.1 H (0-14) pg/ml Urine Appearance (Clear) Urine Protein (Negative) Urine Glucose (UA) (Negative) Urine Ketones (Negative) Urine Blood (Negative) Ur Leukocyte Esterase (Negative) Urine WBC (Auto) (0-5) /hpf Urine RBC (Auto) (0-4) /hpf U Epithel Cells (Auto) (0-5) /lpf Diagnostic Findings Chest X-Ray 12/19/23 14:56 XR chest 1V portable CLINICAL HISTORY: weakness TECHNIQUE: Single frontal radiograph of the chest was obtained. Comparison: Comparison is made to chest radiograph 02/17/2023 FINDINGS: No lines and tubes are seen. Calcified aortic knob is seen. The lungs are clear. No evidence of pleural effusion or pneumothorax. IMPRESSION: No acute chest disease. ACT 112: Negative or not required by law. Electronically signed by: Gabriel Cuenca M.D. 12/19/2023 3:36 PM Abdomen/Pelvis CT 12/19/23 15:36 CT abd pelvis IV con only CLINICAL HISTORY: recurrent falls TECHNIQUE: Helical axial images of the abdomen and pelvis were obtained and displayed. Automated dose lowering techniques and/or adjustment according to patient size were utilized for this exam. This exam was performed with intravenous contrast. COMPARISON: Comparison is made to CT abdomen pelvis 01/18/2018 FINDINGS: Lower chest: For findings above the diaphragm, please see CT chest performed same day. Liver: Unremarkable. No focal lesions are seen. Gallbladder and biliary tree: Patient is status post cholecystectomy. Ph ysiologic prominence of the biliary ducts is noted. Pancreas: Unremarkable, no focal lesions. Spleen: Unremarkable. Adrenals: Unremarkable. Kidneys and ureters: Prominence of the right ureter is again seen without hydronephrosis. Bladder: Diffuse homogeneous wall thickening is seen. Reproductive organs: Patient is status post hysterectomy. Bowel: The appendix is normal. Hiatal hernia is seen. Lymph nodes Retroperitoneal: Unremarkable. Pelvic: Unremarkable. Mesenteric: Unremarkable. Peritoneum: Normal. Vessels: Atherosclerotic calcifications are seen. Abdominal wall: Unremarkable. Bones: Unremarkable. IMPRESSION: 1. No acute abnormalities are seen, in particular no acute fracture. 2. Bladder wall thickening is seen. Correlation for cystitis is recommended. 3. Additional findings as above. ACT 112: Negative or not required by law. Electronically signed by: Gabriel Cuenca M.D. 12/19/2023 5:[address] 12/19/23 15:37 CT cervical spine wo con CLINICAL HISTORY: recurrent falls TECHNIQUE: Multidetector row helical CT of the cervical spine was performed without administration of intravenous contrast. Coronal and sagittal reformations were obtained. Automated dose lowering techniques and/or adjustment according to patient size were utilized for this exam. Comparison: Comparison is made to CT cervical spine 01/06/2022 FINDINGS: No acute fractures or subluxations are identified. Degenerative changes are seen in the visualized spine. The alignment is normal. Soft tissues are unremarkable. IMPRESSION: Degenerative changes without evidence of acute bony injury. ACT 112: Negative or not required by law. Electronically signed by: Gabriel Cuenca M.D. 12/19/2023 5:[address] 12/19/23 15:37 CT SCAN OF THE BRAIN WITHOUT IV CONTRAST CLINICAL HISTORY: Falls. COMPARISON STUDY: CT of the brain dated 01/06/2022. TECHNIQUE: Unenhanced axial CT scan of the brain is performed from the vertex to the skull base. A dose lowering technique was utilized adhering to the principles of ALARA. FINDINGS: Brain parenchyma: There is age-related involutional change noting mild subcortical and periventricular microangiopathic disease. There is no hemorrhage, mass effect, or evidence of acute territorial ischemia by CT criteria. A small focus of left frontal encephalomalacia is consistent with a remote insult. 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 Brooks-white matter differentiation is preserved. No extra-axial fluid collection is seen. Ventricles, sulci, cisterns: Prominent secondary to involutional change. Intracranial vasculature: There is atherosclerotic calcification of the cavernous carotid and vertebral arteries. Calvarium: The skeletal structures are osteopenic. There is postsurgical change from left-sided craniotomy. No depressed calvarial fracture is seen. Sinuses and mastoids: The visualized paranasal sinuses are clear. There is evidence of previous bilateral mastoid surgery. Orbits: The bony orbits are grossly intact. There are bilateral ocular lens implants. IMPRESSION: 1. There is no hemorrhage, mass effect, or evidence of acute territorial ischemia by CT criteria. 2. Chronic and postsurgical changes as above. ACT 112: Negative or not required by law. Electronically signed by: Mat Ramachandran M.D. 12/19/2023 4:46 PM Code Status & VTE Plan Code Status DNR/DNI VTE Prophylaxis Plan VTE Prophylaxis will be ordered: Yes Supervising Physician Co-Signing Physician Notes Patient seen and examined, chart reviewed, case discussed with MARY Liao and I agree with the assessment and plan as above. Patient with fall this AM. Hypomagnesemia and hyperglycemia. Daughter expresses concern that patient does not take her medication at home or follow a diabetic diet. Daughter has been trying to obtain more services at home and has been having difficulty On exam patient is elderly, frail female, NAD. Hard of hearing Dry MM +S1/S2, regular, no m/r/g Lungs CTA Abd soft, NT/ND Labs and images reviewed Assessment/Plan -PT/OT evaluation -Treatment of hyperglycemia - no gap -IVF and electrolyte repletion -Ceftriaxone for UTI -Remainder as above PG Care Time/CCT Total # of Minutes Spent Total Time Spent with Patient: Total time spent is greater than 50% in coordination of care (as documented) at patient's floor/unit and/or counseling patient: Coding [place] [address] INT INP/OBS CARE 3/75MIN Patient Type Established Medical Decision Making High Complexity Diagnoses Fall W19.XXXA Diabetes mellitus type 2 with complications, uncontrolled E11.8; E11.65 Hypomagnesemia E83.42 Nausea and vomiting R11.2 Elevated troponin R79.89 Acute UTI N39.0
[2023-12-19] MEDS: MAGNESIUM SULFATE / D5W 1 GM/100 ML BAG IV ONE (20:34)
[2023-12-19] MEDS: ONDANSETRON INJ 2 MG/ML 2 ML VIAL IV STA (20:34)
[2023-12-19] MEDS ORDERED: LACTATED RINGER'S 1,000 ML IV SCH (20:45)
[2023-12-19] MEDS ORDERED: cefTRIAXone SODIUM 2,000 MG in DEXTROSE 5 % MINI-B 50 ML IV STA (20:50)
[2023-12-19 22:19] LABS: Troponin I High Sensitivity 46.8 pg/ml (0-14)
[2023-12-19] MEDS: FAMOTIDINE 20MG IV PUSH 20 MG/5 ML SYR IV STA (22:22)
[2023-12-19] MEDS: PLASMA-LYTE A 1,000 ML IV SCH (22:22)
[2023-12-19] MEDS: INSULIN ASPART PER UNIT CHARGE SC STA (22:22)
[2023-12-19] MEDS: LANTUS PER UNIT CHARGE SQ STA (22:23)
--- NOTE | 2023-12-19 22:24 | Emergency Department Note ---
History of Present Illness General Chief complaint: Weakness Time Seen by Provider: 12/19/23 15:24 History of Present Illness Provider complaint: Weakness recurrent fall Onset (ago): week(s) 1 83-year-old female presents emergency department for weakness and recurrent falls. Patient states that for the last week she has been falling more. She reports she is not on any blood thinners. She reports that she has been having high blood sugars despite taking her diabetes medications as prescribed. Patient states she was diagnosed with a UTI last week and has been taking an unknown antibiotic. She denies any headache. No nausea vomiting diarrhea. No chest pain or difficulty breathing Home Medications Medication Instructions Recorded Confirmed Type acetaminophen 325 mg tablet 650 mg (2 x 325 mg) PO Q4H PRN 01/12/22 12/19/23 Rx mild-moderate pain #30 tabs one touch glucose meter #1 ea 04/08/22 10/20/23 Rx pen needle, diabetic 31 gauge x #60 ea 11/02/22 10/20/23 Rx 3/16" (Unifine Pentips) insulin aspar prot-insulin aspart See Rx Instructions subcut BID #15 02/10/23 12/19/23 Rx 100 unit/mL (70-30) subcutaneous mL pen (Novolog Mix 70-30FlexPen U-100) colestipol 1 gram tablet 1 g PO DAILY PRN Diarrhea #30 tabs 03/13/23 12/19/23 Rx lancets 33 gauge #100 ea 05/08/23 10/20/23 Rx diclofenac sodium 1 % topical gel 4 g EXT QID PRN Pain 06/16/23 12/19/23 History (Voltaren Arthritis Pain) lisinopril 2.5 mg tablet 2.5 mg PO DAILY #30 tabs 08/08/23 12/19/23 Rx phenobarbital 64.8 mg tablet See Rx Instructions .Route 08/08/23 12/19/23 Rx .COMPLEX #90 tabs L.acidop,casei,lactis,rham-B.lact,andrew 2 cap PO DAILY #60 caps 09/11/23 12/19/23 Rx 625 mg (10 billion cell) capsule (Advanced Probiotic) cyanocobalamin (vitamin B-12) 1,000 mcg PO DAILY #30 caps 09/11/23 12/19/23 Rx 1,000 mcg capsule levothyroxine 150 mcg tablet 150 mcg PO DAILYBB #30 tabs 09/11/23 12/19/23 Rx (Synthroid) omeprazole 40 mg capsule,delayed 40 mg PO QAM #30 caps 09/11/23 12/19/23 Rx release simvastatin 20 mg tablet 20 mg PO HS #30 tabs 09/11/23 12/19/23 Rx thiamine HCl (vitamin B1) 250 mg 250 mg PO BID #60 tabs 09/11/23 12/19/23 Rx tablet venlafaxine 75 mg capsule,extended 75 mg PO DAILY #30 caps 09/11/23 12/19/23 Rx release 24 hr aspirin 81 mg tablet,delayed 81 mg PO DAILY #30 tabs 11/07/23 12/19/23 Rx release cholecalciferol (vitamin D3) 50 2,000 unit PO DAILY #30 tabs 11/07/23 12/19/23 Rx mcg (2,000 unit) tablet (Vitamin D3) iixyafbu-yid-iqoor acid 0.4 1 tab PO DAILY #30 tabs 11/07/23 12/19/23 Rx mg-lycopene 300 mcg-lutein 250 mcg tablet (Sentry Senior) blood sugar diagnostic #300 ea 12/01/23 Rx lwpsgv-wpefvwxd-wrwtzhd 2 cap PO QID 12/19/23 12/19/23 History 36,000-114,000-180,000 unit capsule,delay rel (Creon) Allergies Allergy/AdvReac Type Severity Reaction Status Date / Time Sulfa (Sulfonamide Allergy Intermediate SICK TO Verified 12/19/23 18:14 Antibiotics) STOMACH sitagliptin AdvReac Intermediate ABD PAIN Verified 12/19/23 18:14 Past Med/Surg History Medical History Infestation by bed bug Gait abnormality Osteoarthritis GERD (gastroesophageal reflux disease) Balance problems Hypertension Choking episode occurring during daytime Subdural hematoma, chronic Peripheral neuropathy Pancreatic insufficiency Memory impairment Hypothyroidism Hydronephrosis of right kidney Falls frequently Dyslipidemia Diabetes mellitus type 2 with complications, uncontrolled Depression Epilepsy Surgical History History of cholecystectomy History of hysterectomy History of tooth extraction History of nasal surgery VERBALIZED NOSE SURGERY History of craniotomy ? 5 YEARS AGO - [facility] History of cholecystectomy Family History Daughter Family history of diabetes mellitus Colorectal cancer Denies family history of Ovarian cancer Prostate cancer Myocardial infarction Breast cancer Social History Smoking Status: Unknown if ever smoked Second Hand Exposure: No; Do You Dip or Chew Tobacco: No; Hx Alcohol Use: No Hx Substance Use: No Preferred Language: Cook Islander Communication Ability: Effective Botany Technician Required: No Beliefs That Will Affect Care: None marital status: / Current Living Situation: Family Current Living Situation Comment: lives with daughter current occupational status: retired How many Children do You have: 7 Feels Safe at Home: No Is there a partner from a previous relationship who is making you feel unsafe now?: No Childhood Exposure to Second-Hand Smoke: Yes Diet: regular caffeine: Yes Dental Care, Regularly: No Physical Activity Frequency: Does not Exercise Seatbelt Use: always Sunscreen Use: No Assistive Devices: Walker Physical Exam Vital Signs Vital Signs - 24 hr 12/19/23 14:08 12/19/23 14:23 12/19/23 14:44 Temperature 36.4 C L Temperature Source Oral Pulse Rate 123 H 99 H 98 H Pulse Rate from SpO2 Sensor 92 H Pulse Rhythm Regular Pulse Strength Normal Respiratory Rate 17 18 Respiratory Effort / Characteristics Non-Labored Spontaneous Respiratory Depth Normal Respiratory Pattern Regular Blood Pressure 114/69 Blood Pressure Mean 84 Pulse Oximetry 95 95 Oxygen Delivery Method Room Air Sepsis Recent Fever Within 48 Hours No Sepsis New/Unexplained Change in Mental Status No Sepsis Action Taken by Nursing No Action Required 12/19/23 14:56 12/19/23 15:00 12/19/23 15:52 Temperature Temperature Source Pulse Rate 93 H Pulse Rate from SpO2 Sensor 93 H Pulse Rhythm Pulse Strength Respiratory Rate 14 Respiratory Effort / Characteristics Respiratory Depth Respiratory Pattern Blood Pressure 114/69 145/112 H Blood Pressure Mean 84 113 Pulse Oximetry 95 94 Oxygen Delivery Method Room Air Sepsis Recent Fever Within 48 Hours Sepsis New/Unexplained Change in Mental Status Sepsis Action Taken by Nursing 12/19/23 15:52 12/19/23 16:00 12/19/23 16:00 Temperature Temperature Source Pulse Rate 104 H 99 H Pulse Rate from SpO2 Sensor 104 H 100 H Pulse Rhythm Pulse Strength Respiratory Rate 19 16 Respiratory Effort / Characteristics Respiratory Depth Respiratory Pattern Blood Pressure 155/91 H Blood Pressure Mean 121 Pulse Oximetry 94 95 Oxygen Delivery Method Sepsis Recent Fever Within 48 Hours Sepsis New/Unexplained Change in Mental Status Sepsis Action Taken by Nursing 12/19/23 17:00 12/19/23 17:00 12/19/23 17:45 Temperature Temperature Source Pulse Rate 100 H 100 H Pulse Rate from SpO2 Sensor 100 H Pulse Rhythm Pulse Strength Respiratory Rate 15 Respiratory Effort / Characteristics Respiratory Depth Respiratory Pattern Blood Pressure 146/88 H Blood Pressure Mean 108 Pulse Oximetry 96 Oxygen Delivery Method Sepsis Recent Fever Within 48 Hours Sepsis New/Unexplained Change in Mental Status Sepsis Action Taken by Nursing 12/19/23 18:00 12/19/23 18:00 12/19/23 19:00 Temperature Temperature Source Pulse Rate 100 H Pulse Rate from SpO2 Sensor 100 H Pulse Rhythm Pulse Strength Respiratory Rate 10 L Respiratory Effort / Characteristics Respiratory Depth Respiratory Pattern Blood Pressure 116/70 167/96 H Blood Pressure Mean 96 127 Pulse Oximetry 95 Oxygen Delivery Method Sepsis Recent Fever Within 48 Hours Sepsis New/Unexplained Change in Mental Status Sepsis Action Taken by Nursing 12/19/23 19:00 12/19/23 20:00 12/19/23 21:38 Temperature Temperature Source Pulse Rate 99 H 91 H 90 Pulse Rate from SpO2 Sensor Pulse Rhythm Pulse Strength Respiratory Rate 16 14 Respiratory Effort / Characteristics Respiratory Depth Respiratory Pattern Blood Pressure 122/76 Blood Pressure Mean 91 Pulse Oximetry 95 Oxygen Delivery Method Room Air Sepsis Recent Fever Within 48 Hours Sepsis New/Unexplained Change in Mental Status Sepsis Action Taken by Nursing Physical Exam HENT: Exam performed. - Head: Normocephalic and atraumatic. EYES: Conjunctivae and EOM are normal. Right eye exhibits no discharge. Left eye exhibits no discharge. No scleral icterus. NECK: Normal range of motion. Neck supple. No JVD present. No pain pain on palpation of the C-spine CV: Normal rate, regular rhythm, normal heart sounds and intact distal pulses. There is no peripheral edema. Palpable radial pulses bue. PULM/CHEST: Effort normal and breath sounds normal. No respiratory distress. No stridor. no wheezes. no rales. ABD: The abdomen is soft. There is no tenderness. MUSC: Pelvis stable. NEURO: Motor and sensation grossly intact. SKIN: Skin is warm and dry. He is not diaphoretic. PSYCH: normal mood and affect. Behavior is normal. Judgment and thought content normal. Course Course 1524: The patient was evaluated in room A12. A complete history and physical exam was performed Cardiac monitoring: An order was placed for continuous cardiac monitoring. The monitor shows a rate of 100 with sinus rhythm interpreted by me 1745: Vital signs stable. Imaging shows no traumatic injury. Labs show white blood cell count of 11.6. VBG within normal limits. Glucose 386. Magnesium 1.4. Magnesium repletion started in the emergency department. Initial high- sensitivity troponin was 34 and then went up to 41.1. Patient will be admitted to the hospitalist service. Administered Medications Discontinued Medications Magnesium Sulfate/Dextrose (Magnesium Sulfate / D5w) 1 gm in 100 mls @ 100 mls/hr IV Q1H KIRA Stop: 12/19/23 17:58 Last Infusion: 12/19/23 18:56 Dose: Infused Documented By: Admin: 12/19/23 17:57 Dose: 100 mls/hr Documented By: Infusion: 12/19/23 17:57 Dose: Infused Documented By: Admin: 12/19/23 17:00 Dose: 100 mls/hr Documented By: CARYN Magnesium Sulfate/Dextrose (Magnesium Sulfate / D5w) 1 gm in 100 mls @ 50 mls/hr IV ONE ONE Stop: 12/19/23 22:00 Last Admin: 12/19/23 20:34 Dose: 50 mls/hr Documented By: BESSIE Ioversol (Optiray 320 100ml) 93 ml IV ONCE ONE Stop: 12/19/23 16:34 Last Admin: 12/19/23 16:34 Dose: 93 ml Documented By: MANASA Ondansetron HCl (Ondansetron Inj 2 Mg/Ml 2 Ml Vial) 4 mg IV NOW STA Stop: 12/19/23 20:29 Last Admin: 12/19/23 20:34 Dose: 4 mg Documented By: BESSIE Medical Decision Making Laboratory Data Attestation: I reviewed the patient's lab results. 12/19/23 14:28 12/19/23 14:28 Lab Results 12/19/23 12/19/23 12/19/23 Range/Units 14:28 15:53 16:16 WBC 11.63 H (4.8-10.8) K/ul RBC 4.72 (4.20-5.40) M/uL Hgb 14.4 (12.0-16.0) g/dl Hct 41.8 (37.0-47.0) % MCV 88.6 (80.0-100.0) fL MCH 30.5 (25.0-34.0) pg MCHC 34.4 (32.0-36.0) g/dL RDW Std Deviation 40.0 (36.4-46.3) fL RDW Coeff of Mauro 12.3 (11.5-14.5) % Plt Count 152 (130-400) K/uL MPV 12.3 (9.4-12.4) fL Immature Gran % (Auto) 0.4 % Neut % (Auto) 91.2 % Lymph % (Auto) 3.9 % Bollinger % (Auto) 3.9 % Eos % (Auto) 0.2 % Baso % (Auto) 0.4 % Neut # (Auto) 10.61 H (1.40-6.50) K/uL Lymph # (Auto) 0.45 L (1.20-3.40) K/uL Bollinger # (Auto) 0.45 (0.11-0.59) K/uL Eos # (Auto) 0.02 (0.00-0.50) K/uL Baso # (Auto) 0.05 (0.00-0.20) K/uL Immature Gran # (Auto) 0.05 (0.01-0.20) K/uL PT 10.7 (9.0-12.0) Seconds INR 1.0 (0.9-1.1) VBG pH 7.39 (7.36-7.41) VBG pCO2 57 H (38-50) mmHg VBG pO2 23 mmHg VBG HCO3 35 mmol/L VBG O2 Saturation < 60.0 % VBG Base Excess 7.6 mEq/L Sodium 134 L (136-145) mmol/L Potassium 4.3 (3.5-5.1) mmol/L Chloride 93 L (98-107) mmol/L Carbon Dioxide 31 (21-32) mmol/L Anion Gap 10 (3-11) BUN 23 (6-23) mg/dl Creatinine 1.09 (0.6-1.2) mg/dl Est Cr Clr Drug Dosing 40.5 ml/min Est GFR ( Amer) 54.7 ml/min Est GFR (Non-Af Amer) 47.2 ml/min BUN/Creatinine Ratio 21.1 H (10-20) Glucose 386 H* (70-99(Fasting)) mg/dl POC Glucose (70-99) mg/dl Lactate 1.6 (0.4-2.0) mmol/L Calcium 9.7 (8.6-10.3) mg/dl Magnesium 1.4 L (1.7-2.4) mg/dl Total Bilirubin 0.4 (0.2-1.0) mg/dl AST 21 (13-39) U/L ALT 21 (7-52) U/L Alkaline Phosphatase 114 H (34-104) U/L Troponin I High Sens 34.0 H (0-14) pg/ml Total Protein 7.3 (6.0-8.3) gm/dl Albumin 4.3 (3.4-5.0) gm/dl Globulin 3.0 (2.5-4.0) gm/dl Albumin/Globulin Ratio 1.4 (0.9-2) Lipase (11-82) U/L Procalcitonin < 0.02 (0-0.5) ng/ml Urine Color Urine Appearance (Clear) Urine pH (4.5-7.5) Ur Specific Savage (1.000-1.030) Urine Protein (Negative) Urine Glucose (UA) (Negative) Urine Ketones (Negative) Urine Blood (Negative) Urine Nitrite (Negative) Urine Bilirubin (Negative) Urine Urobilinogen (Negative) Ur Leukocyte Esterase (Negative) Urine WBC (Auto) (0-5) /hpf Urine RBC (Auto) (0-4) /hpf U Hyaline Cast (Auto) (0-5) /lpf U Epithel Cells (Auto) (0-5) /lpf Urine Bacteria (Auto) (Negative) Urine Yeast 12/19/23 12/19/23 12/19/23 Range/Units 16:30 17:09 21:07 WBC (4.8-10.8) K/ul RBC (4.20-5.40) M/uL Hgb (12.0-16.0) g/dl Hct (37.0-47.0) % MCV (80.0-100.0) fL MCH (25.0-34.0) pg MCHC (32.0-36.0) g/dL RDW Std Deviation (36.4-46.3) fL RDW Coeff of Mauro (11.5-14.5) % Plt Count (130-400) K/uL MPV (9.4-12.4) fL Immature Gran % (Auto) % Neut % (Auto) % Lymph % (Auto) % Bollinger % (Auto) % Eos % (Auto) % Baso % (Auto) % Neut # (Auto) (1.40-6.50) K/uL Lymph # (Auto) (1.20-3.40) K/uL Bollinger # (Auto) (0.11-0.59) K/uL Eos # (Auto) (0.00-0.50) K/uL Baso # (Auto) (0.00-0.20) K/uL Immature Gran # (Auto) (0.01-0.20) K/uL PT (9.0-12.0) Seconds INR (0.9-1.1) VBG pH (7.36-7.41) VBG pCO2 (38-50) mmHg VBG pO2 mmHg VBG HCO3 mmol/L VBG O2 Saturation % VBG Base Excess mEq/L Sodium (136-145) mmol/L Potassium (3.5-5.1) mmol/L Chloride (98-107) mmol/L Carbon Dioxide (21-32) mmol/L Anion Gap (3-11) BUN (6-23) mg/dl Creatinine (0.6-1.2) mg/dl Est Cr Clr Drug Dosing ml/min Est GFR ( Amer) ml/min Est GFR (Non-Af Amer) ml/min BUN/Creatinine Ratio (10-20) Glucose (70-99(Fasting)) mg/dl POC Glucose 324 H* (70-99) mg/dl Lactate (0.4-2.0) mmol/L Calcium (8.6-10.3) mg/dl Magnesium (1.7-2.4) mg/dl Total Bilirubin (0.2-1.0) mg/dl AST (13-39) U/L ALT (7-52) U/L Alkaline Phosphatase (34-104) U/L Troponin I High Sens 41.1 H (0-14) pg/ml Total Protein (6.0-8.3) gm/dl Albumin (3.4-5.0) gm/dl Globulin (2.5-4.0) gm/dl Albumin/Globulin Ratio (0.9-2) Lipase (11-82) U/L Procalcitonin (0-0.5) ng/ml Urine Color Yellow Urine Appearance Turbid A (Clear) Urine pH 7.0 (4.5-7.5) Ur Specific Savage 1.021 (1.000-1.030) Urine Protein 2+ H (Negative) Urine Glucose (UA) 3+ H (Negative) Urine Ketones 1+ H (Negative) Urine Blood 2+ H (Negative) Urine Nitrite Negative (Negative) Urine Bilirubin Negative (Negative) Urine Urobilinogen Negative (Negative) Ur Leukocyte Esterase 2+ H (Negative) Urine WBC (Auto) >30 H (0-5) /hpf Urine RBC (Auto) 5-10 H (0-4) /hpf U Hyaline Cast (Auto) 1-5 (0-5) /lpf U Epithel Cells (Auto) 10-20 H (0-5) /lpf Urine Bacteria (Auto) Negative (Negative) Urine Yeast Not Reportable 12/19/23 Range/Units 21:19 WBC (4.8-10.8) K/ul RBC (4.20-5.40) M/uL Hgb (12.0-16.0) g/dl Hct (37.0-47.0) % MCV (80.0-100.0) fL MCH (25.0-34.0) pg MCHC (32.0-36.0) g/dL RDW Std Deviation (36.4-46.3) fL RDW Coeff of Mauro (11.5-14.5) % Plt Count (130-400) K/uL MPV (9.4-12.4) fL Immature Gran % (Auto) % Neut % (Auto) % Lymph % (Auto) % Bollinger % (Auto) % Eos % (Auto) % Baso % (Auto) % Neut # (Auto) (1.40-6.50) K/uL Lymph # (Auto) (1.20-3.40) K/uL Bollinger # (Auto) (0.11-0.59) K/uL Eos # (Auto) (0.00-0.50) K/uL Baso # (Auto) (0.00-0.20) K/uL Immature Gran # (Auto) (0.01-0.20) K/uL PT (9.0-12.0) Seconds INR (0.9-1.1) VBG pH (7.36-7.41) VBG pCO2 (38-50) mmHg VBG pO2 mmHg VBG HCO3 mmol/L VBG O2 Saturation % VBG Base Excess mEq/L Sodium (136-145) mmol/L Potassium (3.5-5.1) mmol/L Chloride (98-107) mmol/L Carbon Dioxide (21-32) mmol/L Anion Gap (3-11) BUN (6-23) mg/dl Creatinine (0.6-1.2) mg/dl Est Cr Clr Drug Dosing ml/min Est GFR ( Amer) ml/min Est GFR (Non-Af Amer) ml/min BUN/Creatinine Ratio (10-20) Glucose (70-99(Fasting)) mg/dl POC Glucose (70-99) mg/dl Lactate (0.4-2.0) mmol/L Calcium (8.6-10.3) mg/dl Magnesium (1.7-2.4) mg/dl Total Bilirubin (0.2-1.0) mg/dl AST (13-39) U/L ALT (7-52) U/L Alkaline Phosphatase (34-104) U/L Troponin I High Sens (0-14) pg/ml Total Protein (6.0-8.3) gm/dl Albumin (3.4-5.0) gm/dl Globulin (2.5-4.0) gm/dl Albumin/Globulin Ratio (0.9-2) Lipase 17 (11-82) U/L Procalcitonin (0-0.5) ng/ml Urine Color Urine Appearance (Clear) Urine pH (4.5-7.5) Ur Specific Savage (1.000-1.030) Urine Protein (Negative) Urine Glucose (UA) (Negative) Urine Ketones (Negative) Urine Blood (Negative) Urine Nitrite (Negative) Urine Bilirubin (Negative) Urine Urobilinogen (Negative) Ur Leukocyte Esterase (Negative) Urine WBC (Auto) (0-5) /hpf Urine RBC (Auto) (0-4) /hpf U Hyaline Cast (Auto) (0-5) /lpf U Epithel Cells (Auto) (0-5) /lpf Urine Bacteria (Auto) (Negative) Urine Yeast Imaging Data Attestation: I personally reviewed and interpreted this imaging study as follows: My Impression: Chest x-ray negative. Airway clear. No pneumothorax. No consolidation. No cardiomegaly or cephalization.. No free air under the diaphragm. No fractures of the skeletal structures. Radiologist's Impression: Chest X-Ray 12/19/23 14:56 XR chest 1V portable CLINICAL HISTORY: weakness TECHNIQUE: Single frontal radiograph of the chest was obtained. Comparison: Comparison is made to chest radiograph 02/17/2023 FINDINGS: No lines and tubes are seen. Calcified aortic knob is seen. The lungs are clear. No evidence of pleural effusion or pneumothorax. IMPRESSION: No acute chest disease. ACT 112: Negative or not required by law. Electronically signed by: Gabriel Cuenca M.D. 12/19/2023 3:36 PM Abdomen/Pelvis CT 12/19/23 15:36 CT abd pelvis IV con only CLINICAL HISTORY: recurrent falls TECHNIQUE: Helical axial images of the abdomen and pelvis were obtained and displayed. Automated dose lowering techniques and/or adjustment according to patient size were utilized for this exam. This exam was performed with intravenous contrast. COMPARISON: Comparison is made to CT abdomen pelvis 01/18/2018 FINDINGS: Lower chest: For findings above the diaphragm, please see CT chest performed same day. Liver: Unremarkable. No focal lesions are seen. Gallbladder and biliary tree: Patient is status post cholecystectomy. Physiologic prominence of the biliary ducts is noted. Pancreas: Unremarkable, no focal lesions. Spleen: Unremarkable. Adrenals: Unremarkable. Kidneys and ureters: Prominence of the right ureter is again seen without hydronephrosis. Bladder: Diffuse homogeneous wall thickening is seen. Reproductive organs: Patient is status post hysterectomy. Bowel: The appendix is normal. Hiatal hernia is seen. Lymph nodes Retroperitoneal: Unremarkable. Pelvic: Unremarkable. Mesenteric: Unremarkable. Peritoneum: Normal. Vessels: Atherosclerotic calcifications are seen. Abdominal wall: Unremarkable. Bones: Unremarkable. IMPRESSION: 1. No acute abnormalities are seen, in particular no acute fracture. 2. Bladder wall thickening is seen. Correlation for cystitis is recommended. 3. Additional findings as above. ACT 112: Negative or not required by law. Electronically signed by: Gabriel Cuenca M.D. 12/19/2023 5:[address] 12/19/23 15:37 CT cervical spine wo con CLINICAL HISTORY: recurrent falls TECHNIQUE: Multidetector row helical CT of the cervical spine was performed without administration of intravenous contrast. Coronal and sagittal reformations were obtained. Automated dose lowering techniques and/or adjustment according to patient size were utilized for this exam. Comparison: Comparison is made to CT cervical spine 01/06/2022 FINDINGS: No acute fractures or subluxations are identified. Degenerative changes are seen in the visualized spine. The alignment is normal. Soft tissues are unremarkable. IMPRESSION: Degenerative changes without evidence of acute bony injury. ACT 112: Negative or not required by law. Electronically signed by: Gabriel Cuenca M.D. 12/19/2023 5:[address] 12/19/23 15:37 CT SCAN OF THE BRAIN WITHOUT IV CONTRAST CLINICAL HISTORY: Falls. COMPARISON STUDY: CT of the brain dated 01/06/2022. TECHNIQUE: Unenhanced axial CT scan of the brain is performed from the vertex to the skull base. A dose lowering technique was utilized adhering to the principles of ALARA. FINDINGS: Brain parenchyma: There is age-related involutional change noting mild subcortical and periventricular microangiopathic disease. There is no hemorrhage, mass effect, or evidence of acute territorial ischemia by CT criteria. A small focus of left frontal encephalomalacia is consistent with a remote insult. 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 Brooks-white matter differentiation is preserved. No extra-axial fluid collection is seen. Ventricles, sulci, cisterns: Prominent secondary to involutional change. Intracranial vasculature: There is atherosclerotic calcification of the cavernous carotid and vertebral arteries. Calvarium: The skeletal structures are osteopenic. There is postsurgical change from left-sided craniotomy. No depressed calvarial fracture is seen. Sinuses and mastoids: The visualized paranasal sinuses are clear. There is evidence of previous bilateral mastoid surgery. Orbits: The bony orbits are grossly intact. There are bilateral ocular lens implants. IMPRESSION: 1. There is no hemorrhage, mass effect, or evidence of acute territorial ischemia by CT criteria. 2. Chronic and postsurgical changes as above. ACT 112: Negative or not required by law. Electronically signed by: Mat Ramachandran M.D. 12/19/2023 4:46 PM ECG Data Attestation: I personally reviewed and interpreted this ECG as follows: Rate (beats per minute): 99 Rhythm: + normal sinus ECG Intervals/blocks: + Normal QRS, + Normal MS and + Normal QT-c ECG ST segments: + Normal ST segments [facility] Narrative 1524: The patient was evaluated in room A12. A complete history and physical exam was performed Cardiac monitoring: An order was placed for continuous cardiac monitoring. The monitor shows a rate of 100 with sinus rhythm interpreted by me 1745: Vital signs stable. Imaging shows no traumatic injury. Labs show white blood cell count of 11.6. VBG within normal limits. Glucose 386. Magnesium 1.4. Magnesium repletion started in the emergency department. Initial high- sensitivity troponin was 34 and then went up to 41.1. Patient will be admitted to the hospitalist service. Impression & Plan Falls frequently, Elevated troponin, Hypomagnesemia Discharge Plan Visit Data Chief Complaint: Weakness ED Provider: Cooper Gomez Discharge Problem: Falls frequently, Elevated troponin, Hypomagnesemia Patient Disposition: Being Evaluated by Hospitalist Forms Stand Alone Forms: My [facility] Prescriptions Prescriptions: No Action (DME) pen needle, diabetic [Unifine Pentips] 31 gauge x 3/16" needle See Dose Instructions .ROUTE .MEDSUPPLY Qty: 60 11RF Rx Instructions: USE 2 DAILY insulin asp prt-insulin aspart [Novolog Mix 70-30FlexPen U-100] 100 unit/mL (70-30) insulin pen See Rx Instructions subcut BID Qty: 15 11RF Rx Instructions: 50units in the morning and 15units in the evening colestipol 1 gram tablet 1 g PO DAILY PRN (Reason: Diarrhea) Qty: 30 5RF Rx Instructions: TAKE 1 TABLET BY MOUTH DAILY NEEDED FOR BREAKTHROUGH DIARRHA. (DME) lancets 33 gauge misc See Dose Instructions .ROUTE .MEDSUPPLY Qty: 100 5RF Dose Instruction: As directed Rx Instructions: test twice a day Dx:E11.9 phenobarbital 64.8 mg tablet See Rx Instructions .ROUTE .COMPLEX Qty: 90 5RF Rx Instructions: Take 64.8mg in the morning and 129.6mg by mouth in the evening lisinopril 2.5 mg tablet 2.5 mg PO DAILY Qty: 30 11RF Rx Instructions: bubble pack omeprazole 40 mg capsule,delayed release(DR/EC) 40 mg PO QAM Qty: 30 11RF Rx Instructions: TAKE 1 CAPSULE BY MOUTH DAILY.bubble pack levothyroxine [Synthroid] 150 mcg tablet 150 mcg PO DAILYBB Qty: 30 11RF Rx Instructions: bubble pack simvastatin 20 mg tablet 20 mg PO HS Qty: 30 11RF Rx Instructions: bubble pack thiamine HCl (vitamin B1) 250 mg tablet 250 mg PO BID Qty: 60 11RF Rx Instructions: bubble pack venlafaxine 75 mg capsule,extended release 24hr 75 mg PO DAILY Qty: 30 11RF Rx Instructions: bubble pack Advanced Probiotic 625 mg (10 billion cell) capsule 2 cap PO DAILY Qty: 60 11RF Rx Instructions: bubble pack cyanocobalamin (vitamin B-12) 1,000 mcg capsule 1,000 mcg PO DAILY Qty: 30 11RF Rx Instructions: bubble pack aspirin 81 mg tablet,delayed release (DR/EC) 81 mg PO DAILY Qty: 30 11RF Rx Instructions: bubble pack cholecalciferol (vitamin D3) [Vitamin D3] 50 mcg (2,000 unit) tablet 2,000 unit PO DAILY Qty: 30 11RF Rx Instructions: bubble pack Sentry Senior 0.4 mg-300 mcg- 250 mcg tablet 1 tab PO DAILY Qty: 30 11RF (DME) blood sugar diagnostic Strip See Rx Instructions .ROUTE .MEDSUPPLY Qty: 300 5RF Rx Instructions: TEST BLOOD SUGAR 3 TIMES DAILY DX:E11.9 diclofenac sodium [Voltaren Arthritis Pain] 1 % gel 4 g EXT QID PRN (Reason: Pain) Rx Instructions: Apply to hip at site of pain (DME) one touch glucose meter See Rx Instructions .Route .MEDSUPPLY Qty: 1 0RF Rx Instructions: test 3-4 times a day acetaminophen 325 mg Tablet 650 mg PO Q4H PRN (Reason: mild-moderate pain) Qty: 30 0RF Creon 36,000-114,000- 180,000 unit capsule,delayed release(DR/EC) 2 cap PO QID Rx Instructions: TAKE 2 CAPSULES BY MOUTH BEFORE MEALS AND SNACKS bubble pack Referrals Referrals: Kelli Gates CRNP [Primary Care Provider] -
[2023-12-19] MEDS ORDERED: DICLOFENAC SOD 1% GEL 100 GM TUBE EXT PRN (23:28)
[2023-12-19] MEDS ORDERED: GLUCOSE 10 TAB/TUBE PO PRN (23:28)
[2023-12-19] MEDS ORDERED: GLUCOSE 40% GEL 15 GM TUBE PO PRN (23:28)
[2023-12-19] MEDS ORDERED: DEXTROSE 50% 50 ML SYRINGE IV PRN (23:28)
[2023-12-19] MEDS ORDERED: GLUCAGON FOR INJ 1 MG VIAL SQ PRN (23:28)
[2023-12-19] MEDS ORDERED: PHARMACY GLYCEMIC MGMT CONSULT PRN (23:28)
[2023-12-20] MEDS: INSULIN ASPART PER UNIT CHARGE SC SCH (00:57)
[2023-12-20] MEDS: PANCREAZE (LIPASE 10,500U) CAP PO SCH (00:57)
[2023-12-20] MEDS: SIMVASTATIN 20 MG TAB PO SCH (00:58)
[2023-12-20] MEDS: PHENobarbitaL 30 MG TAB PO SCH ×2 (01:00→08:45)
[2023-12-20 02:12] LABS: Basophils # (auto) 0.03 K/uL (0.00-0.20); Basophils % (auto) 0.4 %; Eosinophils # (auto) 0.03 K/uL (0.00-0.50); Eosinophils % (auto) 0.4 %; Hemoglobin 12.9 g/dl (12.0-16.0); Immature Granulocytes # (auto) 0.03 K/uL (0.01-0.20); Immature Granulocytes % (auto) 0.4 %; Lymphocytes # (auto) 1.29 K/uL (1.20-3.40); Lymphocytes % (auto) 15.6 %; Mean Corpuscular Hemoglobin 30.5 pg (25.0-34.0); Mean Corpuscular Hgb Conc 33.9 g/dL (32.0-36.0); Mean Corpuscular Volume 89.8 fL (80.0-100.0); Mean Platelet Volume 11.5 fL (9.4-12.4); Monocytes # (auto) 0.41 K/uL (0.11-0.59); Neutrophils # (auto) 6.48 K/uL (1.40-6.50); Neutrophils % (auto) 78.2 %; Platelet Count 150 K/uL (130-400); RDW Coefficient of Variation 12.5 % (11.5-14.5); Red Blood Count 4.23 M/uL (4.20-5.40); White Blood Count 8.27 K/ul (4.8-10.8)
[2023-12-20 02:45] LABS: BUN Creatinine Ratio 18.6 (10-20); Calcium 8.7 mg/dl (8.6-10.3); Creatinine Clr Calc Pharmacy 45.5 ml/min; Est GFR (Non-African American) 54.4 ml/min; Magnesium 2.2 mg/dl (1.7-2.4); Potassium 3.8 mmol/L (3.5-5.1)
[2023-12-20] MEDS: LANTUS PER UNIT CHARGE SQ STA (02:58)
[2023-12-20] MEDS: INSULIN ASPART PER UNIT CHARGE SC ONE (04:57)
[2023-12-20] MEDS: LEVOTHYROXINE SODIUM 150 MCG TABLET PO SCH (06:30)
[2023-12-20 07:33] LABS: Estimated Average Glucose 413 mg/dl
[2023-12-20] MEDS: NovoLIN-N (NPH) PER UNIT CHARGE SQ SCH ×2 (08:36→18:09)
[2023-12-20] MEDS: VENLAFAXINE HCL XR 75 MG CAPXR PO SCH (08:36)
[2023-12-20] MEDS: ASPIRIN 81 MG ECTAB PO SCH (08:36)
[2023-12-20] MEDS: lisinopril 2.5 MG TAB PO SCH (08:39)
[2023-12-20] MEDS: ONDANSETRON INJ 2 MG/ML 2 ML VIAL IV PRN (09:32)
[2023-12-20 11:56] LABS: Influenza A virus by PCR Negative (Neg); Influenza B virus by PCR Negative (Neg); RSV by PCR Negative (Neg); SARS CoV2 RNA(COVID-19) Ceph NEGATIVE (Negative)
--- NOTE | 2023-12-20 13:44 | Pharmacy Report ---
Pharmacy Glycemic Short Note 2 - Date of Service December 20, 2023 - Glycemic Short BSG Results (Last 24 hours): 12/19/23 12/19/23 12/19/23 14:28 21:07 23:06 Glucose 386 H* POC Glucose 324 H* 355 H* 12/19/23 12/19/23 12/20/23 23:37 23:38 01:44 Glucose POC Glucose 355 H* 357 H* 288 H 12/20/23 12/20/23 12/20/23 01:45 04:47 07:47 Glucose 316 H* POC Glucose 155 H 132 H 12/20/23 11:42 Glucose POC Glucose 187 H OUTPATIENT ANTIDIABETIC REGIMEN: * Novolin 70/30 mix 50 units QAM, 35 units QPM * HbA1c 13.2% (10/20/23), 16% (12/20/23) ASSESSMENT: * Donna is an 83 YOF admitted status post fall and history of uncontrolled type 2 diabetes mellitus. Pharmacy has been consulted for glycemic management while inpatient. * Fasting BSG thgis AM within goal range, received 12 units of Novolog overnight and 18 units of Lantus. Will switch to NPH to better mimic home insulin mix. Initiated at a weight based stress of 2.5 twice daily with meals * Novolog initiated at a weight based stress of 2, she is ordered a clear liquid diet and does not appear to be eating much per nursing documentation. * Non-compliance with insulin regimen outpatient likely due to A1c increase to 16% today from 13.2% in September. PLAN FOR INPATIENT GLYCEMIC CONTROL: * Hold outpatient oral diabetes medications * Basal insulin * Insulin NPH 20 units SQ BIDM * Bolus insulin * NovoLog per scale ACHS or Q6hrs while NPO * Goal Range: Low 110 mg/dL - High 140 mg/dL * Correction Factor: 25 mg/dL/unit * Nutritional / Prandial insulin per carb ratio of 1 unit per 10 grams CHO consumed
[2023-12-20] MEDS: INSULIN ASPART PER UNIT CHARGE SC STA (14:58)
--- NOTE | 2023-12-20 20:45 | Hospitalist Progress Note ---
Date of Service December 20, 2023 Assessment & Plan (1) Fall: Plan: Patient fell off bed morning of 12/18 By report felt dizzy prior to the fall? Was down on ground possibly up to 1.5 hours Also by report has had recurrent falls over the past month Head/cervical spine CT negative for fracture, ICH, etc. PT/OT consulted Fall precautions Check CPK in am Check B12 level in am Does have OA of both knees b/l which could be contributing to fall risk Could have neuropathy from DM leading to increased fall risk Consider l-spine disease contributing to gait disturbance Fortunately it does not appear she had any major injury from yesterday's fall (2) Diabetes mellitus type 2 with complications, uncontrolled: Plan: Last A1c at 13.2% on 10/20/2023 Hba1c today 16% Appreciate pharmacy glycemic consult and recs Patient normally takes 100 units of 70/30 daily Defer to pharmacy insulin regimen while here suspect her vomiting - which by report is chronic - could be from gastroparesis (3) Hypomagnesemia: Plan: repleted resolved (4) Nausea and vomiting: Plan: CT a/p unremarkable they did see a hiatal hernia - this could contribute to reflux issues start PPI bid consider gastroparesis as cause consider UTI as cause cont clears today restart IV fluids for overnight if vomiting persists consider UGI series, GI consultation for consideration of EGD, etc (5) Elevated troponin: Plan: peak trop 46.8 likely myocardial demand ischemia in setting of her fall, etc no evidence of ACS (6) Acute UTI: Plan: suspected cont IV rocephin follow culture (7) Pancreatic insufficiency: Plan: cont creon (8) Hypothyroidism: Plan: TSH wnl - 09/2023 cont synthroid (9) Seizure disorder: Plan: cont phenobarbital check level am (10) Arthritis of knee: Plan: consider voltaren gel Plan DVT proph - since head imaging is negative will add heparin tomorrow Admission and Anticipated Discharge Date Admission Date: December 19, 2023 Subjective patient resting comfortably in bed I saw her [facility] (she had been in the ER much of the morning) the nurse in the ER messaged me that after taking clear liquids for lunch she vomited patient is severely hearing impaired and mildly confused; thus, unable to elicit meaningful history or ROS she was very focused on her beverages on her meal-try, asking repeatedly "what is in there" (a cup had tea in it) Review of Systems Review of Systems: Unobtainable due to cognitive status she did c/o "weak knees" once Physical Exam Physical Exam: gen - resting comfortably in bed, NAD, drinking coffee neck - no JVD mouth - MM dry ears - hearing impaired heart - RRR, s1 s2, no murmur lungs - CTA b/l abd - soft NT ND BS+ ext - no edema, pulses 2+ b/l musculo - OA changes b/l knees with crepitus neuro - strength b/l hip flexion about 4-5/5; distal ankle dorsiflexion/plantarflexion 5/5 Results & Data Results & Data Vital Signs (Past 12 Hours) Vital Signs Temp Pulse Pulse Resp BP Pulse Ox O2 Del Method 12/20/23 19:43 36.8 C 75 18 126/77 95 Room Air 12/20/23 15:36 83 12/20/23 15:30 Room Air 12/20/23 15:10 36.3 C L 81 18 125/74 94 Room Air 12/20/23 14:49 98 H Laboratory Results Laboratory Results - last 24 hr 12/19/23 12/19/23 12/19/23 21:07 21:19 23:06 WBC RBC Hgb Hct MCV MCH MCHC RDW Std Deviation RDW Coeff of Mauro Plt Count MPV Immature Gran % (Auto) Neut % (Auto) Lymph % (Auto) Gall[place] % (Auto) Eos % (Auto) Baso % (Auto) Neut # (Auto) Lymph # (Auto) [place] # (Auto) Eos # (Auto) Baso # (Auto) Immature Gran # (Auto) Sodium Potassium Chloride Carbon Dioxide Anion Gap BUN Creatinine Est Cr Clr Drug Dosing Est GFR ( Amer) Est GFR (Non-Af Amer) BUN/Creatinine Ratio Glucose POC Glucose 324 H* 355 H* Estimat Average Glucose Hemoglobin A1c Calcium Magnesium Troponin I High Sens 46.8 H Lipase 17 SARS-CoV-2 (PCR) Influenza Type A (PCR) Influenza Type B (PCR) RSV (RT-PCR) 12/19/23 12/19/23 12/20/23 23:37 23:38 00:27 WBC RBC Hgb Hct MCV MCH MCHC RDW Std Deviation RDW Coeff of Mauro Plt Count MPV Immature Gran % (Auto) Neut % (Auto) Lymph % (Auto) [place] % (Auto) Eos % (Auto) Baso % (Auto) Neut # (Auto) Lymph # (Auto) [place] # (Auto) Eos # (Auto) Baso # (Auto) Immature Gran # (Auto) Sodium Potassium Chloride Carbon Dioxide Anion Gap BUN Creatinine Est Cr Clr Drug Dosing Est GFR ( Amer) Est GFR (Non-Af Amer) BUN/Creatinine Ratio Glucose POC Glucose 355 H* 357 H* Estimat Average Glucose Hemoglobin A1c Calcium Magnesium Troponin I High Sens 38.8 H Lipase SARS-CoV-2 (PCR) Influenza Type A (PCR) Influenza Type B (PCR) RSV (RT-PCR) 12/20/23 12/20/23 12/20/23 01:44 01:45 04:47 WBC 8.27 RBC 4.23 Hgb 12.9 Hct 38.0 MCV 89.8 MCH 30.5 MCHC 33.9 RDW Std Deviation 41.0 RDW Coeff of Mauro 12.5 Plt Count 150 MPV 11.5 Immature Gran % (Auto) 0.4 Neut % (Auto) 78.2 Lymph % (Auto) 15.6 Gall[place] % (Auto) 5.0 Eos % (Auto) 0.4 Baso % (Auto) 0.4 Neut # (Auto) 6.48 Lymph # (Auto) 1.29 Gallia # (Auto) 0.41 Eos # (Auto) 0.03 Baso # (Auto) 0.03 Immature Gran # (Auto) 0.03 Sodium 131 L Potassium 3.8 Chloride 92 L Carbon Dioxide 33 H Anion Gap 6 BUN 18 Creatinine 0.97 Est Cr Clr Drug Dosing 45.5 Est GFR ( Amer) 63.0 Est GFR (Non-Af Amer) 54.4 BUN/Creatinine Ratio 18.6 Glucose 316 H* POC Glucose 288 H 155 H Estimat Average Glucose 413 Hemoglobin A1c 16.0 H Calcium 8.7 Magnesium 2.2 Troponin I High Sens Lipase SARS-CoV-2 (PCR) Influenza Type A (PCR) Influenza Type B (PCR) RSV (RT-PCR) 12/20/23 12/20/23 12/20/23 07:47 10:00 11:42 WBC RBC Hgb Hct MCV MCH MCHC RDW Std Deviation RDW Coeff of Mauro Plt Count MPV Immature Gran % (Auto) Neut % (Auto) Lymph % (Auto) [place] % (Auto) Eos % (Auto) Baso % (Auto) Neut # (Auto) Lymph # (Auto) Gall[place] # (Auto) Eos # (Auto) Baso # (Auto) Immature Gran # (Auto) Sodium Potassium Chloride Carbon Dioxide Anion Gap BUN Creatinine Est Cr Clr Drug Dosing Est GFR ( Amer) Est GFR (Non-Af Amer) BUN/Creatinine Ratio Glucose POC Glucose 132 H 187 H Estimat Average Glucose Hemoglobin A1c Calcium Magnesium Troponin I High Sens Lipase SARS-CoV-2 (PCR) NEGATIVE Influenza Type A (PCR) Negative Influenza Type B (PCR) Negative RSV (RT-PCR) Negative 12/20/23 12/20/23 12/20/23 14:07 17:01 20:26 WBC RBC Hgb Hct MCV MCH MCHC RDW Std Deviation RDW Coeff of Mauro Plt Count MPV Immature Gran % (Auto) Neut % (Auto) Lymph % (Auto) Gall[place] % (Auto) Eos % (Auto) Baso % (Auto) Neut # (Auto) Lymph # (Auto) Gall[place] # (Auto) Eos # (Auto) Baso # (Auto) Immature Gran # (Auto) Sodium Potassium Chloride Carbon Dioxide Anion Gap BUN Creatinine Est Cr Clr Drug Dosing Est GFR ( Amer) Est GFR (Non-Af Amer) BUN/Creatinine Ratio Glucose POC Glucose 282 H 151 H 102 H Estimat Average Glucose Hemoglobin A1c Calcium Magnesium Troponin I High Sens Lipase SARS-CoV-2 (PCR) Influenza Type A (PCR) Influenza Type B (PCR) RSV (RT-PCR) PG Care Time/CCT Total # of Minutes Spent Total Time Spent with Patient: Total time spent is greater than 50% in coordination of care (as documented) at patient's floor/unit and/or counseling patient: Coding Level of Care Code 36573 SUB INP/OBS CARE 2/35MIN Diagnoses Fall W19.XXXA Diabetes mellitus type 2 with complications, uncontrolled E11.8; E11.65 Hypomagnesemia E83.42 Nausea and vomiting R11.2 Elevated troponin R79.89 Acute UTI N39.0 Pancreatic insufficiency K86.89 Hypothyroidism E03.9 Seizure disorder G40.909 Arthritis of knee M17.10
[2023-12-20] MEDS: SODIUM CHLORIDE 0.9% 1,000 ML IV SCH (20:54)
[2023-12-20] MEDS: cefTRIAXone SODIUM 2,000 MG in DEXTROSE 5 % MINI-B 50 ML IV SCH (20:55)
[2023-12-20] MEDS: PANTOprazole 40 MG TAB PO SCH (21:13)
[2023-12-21] MEDS: CARBOHYDRATES FOR HYPOGLYCEMIA PO PRN (05:14)
[2023-12-21 05:17] LABS: BUN Creatinine Ratio 14.1 (10-20); Calcium 8.6 mg/dl (8.6-10.3); Creatinine Clr Calc Pharmacy 51.9 ml/min; Est GFR (Non-African American) 63.8 ml/min; Potassium 3.1 mmol/L (3.5-5.1)
[2023-12-21] MEDS: INSULIN HUMAN NPH SC SCH (09:23)
--- NOTE | 2023-12-21 12:33 | Pharmacy Report ---
Pharmacy Glycemic Short Note 2 - Date of Service December 21, 2023 - Glycemic Short BSG Results (Last 24 hours): 12/20/23 12/20/23 12/20/23 14:07 17:01 20:26 Glucose POC Glucose 282 H 151 H 102 H 12/21/23 12/21/23 12/21/23 04:06 05:34 05:43 Glucose 44 L* POC Glucose 53 L* 66 L* 12/21/23 12/21/23 12/21/23 06:00 08:15 12:08 Glucose POC Glucose 91 165 H 141 H OUTPATIENT ANTIDIABETIC REGIMEN: * Novolin 70/30 mix 50 units QAM, 35 units QPM * HbA1c 13.2% (10/20/23), 16% (12/20/23) ASSESSMENT: 12/20: * Donna received 49 units of insulin yesterday (40 units NPH + 9 units Novolog)- significantly less than home usage. BSGs fluctuated throughout he day. Of note, patient had hypoglycemia (BSG 44 mg/dL) early this morning. * Will decrease NPH by ~30%. Will give slightly lower dose of NPH in the evening compared to morning to mimic home usage. * Continue current novolog parameters for now. 12/19: * Donna is an 83 YOF admitted status post fall and history of uncontrolled type 2 diabetes mellitus. Pharmacy has been consulted for glycemic management while inpatient. * Fasting BSG thgis AM within goal range, received 12 units of Novolog overnight and 18 units of Lantus. Will switch to NPH to better mimic home insulin mix. Initiated at a weight based stress of 2.5 twice daily with meals * Novolog initiated at a weight based stress of 2, she is ordered a clear liquid diet and does not appear to be eating much per nursing documentation. * Non-compliance with insulin regimen outpatient likely due to A1c increase to 16% today from 13.2% in September. PLAN FOR INPATIENT GLYCEMIC CONTROL: * Hold outpatient oral diabetes medications * Basal insulin * Insulin NPH 15 units SQ with breakfast, 13 units SQ with dinner * Bolus insulin * NovoLog per scale ACHS or Q6hrs while NPO * Goal Range: Low 110 mg/dL - High 140 mg/dL * Correction Factor: 25 mg/dL/unit * Nutritional / Prandial insulin per carb ratio of 1 unit per 10 grams CHO consumed
[2023-12-21] MEDS: POTASSIUM CHLORIDE CRTAB 20 MEQ TABCR PO SCH (13:09)
[2023-12-21] MEDS ORDERED: INSULIN HUMAN NPH SC SCH (16:30)
[2023-12-21] MEDS: cephALEXin 500 MG CAP PO SCH (20:09)
[2023-12-21] MEDS: DICLOFENAC SOD 1% GEL 100 GM TUBE EXT SCH (20:14)
--- NOTE | 2023-12-21 20:48 | Hospitalist Progress Note ---
Date of Service December 21, 2023 Assessment & Plan (1) Fall: Plan: Patient fell off bed morning of 12/18 By report felt dizzy prior to the fall? Orthostatics checked by PT today - mildly orthostatic (20+ point drop) but asymptomatic by report. Was down on ground possibly up to 1.5 hours -- CPK this am negative. Also by report has had recurrent falls over the past month Head/cervical spine CT negative for fracture, ICH, etc. 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 leading to increased fall risk Consider l-spine disease contributing to gait disturbance Fortunately it does not appear she had any major injury from her pre-admission fall(s) (2) Diabetes mellitus type 2 with complications, uncontrolled: Plan: Last A1c at 13.2% on 10/20/2023 Hba1c this admit 16% Appreciate pharmacy glycemic consult and recs Patient normally takes 100 units of 70/30 daily Defer to pharmacy insulin regimen while here - she is labile and brittle based on her BSG patterns and lows I spoke with pt's daughter today -- it had been reported that her vomiting was c hronic but in fact it is only acute daughter states she doesn't typically vomit - it only occurred a few days prior to admission (3) Hypomagnesemia: Plan: repleted resolved repeat level am for stability (4) Nausea and vomiting: Plan: CT a/p unremarkable they did see a hiatal hernia - this could contribute to reflux issues cont PPI bid consider UTI contributing advance diet to DM diet if vomiting recurs consider UGI series, GI consultation for consideration of EGD, etc (5) Elevated troponin: Plan: peak trop 46.8 likely myocardial demand ischemia in setting of her fall, etc no evidence of ACS (6) Acute UTI: Plan: suspected but urine cx with contaminants stop rocephin change to keflex x 5 days then stop all abx (7) Pancreatic insufficiency: Plan: cont creon (8) Hypothyroidism: Plan: TSH wnl - 09/2023 cont synthroid (9) Seizure disorder: Plan: cont phenobarbital checked level this am -- it is send-out lab (10) Arthritis of knee: Plan: start voltaren gel 4gm qid to either knee Plan DVT proph - since head imaging is negative will add heparin extensively updated daughter this evening she is in agreement with plan for rehab at [facility] post-discharge Admission and Anticipated Discharge Date Admission Date: December 19, 2023 Subjective tele overnight wnl pt sitting in chair eating/drinking her full liquids she is hungry and wants regular food per staff NO vomiting she feels a little bloated but denies abd pain no chest pain no dyspnea or cough staff report no acute issues Pt/Ot advising rehab - she is agreeable having issues with BSGs - lows, highs, etc Review of Systems Review of Systems: musculo - b/l knee pain pulm - no cough GI - no nausea Physical Exam Physical Exam: gen - resting comfortably in the chair, NAD, pleasant neck - no JVD mouth - MMM today ears - hearing impaired heart - RRR, s1 s2, no murmur lungs - CTA b/l abd - soft NT ND BS+ ext - no edema, pulses 2+ b/l musculo - OA changes b/l knees with crepitus psych - a/o x 3 Results & Data Results & Data Vital Signs (Past 12 Hours) Vital Signs Temp Pulse Pulse Resp BP Pulse Ox O2 Del Method 12/21/23 19:59 36.9 C 96 H 16 112/66 95 Room Air 12/21/23 16:51 84 12/21/23 16:10 36.6 C 76 16 105/69 97 Room Air 12/21/23 11:40 37.1 C 91 H 16 139/78 97 Room Air Laboratory Results Laboratory Results - last 24 hr 12/21/23 12/21/23 12/21/23 04:06 05:34 05:43 Sodium 141 D Potassium 3.1 L Chloride 102 Carbon Dioxide 31 Anion Gap 8 BUN 12 Creatinine 0.85 Est Cr Clr Drug Dosing 51.9 Est GFR ( Amer) 74.0 Est GFR (Non-Af Amer) 63.8 BUN/Creatinine Ratio 14.1 Glucose 44 L* POC Glucose 53 L* 66 L* Calcium 8.6 Total Creatine Kinase 23 L Vitamin B12 1208 H Phenobarbital Pending 12/21/23 12/21/23 12/21/23 06:00 08:15 12:08 Sodium Potassium Chloride Carbon Dioxide Anion Gap BUN Creatinine Est Cr Clr Drug Dosing Est GFR ( Amer) Est GFR (Non-Af Amer) BUN/Creatinine Ratio Glucose POC Glucose 91 165 H 141 H Calcium Total Creatine Kinase Vitamin B12 Phenobarbital 12/21/23 12/21/23 12/21/23 17:14 17:15 17:42 Sodium Potassium Chloride Carbon Dioxide Anion Gap BUN Creatinine Est Cr Clr Drug Dosing Est GFR ( Amer) Est GFR (Non-Af Amer) BUN/Creatinine Ratio Glucose POC Glucose 44 L* 53 L* 66 L* Calcium Total Creatine Kinase Vitamin B12 Phenobarbital 12/21/23 12/21/23 17:43 20:18 Sodium Potassium Chloride Carbon Dioxide Anion Gap BUN Creatinine Est Cr Clr Drug Dosing Est GFR ( Amer) Est GFR (Non-Af Amer) BUN/Creatinine Ratio Glucose POC Glucose 70 281 H Calcium Total Creatine Kinase Vitamin B12 Phenobarbital PG Care Time/CCT Total # of Minutes Spent Total Time Spent with Patient: Total time spent is greater than 50% in coordination of care (as documented) at patient's floor/unit and/or counseling patient: Coding Level of Care Code 21419 SUB INP/OBS CARE 2/35MIN Diagnoses Fall W19.XXXA Diabetes mellitus type 2 with complications, uncontrolled E11.8; E11.65 Hypomagnesemia E83.42 Nausea and vomiting R11.2 Elevated troponin R79.89 Acute UTI N39.0 Pancreatic insufficiency K86.89 Hypothyroidism E03.9 Seizure disorder G40.909 Arthritis of knee M17.10
[2023-12-21] MEDS: INSULIN HUMAN NPH SC STA (20:57)
[2023-12-22] MEDS: INSULIN ASPART PER UNIT CHARGE SC SCH (02:20)
[2023-12-22 08:15] LABS: BUN Creatinine Ratio 11.7 (10-20); Calcium 8.5 mg/dl (8.6-10.3); Creatinine Clr Calc Pharmacy 46.3 ml/min; Est GFR (African American) 65.5 ml/min; Est GFR (Non-African American) 56.5 ml/min; Magnesium 1.8 mg/dl (1.7-2.4); Potassium 4.2 mmol/L (3.5-5.1)
--- NOTE | 2023-12-22 11:05 | Pharmacy Report ---
Pharmacy Glycemic Short Note 2 - Date of Service December 22, 2023 - Glycemic Short BSG Results (Last 24 hours): 12/21/23 12/21/23 12/21/23 12:08 17:14 17:15 Glucose POC Glucose 141 H 44 L* 53 L* 12/21/23 12/21/23 12/21/23 17:42 17:43 20:18 Glucose POC Glucose 66 L* 70 281 H 12/22/23 12/22/23 12/22/23 02:02 02:33 07:07 Glucose 59 L POC Glucose 68 L* 80 12/22/23 08:26 Glucose POC Glucose 79 OUTPATIENT ANTIDIABETIC REGIMEN: * Novolin 70/30 mix: 50 units SC AM + 35 units SC PM * HbA1c: 16% (12/20/23) ASSESSMENT: 12/21: * Donna received 37 units of insulin yesterday, 25 basal + 12 bolus. BSGs were: 46-01-118-44-281-68 mg/dL. * Multiple hypoglycemic episodes yesterday. Per nursing documentation, patient asymptomatic every time. Required 75 g CHO to correct in AM, 30 g CHO to correct at dinner and 15 g CHO to correct at bedtime. * Fasting BSG was 79 mg/dL this AM. Will hold NPH dose this morning. Likely will add reduced NPH dose at some point today. * Novolog loosened last evening. Did tighten CF this AM but no change to CR. Tolerating diet. Continue to monitor BSGs closely. 12/20: * Donna received 49 units of insulin yesterday (40 units NPH + 9 units Novolog)- significantly less than home usage. BSGs fluctuated throughout he day. Of note, patient had hypoglycemia (BSG 44 mg/dL) early this morning. * Will decrease NPH by ~30%. Will give slightly lower dose of NPH in the evening compared to morning to mimic home usage. * Continue current novolog parameters for now. 12/19: * Donna is an 83 YOF admitted status post fall and history of uncontrolled type 2 diabetes mellitus. Pharmacy has been consulted for glycemic management while inpatient. * Fasting BSG thgis AM within goal range, received 12 units of Novolog overnight and 18 units of Lantus. Will switch to NPH to better mimic home insulin mix. Initiated at a weight based stress of 2.5 twice daily with meals * Novolog initiated at a weight based stress of 2, she is ordered a clear liquid diet and does not appear to be eating much per nursing documentation. * Non-compliance with insulin regimen outpatient likely due to A1c increase to 16% today from 13.2% in September. PLAN FOR INPATIENT GLYCEMIC CONTROL: * Basal insulin * Held AM NPH dose * Insulin NPH 10 units SC x 1 with lunch * Bolus insulin * NovoLog per scale ACHS or Q6hrs while NPO * Goal Range: Low 110 mg/dL - High 140 mg/dL * Correction Factor: 35 mg/dL/unit * Nutritional / Prandial insulin per carb ratio of 1 unit per 12 grams CHO consumed
[2023-12-22] MEDS: INSULIN HUMAN NPH SC SCH (11:38)
[2023-12-22] MEDS: INSULIN HUMAN NPH SC STA (12:43)
[2023-12-22] MEDS: HEPARIN SOD 5,000 UNIT/0.5 ML VIAL SQ SCH (12:54)
--- NOTE | 2023-12-22 19:59 | Hospitalist Progress Note ---
Date of Service December 22, 2023 Assessment & Plan (1) Fall: Plan: Patient fell off bed morning of 12/18 By report felt dizzy prior to the fall? Orthostatics checked by PT today - mildly orthostatic (20+ point drop) but asymptomatic by report. Was down on ground possibly up to 1.5 hours -- CPK this am negative. Also by report has had recurrent falls over the past month Head/cervical spine CT negative for fracture, ICH, etc. 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 leading to increased fall risk Consider l-spine disease contributing to gait disturbance but she denies back pain and no c/o radicular pains in legs Fortunately it does not appear she had any major injury from her pre-admission fall(s) (2) Diabetes mellitus type 2 with complications, uncontrolled: Plan: Last A1c at 13.2% on 10/20/2023 Hba1c this admit 16% Appreciate pharmacy glycemic consult and recs Patient normally takes 100 units of 70/30 daily Defer to pharmacy insulin regimen while here - she is labile and brittle based on her BSG patterns and lows (3) Hypomagnesemia: Plan: repleted resolved repeat level today wnl (4) Nausea and vomiting: Plan: resolved CT a/p unremarkable they did see a hiatal hernia - this could contribute to reflux issues cont PPI bid consider UTI contributing tolerating DM diet if vomiting recurs consider UGI series, GI consultation for consideration of EGD, etc (5) Elevated troponin: Plan: peak trop 46.8 likely myocardial demand ischemia in setting of her fall, etc no evidence of ACS (6) Acute UTI: Plan: suspected but urine cx with contaminants stopped rocephin changed to keflex x 5 days then stop all abx (7) Pancreatic insufficiency: Plan: cont creon (8) Hypothyroidism: Plan: TSH wnl - 09/2023 cont synthroid (9) Seizure disorder: Plan: cont phenobarbital phenobarbital level 21.7 (ref range 15-40) (10) Arthritis of knee: Plan: cont voltaren gel 4gm qid to either knee Plan DVT proph - heparin SC BID extensively updated daughter 12/20 she is in agreement with plan for rehab at [facility] post-discharge Admission and Anticipated Discharge Date Admission Date: December 19, 2023 Subjective no events overnight tele wnl tolerating regular food without abd pain, nausea or emesis no episodes of dizziness or lightheadedness during the visit she was sitting in the chair she was in good spirits and denied all complaints BSGs cont to be labile Review of Systems Review of Systems: cv - no chest pain pulm - no dyspnea GI - no abd pain; +stools musculo - voltaren gel helping her knee pain Physical Exam Physical Exam: gen - resting comfortably in the chair, NAD, pleasant neck - no JVD mouth - MMM ears - hearing impaired heart - RRR, s1 s2, no murmur lungs - CTA b/l abd - soft NT ND BS+ ext - no edema, pulses 2+ b/l psych - a/o x 3 Results & Data Results & Data Vital Signs (Past 12 Hours) Vital Signs Temp Pulse Pulse Resp BP Pulse Ox O2 Del Method 12/22/23 19:52 36.6 C 79 18 92/60 L 96 Room Air 12/22/23 15:43 86 12/22/23 15:30 36.9 C 84 18 99/56 L 96 Room Air 12/22/23 11:48 36.6 C 90 18 125/79 96 Room Air 12/22/23 08:08 77 Laboratory Results Laboratory Results - last 24 hr 12/21/23 12/21/23 12/22/23 04:06 20:18 02:02 Sodium Potassium Chloride Carbon Dioxide Anion Gap BUN Creatinine Est Cr Clr Drug Dosing Est GFR ( Amer) Est GFR (Non-Af Amer) BUN/Creatinine Ratio Glucose POC Glucose 281 H 68 L* Calcium Magnesium Phenobarbital 21.7 12/22/23 12/22/23 12/22/23 02:33 07:07 08:26 Sodium 143 Potassium 4.2 D Chloride 107 Carbon Dioxide 31 Anion Gap 5 BUN 11 Creatinine 0.94 Est Cr Clr Drug Dosing 46.3 Est GFR ( Amer) 65.5 Est GFR (Non-Af Amer) 56.5 BUN/Creatinine Ratio 11.7 Glucose 59 L POC Glucose 80 79 Calcium 8.5 L Magnesium 1.8 Phenobarbital 12/22/23 12/22/23 12:05 17:07 Sodium Potassium Chloride Carbon Dioxide Anion Gap BUN Creatinine Est Cr Clr Drug Dosing Est GFR ( Amer) Est GFR (Non-Af Amer) BUN/Creatinine Ratio Glucose POC Glucose 252 H 166 H Calcium Magnesium Phenobarbital PG Care Time/CCT Total # of Minutes Spent Total Time Spent with Patient: Total time spent is greater than 50% in coordination of care (as documented) at patient's floor/unit and/or counseling patient: Coding Level of Care Code 39973 SUB INP/OBS CARE 2/35MIN Diagnoses Fall W19.XXXA Diabetes mellitus type 2 with complications, uncontrolled E11.8; E11.65 Hypomagnesemia E83.42 Nausea and vomiting R11.2 Elevated troponin R79.89 Acute UTI N39.0 Pancreatic insufficiency K86.89 Hypothyroidism E03.9 Seizure disorder G40.909 Arthritis of knee M17.10
[2023-12-23] MEDS ORDERED: INSULIN HUMAN NPH SC SCH (07:30)
[2023-12-23] MEDS: LANTUS PER UNIT CHARGE SC SCH ×2 (09:22→21:43)
--- NOTE | 2023-12-23 14:14 | Pharmacy Report ---
Pharmacy Glycemic Short Note 2 - Date of Service December 23, 2023 - Glycemic Short BSG Results (Last 24 hours): 12/22/23 12/22/23 12/23/23 17:07 20:16 08:02 POC Glucose 166 H 83 227 H 12/23/23 11:54 POC Glucose 291 H OUTPATIENT ANTIDIABETIC REGIMEN: * Novolin 70/30 mix: 50 units SC AM + 35 units SC PM HbA1c: 16% (12/20/23) ASSESSMENT: 12/23/23: * Blood sugars remain quite labile, ranging 83-291 mg/dL over past 24 hours * Last episode of hypoglycemia was yesterday morning on lab check * Given continued lability of blood sugars, will trial changing basal from NPH to Lantus today * Prior admission data (albeit from ~2 years ago) would suggest that this may work (ultimately ended up on 13 units BID, which achieved good control). Will be conservative today in light of recent lows. * If blood sugars remain persistently elevated today, consider tightening Novolog carb ratio tomorrow 12/21: * Donna received 37 units of insulin yesterday, 25 basal + 12 bolus. BSGs were: 92-01-260-44-281-68 mg/dL. * Multiple hypoglycemic episodes yesterday. Per nursing documentation, patient asymptomatic every time. Required 75 g CHO to correct in AM, 30 g CHO to correct at dinner and 15 g CHO to correct at bedtime. * Fasting BSG was 79 mg/dL this AM. Will hold NPH dose this morning. Likely will add reduced NPH dose at some point today. * Novolog loosened last evening. Did tighten CF this AM but no change to CR. Tolerating diet. Continue to monitor BSGs closely. 12/20: * Donna received 49 units of insulin yesterday (40 units NPH + 9 units Novolog)- significantly less than home usage. BSGs fluctuated throughout he day. Of note, patient had hypoglycemia (BSG 44 mg/dL) early this morning. * Will decrease NPH by ~30%. Will give slightly lower dose of NPH in the evening compared to morning to mimic home usage. * Continue current novolog parameters for now. 12/19: * Donna is an 83 YOF admitted status post fall and history of uncontrolled type 2 diabetes mellitus. Pharmacy has been consulted for glycemic management while inpatient. * Fasting BSG thgis AM within goal range, received 12 units of Novolog overnight and 18 units of Lantus. Will switch to NPH to better mimic home insulin mix. Initiated at a weight based stress of 2.5 twice daily with meals * Novolog initiated at a weight based stress of 2, she is ordered a clear liquid diet and does not appear to be eating much per nursing documentation. * Non-compliance with insulin regimen outpatient likely due to A1c increase to 16% today from 13.2% in September. PLAN FOR INPATIENT GLYCEMIC CONTROL: * Basal insulin * Change to Lantus 10 units SC BID * Bolus insulin * NovoLog per scale ACHS or Q6hrs while NPO * Goal Range: Low 110 mg/dL - High 140 mg/dL * Correction Factor: 40 mg/dL/unit * Nutritional / Prandial insulin per carb ratio of 1 unit per 10 grams CHO consumed
--- NOTE | 2023-12-23 18:13 | Hospitalist Progress Note ---
Date of Service December 23, 2023 Assessment & Plan (1) Fall: Plan: Patient fell off bed morning of 12/18 By report felt dizzy prior to the fall? Orthostatics checked by PT - mildly orthostatic (20+ point drop) but asymptomatic by report. Was down on ground possibly up to 1.5 hours -- CPK was negative. Also by report has had recurrent falls over the past month Head/cervical spine CT negative for fracture, ICH, etc. 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 DM leading to increased fall risk Consider l-spine disease contributing to gait disturbance but she denies back pain and no c/o radicular pains in legs Fortunately it does not appear she had any major injury from her pre-admission fall(s) Check TSH and B1 to be complete Consider MRI brain to exclude subacute CVA (2) Diabetes mellitus type 2 with complications, uncontrolled: Plan: Last A1c at 13.2% on 10/20/2023 Hba1c this admit 16% Appreciate pharmacy glycemic consult and recs Patient normally takes 100 units of 70/30 daily Defer to pharmacy insulin regimen while here - she is labile and brittle based on her BSG patterns and lows Lows resolved, pharmacy now adjusting her regimen (3) Hypomagnesemia: Plan: repleted resolved (4) Nausea and vomiting: Plan: resolved CT a/p unremarkable they did see a hiatal hernia - this could contribute to reflux issues cont PPI bid consider UTI contributing tolerating DM diet (5) Elevated troponin: Plan: peak trop 46.8 likely myocardial demand ischemia in setting of her fall, etc no evidence of ACS (6) Acute UTI: Plan: suspected but urine cx with contaminants stopped rocephin changed to keflex x 5 days then stop all abx day #2 of keflex (7) Pancreatic insufficiency: Plan: cont creon no issues while here (no diarrhea) (8) Hypothyroidism: Plan: TSH wnl - 09/2023 cont synthroid check another TSH in am due to recent falls (9) Seizure disorder: Plan: cont phenobarbital phenobarbital level 21.7 (ref range 15-40) (10) Arthritis of knee: Plan: cont voltaren gel 4gm qid to either knee Plan DVT proph - heparin SC BID extensively updated daughter 12/20 she is in agreement with plan for rehab at [facility] post-discharge pt here at least thru Monday Admission and Anticipated Discharge Date Admission Date: December 19, 2023 Subjective no events overnight tele wnl + stool x 2 yesterday sitting in chair comfortably denies any complaints eating 100% of meals asks if the Production [employer]ator is coming no abd pain, bloating, nausea, or emesis no further hypoglycemia Review of Systems Review of Systems: gen - "I feel good" cv - no chest pain pulm - no dyspnea musculo - knees feel pretty good today GI - no N/V Physical Exam Physical Exam: gen - resting comfortably in the chair, NAD, pleasant, looks good, smiling neck - no JVD mouth - MMM ears - hearing impaired heart - RRR, s1 s2, no murmur lungs - CTA b/l abd - soft NT ND BS+ ext - no edema, pulses 2+ b/l psych - a/o x 3 musculo - OA bony changes of b/l knees Results & Data Results & Data Vital Signs (Past 12 Hours) Vital Signs Temp Pulse Pulse Resp BP Pulse Ox O2 Del Method 12/23/23 15:28 36.8 C 74 18 116/73 96 Room Air 12/23/23 14:56 72 12/23/23 11:37 36.6 C 79 18 116/77 97 Room Air 12/23/23 09:00 Room Air 12/23/23 07:35 36.8 C 87 18 114/73 95 Room Air 12/23/23 07:19 73 Laboratory Results Laboratory Results - last 24 hr 12/22/23 12/23/23 12/23/23 20:16 08:02 11:54 POC Glucose 83 227 H 291 H 12/23/23 17:01 POC Glucose 183 H PG Care Time/CCT Total # of Minutes Spent Total Time Spent with Patient: Total time spent is greater than 50% in coordination of care (as documented) at patient's floor/unit and/or counseling patient: Coding Level of Care Code 60421 SUB INP/OBS CARE 25MIN Diagnoses Fall W19.XXXA Diabetes mellitus type 2 with complications, uncontrolled E11.8; E11.65 Hypomagnesemia E83.42 Nausea and vomiting R11.2 Elevated troponin R79.89 Acute UTI N39.0 Pancreatic insufficiency K86.89 Hypothyroidism E03.9 Seizure disorder G40.909 Arthritis of knee M17.10
[2023-12-23] MEDS: ACETAMINOPHEN 325 MG TAB PO PRN (18:14)
[2023-12-24 06:46] LABS: Creatinine Clr Calc Pharmacy 45.8 ml/min; Est GFR (African American) 63.8 ml/min; Est GFR (Non-African American) 55.1 ml/min
[2023-12-24 07:00] LABS: Thyroid Stimulating Hormone 5.529 uIu/ml (0.300-4.500)
[2023-12-24] MEDS: THIAMINE HCL 100 MG TAB PO SCH (09:28)
[2023-12-24] MEDS: LANTUS PER UNIT CHARGE SC SCH (09:28)
--- NOTE | 2023-12-24 14:24 | Pharmacy Report ---
Pharmacy Glycemic Short Note 2 - Date of Service December 24, 2023 - Glycemic Short BSG Results (Last 24 hours): 12/23/23 12/23/23 12/24/23 17:01 20:28 08:06 POC Glucose 183 H 142 H 199 H 12/24/23 11:37 POC Glucose 285 H OUTPATIENT ANTIDIABETIC REGIMEN: * Novolin 70/30 mix: 50 units SC AM + 35 units SC PM HbA1c: 16% (12/20/23) ASSESSMENT: 12/24/23 * Donna received 42 units of insulin yesterday (20 units Lantus + 22 units Novolog) * BSGs appear to be more stable post transition to Lantus, although majority of BSGs remain above goal. * Will titrate doses conservatively based on previous hypoglycemia and Lantus dose not being at steady state. * Increase Lantus by about 20%. * Tighten carb ratio slightly. 12/23/23: * Blood sugars remain quite labile, ranging 83-291 mg/dL over past 24 hours * Last episode of hypoglycemia was yesterday morning on lab check * Given continued lability of blood sugars, will trial changing basal from NPH to Lantus today * Prior admission data (albeit from ~2 years ago) would suggest that this may work (ultimately ended up on 13 units BID, which achieved good control). Will be conservative today in light of recent lows. * If blood sugars remain persistently elevated today, consider tightening Novolog carb ratio tomorrow 12/21: * Donna received 37 units of insulin yesterday, 25 basal + 12 bolus. BSGs were: 41-64-124-44-281-68 mg/dL. * Multiple hypoglycemic episodes yesterday. Per nursing documentation, patient asymptomatic every time. Required 75 g CHO to correct in AM, 30 g CHO to correct at dinner and 15 g CHO to correct at bedtime. * Fasting BSG was 79 mg/dL this AM. Will hold NPH dose this morning. Likely will add reduced NPH dose at some point today. * Novolog loosened last evening. Did tighten CF this AM but no change to CR. Tolerating diet. Continue to monitor BSGs closely. 12/20: * Donna received 49 units of insulin yesterday (40 units NPH + 9 units Novolog)- significantly less than home usage. BSGs fluctuated throughout he day. Of note, patient had hypoglycemia (BSG 44 mg/dL) early this morning. * Will decrease NPH by ~30%. Will give slightly lower dose of NPH in the evening compared to morning to mimic home usage. * Continue current novolog parameters for now. 12/19: * Donna is an 83 YOF admitted status post fall and history of uncontrolled type 2 diabetes mellitus. Pharmacy has been consulted for glycemic management while inpatient. * Fasting BSG thgis AM within goal range, received 12 units of Novolog overnight and 18 units of Lantus. Will switch to NPH to better mimic home insulin mix. Initiated at a weight based stress of 2.5 twice daily with meals * Novolog initiated at a weight based stress of 2, she is ordered a clear liquid diet and does not appear to be eating much per nursing documentation. * Non-compliance with insulin regimen outpatient likely due to A1c increase to 16% today from 13.2% in September. PLAN FOR INPATIENT GLYCEMIC CONTROL: * Basal insulin * Change to Lantus 12 units SC BID * Bolus insulin * NovoLog per scale ACHS or Q6hrs while NPO * Goal Range: Low 110 mg/dL - High 140 mg/dL * Correction Factor: 40 mg/dL/unit * Nutritional / Prandial insulin per carb ratio of 1 unit per 9 grams CHO consumed
--- NOTE | 2023-12-24 19:37 | Hospitalist Progress Note ---
Date of Service December 24, 2023 Assessment & Plan (1) Fall: Plan: Patient fell off bed morning of 12/18 By report felt dizzy prior to the fall? Orthostatics checked by PT - mildly orthostatic (20+ point drop) but asymptomatic by report. Was down on ground possibly up to 1.5 hours -- CPK was negative. Also by report has had recurrent falls over the past month Head/cervical spine CT negative for fracture, ICH, etc. 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; will obtain MRI brain to r/o new or subacute CVA contributing to falls (2) Diabetes mellitus type 2 with complications, uncontrolled: Plan: Last A1c at 13.2% on 10/20/2023 Hba1c this admit 16% Appreciate pharmacy glycemic consult and recs Patient normally takes 100 units of 70/30 daily Defer to pharmacy insulin regimen while here - she is labile and brittle based on her BSG patterns and lows Lows resolved, pharmacy now adjusting her regimen, and BSGs trending in right direction (3) Hypomagnesemia: Plan: repleted resolved (4) Nausea and vomiting: Plan: resolved CT a/p unremarkable they did see a hiatal hernia - this could contribute to reflux issues cont PPI bid consider UTI contributing tolerating DM diet (5) Elevated troponin: Plan: peak trop 46.8 likely myocardial demand ischemia in setting of her fall, etc no evidence of ACS (6) Acute UTI: Plan: suspected but urine cx with contaminants stopped rocephin changed to keflex x 5 days then stop all abx day #3 of keflex (7) Pancreatic insufficiency: Plan: cont creon no issues while here (no diarrhea) (8) Hypothyroidism: Plan: TSH wnl - 09/2023 cont synthroid check another TSH in am due to recent falls (9) Seizure disorder: Plan: cont phenobarbital phenobarbital level 21.7 (ref range 15-40) (10) Arthritis of knee: Plan: cont voltaren gel 4gm qid to either knee Plan DVT proph - heparin SC BID extensively updated daughter 12/20 and again this evening, 12/23 she is in agreement with plan for rehab at [facility] post-discharge made her aware about getting MRI brain Admission and Anticipated Discharge Date Admission Date: December 19, 2023 Subjective tele overnight wnl no events sitting in chair comfortably no complaints eating well - 100% of meals no dizziness or lightheadedness she states she thinks she is seeing a squirrel in the hallway but knows it is Easter, November,, and that she is at the hospital Review of Systems Review of Systems: gen - no fevers cv - no cp pulm - no cough GI - no N/V/bloating Physical Exam Physical Exam: gen - resting comfortably in the chair, NAD, pleasant, looks good, smiling neck - no JVD mouth - MMM ears - hearing impaired heart - RRR, s1 s2, no murmur lungs - CTA b/l abd - soft NT ND BS+ ext - no edema, pulses 2+ b/l psych - a/o x 3 Results & Data Results & Data Vital Signs (Past 12 Hours) Vital Signs Temp Pulse Pulse Resp BP BP Pulse Ox 12/24/23 15:07 36.5 C 68 16 110/58 L 96 12/24/23 14:49 77 12/24/23 12:18 36.6 C 90 18 125/77 96 O2 Del Method 12/24/23 15:07 Room Air 12/24/23 14:49 12/24/23 12:18 Room Air Laboratory Results Laboratory Results - last 24 hr 12/23/23 12/24/23 12/24/23 20:28 05:48 07:58 Creatinine 0.96 Est Cr Clr Drug Dosing 45.8 Est GFR ( Amer) 63.8 Est GFR (Non-Af Amer) 55.1 POC Glucose 142 H Vitamin B1 Cancelled Pending TSH 5.529 H 12/24/23 12/24/23 12/24/23 08:06 11:37 16:46 Creatinine Est Cr Clr Drug Dosing Est GFR ( Amer) Est GFR (Non-Af Amer) POC Glucose 199 H 285 H 184 H Vitamin B1 TSH PG Care Time/CCT Total # of Minutes Spent Total Time Spent with Patient: Total time spent is greater than 50% in coordination of care (as documented) at patient's floor/unit and/or counseling patient: Coding Level of Care Code 18500 SUB INP/OBS CARE 235MIN Diagnoses Fall W19.XXXA Diabetes mellitus type 2 with complications, uncontrolled E11.8; E11.65 Hypomagnesemia E83.42 Nausea and vomiting R11.2 Elevated troponin R79.89 Acute UTI N39.0 Pancreatic insufficiency K86.89 Hypothyroidism E03.9 Seizure disorder G40.909 Arthritis of knee M17.10
--- NOTE | 2023-12-25 00:26 | Magnetic Resonance Report ---
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 TECHNIQUE: Magnetic resonance images of the head/brain without intravenous contrast in multiple planes. COMPARISON: Comparison made to prior head CT from December 19, 2023. FINDINGS: Brain: Remote ischemic injuries of the bilateral cerebellar lobes. Remote ischemic injuries of the left frontal lobe with encephalomalacia and gliosis. No mass. No hemorrhage. No acute infarct. The flow voids at the base of the brain are intact. Ventricles: Moderate ventriculomegaly. Bones/joints: Remote left craniotomy. Hyperostosis frontalis interna. Critical spinal canal stenosis at C3-4. No acute fracture. Sinuses: Chronic ethmoid sinusitis. No acute sinusitis. Mastoid air cells: Unremarkable as visualized. No mastoid effusion. Orbits: Bilateral lens replacements. Mild nonspecific white matter changes. IMPRESSION: No evidence for acute intracranial pathology. Critical spinal canal stenosis at C3-4. Recommend MRI of the cervical spine to evaluate for myelopathy. Communications: Verify Receipt Electronically signed by: Sophie Fuentes MD 12/25/23 00:25 AM
--- NOTE | 2023-12-25 02:28 | Magnetic Resonance Report ---
Exam(s): MRI C SPINE EXAM: MR Cervical Spine Without Intravenous Contrast CLINICAL HISTORY: Reason for exam: Critical stenosis, eval for myelopathy. TECHNIQUE: Magnetic resonance images of the cervical spine without intravenous contrast in multiple planes. COMPARISON: Comparison made to prior CT scan of the cervical spine from January 06, 2022. 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 There is normal vertebral body height and alignment. The bone marrow signal is heterogeneous with reactive endplate changes. No acute fracture. Spinal cord: There is flattening of the ventral cord at C3-4 and C4-5 with normal cord signal. The craniocervical junction is normal without evidence of Chiari malformation. Soft tissues: The cervical flow voids are intact. DISCS/SPINAL CANAL/NEURAL FORAMINA: C2-C3: There is mild disc degeneration with annular disc bulge flattening the thecal sac. There is mild to moderate facet arthropathy with moderate right and mild left synovitis with mild bone marrow edema and inflammation of the surrounding soft tissues. C3-C4: Advanced disc degeneration with annular disc bulge flattening the ventral cord without evidence for abnormal cord signal and causing a critical spinal canal stenosis with repeat MR measures 6.3 mm. There is uncovertebral joint arthropathy causing a mild right and moderate left stenosis with mild impingement of the left C4 nerve root. There is minimal right and mild left facet arthropathy with mild synovitis. C4-C5: Advanced disc degeneration with annular disc bulge flattening the ventral cord without evidence for abnormal cord signal and a critical spinal canal stenosis with AP diameter measuring 5.8 mm. There is uncovertebral arthropathy with disc extending into the neuroforamina causing a moderate right and moderately severe left stenosis with bilateral C5 nerve roots. There is minimal facet arthropathy of mild synovitis. C5-C6: Advanced disc degeneration with annular disc bulge flattening the ventral thecal side. There is uncovertebral joint arthropathy with disc extends from causing a severe right and mild left stenosis with impingement of the right C6 nerve root. There is minimal facet arthropathy with mild synovitis. C6-C7: Advanced disc degeneration with annular disc bulge flattening the ventral thecal sac. There is uncovertebral joint arthropathy with disc extending to the neuroforamina causing a moderately severe right and mild left stenosis with impingement of the right C7 nerve root. There is minimal facet arthropathy with mild synovitis. C7-T1: The intervertebral disc is normal. There is mild facet arthropathy with mild synovitis. IMPRESSION: 1. Advanced disc degeneration at C3-4, C4-5, C5-6, C6-7 and mild disc degeneration at C2-3 with annular disc bulging flattening the ventral thecal sac and flattening of the lateral cord at C3-4 and C4-5 without evidence of abnormal cord signal. 2. There is a critical spinal canal stenosis at C3-4 and C4-5. 3. There is a mild right and moderate left C3-4, moderate right and moderately severe left C4-5, severe right and mild left C5-6 and moderately severe right and mild left C6-7 neural foraminal stenosis with impingement of the left C4, bilateral C5, right C6 and right C7 nerve roots. 4. There is minimal to moderate facet arthropathy with mild to moderate synovitis. 5. No evidence of fracture, infection, tumor or myelopathy. Electronically signed by: Sophie Fuentes MD 12/25/23 02:27 AM
[2023-12-25] MEDS: LANTUS PER UNIT CHARGE SC SCH (08:53)
--- NOTE | 2023-12-25 09:20 | Pharmacy Report ---
Pharmacy Glycemic Short Note 2 - Date of Service December 25, 2023 - Glycemic Short BSG Results (Last 24 hours): 12/24/23 12/24/23 12/24/23 11:37 16:46 20:07 POC Glucose 285 H 184 H 189 H 12/25/23 07:53 POC Glucose 188 H OUTPATIENT ANTIDIABETIC REGIMEN: * Novolin 70/30 mix: 50 units SC AM + 35 units SC PM * HbA1c: 16% (12/20/23) ASSESSMENT: 12/24: * Patient received 45 units of insulin yesterday, 24 units basal + 21 units bolus. BSGs were: 416-924-491-189 mg/dL. * Fasting BSG was 188 mg/dL this AM. Will increase basal by 25% today. * Postprandial BSGs remained above goal all day yesterday. Will tighten both CF/CR to help bring BSG into goal range. 12/23: * Donna received 42 units of insulin yesterday (20 units Lantus + 22 units Novolog) * BSGs appear to be more stable post transition to Lantus, although majority of BSGs remain above goal. * Will titrate doses conservatively based on previous hypoglycemia and Lantus dose not being at steady state. * Increase Lantus by about 20%. * Tighten carb ratio slightly. 12/22: * Blood sugars remain quite labile, ranging 83-291 mg/dL over past 24 hours * Last episode of hypoglycemia was yesterday morning on lab check * Given continued lability of blood sugars, will trial changing basal from NPH to Lantus today * Prior admission data (albeit from ~2 years ago) would suggest that this may work (ultimately ended up on 13 units BID, which achieved good control). Will be conservative today in light of recent lows. * If blood sugars remain persistently elevated today, consider tightening Novolog carb ratio tomorrow 12/21: * Donna received 37 units of insulin yesterday, 25 basal + 12 bolus. BSGs were: [id number] mg/dL. * Multiple hypoglycemic episodes yesterday. Per nursing documentation, patient asymptomatic every time. Required 75 g CHO to correct in AM, 30 g CHO to correct at dinner and 15 g CHO to correct at bedtime. * Fasting BSG was 79 mg/dL this AM. Will hold NPH dose this morning. Likely will add reduced NPH dose at some point today. * Novolog loosened last evening. Did tighten CF this AM but no change to CR. Tolerating diet. Continue to monitor BSGs closely. 12/20: * Donna received 49 units of insulin yesterday (40 units NPH + 9 units Novolog)- significantly less than home usage. BSGs fluctuated throughout he day. Of note, patient had hypoglycemia (BSG 44 mg/dL) early this morning. * Will decrease NPH by ~30%. Will give slightly lower dose of NPH in the evening compared to morning to mimic home usage. * Continue current novolog parameters for now. 12/19: * Donna is an 83 YOF admitted status post fall and history of uncontrolled type 2 diabetes mellitus. Pharmacy has been consulted for glycemic management while inpatient. * Fasting BSG thgis AM within goal range, received 12 units of Novolog overnight and 18 units of Lantus. Will switch to NPH to better mimic home insulin mix. Initiated at a weight based stress of 2.5 twice daily with meals * Novolog initiated at a weight based stress of 2, she is ordered a clear liquid diet and does not appear to be eating much per nursing documentation. * Non-compliance with insulin regimen outpatient likely due to A1c increase to 16% today from 13.2% in September. PLAN FOR INPATIENT GLYCEMIC CONTROL: * Basal insulin * Change to Lantus 15 units SC BID * Bolus insulin * NovoLog per scale ACHS or Q6hrs while NPO * Goal Range: Low 110 mg/dL - High 140 mg/dL * Correction Factor: 30 mg/dL/unit * Nutritional / Prandial insulin per carb ratio of 1 unit per 8 grams CHO consumed
[2023-12-25 10:25] LABS: Calcium 8.9 mg/dl (8.6-10.3); Potassium 4.2 mmol/L (3.5-5.1)
[2023-12-25 10:33] LABS: Creatinine Clr Calc Pharmacy 43.3 ml/min; Est GFR (African American) 60.8 ml/min; Est GFR (Non-African American) 52.4 ml/min
--- NOTE | 2023-12-25 20:23 | Hospitalist Progress Note ---
Date of Service December 25, 2023 Assessment & Plan (1) Cervical stenosis of spine: Plan: MRI c-spine overnight with severe spinal stenosis at multiple levels could be contributing to falls amazingly she has no neck pain and minimal, if any, radicular symptoms in hands neuro exam intact I corresponded with Dr Colon from ortho-spine who will consult in am (2) Cerebrovascular disease: Plan: old, b/l cerebellar CVAs seen on MRI brain but no acute/subacute CVAs seen cerebellar CVAs could certainly be contributing to fall risk cont asa for secondary prevention (3) Arthritis of knee: Plan: cont voltaren gel 4gm qid to either knee arthritis is severe certainly contributes to ambulatory dysfunction/fall risk (4) Fall: Plan: Patient fell off bed morning of 12/18 By report felt dizzy prior to the fall? Orthostatics - mildly orthostatic (20+ point drop) but asymptomatic by report. Was down on ground possibly up to 1.5 hours -- CPK was negative. Also by report has had recurrent falls over the past month Head/cervical spine CT negative for fracture, ICH, etc. MRI brain and MRI c-spine -- see discussion above. PT/OT consulted -- rehab advised Fall precautions in place here B12 level wnl Does have OA of both knees b/l which is likely contributing to fall risk Likely has neuropathy from DM leading to increased fall risk Old cerebellar CVAs and severe c-spine stenosis also heighten fall risk see discussions above in #1, #2 (5) Diabetes mellitus type 2 with complications, uncontrolled: Plan: Last A1c at 13.2% on 10/20/2023 Hba1c this admit 16% Appreciate pharmacy glycemic consult and recs Patient normally takes 100 units of 70/30 daily Defer to pharmacy insulin regimen while here - she is labile and brittle based on her BSG patterns and lows Lows resolved, pharmacy now adjusting her regimen, and BSGs trending in right direction (6) Hypomagnesemia: Plan: repleted resolved (7) Nausea and vomiting: Plan: resolved CT a/p unremarkable they did see a hiatal hernia - this could contribute to reflux issues cont PPI bid consider UTI contributing tolerating DM diet (8) Elevated troponin: Plan: peak trop 46.8 likely myocardial demand ischemia in setting of her fall, etc no evidence of ACS (9) Acute UTI: Plan: suspected but urine cx with contaminants stopped rocephin changed to keflex x 5 days then stop all abx day #4 of keflex (10) Pancreatic insufficiency: Plan: cont creon no issues while here (no diarrhea) (11) Hypothyroidism: Plan: TSH 5.5 this admission would not adjust dose - simply repeat as outpatient in 3-4 weeks if still high at that time then titrate synthroid cont synthroid w/o changes (12) Seizure disorder: Plan: cont phenobarbital phenobarbital level 21.7 (ref range 15-40) Plan DVT proph - heparin SC BID extensively updated daughter 12/20, 12/23, and again this evening by phone informed her of MRI brain/c-spine results and plan [place] [place]tic[place]charge Date Admission Date: December 19, 2023 Subjective tele overnight wnl pt reports mild intermittent numbness of hands but not bothersome denies any pain in neck denies arm weakness states her knees lock which then leads to trouble walking or falls denies any paresthesias of legs otherwise feels good denies any new complaints eating well Review of Systems Review of Systems: cv - no chest pain abd - no pain/nausea/emesis pulm - no cough or dyspnea musculo - no neck pain Physical Exam Physical Exam: gen - resting comfortably in the chair, NAD, pleasant, looks great, smiling neck - no JVD mouth - MMM ears - hearing impaired heart - RRR, s1 s2, no murmur lungs - CTA b/l abd - soft NT ND BS+ ext - no edema, pulses 2+ b/l psych - a/o x 3 neuro - strength 5/5 x 4 exts all muscle groups tested; DTRs 2-3+ b/l upper and lower exts; no signs of myelopathy Results & Data Results & Data Vital Signs (Past 12 Hours) Vital Signs Temp Pulse Pulse Resp BP BP Pulse Ox 12/25/23 19:57 36.7 C 104 H 18 155/87 H 96 12/25/23 15:28 88 12/25/23 15:02 36.7 C 88 18 112/69 96 12/25/23 10:47 36.7 C 96 H 18 113/70 96 O2 Del Method 12/25/23 19:57 Room Air 12/25/23 15:28 12/25/23 15:02 Room Air 12/25/23 10:47 Room Air Laboratory Results Laboratory Results - last 48 hr 12/24/23 12/24/23 12/24/23 08:06 11:37 16:46 Sodium Potassium Chloride Carbon Dioxide Anion Gap BUN Creatinine Est Cr Clr Drug Dosing Est GFR ( Amer) Est GFR (Non-Af Amer) BUN/Creatinine Ratio Glucose POC Glucose 199 H 285 H 184 H Calcium 12/24/23 12/25/23 12/25/23 20:07 07:53 09:53 Sodium 135 L Potassium 4.2 Chloride 101 Carbon Dioxide 26 Anion Gap 8 BUN 21 Creatinine 1.00 Est Cr Clr Drug Dosing 43.3 Est GFR ( Amer) 60.8 Est GFR (Non-Af Amer) 52.4 BUN/Creatinine Ratio 21.0 H Glucose 313 H* POC Glucose 189 H 188 H Calcium 8.9 12/25/23 12:14 Sodium Potassium Chloride Carbon Dioxide Anion Gap BUN Creatinine Est Cr Clr Drug Dosing Est GFR ( Amer) Est GFR (Non-Af Amer) BUN/Creatinine Ratio Glucose POC Glucose 158 H Calcium PG Care Time/CCT Total # of Minutes Spent Total Time Spent with Patient: Total time spent is greater than 50% in coordination of care (as documented) at patient's floor/unit and/or counseling patient: Coding Level of Care Code 59400 SUB INP/OBS CARE 2/35MIN Diagnoses Cervical stenosis of spine M48.02 Cerebrovascular disease I67.9 Arthritis of knee M17.10 Fall W19.XXXA Diabetes mellitus type 2 with complications, uncontrolled E11.8; E11.65 Hypomagnesemia E83.42 Nausea and vomiting R11.2 Elevated troponin R79.89 Acute UTI N39.0 Pancreatic insufficiency K86.89 Hypothyroidism E03.9 Seizure disorder G40.909
--- NOTE | 2023-12-26 10:13 | Consultation ---
Date of Consultation December 26, 2023 Assessment & Plan (1) Cervical stenosis of spine: Dr. Colon has reviewed imaging. She does have multilevel severe central and foraminal stenosis of the cervical spine. No evidence of myelomalacia or intrinsic cord changes. She has no neck pain or upper extremity symptoms. No evidence of upper motor neuron signs. It is currently not felt that her cervical spine is the source of her falls or weakness. she does have a sustained ankle clonus though. I will therefore pursue MRI of the thoracic spine without contrast for further evaluation of this. She most likely has some neuropathy which could be part of the issue. Hemoglobin A1c this admission is 16 (12/19). Obviously any type of surgical intervention is high risk and only recommended an urgent/emergent basis. History of Present Illness Reason for Consultation: Cervical spinal stenosis Attending Physician: Kalpana Rueda MD History of Present Illness Is a pleasant 83-year-old female who presented to the emergency room on December 18 with a complaint of weakness and recurrent falls. She states she sometimes gets dizzy. But she states the primary reason for her falls are because her knees buckle and give out. She ambulates with a walker at home. She lives with her daughter. Denies any perineum numbness. Denies numbness or paresthesias affecting her lower extremities. She reports several falls at home recently. She denies any neck pain. Denies upper extremity radiculopathy, paresthesia, numbness, weakness. Allergies Allergy/AdvReac Type Severity Reaction Status Date / Time Sulfa (Sulfonamide Allergy Intermediate SICK TO Verified 12/19/23 18:14 Antibiotics) STOMACH sitagliptin AdvReac Intermediate ABD PAIN Verified 12/19/23 18:14 Home Medications Medication Instructions Recorded Confirmed Type acetaminophen 325 mg tablet 650 mg (2 x 325 mg) PO Q4H PRN 01/12/22 12/19/23 Rx mild-moderate pain #30 tabs one touch glucose meter #1 ea 04/08/22 10/20/23 Rx pen needle, diabetic 31 gauge x #60 ea 11/02/22 10/20/23 Rx 3/16" (Unifine Pentips) insulin aspar prot-insulin aspart See Rx Instructions subcut BID #15 02/10/23 12/19/23 Rx 100 unit/mL (70-30) subcutaneous mL pen (Novolog Mix 70-30FlexPen U-100) colestipol 1 gram tablet 1 g PO DAILY PRN Diarrhea #30 tabs 03/13/23 12/19/23 Rx lancets 33 gauge #100 ea 05/08/23 10/20/23 Rx diclofenac sodium 1 % topical gel 4 g EXT QID PRN Pain 06/16/23 12/19/23 History (Voltaren Arthritis Pain) lisinopril 2.5 mg tablet 2.5 mg PO DAILY #30 tabs 08/08/23 12/19/23 Rx phenobarbital 64.8 mg tablet See Rx Instructions .Route 08/08/23 12/19/23 Rx .COMPLEX #90 tabs L.acidop,casei,lactis,rham-B.lact,andrew 2 cap PO DAILY #60 caps 09/11/23 12/19/23 Rx 625 mg (10 billion cell) capsule (Advanced Probiotic) cyanocobalamin (vitamin B-12) 1,000 mcg PO DAILY #30 caps 09/11/23 12/19/23 Rx 1,000 mcg capsule levothyroxine 150 mcg tablet 150 mcg PO DAILYBB #30 tabs 09/11/23 12/19/23 Rx (Synthroid) omeprazole 40 mg capsule,delayed 40 mg PO QAM #30 caps 09/11/23 12/19/23 Rx release simvastatin 20 mg tablet 20 mg PO HS #30 tabs 09/11/23 12/19/23 Rx thiamine HCl (vitamin B1) 250 mg 250 mg PO BID #60 tabs 09/11/23 12/19/23 Rx tablet venlafaxine 75 mg capsule,extended 75 mg PO DAILY #30 caps 09/11/23 12/19/23 Rx release 24 hr aspirin 81 mg tablet,delayed 81 mg PO DAILY #30 tabs 11/07/23 12/19/23 Rx release cholecalciferol (vitamin D3) 50 2,000 unit PO DAILY #30 tabs 11/07/23 12/19/23 Rx mcg (2,000 unit) tablet (Vitamin D3) tobewydv-dts-xscsz acid 0.4 1 tab PO DAILY #30 tabs 11/07/23 12/19/23 Rx mg-lycopene 300 mcg-lutein 250 mcg tablet (Luannry Senior) blood sugar diagnostic #300 ea 12/01/23 Rx cvpawg-igprmelc-vubjker 2 cap PO QID 12/19/23 12/19/23 History 36,000-114,000-180,000 unit capsule,delay rel (Creon) Patient History Medical History Infestation by bed bug Gait abnormality Osteoarthritis GERD (gastroesophageal reflux disease) Balance problems Hypertension Choking episode occurring during daytime Subdural hematoma, chronic Peripheral neuropathy Pancreatic insufficiency Memory impairment Hypothyroidism Hydronephrosis of right kidney Falls frequently Dyslipidemia Diabetes mellitus type 2 with complications, uncontrolled Depression Epilepsy Surgical History History of cholecystectomy History of hysterectomy History of tooth extraction History of nasal surgery VERBALIZED NOSE SURGERY History of craniotomy ? 5 YEARS AGO - [facility] History of cholecystectomy Family History Daughter Family history of diabetes mellitus Colorectal cancer Denies family history of Ovarian cancer Prostate cancer Myocardial infarction Breast cancer Social History Smoking Status: Never smoker Second Hand Exposure: No; Do You Dip or Chew Tobacco: No; Hx Alcohol Use: No Hx Substance Use: No Preferred Language: Algerian Communication Ability: Effective Cook Vacuum Kettle Required: No Beliefs That Will Affect Care: None marital status: / Current Living Situation: Family Current Living Situation Comment: daughter current occupational status: retired How many Children do You have: 7 Feels Safe at Home: Yes Safety Concerns: Feels Safe At This Time Childhood Exposure to Second-Hand Smoke: Yes Diet: regular caffeine: Yes Dental Care, Regularly: No Physical Activity Frequency: Does not Exercise Seatbelt Use: always Sunscreen Use: No Assistive Devices: Walker Review of Systems Review of Systems: All systems reviewed & are unremarkable except as noted in HPI & below Physical Exam Physical Exam: She sitting in a chair no acute distress Cooperative with exam She has full range of motion of the cervical spine. Extension reproduces some dizziness. No pain. 5/5 bilateral finger intrinsics, wrist e xtensors, wrist flexors, biceps, triceps, deltoid No evidence of upper motor neuron signs bilaterally Lower extremity she has sustained ankle clonus on the left, 1-2 Beat ankle clonus on the right. Strength is intact bilateral lower extremities Results & Data Vital Signs (Past 12 Hours) Vital Signs Temp Pulse Pulse Resp BP BP Pulse Ox 12/26/23 07:28 36.3 C L 82 18 111/67 95 12/26/23 07:19 80 12/26/23 04:13 36.3 C L 75 20 151/65 H 94 12/26/23 02:19 12/25/23 23:17 36.7 C 86 20 104/65 95 12/25/23 22:15 84 O2 Del Method 12/26/23 07:28 Room Air 12/26/23 07:19 12/26/23 04:13 Room Air 12/26/23 02:19 Room Air 12/25/23 23:17 Room Air 12/25/23 22:15 Diagnostic Findings [place], [place] [phone] Magnetic Resonance Report Patient: RADHA CAMPBELL Admit Date: 12/19/23 MR#: [id number] Address1: [address] [place] [address] Acct ID:[id number] Address2: Date: 1940 [facility] Zip: [place] [address] Age: 83 Location: 2W Sex: F Room/Bed: [facility] Att Phy: Rock Vance MD Diagnosis: RECURRENT FALLS, LE WEAKNESS, UNCONTROLLED DM Margaret Phy: Kelli Gates CRNP Service Date: 12/25/23 Fam Phy: Interpreting Phy: Sophie Fuentes MDAdmit Phy: Mirtha Lopez DNicholasONicholas Ordering Phy: Vincent Doyle DO cc: ~ Exam(s): MRI C SPINE EXAM: MR Cervical Spine Without Intravenous Contrast CLINICAL HISTORY: Reason for exam: Critical stenosis, eval for myelopathy. TECHNIQUE: Magnetic resonance images of the cervical spine without intravenous contrast in multiple planes. COMPARISON: Comparison made to prior CT scan of the cervical spine from January 06, 2022. 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 There is normal vertebral body height and alignment. The bone marrow signal is heterogeneous with reactive endplate changes. No acute fracture. Spinal cord: There is flattening of the ventral cord at C3-4 and C4-5 with normal cord signal. The craniocervical junction is normal without evidence of Chiari malformation. Soft tissues: The cervical flow voids are intact. DISCS/SPINAL CANAL/NEURAL FORAMINA: C2-C3: There is mild disc degeneration with annular disc bulge flattening the thecal sac. There is mild to moderate facet arthropathy with moderate right and mild left synovitis with mild bone marrow edema and inflammation of the surrounding soft tissues. C3-C4: Advanced disc degeneration with annular disc bulge flattening the ventral cord without evidence for abnormal cord signal and causing a critical spinal canal stenosis with repeat MR measures 6.3 mm. There is uncovertebral joint arthropathy causing a mild right and moderate left stenosis with mild impingement of the left C4 nerve root. There is minimal right and mild left facet arthropathy with mild synovitis. C4-C5: Advanced disc degeneration with annular disc bulge flattening the ventral cord without evidence for abnormal cord signal and a critical spinal canal stenosis with AP diameter measuring 5.8 mm. There is uncovertebral arthropathy with disc extending into the neuroforamina causing a moderate right and moderately severe left stenosis with bilateral C5 nerve roots. There is minimal facet arthropathy of mild synovitis. C5-C6: Advanced disc degeneration with annular disc bulge flattening the ventral thecal side. There is uncovertebral joint arthropathy with disc extends from causing a severe right and mild left stenosis with impingement of the right C6 nerve root. There is minimal facet arthropathy with mild synovitis. C6-C7: Advanced disc degeneration with annular disc bulge flattening the ventral thecal sac. There is uncovertebral joint arthropathy with disc extending to the neuroforamina causing a moderately severe right and mild left stenosis with impingement of the right C7 nerve root. There is minimal facet arthropathy with mild synovitis. C7-T1: The intervertebral disc is normal. There is mild facet arthropathy with mild synovitis. IMPRESSION: 1. Advanced disc degeneration at C3-4, C4-5, C5-6, C6-7 and mild disc degeneration at C2-3 with annular disc bulging flattening the ventral thecal sac and flattening of the lateral cord at C3-4 and C4-5 without evidence of abnormal cord signal. 2. There is a critical spinal canal stenosis at C3-4 and C4-5. 3. There is a mild right and moderate left C3-4, moderate right and moderately severe left C4-5, severe right and mild left C5-6 and moderately severe right and mild left C6-7 neural foraminal stenosis with impingement of the left C4, bilateral C5, right C6 and right C7 nerve roots. 4. There is minimal to moderate facet arthropathy with mild to moderate synovitis. 5. No evidence of fracture, infection, tumor or myelopathy. Electronically signed by: Sophie Fuentes MD 12/25/23 02:27 AM Dictated: 12/25/23226 Transcribed: 12/25/23226
--- NOTE | 2023-12-26 18:42 | Magnetic Resonance Report ---
MR thoracic spine wo con HISTORY: 83 years-old Female ankle clonus, LE weakness chronic mid back pain with prior fall COMPARISON: MRI cervical spine 12/25/2023 TECHNIQUE: Multiplanar multisequence MRI of the thoracic spine was obtained without IV contrast. FINDINGS: Reversal of the normal cervical lordosis with multilevel degenerative changes again seen. Study is mo tion degraded. The imaged intrathoracic and paraspinal structures appear unremarkable. Nonspecific bi lateral perinephric stranding. No acute fracture, subluxation, endplate erosion or marrow replacing p rocess. Normal signal within the thoracic spinal cord. There is mostly mild multilevel intervertebral disc space narrowing and spondylotic spurring with mil [id number] facet arthrosis. Minimal annular disc bulging without significant central canal stenosi s identified. Mild multilevel neural foraminal narrowing. IMPRESSION: 1. No acute fracture, subluxation or bone marrow edema. 2. No high-grade central canal or foraminal narrowing. 3. Normal signal of the thoracic spinal cord. ACT 112: Negative or not required by law. The above report was generated using voice recognition software. It may contain grammatical, syntax o r spelling errors. Electronically signed by: Channing Craig M.D. 12/26/2023 6:40 PM
--- NOTE | 2023-12-26 19:00 | Hospitalist Progress Note ---
Date of Service December 26, 2023 Assessment & Plan (1) Cervical stenosis of spine: Plan: MRI c-spine overnight with severe spinal stenosis at multiple levels -consulted Dr. Colon, discussed with ortho spine - she seems to be asymptomatic from this without neck pain or myelopathy, there are many other potential contributors to her falls (diabetic neuropathy, cerebellar strokes, OA, frailty), and would be very high risk for surgery thus nor recommended -recommended T-spine MRI, reviewed and unremarkable (2) Cerebrovascular disease: Plan: old, b/l cerebellar CVAs seen on MRI brain but no acute/subacute CVAs seen cerebellar CVAs could certainly be contributing to falls cont asa for secondary prevention (3) Arthritis of knee: Plan: cont voltaren gel 4gm qid to either knee arthritis is severe certainly contributes to ambulatory dysfunction/fall risk (4) Fall: Plan: Patient fell off bed morning of 12/18 By report felt dizzy prior to the fall? Orthostatics - mildly orthostatic (20+ point drop) but asymptomatic by report. Was down on ground possibly up to 1.5 hours -- CPK was negative. Also by report has had recurrent falls over the past month Head/cervical spine CT negative for fracture, ICH, etc. MRI brain and MRI c-spine -- see discussion above. PT/OT consulted -- rehab advised Fall precautions in place here B12 level wnl Does have OA of both knees b/l which is likely contributing to fall risk Likely has neuropathy from DM leading to increased fall risk Old cerebellar CVAs and severe c-spine stenosis also heighten fall risk see discussions above in #1, #2 (5) Diabetes mellitus type 2 with complications, uncontrolled: Plan: Last A1c at 13.2% on 10/20/2023 Hba1c this admit 16% Appreciate pharmacy glycemic consult and recs Patient normally takes 100 units of 70/30 daily -BG at goal last 24h (6) Hypomagnesemia: Plan: repleted resolved (7) Nausea and vomiting: Plan: resolved CT a/p unremarkable they did see a hiatal hernia - this could contribute to reflux issues cont PPI bid consider UTI contributing tolerating DM diet (8) Elevated troponin: Plan: peak trop 46.8 likely myocardial demand ischemia in setting of her fall, etc no evidence of ACS (9) Acute UTI: Plan: suspected but urine cx with contaminants stopped rocephin changed to keflex x 5 days then stop all abx day #5 of keflex (10) Pancreatic insufficiency: Plan: cont creon no issues while here (no diarrhea) (11) Hypothyroidism: Plan: TSH 5.5 this admission would not adjust dose - simply repeat as outpatient in 3-4 weeks if still high at that time then titrate synthroid cont synthroid w/o changes (12) Seizure disorder: Plan: cont phenobarbital phenobarbital level 21.7 (ref range 15-40) Plan DVT proph - heparin SC BID extensively updated daughter 12/20, 12/23, 12/24 by phone dispo -[facility] [place] Admission and Anticipated Discharge Date Admission Date: December 19, 2023 Subjective Sitting in chair, denies neck or back pain No SOB cough or CP Physical Exam 2 Physical Exam: PHYSICAL EXAMINATION Last 24h vital signs reviewed, see documentation in flowsheet General: comfortable appearing, no distress, elderly woman sitting in the chair HEENT: Normocephalic, atraumatic, pupils round and equal, sclerae anicteric, no conjunctival injection, moist mucus membranes Lungs: Normal respiratory effort. Clear to auscultation bilaterally. No RRW Heart: Regular rate and rhythm, no murmurs. No JVD Abdomen: Soft, nontender, nondistended. Bowel sounds present. Extremities: Warm, dry, well-perfused. No extremity edema. Neuro: Alert and oriented x person, place, situation, face symmetric, moves 4 extremities well Psych: Normal affect and behavior Results & Data Results & Data Vital Signs (Past 12 Hours) Vital Signs Temp Pulse Pulse Resp BP Pulse Ox O2 Del Method 12/26/23 15:36 92 H 12/26/23 15:14 36.5 C 77 18 107/67 96 Room Air 12/26/23 11:15 36.6 C 90 18 114/72 96 Room Air 12/26/23 07:28 36.3 C L 82 18 111/67 95 Room Air 12/26/23 07:19 80 Laboratory Results 12/20/23 01:45 12/25/23 09:53 Diagnostic Findings Thoracic Spine MRI 12/26/23 10:11 MR thoracic spine wo con HISTORY: 83 years-old Female ankle clonus, LE weakness chronic mid back pain with prior fall COMPARISON: MRI cervical spine 12/25/2023 TECHNIQUE: Multiplanar multisequence MRI of the thoracic spine was obtained without IV contrast. FINDINGS: Reversal of the normal cervical lordosis with multilevel degenerative changes again seen. Study is motion degraded. The imaged intrathoracic and paraspinal structures appear unremarkable. Nonspecific bilateral perinephric stranding. No acute fracture, subluxation, endplate erosion or marrow replacing process. Normal signal within the thoracic spinal cord. There is mostly mild multilevel intervertebral disc space narrowing and spondylotic spurring with [id number] facet arthrosis. Minimal annular disc bulging without significant central canal stenosis identified. Mild multilevel neural foraminal narrowing. IMPRESSION: 1. No acute fracture, subluxation or bone marrow edema. 2. No high-grade central canal or foraminal narrowing. 3. Normal signal of the thoracic spinal cord. ACT 112: Negative or not required by law. The above report was generated using voice recognition software. It may contain grammatical, syntax or spelling errors. Electronically signed by: Channing Craig M.D. 12/26/2023 6:40 PM PG Care Time/CCT Total # of Minutes Spent Total Time Spent with Patient: Total time spent is greater than 50% in coordination of care (as documented) at patient's floor/unit and/or counseling patient: Coding Level of Care Code 28415 SUB INP/OBS CARE 2/35MIN Diagnoses Cervical stenosis of spine M48.02 Cerebrovascular disease I67.9 Arthritis of knee M17.10 Fall W19.XXXA Diabetes mellitus type 2 with complications, uncontrolled E11.8; E11.65 Hypomagnesemia E83.42 Nausea and vomiting R11.2 Elevated troponin R79.89 Acute UTI N39.0 Pancreatic insufficiency K86.89 Hypothyroidism E03.9 Seizure disorder G40.909
[2023-12-26] MEDS: LANTUS PER UNIT CHARGE SC SCH (21:19)
[2023-12-27] MEDS: LANTUS PER UNIT CHARGE SC SCH (08:41)
--- NOTE | 2023-12-27 09:19 | Orthopedic Progress Note ---
Date of Service December 27, 2023 Assessment & Plan (1) Cervical stenosis of spine: Plan: Dr. Colon has reviewed thoracic imaging at this morning. There is no evidence of significant central canal stenosis or cord compression. Again patient is very high risk for any type of surgical intervention. Would not recommend proceeding with surgery regarding cervical spine at this point in time. Again it does not appear that her falls and weakness affecting her lower extremities are related to her cervical stenosis. Will sign off. Admission and Anticipated Discharge Date Admission Date: December 19, 2023 Subjective Patient underwent thoracic MRI yesterday results below. Review of Systems Review of Systems: All systems reviewed & are unremarkable except as noted in HPI & below Results & Data Vital Signs (Past 12 Hours) Vital Signs Temp Pulse Pulse Pulse Resp BP Pulse Ox 12/27/23 08:13 36.5 C 70 16 130/68 95 12/27/23 03:44 36.5 C 72 18 102/77 95 12/27/23 00:19 12/26/23 23:17 36.7 C 71 18 130/65 95 12/26/23 21:51 68 O2 Del Method 12/27/23 08:13 Room Air 12/27/23 03:44 Room Air 12/27/23 00:19 Room Air 12/26/23 23:17 Room Air 12/26/23 21:51 Diagnostic Findings [place] [phone] Magnetic Resonance Report Patient: RADHA CAMPBELL Admit Date: 12/19/23 MR#: [id number] Address1: [address] [place] [address] Acct ID:[id number] Address2: Date: 1940 [facility] Zip: [place] [address] Age: 83 Location: 2W Sex: F Room/Bed: [facility] Att Phy: Kalpana Rueda MD Diagnosis: RECURRENT FALLS, LE WEAKNESS, UNCONTROLLED DM Margaret Phy: Kelli Gates CRNP Service Date: 12/26/23 Fam Phy: Interpreting Phy: Channing Figueroa Phy: Mirtha Lopez D.O. Ordering Phy: Thuy Moore cc: ~ MR thoracic spine wo con HISTORY: 83 years-old Female ankle clonus, LE weakness chronic mid back pain with prior fall COMPARISON: MRI cervical spine 12/25/2023 TECHNIQUE: Multiplanar multisequence MRI of the thoracic spine was obtained without IV contrast. FINDINGS: Reversal of the normal cervical lordosis with multilevel degenerative changes again seen. Study is motion degraded. The imaged intrathoracic and paraspinal structures appear unremarkable. Nonspecific bilateral perinephric stranding. No acute fracture, subluxation, endplate erosion or marrow replacing process. Normal signal within the thoracic spinal cord. There is mostly mild multilevel intervertebral disc space narrowing and spondylotic spurring with [id number] facet arthrosis. Minimal annular disc bulging without significant central canal stenosis identified. Mild multilevel neural foraminal narrowing. IMPRESSION: 1. No acute fracture, subluxation or bone marrow edema. 2. No high-grade central canal or foraminal narrowing. 3. Normal signal of the thoracic spinal cord. ACT 112: Negative or not required by law. The above report was generated using voice recognition software. It may contain grammatical, syntax or spelling errors. Electronically signed by: Channing Craig M.D. 12/26/2023 6:40 PM Dictated: 12/26/231835 Transcribed: 12/26/23 183
[2023-12-27] MEDS: LANTUS PER UNIT CHARGE SC ONE (12:32)
--- NOTE | 2023-12-27 12:49 | Pharmacy Report ---
Pharmacy Glycemic Short Note 2 - Date of Service December 27, 2023 - Glycemic Short BSG Results (Last 24 hours): 12/26/23 12/26/23 12/27/23 16:38 20:17 07:58 POC Glucose 176 H 174 H 64 L* 12/27/23 12/27/23 12/27/23 07:59 08:13 08:32 POC Glucose 63 L* 60 L* 114 H 12/27/23 12:00 POC Glucose 258 H OUTPATIENT ANTIDIABETIC REGIMEN: * Novolin 70/30 mix: 50 units SC AM + 35 units SC PM * HbA1c: 16% (12/20/23) ASSESSMENT: 12/26: * BSGs erratic, 508-611-50-258mg/dL the last 24h. Received 28 units of basal and 15 units of bolus insulin yesterday. * Tolerating diet. Other stressors stable. * Given AM hypoglycemia, will reduce Lantus. AM Lantus dose ordered was held per hospitalist team and 10 units given at lunch. Plan for reduction to 13 units BID starting tonight. No change to Novolog for now. 12/24: * Patient received 45 units of insulin yesterday, 24 units basal + 21 units bolus. BSGs were: 325-332-926-189 mg/dL. * Fasting BSG was 188 mg/dL this AM. Will increase basal by 25% today. * Postprandial BSGs remained above goal all day yesterday. Will tighten both CF/CR to help bring BSG into goal range. 12/23: * Donna received 42 units of insulin yesterday (20 units Lantus + 22 units Novolo g) * BSGs appear to be more stable post transition to Lantus, although majority of BSGs remain above goal. * Will titrate doses conservatively based on previous hypoglycemia and Lantus dose not being at steady state. * Increase Lantus by about 20%. * Tighten carb ratio slightly. 12/22: * Blood sugars remain quite labile, ranging 83-291 mg/dL over past 24 hours * Last episode of hypoglycemia was yesterday morning on lab check * Given continued lability of blood sugars, will trial changing basal from NPH to Lantus today * Prior admission data (albeit from ~2 years ago) would suggest that this may work (ultimately ended up on 13 units BID, which achieved good control). Will be conservative today in light of recent lows. * If blood sugars remain persistently elevated today, consider tightening N ovolog carb ratio tomorrow 12/21: * Donna received 37 units of insulin yesterday, 25 basal + 12 bolus. BSGs were: 19-12-885-44-281-68 mg/dL. * Multiple hypoglycemic episodes yesterday. Per nursing documentation, patient asymptomatic every time. Required 75 g CHO to correct in AM, 30 g CHO to correct at dinner and 15 g CHO to correct at bedtime. * Fasting BSG was 79 mg/dL this AM. Will hold NPH dose this morning. Likely will add reduced NPH dose at some point today. * Novolog loosened last evening. Did tighten CF this AM but no change to CR. Tolerating diet. Continue to monitor BSGs closely. 12/20: * Donna received 49 units of insulin yesterday (40 units NPH + 9 units Novolog)- significantly less than home usage. BSGs fluctuated throughout he day. Of note, patient had hypoglycemia (BSG 44 mg/dL) early this morning. * Will decrease NPH by ~30%. Will give slightly lower dose of NPH in the evening compared to morning to mimic home usage. * Continue current novolog parameters for now. 12/19: * Donna is an 83 YOF admitted status post fall and history of uncontrolled type 2 diabetes mellitus. Pharmacy has been consulted for glycemic management while inpatient. * Fasting BSG thgis AM within goal range, received 12 units of Novolog overnight and 18 units of Lantus. Will switch to NPH to better mimic home insulin mix. Initiated at a weight based stress of 2.5 twice daily with meals * Novolog initiated at a weight based stress of 2, she is ordered a clear liquid diet and does not appear to be eating much per nursing documentation. * Non-compliance with insulin regimen outpatient likely due to A1c increase to 16% today from 13.2% in September. PLAN FOR INPATIENT GLYCEMIC CONTROL: * Basal insulin * Change to Lantus 10 units SC X 1 then 13 units BID * Bolus insulin * NovoLog per scale ACHS or Q6hrs while NPO * Goal Range: Low 120 mg/dL - High 160 mg/dL * Correction Factor: 30 mg/dL/unit * Nutritional / Prandial insulin per carb ratio of 1 unit per 8 grams CHO consumed
--- NOTE | 2023-12-27 13:06 | Discharge Summary ---
Date of Service December 27, 2023 Admission HPI Per Admitting Provider Donna is an 83-year-old female with PMH of T2DM, depression, dyslipidemia, GERD, HTN, hypothyroidism, epilepsy, and memory impairment. Patient presented for increasing weakness, falls, and noncompliance with diabetic medications on 12/18. Patient is a poor historian at baseline, and most of the history is provided by her daughter/POA (Emani) at the bedside. Patient reports that she fell this morning while getting out of bed. She reports that she was dizzy just prior to her fall and that she lost full consciousness and fainted. She does not believe she struck her head. She was down for approximately 1.5 hours before being found by her other daughter, whom she lives with. Patient has had recurrent falls; 2 last week; 1 to the week before that. Patient's daughter at the bedside reports that her blood sugar has been poorly managed at home, and sometimes runs in the 600 range. Patient reports that she took her regular morning medications today, including her insulin. No recent change in medications. No facial droop or slurred speech today when she was found. While she does not have a history of strokes, she does have a history of seizures with the last being several years ago. Patient ambulates with a walker at baseline. She also notes that she has been having epigastric pain, nausea, and vomiting while in the ED. Patient's daughter reports that she has been vomiting a "green liquid". Daughter also notes that she has had some weight loss due to poor eating habits; over the past 6 weeks, she has lost approximately 14 pounds. Patient's daughter is requesting additional home health care if possible, and replacement if medically necessary. Vitals: Patient is hypertensive at 167/96 at time of admission; vitals otherwise stable. ED course: Magnesium sulfate 1 g IV ROS: Patient endorses dizziness with standing, ambulatory dysfunction, epigastric pain, dry heaves, N/V x multiple episodes (green liquid), and weakness/numbness/tingling in legs. Patient denies fever, chills, sweating, GAGNON, cough, CP, pleuritic CP, cough, pain in legs. Principal Diagnosis Recurrent falls and unsteady gait, multifactorial Discharge Exam PHYSICAL EXAMINATION Last 24h vital signs reviewed, see documentation in flowsheet General: sitting up in chair HEENT: Normocephalic, atraumatic, pupils round and equal, sclerae anicteric, no conjunctival injection, moist mucus membranes Lungs: Normal respiratory effort. Clear to auscultation bilaterally. No RRW Heart: Regular rate and rhythm, no murmurs. No JVD Abdomen: Soft, nontender, nondistended. Bowel sounds present. Extremities: Warm, dry, well-perfused. 1-2+ extremity edema ankles/feet. Neuro: Alert and oriented x person, place, situation, face symmetric, moves 4 extremities well Psych: Normal affect and behavior Discharge Data Allergies Allergy/AdvReac Type Severity Reaction Status Date / Time Sulfa (Sulfonamide Allergy Intermediate SICK TO Verified 12/19/23 18:14 Antibiotics) STOMACH sitagliptin AdvReac Intermediate ABD PAIN Verified 12/19/23 18:14 Consultations 12/19/23 17:43 ED Decision to Admit Stat 12/25/23 21:01 Consult Orthopedic Spine Surgery Routine Ordered Studies 12/19/23 15:36 CT abd pelvis IV con only Stat 12/19/23 15:37 CT cervical spine wo con Stat CT head/brain wo con Stat 12/24/23 08:20 MR brain wo con Routine 12/25/23 00:43 MRI Cervical [MR cervical spine wo con] Stat 12/26/23 10:11 MR thoracic spine wo con Routine Diabetes Follow up Diabetes Follow-up Needed for HgbA1c >9% Hospital Course (1) Fall: 83 y/o with poorly controlled DM admitted with recurrent falls Patient fell off bed morning of 12/18 By report felt dizzy prior to the fall? Orthostatics - mildly orthostatic (20+ point drop) but asymptomatic by report. Was down on ground possibly up to 1.5 hours -- CPK was negative. Also by report has had recurrent falls over the past month Head/cervical spine CT negative for fracture, ICH, etc. MRI brain and MRI c/t-spine -- see discussion below. 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 see discussions above in #1, #2 (2) Cervical stenosis of spine: MRI c-spine with severe spinal stenosis at multiple levels -consulted Dr. Colon, discussed with ortho spine - she seems to be asymptomatic from this without neck pain or myelopathy, there are many other potential contributors to her falls (diabetic neuropathy, cerebellar strokes, OA, frai lty), and would be very high risk for surgery thus not recommended -recommended T-spine MRI, reviewed and unremarkable (3) Cerebrovascular disease: old, b/l cerebellar CVAs seen on MRI brain but no acute/subacute CVAs seen cerebellar CVAs could certainly be contributing to falls cont asa, lisinopril, statin for secondary prevention (4) Arthritis of knee: cont voltaren gel 4gm qid to either knee arthritis is severe certainly contributes to ambulatory dysfunction/fall risk (5) Diabetes mellitus type 2 with complications, uncontrolled: Last A1c at 13.2% on 10/20/2023 Hba1c this admit 16% Patient normally takes 100 units of 70/30 daily In hospital better controlled on glargine bid and premeal aspart BG has been labile/brittle with hyper and hypoglycemia, also does not have obvious hypoglycemia symptoms Had AM hypoglycemia on 12/26 while on glargine 13 units bid, thus AM dose was held and decreased to 10 units bid Has been requiring 15-16 units of premeal aspart daily. (6) Hypomagnesemia: repleted resolved (7) Nausea and vomiting: resolved CT a/p unremarkable they did see a hiatal hernia - this could contribute to reflux issues cont PPI bid consider UTI contributing tolerating DM diet (8) Elevated troponin: peak trop 46.8 likely myocardial demand ischemia in setting of her fall, etc no evidence of ACS (9) Acute UTI: suspected but urine cx with contaminants completed course of antibiotics with ceftriaxone/keflex while in hospital (10) Pancreatic insufficiency: cont creon no issues while here (no diarrhea) (11) Hypothyroidism: TSH 5.5 this admission would not adjust dose - simply repeat as outpatient in 3-4 weeks if still high at that time then titrate synthroid cont synthroid w/o changes (12) Seizure disorder: cont phenobarbital phenobarbital level 21.7 (ref range 15-40) Total Time Total Time Spent Total Time Spent (In Minutes): 40 minutes spent coordinating care for discharge - writing orders, discussion with RN and care coord, examining and counseling patient, discharge orders, documentation Discharge Plan Discharge Items Patient Disposition: Transfer Alf Fac Reason For Visit: RECURRENT FALLS, LE WEAKNESS, UNCONTROLLED DM Discharge Diagnosis: Falls, gait unsteadiness - multifactorial, uncontrolled diabetes Activity: Resume your previous activity Non-emergency contact: Primary Care Provider Call non-emergency contact if: you have any medication questions and your symptoms worsen Follow-up/Referrals: Kelli Gates CRNP [Primary Care Provider] - Diet: Carb Consistent or DM2 Addtl Attending Provider Instructions: PT and OT evaluate and treat Diabetic diet Blood Glucose checks QAC and QHS Premeal aspart insulin: (has been getting 15-16 units a day) --Goal BSG Range: Low 120 mg/dL, High 160 mg/dL --Correction Factor: 30 mg/dL/unit --Carbohydrate ratio = 8 g/unit --BSGs ACHS if eating, q6h if npo Hypoglycemia protocol Full Weightbearing B1 (thiamine) level still pending Pending Studies at Discharge: Yes Stand-Alone Forms: My [facility] Skilled Items Patient informed of condition?: Yes DNR: Yes Discharge Level of Care: Skilled Communicable Disease: No Discharge Prognosis: Improving Lines: None Urinary Catheter: No Medications and DC Order Prescriptions: New phenobarbital 30 mg Tablet 60 mg PO QAM Qty: 0 0RF phenobarbital 30 mg Tablet 120 mg PO QPM Qty: 0 0RF insulin glargine 100 unit/mL solution 10 unit subcut BID Qty: 10 0RF acetaminophen 325 mg Tablet 650 mg PO Q4H PRNQty: 0 0RF Continued (DME) pen needle, diabetic [Unifine Pentips] 31 gauge x 3/16" needle See Dose Instructions .ROUTE .MEDSUPPLY Qty: 60 11RF Rx Instructions: USE 2 DAILY colestipol 1 gram tablet 1 g PO DAILY PRN (Reason: Diarrhea) Qty: 30 5RF Rx Instructions: TAKE 1 TABLET BY MOUTH DAILY NEEDED FOR BREAKTHROUGH DIARRHA. (DME) lancets 33 gauge misc See Dose Instructions .ROUTE .MEDSUPPLY Qty: 100 5RF Dose Instruction: As directed Rx Instructions: test twice a day Dx:E11.9 lisinopril 2.5 mg tablet 2.5 mg PO DAILY Qty: 30 11RF Rx Instructions: bubble pack levothyroxine [Synthroid] 150 mcg tablet 150 mcg PO DAILYBB Qty: 30 11RF Rx Instructions: bubble pack simvastatin 20 mg tablet 20 mg PO HS Qty: 30 11RF Rx Instructions: bubble pack thiamine HCl (vitamin B1) 250 mg tablet 250 mg PO BID Qty: 60 11RF Rx Instructions: bubble pack venlafaxine 75 mg capsule,extended release 24hr 75 mg PO DAILY Qty: 30 11RF Rx Instructions: bubble pack Advanced Probiotic 625 mg (10 billion cell) capsule 2 cap PO DAILY Qty: 60 11RF Rx Instructions: bubble pack cyanocobalamin (vitamin B-12) 1,000 mcg capsule 1,000 mcg PO DAILY Qty: 30 11RF Rx Instructions: bubble pack aspirin 81 mg tablet,delayed release (DR/EC) 81 mg PO DAILY Qty: 30 11RF Rx Instructions: bubble pack cholecalciferol (vitamin D3) [Vitamin D3] 50 mcg (2,000 unit) tablet 2,000 unit PO DAILY Qty: 30 11RF Rx Instructions: bubble pack Sentry Senior 0.4 mg-300 mcg- 250 mcg tablet 1 tab PO DAILY Qty: 30 11RF (DME) blood sugar diagnostic Strip See Rx Instructions .ROUTE .MEDSUPPLY Qty: 300 5RF Rx Instructions: TEST BLOOD SUGAR 3 TIMES DAILY DX:E11.9 diclofenac sodium [Voltaren Arthritis Pain] 1 % gel 4 g EXT QID PRN (Reason: Pain) Rx Instructions: Apply to hip at site of pain (DME) one touch glucose meter See Rx Instructions .Route .MEDSUPPLY Qty: 1 0RF Rx Instructions: test 3-4 times a day Creon 36,000-114,000- 180,000 unit capsule,delayed release(DR/EC) 2 cap PO QID Rx Instructions: TAKE 2 CAPSULES BY MOUTH BEFORE MEALS AND SNACKS bubble pack Changed omeprazole 40 mg capsule,delayed release(DR/EC) 40 mg PO BID Qty: 30 11RF Rx Instructions: TAKE 1 CAPSULE BY MOUTH DAILY.bubble pack Discontinued insulin asp prt-insulin aspart [Novolog Mix 70-30FlexPen U-100] 100 unit/mL (70-30) insulin pen See Rx Instructions subcut BID Qty: 15 11RF Rx Instructions: 50units in the morning and 15units in the evening phenobarbital 64.8 mg tablet See Rx Instructions .ROUTE .COMPLEX Qty: 90 5RF Rx Instructions: Take 64.8mg in the morning and 129.6mg by mouth in the evening acetaminophen 325 mg Tablet 650 mg PO Q4H PRN (Reason: mild-moderate pain) Qty: 30 0RF Discharge Orders: Discharge Order (Routine); Ordered 12/27/23 Ordered By: Kalpana Rueda Admission Data Admit Date/Time: 12/19/23 20:37 Attending Provider: Kalpana Rueda Admit Provider: Mirtha Lopez Primary Care Provider: Kelli Gates. Other Providers: Rock Marrero; [place]; Srinivas Colon Coding Level of Care Code 16572 INP/OBS DISCH >30 MIN Diagnoses Fall W19.XXXA Cervical stenosis of spine M48.02 Cerebrovascular disease I67.9 Arthritis of knee M17.10 Diabetes mellitus type 2 with complications, uncontrolled E11.8; E11.65 Hypomagnesemia E83.42 Nausea and vomiting R11.2 Elevated troponin R79.89 Acute UTI N39.0 Pancreatic insufficiency K86.89 Hypothyroidism E03.9 Seizure disorder G40.909
--- NOTE | 2023-12-27 15:25 | Communication Note ---
Date of Service: December 27, 2023 I updated her daughter Emani by phone today.
[2023-12-27] MEDS ORDERED: LANTUS PER UNIT CHARGE SC SCH (21:00)
== END 2023-12-27 15:55 | DRG 74 ==
LOC: ED 13:58 → EDINP 20:37 → SUATTDRO 20:37 → 2W 23:34
DX: N39.0 Urinary tract infection, site not specified; Z79.890 Hormone replacement therapy; E03.9 Hypothyroidism, unspecified; R54 Age-related physical debility; Z83.3 Family history of diabetes mellitus; K21.9 Gastro-esophageal reflux disease without esophagitis; K86.89 Other specified diseases of pancreas; I10 Essential (primary) hypertension; Z91.148 Patient's other noncompliance with medication regimen for other reason; E11.42 Type 2 diabetes mellitus with diabetic polyneuropathy; E11.649 Type 2 diabetes mellitus with hypoglycemia without coma; Z86.73 Personal history of transient ischemic attack (TIA), and cerebral infarction without residual deficits; G40.909 Epilepsy, unspecified, not intractable, without status epilepticus; K44.9 Diaphragmatic hernia without obstruction or gangrene; Z79.4 Long term (current) use of insulin; I24.89 Other forms of acute ischemic heart disease; Z79.82 Long term (current) use of aspirin; Z66 Do not resuscitate; Z88.2 Allergy status to sulfonamides; E11.65 Type 2 diabetes mellitus with hyperglycemia; M17.0 Bilateral primary osteoarthritis of knee; R29.6 Repeated falls; R63.4 Abnormal weight loss; M48.02 Spinal stenosis, cervical region; R79.89 Other specified abnormal findings of blood chemistry; E83.42 Hypomagnesemia

== ENCOUNTER 2024-02-23 13:48 | Inpatient (IN) ==
--- NOTE | 2024-02-23 14:44 | Emergency Department Note ---
Impression & Plan Hypoglycemia, Infestation by bed bug, Vomiting ED Provider Note CHIEF COMPLAINT: Weakness, vomiting HISTORY OF PRESENT ILLNESS: This 83-year-old female with past medical history of insulin-dependent diabetes, UTI, patient cervical stenosis, cerebrovascular disease, history of subdural hematoma, hypertension, GERD, dyslipidemia, for medication compliance presents to the emergency department by EMS after the home health nurse called. The patient was apparently vomiting for approximately 20 minutes. The home health nurse checked her blood sugar and it was noted to be in the 30s. She was given oral glucose with improvement to the 50s. Upon arrival to the emergency department, the patient is noted to be contaminated with bedbugs. She denies many complaints, just stating that she is cold. Patient is a poor historian. REVIEW OF SYSTEMS: Unable to obtain a full review of systems secondary to the patient's altered mentation ALLERGIES: see below MEDICATIONS: see below PMH: see below SOCIAL HISTORY: see below DDx: Dehydration, metabolic abnormality, medication overdose, infectious etiology such as UTI or pneumonia, viral etiology, among others. PHYSICAL EXAM: Vital signs reviewed. General: Chronically ill-appearing, deconditioned 83-year-old female, in no significant distress. HEENT: No scleral icterus, PERRLA, neck supple. Atraumatic. Cardiovascular: Regular rate and rhythm, no extra sounds. Pulmonary: Clear to auscultation bilaterally, normal work of breathing. Abdomen: Soft, nontender, nondistended, positive bowel sounds. Musculoskeletal: Atraumatic, no peripheral edema. Neurologic: Patient awake alert and oriented x 3, speech is clear Skin: Warm, dry, no rash EMERGENCY DEPARTMENT COURSE/MDM: This patient was evaluated and appeared to be in no significant distress. IV access was obtained and laboratory work was drawn. The patient is noted to be contaminated with bedbugs. She was taken to the [facility] room by nursing staff. Patient's blood sugar seemed to initially respond to oral glucose however it did drop once again. Patient remained with a glucose in the mid 60s therefore IV D10 half-normal saline at 100 cc/h was initiated. Patient's laboratory work is fairly reassuring, UA is negative. Patient is noted to have a magnesium of 1.6, 2 g of IV magnesium was ordered. She did receive IV Zofran for her nausea. Patient's case was discussed with the hospitalist service who will evaluate the patient for admission and further management. MONITORING: An order for cardiac monitoring was placed and the patient is noted to be in a NSR at 95 beats per minute. RADIOLOGY: Chest x-ray to my interpretation is negative for acute process. Otherwise defer to radiology's over read. EKG: Normal sinus rhythm at 80 bpm with a left axis deviation, incomplete right bundle branch block. Normal ST segments, no PVC, no PAC. QTc of 461. DISPOSITION: Admission Past Med/Surg History Problem List (Updated 02/23/24 @ 23:06 by Lizzette Andujar MD) Vomiting (Acute) Hypoglycemia (Acute) Lactate blood increased Infestation by bed bug (Acute) At high risk for falls Cervical stenosis of spine Cerebrovascular disease Arthritis of knee UTI (urinary tract infection), uncomplicated Weight loss Vitamin B1 deficiency Weakness (Acute) Poor hygiene (Acute) Physical deconditioning Vitamin B12 deficiency Left hip pain History of subdural hematoma Peripheral neuropathy (Chronic) Pancreatic insufficiency (Chronic) Memory impairment (Chronic) Hypothyroidism (Chronic) Hypertension Gait abnormality GERD (gastroesophageal reflux disease) Epilepsy (Chronic) Falls frequently (Chronic) Dyslipidemia (Chronic) Diabetes mellitus type 2 with complications, uncontrolled (Chronic) Depression (Chronic) Poor compliance with medication Vitamin D deficiency disease (Chronic) Peripheral edema (Chronic) High risk medication use (Chronic) Medical History Infestation by bed bug Osteoarthritis Balance problems Choking episode occurring during daytime Subdural hematoma, chronic Hydronephrosis of right kidney Surgical History History of cholecystectomy History of hysterectomy History of tooth extraction History of nasal surgery History of craniotomy History of cholecystectomy Family History Daughter Family history of diabetes mellitus Colorectal cancer Denies family history of Ovarian cancer Prostate cancer Myocardial infarction Breast cancer Social History Smoking Status: Never smoker Second Hand Exposure: No; Do You Dip or Chew Tobacco: No; Hx Alcohol Use: No Hx Substance Use: No Preferred Language: Latvian Communication Ability: Effective Hearing Ability: Hard of Hearing Side Panel Padder Required: No Beliefs That Will Affect Care: None marital status: / Current Living Situation: Family Current Living Situation Comment: daughter current occupational status: retired How many Children do You have: 7 Feels Safe at Home: Yes Childhood Exposure to Second-Hand Smoke: Yes Diet: regular caffeine: Yes Dental Care, Regularly: No Physical Activity Frequency: Does not Exercise Seatbelt Use: always Sunscreen Use: No Assistive Devices: Walker Allergies Allergies Allergy/AdvReac Type Severity Reaction Status Date / Time Sulfa (Sulfonamide Allergy Intermediate SICK TO Verified 02/23/24 16:59 Antibiotics) STOMACH sitagliptin AdvReac Intermediate ABD PAIN Verified 02/23/24 16:59 Home Meds Home Medications Medication Instructions Recorded Confirmed diclofenac sodium 1 % topical gel 4 g EXT QID PRN Pain 06/16/23 02/23/24 (Voltaren Arthritis Pain) oukewn-pfdnpykd-iyhpybo 2 cap PO QID 12/19/23 02/23/24 36,000-114,000-180,000 unit capsule,delay rel (Creon) acetaminophen 325 mg tablet 650 mg PO Q4H PRN Pain 02/23/24 02/23/24 Previous Rx's Medication Instructions Recorded one touch glucose meter #1 ea 04/08/22 pen needle, diabetic 31 gauge x #60 ea 11/02/22 3/16" (Unifine Pentips) colestipol 1 gram tablet 1 g PO DAILY PRN Diarrhea #30 tabs 03/13/23 lisinopril 2.5 mg tablet 2.5 mg PO DAILY #30 tabs 08/08/23 L.acidop,casei,lactis,rham-B.lact,andrew 2 cap PO DAILY #60 caps 09/11/23 625 mg (10 billion cell) capsule (Advanced Probiotic) cyanocobalamin (vitamin B-12) 1,000 mcg PO DAILY #30 caps 09/11/23 1,000 mcg capsule levothyroxine 150 mcg tablet 150 mcg PO DAILYBB #30 tabs 09/11/23 (Synthroid) simvastatin 20 mg tablet 20 mg PO HS #30 tabs 09/11/23 thiamine HCl (vitamin B1) 250 mg 250 mg PO BID #60 tabs 09/11/23 tablet venlafaxine 75 mg capsule,extended 75 mg PO DAILY #30 caps 09/11/23 release 24 hr aspirin 81 mg tablet,delayed 81 mg PO DAILY #30 tabs 11/07/23 release cholecalciferol (vitamin D3) 50 2,000 unit PO DAILY #30 tabs 11/07/23 mcg (2,000 unit) tablet (Vitamin D3) ygugqttx-bmi-bxudn acid 0.4 1 tab PO DAILY #30 tabs 11/07/23 mg-lycopene 300 mcg-lutein 250 mcg tablet (Sentry Senior) blood sugar diagnostic #300 ea 12/01/23 omeprazole 40 mg capsule,delayed 40 mg PO BID #30 caps 12/27/23 release blood-glucose meter,continuous #1 ea 01/15/24 (FreeStyle Paige 3 [place]) blood-glucose sensor (FreeStyle #1 ea 01/15/24 Paige 3 Sensor device) insulin aspar prot-insulin aspart See Rx Instructions subcut BID #15 01/15/24 100 unit/mL (70-30) subcutaneous mL pen (Novolog Mix 70-30FlexPen U-100) lancets 30 gauge (OneTouch #100 ea 01/25/24 UltraSoft 2 Lancet) phenobarbital 60 mg tablet 60 mg PO .COMPLEX #90 tabs 01/25/24 Results & Data (ED) Vital Signs Vital Signs - 24 hr 02/23/24 14:25 02/23/24 14:25 02/23/24 15:51 Temperature 36.9 C 36.9 C Temperature Source Oral Oral Pulse Rate 95 H 92 H Pulse Rate [Apical] 95 H Pulse Rate from SpO2 Sensor Respiratory Rate 18 17 Respiratory Effort / Characteristics Non-Labored Spontaneous Non-Labored Spontaneous Respiratory Depth Normal Normal Blood Pressure 146/66 H Blood Pressure [Right Arm] 144/66 H Blood Pressure Mean 92 Blood Pressure Mean [Right Arm] 92 Blood Pressure Position Semi-fowlers Pulse Oximetry 97 96 Oxygen Delivery Method Room Air Room Air Sepsis Recent Fever Within 48 Hours No Sepsis New/Unexplained Change in Mental Status N/A Sepsis Action Taken by Nursing No Action Required 02/23/24 15:54 02/23/24 16:12 02/23/24 16:27 Temperature Temperature Source Pulse Rate 96 H 112 H 96 H Pulse Rate [Apical] Pulse Rate from SpO2 Sensor 94 H 112 H 96 H Respiratory Rate 18 21 18 Respiratory Effort / Characteristics Respiratory Depth Blood Pressure Blood Pressure [Right Arm] Blood Pressure Mean Blood Pressure Mean [Right Arm] Blood Pressure Position Pulse Oximetry 96 96 97 Oxygen Delivery Method Sepsis Recent Fever Within 48 Hours Sepsis New/Unexplained Change in Mental Status Sepsis Action Taken by Nursing 02/23/24 16:30 02/23/24 17:06 02/23/24 17:21 Temperature Temperature Source Pulse Rate 86 80 Pulse Rate [Apical] Pulse Rate from SpO2 Sensor 87 79 Respiratory Rate 18 14 Respiratory Effort / Characteristics Respiratory Depth Blood Pressure 151/79 H Blood Pressure [Right Arm] Blood Pressure Mean 111 Blood Pressure Mean [Right Arm] Blood Pressure Position Pulse Oximetry 96 96 Oxygen Delivery Method Sepsis Recent Fever Within 48 Hours Sepsis New/Unexplained Change in Mental Status Sepsis Action Taken by Nursing 02/23/24 17:30 02/23/24 17:33 02/23/24 17:39 Temperature Temperature Source Pulse Rate 85 Pulse Rate [Apical] 83 Pulse Rate from SpO2 Sensor 83 Respiratory Rate 18 16 Respiratory Effort / Characteristics Non-Labored Respiratory Depth Normal Blood Pressure 129/75 Blood Pressure [Right Arm] 129/75 Blood Pressure Mean 100 Blood Pressure Mean [Right Arm] 93 Blood Pressure Position Pulse Oximetry 97 95 Oxygen Delivery Method Room Air Sepsis Recent Fever Within 48 Hours Sepsis New/Unexplained Change in Mental Status Sepsis Action Taken by Nursing 02/23/24 18:00 Temperature Temperature Source Pulse Rate 78 Pulse Rate [Apical] Pulse Rate from SpO2 Sensor 76 Respiratory Rate 15 Respiratory Effort / Characteristics Respiratory Depth Blood Pressure Blood Pressure [Right Arm] Blood Pressure Mean Blood Pressure Mean [Right Arm] Blood Pressure Position Pulse Oximetry 93 Oxygen Delivery Method Sepsis Recent Fever Within 48 Hours Sepsis New/Unexplained Change in Mental Status Sepsis Action Taken by Custodial Medications Current Medication List: was personally reviewed by me Laboratory Data Attestation: I reviewed the patient's lab results. 02/23/24 15:55 02/23/24 15:55 Lab Results 02/23/24 02/23/24 02/23/24 Range/Units 14:05 14:20 14:55 WBC Cancelled RBC Cancelled Hgb Cancelled Hct Cancelled MCV Cancelled MCH Cancelled MCHC Cancelled RDW Std Deviation Cancelled RDW Coeff of Mauro Cancelled Plt Count Cancelled MPV Cancelled Immature Gran % (Auto) Cancelled Neut % (Auto) Cancelled Lymph % (Auto) Cancelled [place] % (Auto) Cancelled Eos % (Auto) Cancelled Baso % (Auto) Cancelled Neut # (Auto) Cancelled Lymph # (Auto) Cancelled [place] # (Auto) Cancelled Eos # (Auto) Cancelled Baso # (Auto) Cancelled Immature Gran # (Auto) Cancelled Absolute Nucleated RBC Cancelled Nucleated RBC % (auto) Cancelled Neutrophils % (Manual) Cancelled Band Neutrophils % Cancelled Lymphocytes % (Manual) Cancelled Prolymphocyte % Cancelled Reactive Lymphs % (Man) Cancelled Monocytes % (Manual) Cancelled Eosinophils % (Manual) Cancelled Basophils % (Manual) Cancelled Metamyelocytes % (Man) Cancelled Myelocytes % (Man) Cancelled Promyelocytes % (Man) Cancelled Blast Cells % (Manual) Cancelled Plasma Cell % (Manual) Cancelled Other Cells % Cancelled Nucleated RBC % Cancelled Neutrophils # (Manual) Cancelled Band Neutrophils # Cancelled Total Absolute Neuts Cancelled Lymphocytes # (Manual) Cancelled Prolymphocyte # Cancelled Reactive Lymphs # Cancelled Total Abs Lymphocytes Cancelled Monocytes # (Manual) Cancelled Eosinophils # (Manual) Cancelled Basophils # (Manual) Cancelled Metamyelocytes # (Man) Cancelled Myelocytes # (Manual) Cancelled Promyelocytes # (Man) Cancelled Blast Cells # (Man) Cancelled Plasma Cell # (Manual) Cancelled Other Cells # Cancelled Nucleated RBCs # (Man) Cancelled Hypersegmented Neuts Cancelled Hyposegmented Neuts Cancelled Hypogranular Neuts Cancelled Large Granular Lymphs Cancelled # Lrg Granular Lymphs Cancelled Hairy Cells Cancelled Smudge Cells Cancelled Toxic Granulation Cancelled Toxic Vacuolation Cancelled Dohle Bodies Cancelled Joey Rods Cancelled Platelet Estimate Cancelled Hypogranular Platelets Cancelled Giant Platelets Cancelled Platelet Satelliting Cancelled RBC Morphology Cancelled Polychromasia Cancelled Hypochromasia Cancelled Poikilocytosis Cancelled Basophilic Stippling Cancelled Anisocytosis Cancelled Microcytosis Cancelled Macrocytosis Cancelled Spherocytes Cancelled Pappenheimer Bodies Cancelled Sickle Cells Cancelled Target Cells Cancelled Tear Drop Cells Cancelled Ovalocytes Cancelled Stomatocytes Cancelled Solomon-Lookout Bodies Cancelled Echinocytes Cancelled Acanthocytes (Spur) Cancelled Rouleaux Cancelled RBC Agglutinates Cancelled Schistocytes Cancelled Sezary Cell Cancelled PT Cancelled INR Cancelled Sodium TNP Potassium TNP Chloride 103 (98-107) mmol/L Carbon Dioxide 31 (21-32) mmol/L Anion Gap TNP BUN 26 H (6-23) mg/dl Creatinine 0.84 (0.6-1.2) mg/dl Est Cr Clr Drug Dosing 45.7 ml/min Est GFR ( Amer) 75.0 ml/min Est GFR (Non-Af Amer) 64.7 ml/min BUN/Creatinine Ratio 31.0 H (10-20) Glucose 33 L* (70-99(Fasting)) mg/dl POC Glucose 39 L* 66 L* (70-99) mg/dl Lactate (0.4-2.0) mmol/L Calcium 9.5 (8.6-10.3) mg/dl Magnesium TNP Total Bilirubin 0.2 (0.2-1.0) mg/dl AST TNP ALT 20 (7-52) U/L Alkaline Phosphatase TNP Troponin I High Sens 9.2 (0-14) pg/ml Total Protein 7.5 (6.0-8.3) gm/dl Albumin TNP Globulin TNP Albumin/Globulin Ratio TNP Lipase (11-82) U/L TSH 6.632 H (0.300-4.500) uIu/ml Free T4 0.97 (0.61-1.60) ng/dl Blood Parasites ID Cancelled 02/23/24 02/23/24 02/23/24 Range/Units 15:54 15:55 16:15 WBC 9.14 RBC 4.45 Hgb 13.6 Hct 40.8 MCV 91.7 MCH 30.6 MCHC 33.3 RDW Std Deviation 42.5 RDW Coeff of Mauro 12.7 Plt Count 154 MPV 11.6 Immature Gran % (Auto) 0.2 Neut % (Auto) 84.5 Lymph % (Auto) 8.8 [place] % (Auto) 5.0 Eos % (Auto) 0.8 Baso % (Auto) 0.7 Neut # (Auto) 7.73 H Lymph # (Auto) 0.80 L [place] # (Auto) 0.46 Eos # (Auto) 0.07 Baso # (Auto) 0.06 Immature Gran # (Auto) 0.02 Absolute Nucleated RBC Nucleated RBC % (auto) Neutrophils % (Manual) Band Neutrophils % Lymphocytes % (Manual) Prolymphocyte % Reactive Lymphs % (Man) Monocytes % (Manual) Eosinophils % (Manual) Basophils % (Manual) Metamyelocytes % (Man) Myelocytes % (Man) Promyelocytes % (Man) Blast Cells % (Manual) Plasma Cell % (Manual) Other Cells % Nucleated RBC % Neutrophils # (Manual) Band Neutrophils # Total Absolute Neuts Lymphocytes # (Manual) Prolymphocyte # Reactive Lymphs # Total Abs Lymphocytes Monocytes # (Manual) Eosinophils # (Manual) Basophils # (Manual) Metamyelocytes # (Man) Myelocytes # (Manual) Promyelocytes # (Man) Blast Cells # (Man) Plasma Cell # (Manual) Other Cells # Nucleated RBCs # (Man) Hypersegmented Neuts Hyposegmented Neuts Hypogranular Neuts Large Granular Lymphs # Lrg Granular Lymphs Hairy Cells Smudge Cells Toxic Granulation Toxic Vacuolation Dohle Bodies Joey Rods Platelet Estimate Hypogranular Platelets Giant Platelets Platelet Satelliting RBC Morphology Polychromasia Hypochromasia Poikilocytosis Basophilic Stippling Anisocytosis Microcytosis Macrocytosis Spherocytes Pappenheimer Bodies Sickle Cells Target Cells Tear Drop Cells Ovalocytes Stomatocytes Solomon-Lookout Bodies Echinocytes Acanthocytes (Spur) Rouleaux RBC Agglutinates Schistocytes Sezary Cell PT 10.9 INR 1.0 Sodium 139 Potassium 4.0 Chloride (98-107) mmol/L Carbon Dioxide (21-32) mmol/L Anion Gap BUN (6-23) mg/dl Creatinine (0.6-1.2) mg/dl Est Cr Clr Drug Dosing ml/min Est GFR ( Amer) ml/min Est GFR (Non-Af Amer) ml/min BUN/Creatinine Ratio (10-20) Glucose (70-99(Fasting)) mg/dl POC Glucose 62 L* 68 L* (70-99) mg/dl Lactate 2.3 H* (0.4-2.0) mmol/L Calcium (8.6-10.3) mg/dl Magnesium 1.6 L Total Bilirubin (0.2-1.0) mg/dl AST 18 ALT (7-52) U/L Alkaline Phosphatase 109 H Troponin I High Sens (0-14) pg/ml Total Protein (6.0-8.3) gm/dl Albumin 4.5 Globulin Albumin/Globulin Ratio Lipase 42 (11-82) U/L TSH (0.300-4.500) uIu/ml Free T4 (0.61-1.60) ng/dl Blood Parasites ID 02/23/24 Range/Units 18:05 WBC RBC Hgb Hct MCV MCH MCHC RDW Std Deviation RDW Coeff of Mauro Plt Count MPV Immature Gran % (Auto) Neut % (Auto) Lymph % (Auto) [place] % (Auto) Eos % (Auto) Baso % (Auto) Neut # (Auto) Lymph # (Auto) [place] # (Auto) Eos # (Auto) Baso # (Auto) Immature Gran # (Auto) Absolute Nucleated RBC Nucleated RBC % (auto) Neutrophils % (Manual) Band Neutrophils % Lymphocytes % (Manual) Prolymphocyte % Reactive Lymphs % (Man) Monocytes % (Manual) Eosinophils % (Manual) Basophils % (Manual) Metamyelocytes % (Man) Myelocytes % (Man) Promyelocytes % (Man) Blast Cells % (Manual) Plasma Cell % (Manual) Other Cells % Nucleated RBC % Neutrophils # (Manual) Band Neutrophils # Total Absolute Neuts Lymphocytes # (Manual) Prolymphocyte # Reactive Lymphs # Total Abs Lymphocytes Monocytes # (Manual) Eosinophils # (Manual) Basophils # (Manual) Metamyelocytes # (Man) Myelocytes # (Manual) Promyelocytes # (Man) Blast Cells # (Man) Plasma Cell # (Manual) Other Cells # Nucleated RBCs # (Man) Hypersegmented Neuts Hyposegmented Neuts Hypogranular Neuts Large Granular Lymphs # Lrg Granular Lymphs Hairy Cells Smudge Cells Toxic Granulation Toxic Vacuolation Dohle Bodies Joey Rods Platelet Estimate Hypogranular Platelets Giant Platelets Platelet Satelliting RBC Morphology Polychromasia Hypochromasia Poikilocytosis Basophilic Stippling Anisocytosis Microcytosis Macrocytosis Spherocytes Pappenheimer Bodies Sickle Cells Target Cells Tear Drop Cells Ovalocytes Stomatocytes Solomon-Lookout Bodies Echinocytes Acanthocytes (Spur) Rouleaux RBC Agglutinates Schistocytes Sezary Cell PT INR Sodium Potassium Chloride (98-107) mmol/L Carbon Dioxide (21-32) mmol/L Anion Gap BUN (6-23) mg/dl Creatinine (0.6-1.2) mg/dl Est Cr Clr Drug Dosing ml/min Est GFR ( Amer) ml/min Est GFR (Non-Af Amer) ml/min BUN/Creatinine Ratio (10-20) Glucose (70-99(Fasting)) mg/dl POC Glucose (70-99) mg/dl Lactate 1.4 (0.4-2.0) mmol/L Calcium (8.6-10.3) mg/dl Magnesium Total Bilirubin (0.2-1.0) mg/dl AST ALT (7-52) U/L Alkaline Phosphatase Troponin I High Sens (0-14) pg/ml Total Protein (6.0-8.3) gm/dl Albumin Globulin Albumin/Globulin Ratio Lipase (11-82) U/L TSH (0.300-4.500) uIu/ml Free T4 (0.61-1.60) ng/dl Blood Parasites ID Administered Medications Lipase/Protease/Amylase (Pancreaze (Lipase 10,500u) Cap) 2 cap PO QID [facility]A Stop: 03/24/24 20:59 Last Admin: 02/23/24 22:32 Dose: 2 cap Documented By: ABDON Sodium Chloride (Nss) 1,000 mls @ 100 mls/hr IV .Q10H [facility] Stop: 02/23/24 23:06 Last Admin: 02/23/24 18:23 Dose: Not Given Documented By: ABDON Sodium Chloride 77 meq/ (Dextrose) 1,030.8 mls @ 70 mls/hr IV .[id number] [facility] Stop: 03/24/24 16:29 Last Admin: 02/23/24 17:05 Dose: 80 mls/hr Documented By: ABDON Insulin Aspart (Insulin Aspart Per Unit Charge) 0 units SC ACHS [facility] Stop: 03/24/24 20:59 Last Admin: 02/23/24 21:46 Dose: Not Given Documented By: ABDON Co-signed By: Pantoprazole Sodium (Pantoprazole 40 Mg Tab) 40 mg PO BID [facility]A Stop: 03/24/24 21:14 Last Admin: 02/23/24 22:33 Dose: 40 mg Documented By: ABDON Phenobarbital (Phenobarbital 30 Mg Tab) 120 mg PO HS [facility] Stop: 03/24/24 21:14 Last Admin: 02/23/24 22:34 Dose: 120 mg Documented By: ABDON Simvastatin (Simvastatin 20 Mg Tab) 20 mg PO [facility] Stop: 03/24/24 20:59 Last Admin: 02/23/24 22:33 Dose: 20 mg Documented By: ABDON Thiamine HCl (Thiamine Hcl 50 Mg Tablet) 250 mg PO BID [facility]A Stop: 03/24/24 20:59 Last Admin: 02/23/24 22:33 Dose: 250 mg Documented By: ABDON Discontinued Medications Dextrose (Dextrose 50% 50 Ml Syringe) 50 ml IV NOW ONE Stop: 02/23/24 14:12 Last Admin: 02/23/24 14:58 Dose: 50 ml Documented By: CAROLA Magnesium Sulfate/Dextrose (Magnesium Sulfate / D5w) 1 gm in 100 mls @ 200 mls/hr IV Q30M [facility] Stop: 02/23/24 18:09 Last Infusion: 02/23/24 18:51 Dose: Infused Documented By: Admin: 02/23/24 18:21 Dose: 200 mls/hr Documented By: Infusion: 02/23/24 18:10 Dose: Infused Documented By: Admin: 02/23/24 17:40 Dose: 200 mls/hr Documented By: HAROLDO Magnesium Sulfate/Dextrose (Magnesium Sulfate / D5w) 1 gm in 100 mls @ 100 mls/hr IV Q1H [facility] Stop: 02/23/24 20:17 Last Infusion: 02/23/24 21:18 Dose: Infused Documented By: Admin: 02/23/24 20:18 Dose: 100 mls/hr Documented By: Infusion: 02/23/24 20:11 Dose: Infused Documented By: Admin: 02/23/24 19:11 Dose: 100 mls/hr Documented By: ABDON Ondansetron HCl (Ondansetron Inj 2 Mg/Ml 2 Ml Vial) 4 mg IV NOW STA Stop: 02/23/24 16:18 Last Admin: 02/23/24 16:28 Dose: 4 mg Documented By: ABDON Imaging Data Radiologist's Impression: Chest X-Ray 02/23/24 14:12 XR chest 1V portable CLINICAL HISTORY: weakness COMPARISON STUDY: Chest radiograph December 19, 2023. FINDINGS: Lung volumes are normal. Lungs are clear. There is no pneumothorax or pleural effusion. Mild cardiomegaly. Mediastinal contours are normal. There is no evidence for pulmonary edema. IMPRESSION: No acute cardiopulmonary findings. ACT 112: Negative or not required by law. Electronically signed by: Jorge Yeh M.D. 02/23/2024 5:20 PM Discharge Plan Visit Data Chief Complaint: Illness Stated Complaint: ILLNESS, VOMITING, DIZZY, HYPOGLYCEMIA ED Provider: Lizzette Andujar Discharge Problem: Hypoglycemia, Infestation by bed bug, Vomiting Patient Disposition: Admitted As Inpatient Discharge Instructions Interventions: ED Discharge Assessment Last Done: 02/23/24 20:44 Discharge Problem: Vomiting Qualifiers: Vomiting type: unspecified Nausea presence: with nausea Qualified Code(s): R 11.2 - Nausea with vomiting, unspecified
[2024-02-23] MEDS: DEXTROSE 50% 50 ML SYRINGE IV ONE (14:58)
[2024-02-23 15:26] LABS: Alanine Aminotransferase 20 U/L (7-52); Bilirubin,Total 0.2 mg/dl (0.2-1.0); Blood Urea Nitrogen 26 mg/dl (6-23); Calcium 9.5 mg/dl (8.6-10.3); Carbon Dioxide 31 mmol/L (21-32); Chloride 103 mmol/L (98-107); Creatinine Clr Calc Pharmacy 45.7 ml/min; Est GFR (Non-African American) 64.7 ml/min; Glucose 33 mg/dl (70-99(Fasting)); Total Protein 7.5 gm/dl (6.0-8.3); Troponin I High Sensitivity 9.2 pg/ml (0-14)
[2024-02-23 15:39] LABS: Thyroid Stimulating Hormone 6.632 uIu/ml (0.300-4.500)
[2024-02-23 16:22] LABS: Basophils # (auto) 0.06 K/uL (0.00-0.20); Basophils % (auto) 0.7 %; Eosinophils # (auto) 0.07 K/uL (0.00-0.50); Eosinophils % (auto) 0.8 %; Hematocrit (blood only) 40.8 % (37.0-47.0); Hemoglobin 13.6 g/dl (12.0-16.0); Immature Granulocytes # (auto) 0.02 K/uL (0.01-0.20); Immature Granulocytes % (auto) 0.2 %; Lymphocytes % (auto) 8.8 %; Mean Corpuscular Hemoglobin 30.6 pg (25.0-34.0); Mean Corpuscular Hgb Conc 33.3 g/dL (32.0-36.0); Mean Corpuscular Volume 91.7 fL (80.0-100.0); Mean Platelet Volume 11.6 fL (9.4-12.4); Monocytes # (auto) 0.46 K/uL (0.11-0.59); Neutrophils # (auto) 7.73 K/uL (1.40-6.50); Neutrophils % (auto) 84.5 %; Platelet Count 154 K/uL (130-400); RDW Coefficient of Variation 12.7 % (11.5-14.5); RDW Standard Deviation 42.5 fL (36.4-46.3); Red Blood Count 4.45 M/uL (4.20-5.40); White Blood Count 9.14 K/ul (4.8-10.8)
[2024-02-23 16:23] LABS: T4 Free Thyroxine 0.97 ng/dl (0.61-1.60)
[2024-02-23] MEDS: ONDANSETRON INJ 2 MG/ML 2 ML VIAL IV STA (16:28)
[2024-02-23 16:35] LABS: Albumin Level 4.5 gm/dl (3.4-5.0); Magnesium 1.6 mg/dl (1.7-2.4)
[2024-02-23 16:51] LABS: Prothrombin Time 10.9 Seconds (9.0-12.0)
[2024-02-23] MEDS: SODI CHLOR 2.5MEQ/ML 14.6% 77 MEQ in DEXTROSE 10% 1,000 ML IV SCH (17:05)
--- NOTE | 2024-02-23 17:23 | XRay Report ---
XR chest 1V portable CLINICAL HISTORY: weakness COMPARISON STUDY: Chest radiograph December 19, 2023. FINDINGS: Lung volumes are normal. Lungs are clear. There is no pneumothorax or pleural effusion. Mil d cardiomegaly. Mediastinal contours are normal. There is no evidence for pulmonary edema. IMPRESSION: No acute cardiopulmonary findings. ACT 112: Negative or not required by law. Electronically signed by: Jorge Yeh M.D. 02/23/2024 5:20 PM
[2024-02-23] MEDS: MAGNESIUM SULFATE / D5W 1 GM/100 ML BAG IV SCH ×2 (17:40→19:11)
--- NOTE | 2024-02-23 18:18 | History & Physical Report ---
Date of Service February 23, 2024 Assessment & Plan (1) Hypoglycemia: Plan: -Admit to the PCU on tele -Currently with stable vitals but still requiring D10W drip -Presented to the ED with nausea, vomiting, poor oral intake and hypoglycemia -BSG of 33 on arrival -Likely due to poor oral intake due to nausea/vomiting, and not decreasing her dose of 70-30 -Will continue D10W drip for now -Will obtain KUB to rule out obstruction, but low suspicion at this time as her symptoms have improved and she has been without abdominal pain -If KUB is WNL will allow her to try PO intake -Monitor BSG q2h moving forward unit BSG is stable -Communication placed to message solutions operator provider when the patient has had 2 consecutive BSG checks of 100 or greater, can consider trial off D10W drip after -Can transition back to basal/bolus insulin when eating consistently and no long requiring D10W drip -Pharmacy glycemic consult placed -BL DONNIE's for DVT PPX -HH/DMII diet if no obstruction on KUB -AM CBC, CMP, mag, PT/IN (2) Infestation by bed bug: Plan: -Has been decontaminated since arrival -Would continue isolation precautions for now (3) Lactate blood increased: Plan: -Initial lactate of 2.3 --> 1.4 after initial treatment in the ED -Likely due to dehydration -Continue IV hydration until eating/drinking consistently (4) Hypomagnesemia: Plan: -Noted to be 1.6 in the ED -Likely due to nausea/vomiting -S/P 2 gm IV mag sulfate in the ED -Will give an addition 2 bags of 1gm IV mag-sulfate on admission -Monitor am mag level (5) Hypothyroidism: Plan: -Continue levothyroxine (6) Cerebrovascular disease: Plan: -Continue aspirin and statin (7) Hypertension: Plan: -Stable -Continue lisinopril (8) Epilepsy: Plan: -No recent seizure activity -Continue phenobarbital Plan The patient was discussed with Dr. Orr at the time of the admission History of Present Illness Chief Complaint: Nausea, vomiting, hypoglycemia Primary Care Provider: SUDARSHAN Stoner Donna is an 83-year-old female with PMH of poorly controlled T2DM, depression, dyslipidemia, GERD, HTN, hypothyroidism, pancreatic insufficiency, epilepsy, and memory impairment who presented to the [facility] ED on 02/23/24 with complaints of nausea, vomiting, and hypoglycemia. She was noted to be tachycardic with HR in the 90's but otherwise stable. Labs were significant for a glucose of 33 on arrival, initial lactate of 2.3, mag of 1.6. Chest xray was read as negative for acute findings. The patient eventually required a D10W drip due to persistent hypoglycemia. Prior to admission she was also given 1gm IV mag sulfate and started on NSS at 125 mL/hr x 1 bag. Patient was lying in bed in no acute distress at the time of the exam. States that she has had persistent nausea and vomiting over the past 24 hours. Has been unable to keep food or drink down. Was still taking her insulin as prescribed, Novolog 70-30, 50 units in the am and 20 units in the PM. Last dose was last evening. States she felt generally weak and dizzy prior to arrival, symptoms have resolved after initial treatment. Her nausea and vomiting have improved and she now feels hungry. Last bowel movement was yesterday, believes she is still passing gas today, denies abdominal pain. Denies recent fever, chills, chest pain, cough, SOB, hematemesis, dysuria, hematuria, melena, LE swelling, and recent trauma. She confirms she is a DNR/DNI and her daughter is her POA. Of note, nursing staff found bed bugs on the patient during their initial assessment. Please refer to Dr. Orr's attestation for any changes to the treatment plan Allergies Allergy/AdvReac Type Severity Reaction Status Date / Time Sulfa (Sulfonamide Allergy Intermediate SICK TO Verified 02/23/24 16:59 Antibiotics) STOMACH sitagliptin AdvReac Intermediate ABD PAIN Verified 02/23/24 16:59 Home Medications Medication Instructions Recorded Confirmed Type one touch glucose meter #1 ea 04/08/22 02/16/24 Rx pen needle, diabetic 31 gauge x #60 ea 11/02/22 02/16/24 Rx 3/16" (Unifine Pentips) colestipol 1 gram tablet 1 g PO DAILY PRN Diarrhea #30 tabs 03/13/23 02/23/24 Rx diclofenac sodium 1 % topical gel 4 g EXT QID PRN Pain 06/16/23 02/23/24 History (Voltaren Arthritis Pain) lisinopril 2.5 mg tablet 2.5 mg PO DAILY #30 tabs 08/08/23 02/23/24 Rx L.acidop,casei,lactis,rham-B.lact,andrew 2 cap PO DAILY #60 caps 09/11/23 02/23/24 Rx 625 mg (10 billion cell) capsule (Advanced Probiotic) cyanocobalamin (vitamin B-12) 1,000 mcg PO DAILY #30 caps 09/11/23 02/23/24 Rx 1,000 mcg capsule levothyroxine 150 mcg tablet 150 mcg PO DAILYBB #30 tabs 09/11/23 02/23/24 Rx (Synthroid) simvastatin 20 mg tablet 20 mg PO HS #30 tabs 09/11/23 02/23/24 Rx thiamine HCl (vitamin B1) 250 mg 250 mg PO BID #60 tabs 09/11/23 02/23/24 Rx tablet venlafaxine 75 mg capsule,extended 75 mg PO DAILY #30 caps 09/11/23 02/23/24 Rx release 24 hr aspirin 81 mg tablet,delayed 81 mg PO DAILY #30 tabs 11/07/23 02/23/24 Rx release cholecalciferol (vitamin D3) 50 2,000 unit PO DAILY #30 tabs 11/07/23 02/23/24 Rx mcg (2,000 unit) tablet (Vitamin D3) vyuqxydd-ftm-agzdb acid 0.4 1 tab PO DAILY #30 tabs 11/07/23 02/23/24 Rx mg-lycopene 300 mcg-lutein 250 mcg tablet (Sentry Senior) blood sugar diagnostic #300 ea 12/01/23 02/16/24 Rx puvhms-jjffadng-hftzqta 2 cap PO QID 12/19/23 02/23/24 History 36,000-114,000-180,000 unit capsule,delay rel (Creon) omeprazole 40 mg capsule,delayed 40 mg PO BID #30 caps 12/27/23 02/23/24 Rx release blood-glucose meter,continuous #1 ea 01/15/24 02/16/24 Rx (FreeStyle Paige 3 [place]) blood-glucose sensor (FreeStyle #1 ea 01/15/24 02/16/24 Rx Paige 3 Sensor device) insulin aspar prot-insulin aspart See Rx Instructions subcut BID #15 01/15/24 02/23/24 Rx 100 unit/mL (70-30) subcutaneous mL pen (Novolog Mix 70-30FlexPen U-100) lancets 30 gauge (OneTouch #100 ea 01/25/24 02/16/24 Rx UltraSoft 2 Lancet) phenobarbital 60 mg tablet 60 mg PO .COMPLEX #90 tabs 01/25/24 02/23/24 Rx acetaminophen 325 mg tablet 650 mg PO Q4H PRN Pain 02/23/24 02/23/24 History Past Med/Surg History Problem List (Updated 02/23/24 @ 18:48 by Pineda Young PA-C) Lactate blood increased Infestation by bed bug At high risk for falls Cervical stenosis of spine Cerebrovascular disease Arthritis of knee UTI (urinary tract infection), uncomplicated Weight loss Vitamin B1 deficiency Weakness (Acute) Poor hygiene (Acute) Physical deconditioning Vitamin B12 deficiency Left hip pain History of subdural hematoma Peripheral neuropathy (Chronic) Pancreatic insufficiency (Chronic) Memory impairment (Chronic) Hypothyroidism (Chronic) Hypertension Gait abnormality GERD (gastroesophageal reflux disease) Epilepsy (Chronic) Falls frequently (Chronic) Dyslipidemia (Chronic) Diabetes mellitus type 2 with complications, uncontrolled (Chronic) Depression (Chronic) Poor compliance with medication Vitamin D deficiency disease (Chronic) Peripheral edema (Chronic) High risk medication use (Chronic) Medical History Infestation by bed bug Osteoarthritis Balance problems Choking episode occurring during daytime Subdural hematoma, chronic Hydronephrosis of right kidney Surgical History History of cholecystectomy History of hysterectomy History of tooth extraction History of nasal surgery History of craniotomy History of cholecystectomy Family History Daughter Family history of diabetes mellitus Colorectal cancer Denies family history of Ovarian cancer Prostate cancer Myocardial infarction Breast cancer Social History Smoking Status: Never smoker Second Hand Exposure: No; Do You Dip or Chew Tobacco: No; Hx Alcohol Use: No Hx Substance Use: No Preferred Language: Japanese Communication Ability: Effective Hearing Ability: Hard of Hearing Inspector Health Care Facilities Required: No Beliefs That Will Affect Care: None marital status: / Current Living Situation: Family Current Living Situation Comment: daughter current occupational status: retired How many Children do You have: 7 Feels Safe at Home: Yes Childhood Exposure to Second-Hand Smoke: Yes Diet: regular caffeine: Yes Dental Care, Regularly: No Physical Activity Frequency: Does not Exercise Seatbelt Use: always Sunscreen Use: No Assistive Devices: Walker Physical Exam Physical Exam: Physical Exam: General: In no acute distress, stated age, chronically ill appearing but non- toxic HEENT: Normocephalic, atraumatic, no scleral icterus, pupils around round, symmetrical, and reactive to light, dry mucus membranes, trachea midline, no thyromegaly Chest/Pulm: No respiratory distress, symmetrical chest expansion, clear breath sounds throughout Cardiac: RRR, no murmurs noted Abdomen: Negative for ascites and bruising, normoactive bowel sounds, soft, non-tender to palpation throughout Musculoskeletal: Symmetrical and without signs of acute trauma, upper and lower extremities with full ROM, no atrophy, spasticity, or flaccidity Extremities: Radial, dorsalis pedis, and posterior tibial pulses are intact and symmetrical, no edema noted in the BL LE's Skin: Warm, dry, no rashes , lesions, or scars noted Neuro: Alert and oriented to person, place, month, year, and president, no focal defects, CN II-XII tested and intact,, no tremors noted Psych: No acute distress, calm and cooperative during the exam Results & Data Results & Data Vital Signs (Past 12 Hours) Vital Signs Temp Pulse Pulse Resp BP BP Pulse Ox 02/23/24 17:39 83 16 129/75 95 02/23/24 15:51 92 H 02/23/24 14:25 36.9 C 95 H 17 144/66 H 96 02/23/24 14:25 36.9 C 95 H 18 146/66 H 97 O2 Del Method 02/23/24 17:39 Room Air 02/23/24 15:51 02/23/24 14:25 Room Air 02/23/24 14:25 Room Air Laboratory Results Abnormal lab results 02/23/24 02/23/24 02/23/24 Range/Units 14:05 14:20 14:55 Neut # (Auto) (1.40-6.50) K/uL Lymph # (Auto) (1.20-3.40) K/uL BUN 26 H (6-23) mg/dl BUN/Creatinine Ratio 31.0 H (10-20) Glucose 33 L* (70-99(Fasting)) mg/dl POC Glucose 39 L* 66 L* (70-99) mg/dl Lactate (0.4-2.0) mmol/L Magnesium (1.7-2.4) mg/dl Alkaline Phosphatase (34-104) U/L TSH 6.632 H (0.300-4.500) uIu/ml 02/23/24 02/23/24 02/23/24 Range/Units 15:54 15:55 16:15 Neut # (Auto) 7.73 H (1.40-6.50) K/uL Lymph # (Auto) 0.80 L (1.20-3.40) K/uL BUN (6-23) mg/dl BUN/Creatinine Ratio (10-20) Glucose (70-99(Fasting)) mg/dl POC Glucose 62 L* 68 L* (70-99) mg/dl Lactate 2.3 H* (0.4-2.0) mmol/L Magnesium 1.6 L (1.7-2.4) mg/dl Alkaline Phosphatase 109 H (34-104) U/L TSH (0.300-4.500) uIu/ml Diagnostic Findings Chest X-Ray 02/23/24 14:12 XR chest 1V portable CLINICAL HISTORY: weakness COMPARISON STUDY: Chest radiograph December 19, 2023. FINDINGS: Lung volumes are normal. Lungs are clear. There is no pneumothorax or pleural effusion. Mild cardiomegaly. Mediastinal contours are normal. There is no evidence for pulmonary edema. IMPRESSION: No acute cardiopulmonary findings. ACT 112: Negative or not required by law. Electronically signed by: Jorge Yeh M.D. 02/23/2024 5:20 PM ECG Additional Comments: Normal sinus rhythm Left axis deviation Incomplete right bundle branch block Abnormal ECG When compared with ECG of 19-DEC-2023 15:23, Premature ventricular complexes are no longer Present Code Status & VTE Plan Code Status DNR/DNI VTE Prophylaxis Plan VTE Prophylaxis will be ordered: Yes Supervising Physician Co-Signing Physician Notes Patient was seen and examined, presented to ER with altered mental status secondary to severe hypoglycemia, blood sugar 30, patient takes 20 units of Lantus every night, reports weight loss and decreased p.o. intake, in ER she was started on D10, is currently awake alert and oriented to her name, she is very hard of hearing, vomited in ER 3 times, last bowel movement yesterday, denies abdominal pain, she was given Zofran, she wants to eat, blood glucose is improving, Accu-Chek Accu-Cheks AC nightly, started her on diet, continue on D10 until her blood sugar normal and she able to keep meals down. Will discontinue Lantus. PG Care Time/CCT Total # of Minutes Spent Total Time Spent with Patient: Total time spent is greater than 50% in coordination of care (as documented) at patient's floor/unit and/or counseling patient: C[place] [address] INT INP/OBS CARE 2/55MIN Patient Type Established Medical Decision Making Moderate Complexity Diagnoses Hypoglycemia E16.2 Infestation by bed bug B88.8 Lactate blood increased R79.89 Hypomagnesemia E83.42 Acquired hypothyroidism E03.9 Hypothyroidism type: acquired Cerebrovascular disease I67.9 Primary hypertension I10 Hypertension type: primary hypertension Nonintractable epilepsy without status epilepticus, unspecified epilepsy type G40.909 Epilepsy type: unspecified Intractability: not intractable Status epilepticus: without status epilepticus (5) Hypothyroidism Hypothyroidism type: acquired Qualified Code(s): E03.9 - Hypothyroidism, u nspecified (7) Hypertension Hypertension type: primary hypertension Qualified Code(s): I10 - Essential (primary) hypertension (8) Epilepsy Epilepsy type: unspecified Intractability: not intractable Status epilepticus: without status epilepticus Qualified Code(s): G40.909 - Epilepsy, unspecified, not intractable, without status epilepticus
[2024-02-23] MEDS: SODIUM CHLORIDE 0.9% 1,000 ML IV SCH (18:23)
[2024-02-23] MEDS ORDERED: DEXTROSE 50% 50 ML SYRINGE IV PRN (18:36)
[2024-02-23] MEDS ORDERED: CARBOHYDRATES FOR HYPOGLYCEMIA PO PRN (18:36)
[2024-02-23] MEDS ORDERED: GLUCOSE 40% GEL 15 GM TUBE PO PRN (18:36)
[2024-02-23] MEDS ORDERED: PHARMACY GLYCEMIC MGMT CONSULT PRN (18:36)
[2024-02-23] MEDS ORDERED: GLUCOSE 10 TAB/TUBE PO PRN (18:36)
[2024-02-23] MEDS ORDERED: GLUCAGON FOR INJ 1 MG VIAL SQ PRN (18:36)
[2024-02-23] MEDS: INSULIN ASPART PER UNIT CHARGE SC SCH ×2 (21:46→23:53)
[2024-02-23 21:49] LABS: Adenovirus PCR Not Detected (NotDetected); Bordetella parapertussis PCR Not Detected (NotDetected); Bordetella pertussis PCR Not Detected (NotDetected); Chlamydia pneumoniae PCR Not Detected (NotDetected); Coronavirus 229E PCR Not Detected (NotDetected); Coronavirus CoV-2 (COVID19)PCR Not Detected (NotDetected); Coronavirus HKU1 PCR Not Detected (NotDetected); Coronavirus NL63 PCR Not Detected (NotDetected); Coronavirus OC43PCR Not Detected (NotDetected); Human Metapneumovirus PCR Not Detected (NotDetected); Influenza A PCR Not Detected (NotDetected); Influenza B PCR Not Detected (NotDetected); Mycoplasma pneumoniae PCR Not Detected (NotDetected); Parainfluenza Virus 1 PCR Not Detected (NotDetected); Parainfluenza Virus 2 PCR Not Detected (NotDetected); Parainfluenza Virus 3 PCR Not Detected (NotDetected); Parainfluenza Virus 4 PCR Not Detected (NotDetected); Respiratory Syncytial VirusPCR Not Detected (NotDetected); Rhinovirus/Enterovirus PCR Not Detected (NotDetected)
[2024-02-23] MEDS: PANCREAZE (LIPASE 10,500U) CAP PO SCH (22:32)
[2024-02-23] MEDS: PANTOprazole 40 MG TAB PO SCH (22:33)
[2024-02-23] MEDS: THIAMINE HCL 50 MG TABLET PO SCH (22:33)
[2024-02-23] MEDS: SIMVASTATIN 20 MG TAB PO SCH (22:33)
[2024-02-23] MEDS: PHENobarbitaL 30 MG TAB PO SCH (22:34)
[2024-02-23 22:52] LABS: Appearance Urine Clear (Clear); Bacteria Urine Automated 3+ (None Seen); Bilirubin Urine Negative (Negative); Blood Urine Negative (Negative); Cast Urine Automated 0-2 /lpf (0-2); Color Urine Yellow; Epithelial Cell Urine Auto 0-2 /hpf (0-2); Glucose Urine UA Negative (Negative); Ketones Urine Negative (Negative); Leukocyte Esterase Urine Negative (Negative); Nitrite Urine Negative (Negative); Protein Urine Trace (Negative); RBC Urine Automated 0-2 /hpf (0-2); Specific Gravity Urine 1.008 (1.000-1.030); Urobilinogen Urine Negative (Negative); WBC Urine Automated 0-5 /hpf (0-5); pH Urine 6.5 (4.5-7.5)
[2024-02-24] MEDS: LEVOTHYROXINE SODIUM 150 MCG TABLET PO SCH (06:36)
[2024-02-24 06:48] LABS: Basophils # (auto) 0.04 K/uL (0.00-0.20); Basophils % (auto) 0.6 %; Eosinophils # (auto) 0.09 K/uL (0.00-0.50); Eosinophils % (auto) 1.4 %; Hematocrit (blood only) 35.2 % (37.0-47.0); Hemoglobin 11.9 g/dl (12.0-16.0); Immature Granulocytes # (auto) 0.02 K/uL (0.01-0.20); Immature Granulocytes % (auto) 0.3 %; Lymphocytes # (auto) 1.42 K/uL (1.20-3.40); Lymphocytes % (auto) 22.6 %; Mean Corpuscular Hemoglobin 30.6 pg (25.0-34.0); Mean Corpuscular Hgb Conc 33.8 g/dL (32.0-36.0); Mean Corpuscular Volume 90.5 fL (80.0-100.0); Mean Platelet Volume 11.9 fL (9.4-12.4); Monocytes # (auto) 0.44 K/uL (0.11-0.59); Neutrophils # (auto) 4.28 K/uL (1.40-6.50); Neutrophils % (auto) 68.1 %; Platelet Count 156 K/uL (130-400); RDW Coefficient of Variation 12.7 % (11.5-14.5); Red Blood Count 3.89 M/uL (4.20-5.40); White Blood Count 6.29 K/ul (4.8-10.8)
[2024-02-24 07:20] LABS: Prothrombin Time 10.9 Seconds (9.0-12.0)
[2024-02-24 08:00] LABS: Albumin Globulin Ratio 1.5 (0.9-2); Albumin Level 3.5 gm/dl (3.4-5.0); BUN Creatinine Ratio 23.4 (10-20); Bilirubin,Total 0.3 mg/dl (0.2-1.0); Calcium 8.5 mg/dl (8.6-10.3); Creatinine Clr Calc Pharmacy 49.9 ml/min; Est GFR (African American) 83.3 ml/min; Est GFR (Non-African American) 71.9 ml/min; Globulin 2.3 gm/dl (2.5-4.0); Magnesium 2.2 mg/dl (1.7-2.4); Potassium 3.7 mmol/L (3.5-5.1); Total Protein 5.8 gm/dl (6.0-8.3)
--- NOTE | 2024-02-24 08:12 | XRay Report ---
KUB HISTORY: nausea and vomiting COMPARISON: 10/23/2019. FINDINGS: The bowel gas pattern is unremarkable. There are no dilated loops of small bowel to suggest an obstruction. No renal calculi. No ureteral calculi. No pneumoperitoneum or pneumatosis. Mild to moderate fecal retention. Prior cholecystectomy. IMPRESSION: 1. Nonobstructive bowel gas pattern. 2. Cfmu-md-ggigjfvc fecal retention. ACT 112: Negative or not required by law. Electronically signed by: Nate Holt M.D. 02/24/2024 8:11 AM
--- NOTE | 2024-02-24 10:09 | Hospitalist Progress Note ---
Date of Service February 24, 2024 Assessment & Plan (1) Hypoglycemia: Plan: 83 y/o with insulin-dependent diabetes admitted with nausea/vomiting and severe hypoglycemia in the 30s related to continuing 70/30 insulin at home despite no oral intake. Treated in ED with D50 and required D10 drip the evening of admission. Morning following admission hypogylcemia and nausea/vomiting resolved. ED workup unremarkable. Suspect nausea and vomiting related to uncontrolled diabetes. A1c last admission was 16, was discharged to [facility], after that has been home for a few weeks with her daughter. I reviewed outpatient primary care and care coordination notes. She is unable to monitor her BG at home so insulin was changed back to 70/30. There was evidence of bedbug infestation on ED presentation. Hypoglycemia resolved Advance to diabetic diet, see if any nausea/vomiting recurs Pharmacy glycemic consult (2) Diabetes mellitus type 2 with complications, uncontrolled: Plan: see above (3) Infestation by bed bug: Plan: -Has been decontaminated since arrival -Would continue isolation precautions for now -will discuss with her daughter (4) Lactate blood increased: Plan: -Initial lactate of 2.3 --> 1.4 after initial treatment in the ED -due to dehydration, resolved (5) Hypomagnesemia: Plan: -Noted to be 1.6 in the ED, replaced IV and resolved. Normal at 2.2 on 02/23 (6) Hypothyroidism: Plan: -Continue levothyroxine (7) Cerebrovascular disease: Plan: -Continue aspirin and statin (8) Hypertension: Plan: -Stable -Continue lisinopril (9) Epilepsy: Plan: -No recent seizure activity -Continue phenobarbital Plan Chronic medical problems: Cervical spinal stenosis - evaluated by Dr. 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 Concern is that she and her daughter unable to safely manage her diabetes at home DVT ppx - enoxaparin Admission and Anticipated Discharge Date Admission Date: February 23, 2024 Subjective Donna is feeling fine this AM and states she wants breakfast. Denies any further nausea or vomiting No abdominal pain. No CP/cough/dyspnea. Physical Exam 2 Physical Exam: PHYSICAL EXAMINATION Last 24h vital signs reviewed, see documentation in flowsheet General: comfortable appearing, no distress HEENT: Normocephalic, atraumatic, pupils round and equal, sclerae anicteric, no conjunctival injection, moist mucus membranes Lungs: Normal respiratory effort. Clear to auscultation bilaterally. No RRW Heart: Regular rate and rhythm, no murmurs. No JVD Abdomen: Soft, nontender, nondistended. Bowel sounds present. Extremities: Warm, dry, well-perfused. 1+ lower extremity edema. Neuro: Alert and oriented x 4, face symmetric, moves 4 extremities well Psych: Normal affect and behavior Results & Data Results & Data Vital Signs (Past 12 Hours) Vital Signs Pulse Resp BP Pulse Ox O2 Del Method 02/24/24 08:16 73 02/24/24 06:46 150/111 H 02/24/24 05:30 69 13 97/52 L 94 Room Air 02/24/24 04:30 64 14 97 02/24/24 04:27 68 17 96 02/24/24 04:09 70 15 96 02/24/24 04:00 116/62 02/24/24 03:30 107/56 L 02/24/24 03:06 70 13 94 02/24/24 02:42 70 12 95 02/24/24 02:30 118/61 02/24/24 02:24 73 13 96 02/24/24 01:51 79 14 94 02/24/24 01:42 73 14 95 02/24/24 01:33 72 13 95 02/24/24 01:21 72 13 94 02/24/24 01:15 73 14 94 02/24/24 01:06 70 14 95 02/24/24 01:00 126/62 02/24/24 00:57 69 14 94 02/24/24 00:51 71 15 94 02/24/24 00:42 69 13 95 02/24/24 00:30 139/69 02/24/24 00:30 74 13 95 02/24/24 00:27 74 13 95 02/23/24 23:42 74 15 95 02/23/24 23:30 69 13 02/23/24 23:27 69 12 95 02/23/24 23:12 71 13 95 02/23/24 23:03 73 14 96 02/23/24 22:54 79 13 97 02/23/24 22:30 140/65 02/23/24 22:30 71 19 96 02/23/24 22:09 71 14 96 Laboratory Results 02/24/24 05:48 02/24/24 05:48 PG Care Time/CCT Total # of Minutes Spent Total Time Spent with Patient: Total time spent is greater than 50% in coordination of care (as documented) at patient's floor/unit and/or counseling patient: Coding Level of Care Code 83826 SUB INP/OBS CARE 2/35MIN Diagnoses Hypoglycemia E16.2 Diabetes mellitus type 2 with complications, uncontrolled E11.8; E11.65 Infestation by bed bug B88.8 Lactate blood increased R79.89 Hypomagnesemia E83.42 Acquired hypothyroidism E03.9 Hypothyroidism type: acquired Cerebrovascular disease I67.9 Primary hypertension I10 Hypertension type: primary hypertension Nonintractable epilepsy without status epilepticus, unspecified epilepsy type G40.909 Epilepsy type: unspecified Intractability: not intractable Status epilepticus: without status epilepticus (6) Hypothyroidism Hypothyroidism type: acquired Qualified Code(s): E03.9 - Hypothyroidism, unspecified (8) Hypertension Hypertension type: primary hypertension Qualified Code(s): I10 - Essential (primary) hypertension (9) Epilepsy Epilepsy type: unspecified Intractability: not intractable Status epilepticus: without status epilepticus Qualified Code(s): G40.909 - Epilepsy, unspecified, not intractable, without status epilepticus
[2024-02-24] MEDS: lisinopril 2.5 MG TAB PO SCH (11:50)
[2024-02-24] MEDS: VENLAFAXINE HCL XR 75 MG CAPXR PO SCH (11:51)
[2024-02-24] MEDS: PHENobarbitaL 30 MG TAB PO SCH (12:04)
[2024-02-24] MEDS: ASPIRIN 81 MG ECTAB PO SCH (12:04)
--- NOTE | 2024-02-24 14:24 | Pharmacy Report ---
Pharmacy Glycemic Short Note 2 - Date of Service February 24, 2024 - Glycemic Short BSG Results (Last 24 hours): 02/23/24 02/23/24 02/23/24 14:05 14:20 14:55 Glucose 33 L* POC Glucose 39 L* 66 L* 02/23/24 02/23/24 02/23/24 15:54 16:15 18:20 Glucose POC Glucose 62 L* 68 L* 71 02/23/24 02/23/24 02/24/24 20:59 23:45 04:31 Glucose POC Glucose 124 H 135 H 128 H 02/24/24 02/24/24 02/24/24 05:48 06:26 08:00 Glucose 133 H POC Glucose 124 H 97 02/24/24 11:49 Glucose POC Glucose 83 OUTPATIENT ANTIDIABETIC REGIMEN: * Novolin 70/30 - Inject 50 units SC AM + 20 units SC PM * HbA1c: 16% (12/20/23) ASSESSMENT: * 83 yo F admitted on 02/23/24 secondary to hypoglycemia, nausea/vomiting. Pharmacy has been consulted to assist with inpatient glycemic management. Patient is a Type 2 diabetic as an outpatient. Please refer to outpatient regimen and most recent HbA1c above. * Presented with BSG of 39 mg/dL. Required 1 amp of D50. BSG improved to 71 m g/dL. * No insulin received yesterday while at hospital. Did receive 50 units of 70/30 prior to admission. * Fasting BSG was 124 mg/dL this AM. No Novolog received and lunchtime BSG was 83 mg/dL. Will hold on any basal insulin today. No change to Novolog but may need loosened. PLAN FOR INPATIENT GLYCEMIC CONTROL: * Basal insulin * None * Bolus insulin * NovoLog per scale ACHS or Q6hrs while NPO * Goal Range: Low 110 mg/dL - High 140 mg/dL * Correction Factor: 30 mg/dL/unit * Nutritional / Prandial insulin per carb ratio of 1 unit per 10 grams CHO consumed
[2024-02-25 05:05] LABS: Calcium 8.7 mg/dl (8.6-10.3); Creatinine Clr Calc Pharmacy 44.2 ml/min; Est GFR (African American) 71.9 ml/min
[2024-02-25] MEDS ORDERED: bisacodyL 10 MG SUPP PR PRN (07:27)
--- NOTE | 2024-02-25 07:31 | Hospitalist Progress Note ---
Date of Service February 25, 2024 Assessment & Plan (1) Hypoglycemia: Plan: 83 y/o with insulin-dependent diabetes admitted with nausea/vomiting and severe hypoglycemia in the 30s related to continuing 70/30 insulin at home despite no oral intake. Treated in ED with D50 and required D10 drip the evening of admission. Morning following admission hypogylcemia and nausea/vomiting resolved. ED workup unremarkable. Suspect nausea and vomiting related to uncontrolled diabetes. A1c last admission was 16, was discharged to [facility], after that has been home for a few weeks with her daughter. I reviewed outpatient primary care and care coordination notes. She is unable to monitor her BG at home so insulin was changed back to 70/30. There was evidence of bedbug infestation on ED presentation. Hypoglycemia - was in 30s initially, resolved after D10 drip. Mildly low this AM despite no basal insulin given 36h. Pharmacy glycemic consulting Tolerating diabetic diet well with no further nausea or vomiting since admission (2) Diabetes mellitus type 2 with complications, uncontrolled: Plan: see above (3) Infestation by bed bug: Plan: -Has been decontaminated since arrival -Would continue isolation precautions for now -will discuss with her daughter (4) Lactate blood increased: Plan: -Initial lactate of 2.3 --> 1.4 after initial treatment in the ED -due to dehydration, resolved (5) Hypomagnesemia: Plan: -Noted to be 1.6 in the ED, replaced IV and resolved. Normal at 2.2 on 02/23 (6) Hypothyroidism: Plan: -Continue levothyroxine (7) Cerebrovascular disease: Plan: -Continue aspirin and statin (8) Hypertension: Plan: -Stable -Continue lisinopril (9) Epilepsy: Plan: -No recent seizure activity -Continue phenobarbital Plan Chronic medical problems: Cervical spinal stenosis - evaluated by Dr. 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 Per care coordination, planned for her to move to [facility] after this discharge Updated her daughter Emani by phone 02/24 DVT ppx - enoxaparin Admission and Anticipated Discharge Date Admission Date: February 23, 2024 Subjective BG in 67 this AM on chem panel. No basal insulin ordered, none given yesterday but had 40u 70/30 evening prior to admission 02/22 No further vomiting, eating a lot at this point, BG on low side No abdominal pain or bladder pain PT/OT still pending Discussed with care coordination and bedside RN Physical Exam 2 Physical Exam: PHYSICAL EXAMINATION Last 24h vital signs reviewed, see documentation in flowsheet General: comfortable appearing, no distress HEENT: Normocephalic, atraumatic, pupils round and equal, sclerae anicteric, no conjunctival injection, moist mucus membranes Lungs: Normal respiratory effort. Clear to auscultation bilaterally. No RRW Heart: Regular rate and rhythm, no murmurs. No JVD Abdomen: Soft, nontender, nondistended. Bowel sounds present. Extremities: Warm, dry, well-perfused. 1+ lower extremity edema. RLE is hyperalgesic, which is baseline Neuro: Alert and oriented x 4, face symmetric, moves 4 extremities well Psych: Normal affect and behavior Results & Data Results & Data Vital Signs (Past 12 Hours) Vital Signs Temp Pulse Pulse Resp BP Pulse Ox Pulse Ox 02/25/24 04:42 88 02/25/24 04:09 36.9 C 78 16 114/55 L 92 02/25/24 00:49 77 13 109/66 95 02/25/24 00:49 95 02/24/24 21:24 74 O2 Del Method O2 Del Method 02/25/24 04:42 02/25/24 04:09 Room Air 02/25/24 00:49 Room Air 02/25/24 00:49 Room Air 02/24/24 21:24 Laboratory Results 02/24/24 05:48 02/25/24 03:38 PG Care Time/CCT Total # of Minutes Spent Total Time Spent with Patient: Total time spent is greater than 50% in coordination of care (as documented) at patient's floor/unit and/or counseling patient: Coding Level of Care Code 17277 SUB INP/OBS CARE 2/35MIN Diagnoses Hypoglycemia E16.2 Diabetes mellitus type 2 with complications, uncontrolled E11.8; E11.65 Infestation by bed bug B88.8 Lactate blood increased R79.89 Hypomagnesemia E83.42 Acquired hypothyroidism E03.9 Hypothyroidism type: acquired Cerebrovascular disease I67.9 Primary hypertension I10 Hypertension type: primary hypertension Nonintractable epilepsy without status epilepticus, unspecified epilepsy type G40.909 Epilepsy type: unspecified Intractability: not intractable Status epilepticus: without status epilepticus (6) Hypothyroidism Hypothyroidism type: acquired Qualified Code(s): E03.9 - Hypothyroidism, unspecified (8) Hypertension Hypertension type: primary hypertension Qualified Code(s): I10 - Essential (primary) hypertension (9) Epilepsy Epilepsy type: unspecified Intractability: not intractable Status epilepticus: without status epilepticus Qualified Code(s): G40.909 - Epilepsy, unspecified, not intractable, without status epilepticus
[2024-02-25] MEDS: THIAMINE HCL 100 MG TAB PO SCH (08:07)
[2024-02-25] MEDS: SENNA 8.6 MG TAB PO SCH (08:07)
[2024-02-25] MEDS: POLYETHYLENE (MIRALAX) 17 GM PACK PO SCH (08:18)
--- NOTE | 2024-02-25 19:00 | Electrocardiogram Report ---
Test Reason : Blood Pressure : / mmHG Vent. Rate : 080 BPM Atrial Rate : 080 BPM P-R Int : 190 ms QRS Dur : 116 ms QT Int : 400 ms P-R-T Axes : 077 -53 069 degrees QTc Int : 461 ms Normal sinus rhythm Left axis deviation Incomplete right bundle branch block Abnormal ECG When compared with ECG of 19-DEC-2023 15:23, Premature ventricular complexes are no longer Present Confirmed by Rao Holley ([id number]) on 02/25/2024 6:59:51 PM Referred By: REFERRED SELF Confirmed By:Rao Holley
--- NOTE | 2024-02-26 13:31 | Pharmacy Report ---
Pharmacy Glycemic Short Note 2 - Date of Service February 26, 2024 - Glycemic Short BSG Results (Last 24 hours): 02/25/24 02/25/24 02/26/24 17:00 20:39 07:48 POC Glucose 165 H 144 H 159 H 02/26/24 11:47 POC Glucose 196 H OUTPATIENT ANTIDIABETIC REGIMEN: * Novolin 70/30 - Inject 50 units SC AM + 20 units SC PM * HbA1c: 16% (12/20/23) ASSESSMENT: 02/25 * BSGs [phone] mg/dL yesterday with 9 units of prandial/correctional * Fasting slightly elevated this morning but will continue to hold lantus today to see if trend continues (79 mg/dL yesterday) given issues with hypoglycemia * Novolog tightened with lunch for upward trend 02/23 * 83 yo F admitted on 02/23/24 secondary to hypoglycemia, nausea/vomiting. Pharmacy has been consulted to assist with inpatient glycemic management. Patient is a Type 2 diabetic as an outpatient. Please refer to outpatient regimen and most recent HbA1c above. * Presented with BSG of 39 mg/dL. Required 1 amp of D50. BSG improved to 71 mg/dL. * No insulin received yesterday while at hospital. Did receive 50 units of 70/30 prior to admission. * Fasting BSG was 124 mg/dL this AM. No Novolog received and lunchtime BSG was 83 mg/dL. Will hold on any basal insulin today. No change to Novolog but may need loosened. PLAN FOR INPATIENT GLYCEMIC CONTROL: * Basal insulin * None * Bolus insulin * NovoLog per scale ACHS or Q6hrs while NPO * Goal Range: Low 110 mg/dL - High 140 mg/dL * Correction Factor: 35 mg/dL/unit * Nutritional / Prandial insulin per carb ratio of 1 unit per 11 grams CHO consumed
--- NOTE | 2024-02-26 16:45 | Hospitalist Progress Note ---
Date of Service February 26, 2024 Assessment & Plan (1) Hypoglycemia: Plan: 83 y/o with insulin-dependent diabetes admitted with nausea/vomiting and severe hypoglycemia in the 30s related to continuing 70/30 insulin at home despite no oral intake. Treated in ED with D50 and required D10 drip the evening of admission. Morning following admission hypogylcemia and nausea/vomiting resolved. ED workup unremarkable. Suspect nausea and vomiting related to uncontrolled diabetes. A1c last admission was 16, was discharged to [facility], after that has been home for a few weeks with her daughter. I reviewed outpatient primary care and care coordination notes. She is unable to monitor her BG at home so insulin was changed back to 70/30. There was evidence of bedbug infestation on ED presentation. Hypoglycemia - was in 30s initially, resolved after D10 drip. Tolerating diabetic diet well with no further nausea or vomiting since admission Pharmacy glycemic consulting, adjusting insulin Currently awaiting placement - would benefit from short SNF rehab stay then discharge to [facility] at [facility] as previously planned. (2) Diabetes mellitus type 2 with complications, uncontrolled: Plan: see above (3) Infestation by bed bug: Plan: -Has been decontaminated since arrival -Would continue isolation precautions for now -discussed with her daughter (4) Lactate blood increased: Plan: -Initial lactate of 2.3 --> 1.4 after initial treatment in the ED -due to dehydration, resolved (5) Hypomagnesemia: Plan: -Noted to be 1.6 in the ED, replaced IV and resolved. Normal at 2.2 on 02/23 (6) Hypothyroidism: Plan: -Continue levothyroxine (7) Cerebrovascular disease: Plan: -Continue aspirin and statin (8) Hypertension: Plan: -Stable -Continue lisinopril (9) Epilepsy: Plan: -No recent seizure activity -Continue phenobarbital Plan Chronic medical problems: Cervical spinal stenosis - evaluated by Dr. 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 Updated her daughter Emani by phone 02/24 DVT ppx - enoxaparin Admission and Anticipated Discharge Date Admission Date: February 23, 2024 Subjective Doing fine and no acute issues. No further nausea and vomiting since she was in the ED. No abdominal pain. Physical Exam 2 Physical Exam: PHYSICAL EXAMINATION Last 24h vital signs reviewed, see documentation in flowsheet exam unchanged 02/25: General: comfortable appearing, no distress HEENT: Normocephalic, atraumatic, pupils round and equal, sclerae anicteric, no conjunctival injection, moist mucus membranes Lungs: Normal respiratory effort. Clear to auscultation bilaterally. No RRW Heart: Regular rate and rhythm, no murmurs. No JVD Abdomen: Soft, nontender, nondistended. Bowel sounds present. Extremities: Warm, dry, well-perfused. 1+ lower extremity edema. RLE is hyperalgesic, which is baseline Neuro: Alert and oriented x 4, face symmetric, moves 4 extremities well Psych: Normal affect and behavior Results & Data Results & Data Vital Signs (Past 12 Hours) Vital Signs Temp Pulse Pulse Resp BP BP Pulse Ox 02/26/24 16:00 36.9 C 74 16 115/75 96 02/26/24 08:00 36.7 C 102 H 18 109/66 94 02/26/24 07:53 36.8 C 88 18 114/76 95 O2 Del Method 02/26/24 16:00 Room Air 02/26/24 08:00 Room Air 02/26/24 07:53 Room Air Laboratory Results 02/24/24 05:48 02/25/24 03:38 PG Care Time/CCT Total # of Minutes Spent Total Time Spent with Patient: Total time spent is greater than 50% in coordination of care (as documented) at patient's floor/unit and/or counseling patient: Coding Level of Care Code 88723 SUB INP/OBS CARE 1/25MIN Diagnoses Hypoglycemia E16.2 Diabetes mellitus type 2 with complications, uncontrolled E11.8; E11.65 Infestation by bed bug B88.8 Lactate blood increased R79.89 Hypomagnesemia E83.42 Acquired hypothyroidism E03.9 Hypothyroidism type: acquired Cerebrovascular disease I67.9 Primary hypertension I10 Hypertension type: primary hypertension Nonintractable epilepsy without status epilepticus, unspecified epilepsy type G40.909 Epilepsy type: unspecified Intractability: not intractable Status epilepticus: without status epilepticus (6) Hypothyroidism Hypothyroidism type: acquired Qualified Code(s): E03.9 - Hypothyroidism, unspecified (8) Hypertension Hypertension type: primary hypertension Qualified Code(s): I10 - Essential (primary) hypertension (9) Epilepsy Epilepsy type: unspecified Intractability: not intractable Status epilepticus: without status epilepticus Qualified Code(s): G40.909 - Epilepsy, unspecified, not intractable, without status epilepticus
[2024-02-26] MEDS: HEPARIN SOD 5,000 UNIT/0.5 ML VIAL SQ SCH (19:57)
[2024-02-27] MEDS: LANTUS PER UNIT CHARGE SC SCH (08:35)
--- NOTE | 2024-02-27 15:14 | Pharmacy Report ---
Pharmacy Glycemic Short Note 2 - Date of Service February 27, 2024 - Glycemic Short BSG Results (Last 24 hours): 02/26/24 02/26/24 02/27/24 16:10 20:32 07:34 POC Glucose 143 H 107 H 171 H 02/27/24 11:39 POC Glucose 268 H OUTPATIENT ANTIDIABETIC REGIMEN: * Novolin 70/30 - Inject 50 units SC AM + 20 units SC PM * HbA1c: 16% (12/20/23) ASSESSMENT: 02/26: * BSGs [phone] mg/dL yesterday * Fasting continues to trend upward, added 10 units of lantus this morning, will titrate upwards * Lunch BSG also elevated, however will hold off on tightening novolog further- plan to tighten tomorrow if BSGs remain elevated throughout day 02/25 * BSGs [phone] mg/dL yesterday with 9 units of prandial/correctional * Fasting slightly elevated this morning but will continue to hold lantus today to see if trend continues (79 mg/dL yesterday) given issues with hypoglycemia * Novolog tightened with lunch for upward trend 02/23 * 83 yo F admitted on 02/23/24 secondary to hypoglycemia, nausea/vomiting. Pharmacy has been consulted to assist with inpatient glycemic management. Patient is a Type 2 diabetic as an outpatient. Please refer to outpatient regimen and most recent HbA1c above. * Presented with BSG of 39 mg/dL. Required 1 amp of D50. BSG improved to 71 mg/dL. * No insulin received yesterday while at hospital. Did receive 50 units of 70/30 prior to admission. * Fasting BSG was 124 mg/dL this AM. No Novolog received and lunchtime BSG was 83 mg/dL. Will hold on any basal insulin today. No change to Novolog but may need loosened. PLAN FOR INPATIENT GLYCEMIC CONTROL: * Basal insulin * 10 units qAM * Bolus insulin * NovoLog per scale ACHS or Q6hrs while NPO * Goal Range: Low 110 mg/dL - High 140 mg/dL * Correction Factor: 35 mg/dL/unit * Nutritional / Prandial insulin per carb ratio of 1 unit per 11 grams CHO consumed
--- NOTE | 2024-02-27 19:41 | Hospitalist Progress Note ---
Date of Service February 27, 2024 Assessment & Plan (1) Hypoglycemia: Plan: Presented to [facility] with glucose in the 30s Treated in ED with D50 followed by D10 drip the evening of admission with resolution of hypoglycemia NO hypoglycemia since then Appreciate pharmacy glycemic team assistance for her DM (2) Diabetes mellitus type 2 with complications, uncontrolled: Plan: last Hba1c 16% in late November 2023 her a1c has been >10% for several years she is on 70/30 insulin at home and clearly is struggling with DM control appreciate pharmacy glycemic assistance (3) Infestation by bed bug: Plan: Decontamination protocol was completed since discovery continue contact isolation precautions (4) Lactate blood increased: Plan: Initial lactate of 2.3 at ER presentation, improving to 1.4 after IV fluids and resolution of hypoglycemia (5) Hypomagnesemia: Plan: replaced resolved (6) Hypothyroidism: Plan: Continue levothyroxine TSH 6.6 late January 2024 last several TSH checks have all been mildly high in light of poorly controlled DM I suspect she is noncompliant with synthroid would simply repeat TSH in 4 weeks after a period of "forced compliance" while she is in rehab if high in 4 weeks then adjust synthroid then (7) Cerebrovascular disease: Plan: Continue aspirin and statin for secondary prevention Previous MRI brain showed old cerebellar CVAs and 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 Previous attending MD updated her daughter Emani by phone 02/25/24 DVT Proph - heparin 5000 units BID dispo - Misha Herrera [facility] - Monday of this week? Admission and Anticipated Discharge Date Admission Date: February 23, 2024 Subjective sitting in chair by window no complaints feels well frustrated that a bedbug was found a few nights ago had small stool earlier today I updated her on when she might go to rehab (this Monday) Review of Systems Review of Systems: cv - no chest pain pulm - no dyspnea GI - no pain or N/V Physical Exam Physical Exam: gen - NAD, looks well mouth - MMM neck - no JVD heart - RRR, s1 s2, no murmur lungs - CTA b/l abd - soft NT ND BS+ ext - no edema, pulses 2+ b/l Results & Data Results & Data Vital Signs (Past 12 Hours) Vital Signs Temp Pulse Resp BP Pulse Ox O2 Del Method 02/27/24 15:57 36.5 C 82 17 114/69 96 Room Air 02/27/24 08:27 79 116/75 02/27/24 08:00 Room Air 02/27/24 07:51 36.6 C 78 17 101/65 95 Room Air Laboratory Results Laboratory Results - last 24 hr 02/27/24 02/27/24 02/27/24 07:34 11:39 16:31 POC Glucose 171 H 268 H 196 H PG Care Time/CCT Total # of Minutes Spent Total Time Spent with Patient: Total time spent is greater than 50% in coordination of care (as documented) at patient's floor/unit and/or counseling patient: Coding Level of Care Code 64232 SUB INP/OBS CARE 2/35MIN Diagnoses Hypoglycemia E16.2 Diabetes mellitus type 2 with complications, uncontrolled E11.8; E11.65 Infestation by bed bug B88.8 Lactate blood increased R79.89 Hypomagnesemia E83.42 Acquired hypothyroidism E03.9 Hypothyroidism type: acquired Cerebrovascular disease I67.9 Primary hypertension I10 Hypertension type: primary hypertension Nonintractable epilepsy without status epilepticus, unspecified epilepsy type G40.909 Epilepsy type: unspecified Intractability: not intractable Status epilepticus: without status epilepticus (6) Hypothyroidism Hypothyroidism type: acquired Qualified Code(s): E03.9 - Hypothyroidism, unspecified (8) Hypertension Hypertension type: primary hypertension Qualified Code(s): I10 - Essential (primary) hypertension (9) Epilepsy Epilepsy type: unspecified Intractability: not intractable Status epilepticus: without status epilepticus Qualified Code(s): G40.909 - Epilepsy, unspecified, not intractable, without status epilepticus
[2024-02-28 10:31] LABS: BUN Creatinine Ratio 29.3 (10-20); Calcium 8.4 mg/dl (8.6-10.3); Creatinine Clr Calc Pharmacy 38.8 ml/min; Est GFR (African American) 61.5 ml/min; Est GFR (Non-African American) 53.1 ml/min
--- NOTE | 2024-02-28 20:46 | Hospitalist Progress Note ---
Date of Service February 28, 2024 Assessment & Plan (1) Hypoglycemia: Plan: Presented to [facility] with glucose in the 30s Treated in ED with D50 followed by D10 drip the evening of admission with resolution of hypoglycemia NO recurrent hypoglycemia since then Appreciate pharmacy glycemic team assistance for her DM (2) Diabetes mellitus type 2 with complications, uncontrolled: Plan: last Hba1c 16% in late November 2023 her a1c has been >10% for several years she is on 70/30 insulin at home and clearly is struggling with DM control appreciate pharmacy glycemic assistance cont basal-bolus insulin (3) Infestation by bed bug: Plan: Decontamination protocol was completed since discovery continue contact isolation precautions no issues since admission (4) Lactate blood increased: Plan: Initial lactate of 2.3 at ER presentation, improving to 1.4 after IV fluids and resolution of hypoglycemia (5) Hypomagnesemia: Plan: replaced resolved (6) Hypothyroidism: Plan: Continue levothyroxine TSH 6.6 late January 2024 last several TSH checks have all been mildly high in light of poorly controlled DM I suspect she is noncompliant with her insulins as well as synthroid would simply repeat TSH in 4 weeks after a period of "forced compliance" while she is in rehab if high in 4 weeks then adjust synthroid then (7) Cerebrovascular disease: Plan: Continue aspirin and statin for secondary prevention 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 Previous attending MD updated her daughter Emani by phone 02/25/24 DVT Proph - heparin 5000 units BID dispo - Misha Herrera [facility] - Monday of this week? Admission and Anticipated Discharge Date Admission Date: February 23, 2024 Subjective no events anxious to get out of hospital is constipated despite such no N/V or abd pain eating well no new complaints Review of Systems Review of Systems: CV - no chest pain pulm - no dyspnea Physical Exam Physical Exam: gen - NAD, looks well mouth - MMM neck - no JVD heart - RRR, s1 s2, no murmur lungs - CTA b/l abd - soft NT ND BS+ ext - no edema, pulses 2+ b/l Results & Data Results & Data Vital Signs (Past 12 Hours) Vital Signs Temp Pulse Resp BP Pulse Ox O2 Del Method 02/28/24 14:20 36.4 C L 72 16 122/62 96 Room Air Laboratory Results Laboratory Results - last 24 hr 02/27/24 02/28/24 02/28/24 20:45 07:56 09:40 Sodium 136 Potassium 4.0 Chloride 100 Carbon Dioxide 29 Anion Gap 7 BUN 29 H Creatinine 0.99 Est Cr Clr Drug Dosing 38.8 Est GFR ( Amer) 61.5 Est GFR (Non-Af Amer) 53.1 BUN/Creatinine Ratio 29.3 H Glucose 276 H POC Glucose 137 H 150 H Calcium 8.4 L 02/28/24 02/28/24 02/28/24 11:30 16:36 20:18 Sodium Potassium Chloride Carbon Dioxide Anion Gap BUN Creatinine Est Cr Clr Drug Dosing Est GFR ( Amer) Est GFR (Non-Af Amer) BUN/Creatinine Ratio Glucose POC Glucose 148 H 101 H 99 Calcium PG Care Time/CCT Total # of Minutes Spent Total Time Spent with Patient: Total time spent is greater than 50% in coordination of care (as documented) at patient's floor/unit and/or counseling patient: Coding Level of Care Code 10056 SUB INP/OBS CARE 10/19MIN Diagnoses Hypoglycemia E16.2 Diabetes mellitus type 2 with complications, uncontrolled E11.8; E11.65 Infestation by bed bug B88.8 Lactate blood increased R79.89 Hypomagnesemia E83.42 Acquired hypothyroidism E03.9 Hypothyroidism type: acquired Cerebrovascular disease I67.9 Primary hypertension I10 Hypertension type: primary hypertension Nonintractable epilepsy without status epilepticus, unspecified epilepsy type G40.909 Epilepsy type: unspecified Intractability: not intractable Status epilepticus: without status epilepticus (6) Hypothyroidism Hypothyroidism type: acquired Qualified Code(s): E03.9 - Hypothyroidism, unspecified (8) Hypertension Hypertension type: primary hypertension Qualified Code(s): I10 - Essential (primary) hypertension (9) Epilepsy Epilepsy type: unspecified Intractability: not intractable Status epilepticus: without status epilepticus Qualified Code(s): G40.909 - Epilepsy, unspecified, not intractable, without status epilepticus
[2024-02-29] MEDS: LANTUS PER UNIT CHARGE SC SCH (08:53)
[2024-02-29] MEDS: PANCREAZE (LIPASE 10,500U) CAP PO SCH (08:56)
--- NOTE | 2024-02-29 10:53 | Pharmacy Report ---
Pharmacy Glycemic Short Note 2 - Date of Service February 29, 2024 - Glycemic Short BSG Results (Last 24 hours): 02/28/24 02/28/24 02/28/24 11:30 16:36 20:18 POC Glucose 148 H 101 H 99 02/29/24 07:40 POC Glucose 105 H OUTPATIENT ANTIDIABETIC REGIMEN: * Novolin 70/30 - Inject 50 units SC AM + 20 units SC PM * HbA1c: 16% (12/20/23) ASSESSMENT: 02/28: * Patient received total of 26 units of insulin yesterday, of which 10 units were basal insulin * Fasting BSG trending down 105 mg/dL - only day 2 of starting basal so not quite at steady state, basal insulin scaled back this AM * Continue same CF/CR 02/26: * BSGs 590-251-606-107 mg/dL yesterday * Fasting continues to trend upward, added 10 units of lantus this morning, will titrate upwards * Lunch BSG also elevated, however will hold off on tightening novolog further- plan to tighten tomorrow if BSGs remain elevated throughout day 02/25 * BSGs 29-532-175-144 mg/dL yesterday with 9 units of prandial/correctional * Fasting slightly elevated this morning but will continue to hold lantus today to see if trend continues (79 mg/dL yesterday) given issues with hypoglycemia * Novolog tightened with lunch for upward trend 02/23 * 83 yo F admitted on 02/23/24 secondary to hypoglycemia, nausea/vomiting. Pharmacy has been consulted to assist with inpatient glycemic management. Patient is a Type 2 diabetic as an outpatient. Please refer to outpatient regimen and most recent HbA1c above. * Presented with BSG of 39 mg/dL. Required 1 amp of D50. BSG improved to 71 mg/dL. * No insulin received yesterday while at hospital. Did receive 50 units of 70/30 prior to admission. * Fasting BSG was 124 mg/dL this AM. No Novolog received and lunchtime BSG was 83 mg/dL. Will hold on any basal insulin today. No change to Novolog but may need loosened. PLAN FOR INPATIENT GLYCEMIC CONTROL: * Basal insulin * 5 units qAM * Bolus insulin * NovoLog per scale ACHS or Q6hrs while NPO * Goal Range: Low 110 mg/dL - High 140 mg/dL * Correction Factor: 35 mg/dL/unit * Nutritional / Prandial insulin per carb ratio of 1 unit per 12 grams CHO consumed
--- NOTE | 2024-02-29 20:17 | Hospitalist Progress Note ---
Date of Service February 29, 2024 Assessment & Plan (1) Hypoglycemia: Plan: Presented to [facility] with glucose in the 30s Treated in ED with D50 followed by D10 drip the evening of admission with resolution of hypoglycemia NO recurrent hypoglycemia since then Appreciate pharmacy glycemic team assistance for her DM BSGs well within normal limits today (2) Diabetes mellitus type 2 with complications, uncontrolled: Plan: last Hba1c 16% in late November 2023 her a1c has been >10% for several years she is on 70/30 insulin at home and clearly is struggling with DM control appreciate pharmacy glycemic assistance cont basal-bolus insulin control satisfactory today (3) Infestation by bed bug: Plan: Decontamination protocol was completed since discovery continue contact isolation precautions no issues since admission (4) Lactate blood increased: Plan: Initial lactate of 2.3 at ER presentation, improving to 1.4 after IV fluids and resolution of hypoglycemia (5) Hypomagnesemia: Plan: replaced resolved (6) Hypothyroidism: Plan: Continue levothyroxine TSH 6.6 late January 2024 last several TSH checks have all been mildly high in light of poorly controlled DM I suspect she is noncompliant with her insulins as well as synthroid would simply repeat TSH in 4 weeks after a period of "forced compliance" while she is in rehab if high in 4 weeks then adjust synthroid then (7) Cerebrovascular disease: Plan: Continue aspirin and statin for secondary prevention 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 Cont PT/OT. Previous attending MD updated her daughter Emani by phone 02/25/24 I also updated Emani by phone this evening, 02/29/24 DVT Proph - heparin 5000 units BID dispo - [facility] - hopefully tomorrow did receive word that patient requires a peer to peer with insurance left message on peer to peer line late this evening, 02/29/24 will await call back on Monday Admission and Anticipated Discharge Date Admission Date: February 23, 2024 Subjective no issues overnight or today finally had satisfying BM no abd pain or N/V feels good anxious to d/c to SNF no dizziness or lightheadedness Review of Systems Review of Systems: CV - no chest pain pulm - no dyspnea GI - no diarrhea Physical Exam Physical Exam: gen - NAD, looks well, sitting in chair, pleasant mouth - MMM neck - no JVD heart - RRR, s1 s2, no murmur lungs - CTA b/l abd - soft NT ND BS+ ext - no edema, pulses 2+ b/l Results & Data Results & Data Vital Signs (Past 12 Hours) Vital Signs Temp Pulse Resp BP Pulse Ox O2 Del Method 02/29/24 14:07 36.5 C 82 16 113/56 L 95 Room Air 02/29/24 09:05 Room Air Laboratory Results Laboratory Results - last 24 hr 02/28/24 02/29/24 02/29/24 20:18 07:40 11:31 POC Glucose 99 105 H 151 H 02/29/24 16:37 POC Glucose 125 H PG Care Time/CCT Total # of Minutes Spent Total Time Spent with Patient: Total time spent is greater than 50% in coordination of care (as documented) at patient's floor/unit and/or counseling patient: Coding Level of Care Code 68365 SUB INP/OBS CARE 2/35MIN Diagnoses Hypoglycemia E16.2 Diabetes mellitus type 2 with complications, uncontrolled E11.8; E11.65 Infestation by bed bug B88.8 Lactate blood increased R79.89 Hypomagnesemia E83.42 Acquired hypothyroidism E03.9 Hypothyroidism type: acquired Cerebrovascular disease I67.9 Primary hypertension I10 Hypertension type: primary hypertension Nonintractable epilepsy without status epilepticus, unspecified epilepsy type G40.909 Epilepsy type: unspecified Intractability: not intractable Status epilepticus: without status epilepticus (6) Hypothyroidism Hypothyroidism type: acquired Qualified Code(s): E03.9 - Hypothyroidism, unspecified (8) Hypertension Hypertension type: primary hypertension Qualified Code(s): I10 - Essential (primary) hypertension (9) Epilepsy Epilepsy type: unspecified Intractability: not intractable Status epilepticus: without status epilepticus Qualified Code(s): G40.909 - Epilepsy, unspecified, not intractable, without status epilepticus
[2024-03-01 07:49] LABS: Hematocrit (blood only) 35.3 % (37.0-47.0); Hemoglobin 11.9 g/dl (12.0-16.0); Mean Corpuscular Hemoglobin 30.7 pg (25.0-34.0); Mean Corpuscular Hgb Conc 33.7 g/dL (32.0-36.0); Mean Platelet Volume 11.5 fL (9.4-12.4); Platelet Count 136 K/uL (130-400); RDW Coefficient of Variation 12.9 % (11.5-14.5); RDW Standard Deviation 42.5 fL (36.4-46.3); Red Blood Count 3.88 M/uL (4.20-5.40); White Blood Count 6.32 K/ul (4.8-10.8)
[2024-03-01 08:09] LABS: BUN Creatinine Ratio 25.5 (10-20); Calcium 8.9 mg/dl (8.6-10.3); Creatinine Clr Calc Pharmacy 39.2 ml/min; Est GFR (African American) 62.3 ml/min; Est GFR (Non-African American) 53.7 ml/min; Potassium 4.4 mmol/L (3.5-5.1)
[2024-03-01 10:58] LABS: Appearance Urine Turbid (Clear); Bacteria Urine Automated 4+ (None Seen); Bilirubin Urine Negative (Negative); Blood Urine Trace (Negative); Cast Urine Automated 0-2 /lpf (0-2); Color Urine Yellow; Glucose Urine UA Negative (Negative); Ketones Urine Negative (Negative); Leukocyte Esterase Urine 3+ (Negative); Nitrite Urine Positive (Negative); Protein Urine Negative (Negative); RBC Urine Automated 0-2 /hpf (0-2); Specific Gravity Urine 1.009 (1.000-1.030); Urobilinogen Urine Negative (Negative); WBC Urine Automated >50 /hpf (0-5); pH Urine 6.5 (4.5-7.5)
[2024-03-01] MEDS: cefTRIAXone SODIUM 2,000 MG/50 ML BAG IV STA (16:34)
[2024-03-01] MEDS: CEFDINIR 300 MG CAP PO STA (16:43)
--- NOTE | 2024-03-01 19:49 | Hospitalist Progress Note ---
Date of Service March 01, 2024 Assessment & Plan (1) Urinary tract infection: Plan: u/a today obtained due to low-grade/borderline high temperature u/a highly suspicious for UTI culture sent we lost IV access so gave 1 dose of omnicef follow culture, likely continue omnicef unless culture suggests another agent is necessary (2) Hypoglycemia: Plan: Presented to [facility] with glucose in the 30s Treated in ED with D50 followed by D10 drip the evening of admission with resolution of hypoglycemia NO recurrent hypoglycemia since then Appreciate pharmacy glycemic team assistance for her DM BSGs remain well within normal limits today (3) Diabetes mellitus type 2 with complications, uncontrolled: Plan: last Hba1c 16% in late November 2023 her a1c has been >10% for several years she is on 70/30 insulin at home and clearly is struggling with DM control appreciate pharmacy glycemic assistance cont basal-bolus insulin ideally she remain on basal-bolus insulin regimen but patient no longer going to SNF may be returning home I am uncertain she can perform a 3 or 4-shot regimen every day uncertain as to what is best approach here (4) Infestation by bed bug: Plan: Decontamination protocol was completed since discovery continue contact isolation precautions no issues since admission will give handout to family (5) Lactate blood increased: Plan: Initial lactate of 2.3 at ER presentation, improving to 1.4 after IV fluids and resolution of hypoglycemia (6) Hypomagnesemia: Plan: replaced resolved (7) Hypothyroidism: Plan: Continue levothyroxine TSH 6.6 late January 2024 last several TSH checks have all been mildly high in light of poorly controlled DM I suspect she is noncompliant with her insulins as well as synthroid would simply repeat TSH in 4 weeks after a period of "forced compliance" while she is in rehab if high in 4 weeks then adjust synthroid then (8) Cerebrovascular disease: Plan: Continue aspirin and statin for secondary prevention 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 Cont PT/OT. Previous attending MD updated her daughter Emani by phone 02/25/24 I updated Emani this evening again as well as 02/29/24 DVT Proph - heparin 5000 units BID dispo - uncertain; denied SNF by insurance I am disappointed with her insurance that they did not believe that we had called yesterday requesting the peer to peer review Admission and Anticipated Discharge Date Admission Date: February 23, 2024 Subjective was informed this am by social work that [employer] insurance claims they did not receive my phone call last evening requesting peer to peer review social work here advocated on my behalf and patient's behalf but the insurance was unwilling to assist and the auth request for SNF placement was denied family aware that SNF was denied and informed social work they wanted to take Mrs Hernandez home I called and spoke with pt's daughter daughter expressed concerns about her mother's diabetes and her mother's inability to manage the diabetes daughter mentioned assisted living for her mother from what I understand the ultimate plan was to have the patient remain long- term in SNF at [facility] but family changed their mind and wanted to bring their mother home primary care office notes allude to assisted living placement those same notes also describe the challenges that Ms Hernandez has had with her DM control I told pt's daughter that I was at a loss to figure out the best diabetes regimen for her mother if she were to return home I have my doubts that patient can do a 4-shot insulin regimen Alternatively we could return to a 70/30 twice daily regimen but this requires consistent meal intake, consistent use of the insulin, etc for optimal control Review of Systems Review of Systems: gen - eating fair/good cv - no chest pain pulm - no dyspnea GI - no abd pain/nausea/emesis Physical Exam Physical Exam: gen - NAD, looks well, sitting in chair, pleasant; disappointed she may not leave today mouth - MMM neck - no JVD heart - RRR, s1 s2, no murmur lungs - CTA b/l abd - soft NT ND BS+ ext - no edema, pulses 2+ b/l Results & Data Results & Data Vital Signs (Past 12 Hours) Vital Signs Temp Pulse Resp BP Pulse Ox O2 Del Method 03/01/24 19:32 37.5 C 98 H 14 138/71 96 Room Air 03/01/24 15:39 37.0 C 91 H 16 101/56 L 97 Room Air 03/01/24 07:59 37.4 C 83 16 112/57 L 95 Room Air Laboratory Results Laboratory Results - last 24 hr 02/29/24 03/01/24 03/01/24 20:25 07:25 07:30 WBC 6.32 RBC 3.88 L Hgb 11.9 L Hct 35.3 L MCV 91.0 MCH 30.7 MCHC 33.7 RDW Std Deviation 42.5 RDW Coeff of Mauro 12.9 Plt Count 136 MPV 11.5 Sodium 138 Potassium 4.4 Chloride 104 Carbon Dioxide 28 Anion Gap 6 BUN 25 H Creatinine 0.98 Est Cr Clr Drug Dosing 39.2 Est GFR ( Amer) 62.3 Est GFR (Non-Af Amer) 53.7 BUN/Creatinine Ratio 25.5 H Glucose 122 H POC Glucose 118 H 127 H Calcium 8.9 Urine Color Urine Appearance Urine pH Ur Specific [place] Urine Protein Urine Glucose (UA) Urine Ketones Urine Blood Urine Nitrite Urine Bilirubin Urine Urobilinogen Ur Leukocyte Esterase Urine WBC (Auto) Urine RBC (Auto) U Hyaline Cast (Auto) U Epithel Cells (Auto) Urine Bacteria (Auto) 03/01/24 03/01/24 03/01/24 10:30 11:44 16:27 WBC RBC Hgb Hct MCV MCH MCHC RDW Std Deviation RDW Coeff of Mauro Plt Count MPV Sodium Potassium Chloride Carbon Dioxide Anion Gap BUN Creatinine Est Cr Clr Drug Dosing Est GFR ( Amer) Est GFR (Non-Af Amer) BUN/Creatinine Ratio Glucose POC Glucose 145 H 136 H Calcium Urine Color Yellow Urine Appearance Turbid A Urine pH 6.5 Ur Specific [place] 1.009 Urine Protein Negative Urine Glucose (UA) Negative Urine Ketones Negative Urine Blood Trace H Urine Nitrite Positive A Urine Bilirubin Negative Urine Urobilinogen Negative Ur Leukocyte Esterase 3+ H Urine WBC (Auto) >50 H Urine RBC (Auto) 0-2 U Hyaline Cast (Auto) 0-2 U Epithel Cells (Auto) 3-5 H Urine Bacteria (Auto) 4+ H PG Care Time/CCT Total # of Minutes Spent Total Time Spent with Patient: Total time spent is greater than 50% in coordination of care (as documented) at patient's floor/unit and/or counseling patient: Coding Level of Care Code 24237 SUB INP/OBS CARE 2/35MIN Diagnoses Urinary tract infection N39.0 Hypoglycemia E16.2 Diabetes mellitus type 2 with complications, uncontrolled E11.8; E11.65 Infestation by bed bug B88.8 Lactate blood increased R79.89 Hypomagnesemia E83.42 Acquired hypothyroidism E03.9 Hypothyroidism type: acquired Cerebrovascular disease I67.9 Primary hypertension I10 Hypertension type: primary hypertension Nonintractable epilepsy without status epilepticus, unspecified epilepsy type G40.909 Epilepsy type: unspecified Intractability: not intractable Status epilepticus: without status epilepticus (7) Hypothyroidism Hypothyroidism type: acquired Qualified Code(s): E03.9 - Hypothyroidism, unspecified (9) Hypertension Hypertension type: primary hypertension Qualified Code(s): I10 - Essential (primary) hypertension (10) Epilepsy Epilepsy type: unspecified Intractability: not intractable Status epilepticus: without status epilepticus Qualified Code(s): G40.909 - Epilepsy, unspecified, not intractable, without status epilepticus
[2024-03-02 11:34] LABS: Basophils # (auto) 0.03 K/uL (0.00-0.20); Basophils % (auto) 0.8 %; Eosinophils # (auto) 0.05 K/uL (0.00-0.50); Eosinophils % (auto) 1.3 %; Hematocrit (blood only) 33.8 % (37.0-47.0); Hemoglobin 11.5 g/dl (12.0-16.0); Immature Granulocytes # (auto) 0.05 K/uL (0.01-0.20); Immature Granulocytes % (auto) 1.3 %; Lymphocytes % (auto) 16.1 %; Mean Corpuscular Hemoglobin 30.6 pg (25.0-34.0); Mean Corpuscular Volume 89.9 fL (80.0-100.0); Mean Platelet Volume 11.8 fL (9.4-12.4); Monocytes # (auto) 0.39 K/uL (0.11-0.59); Monocytes % (auto) 10.5 %; Neutrophils # (auto) 2.61 K/uL (1.40-6.50); Platelet Count 127 K/uL (130-400); RDW Standard Deviation 42.6 fL (36.4-46.3); Red Blood Count 3.76 M/uL (4.20-5.40); White Blood Count 3.73 K/ul (4.8-10.8)
[2024-03-02 11:35] LABS: Calcium 8.4 mg/dl (8.6-10.3); Potassium 4.3 mmol/L (3.5-5.1)
[2024-03-02 11:41] LABS: BUN Creatinine Ratio 23.5 (10-20); Est GFR (African American) 62.3 ml/min; Est GFR (Non-African American) 53.7 ml/min
[2024-03-02 16:04] LABS: Influenza A virus by PCR Negative (Neg); Influenza B virus by PCR Negative (Neg); RSV by PCR Negative (Neg); SARS CoV2 RNA(COVID-19) Ceph NEGATIVE (Negative)
[2024-03-02] MEDS: cefTRIAXone SODIUM 2,000 MG/50 ML BAG IV SCH (16:41)
[2024-03-02] MEDS: DOXYCYCLINE HYCLATE 100 MG CAP PO STA (17:09)
--- NOTE | 2024-03-02 18:34 | Hospitalist Progress Note ---
Date of Service March 02, 2024 Assessment & Plan (1) Urinary tract infection: Plan: u/a obtained 03/01/24 due to low-grade/borderline high temperature was suspicious for UTI culture sent but returned contaminated s/p 1 dose of omnicef yesterday today had temp of 37.7 this am repeat urine cx obtained this time via straight cath await culture rocephin IV while awaiting blood/urine cx's (2) Hypoglycemia: Plan: Presented to [facility] with glucose in the 30s Treated in ED with D50 followed by D10 drip the evening of admission with resolution of hypoglycemia NO recurrent hypoglycemia since then Appreciate pharmacy glycemic team assistance for her DM BSGs remain acceptable (3) Diabetes mellitus type 2 with complications, uncontrolled: Plan: last Hba1c 16% in late November 2023 her a1c has been >10% for several years she was on 70/30 insulin at home and clearly has been struggling with DM control - by report noncompliant with BSG checks, insulin, and diet appreciate pharmacy glycemic assistance cont basal-bolus insulin ideally she remain on basal-bolus insulin regimen but patient no longer going to SNF may be returning home I am uncertain she can perform a 3 or 4-shot regimen every day 70/30 insulin is only effective if she has consistent eating habits and consistent use of the insulin itself (4) Infestation by bed bug: Plan: Decontamination protocol was completed since discovery continue contact isolation precautions no issues since admission will give handout to family (5) Lactate blood increased: Plan: Initial lactate of 2.3 at ER presentation, improving to 1.4 after IV fluids and resolution of hypoglycemia (6) Hypomagnesemia: Plan: replaced resolved (7) Hypothyroidism: Plan: Continue levothyroxine TSH 6.6 late January 2024 last several TSH checks have all been mildly high in light of poorly controlled DM I suspect she is noncompliant with her insulins as well as synthroid would simply repeat TSH in 4 weeks after a period of "forced compliance" while she is in rehab if high in 4 weeks then adjust synthroid then (8) Cerebrovascular disease: Plan: Continue aspirin and statin for secondary prevention 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 Low-grade fever - COVID/flu/RSV negative; repeat urine cx dispatched; blood cx's dispatched; CBC with leukopenia/thrombocytopenia -- ?tick-borne illness? viral? Cont PT/OT. Previous attending MD updated her daughter Emani by phone 02/25/24 I updated Emani 03/01/24 extensively by phone DVT Proph - heparin 5000 units BID dispo - uncertain; denied SNF by insurance spoke with social work today - asked them to give family a call and inquire about desires for assisted living for Mrs Hernandez appreciate their assistance Admission and Anticipated Discharge Date Admission Date: February 23, 2024 Subjective pt sitting in chair despite low-grade fever this am denies the following -- headache, myalgias, dyspnea, dysuria, abd pain, N/V, significant cough (has mild chronic cough only) denies tick bites at home although her dogs go outside she expresses desire to go home eating very well still Review of Systems Review of Systems: gen - no rigors cv - no chest pain pulm - no wheezing or dyspnea GI - no diarrhea musculo - denies joint pains Physical Exam Physical Exam: gen - NAD, looks well, sitting in chair like prior visits, pleasant; does not look sickly mouth - MMM neck - no JVD heart - RRR, s1 s2, no murmur lungs - CTA b/l; no rales or wheezes abd - soft NT ND BS+ ext - no edema, pulses 2+ b/l musculo - no joint effusions Results & Data Results & Data Vital Signs (Past 12 Hours) Vital Signs Temp Pulse Resp BP Pulse Ox O2 Del Method 03/02/24 15:38 37.4 C 74 18 118/71 97 Room Air 03/02/24 08:00 Room Air 03/02/24 07:41 37.7 C H 86 18 112/70 95 Room Air Laboratory Results Laboratory Results - last 24 hr 03/01/24 03/02/24 03/02/24 20:45 07:40 11:02 WBC 3.73 L RBC 3.76 L Hgb 11.5 L Hct 33.8 L MCV 89.9 MCH 30.6 MCHC 34.0 RDW Std Deviation 42.6 RDW Coeff of Mauro 13.0 Plt Count 127 L MPV 11.8 Immature Gran % (Auto) 1.3 Neut % (Auto) 70.0 Lymph % (Auto) 16.1 Bailey % (Auto) 10.5 Eos % (Auto) 1.3 Baso % (Auto) 0.8 Neut # (Auto) 2.61 Lymph # (Auto) 0.60 L Bailey # (Auto) 0.39 Eos # (Auto) 0.05 Baso # (Auto) 0.03 Immature Gran # (Auto) 0.05 Sodium 133 L Potassium 4.3 Chloride 101 Carbon Dioxide 24 Anion Gap 8 BUN 23 Creatinine 0.98 Est Cr Clr Drug Dosing 43.0 Est GFR ( Amer) 62.3 Est GFR (Non-Af Amer) 53.7 BUN/Creatinine Ratio 23.5 H Glucose 243 H POC Glucose 176 H 121 H Calcium 8.4 L SARS-CoV-2 (PCR) Influenza Type A (PCR) Influenza Type B (PCR) RSV (RT-PCR) 03/02/24 03/02/24 03/02/24 11:26 16:31 Unknown WBC RBC Hgb Hct MCV MCH MCHC RDW Std Deviation RDW Coeff of Mauro Plt Count MPV Immature Gran % (Auto) Neut % (Auto) Lymph % (Auto) Bailey % (Auto) Eos % (Auto) Baso % (Auto) Neut # (Auto) Lymph # (Auto) Bailey # (Auto) Eos # (Auto) Baso # (Auto) Immature Gran # (Auto) Sodium Potassium Chloride Carbon Dioxide Anion Gap BUN Creatinine Est Cr Clr Drug Dosing Est GFR ( Amer) Est GFR (Non-Af Amer) BUN/Creatinine Ratio Glucose POC Glucose 224 H 152 H Calcium SARS-CoV-2 (PCR) NEGATIVE Influenza Type A (PCR) Negative Influenza Type B (PCR) Negative RSV (RT-PCR) Negative Diagnostic Findings Microbiology 03/01/24 10:30 Urine,Clean Catch Urine Culture - Final Three types of organisms present, all high counts. Repeat collection recommended. No further identifications or sensitivities to follow. 02/23/24 22:39 Urine,Straight Cath Urine Culture - Final More than three types of organisms present, all moderate counts mixed probable skin caroline. No further identifications or sensitivities to follow. PG Care Time/CCT Total # of Minutes Spent Total Time Spent with Patient: Total time spent is greater than 50% in coordination of care (as documented) at patient's floor/unit and/or counseling patient: Coding Level of Care Code 68983 SUB INP/OBS CARE 3/50MIN Diagnoses Urinary tract infection N39.0 Hypoglycemia E16.2 Diabetes mellitus type 2 with complications, uncontrolled E11.8; E11.65 Infestation by bed bug B88.8 Lactate blood increased R79.89 Hypomagnesemia E83.42 Acquired hypothyroidism E03.9 Hypothyroidism type: acquired Cerebrovascular disease I67.9 Primary hypertension I10 Hypertension type: primary hypertension Nonintractable epilepsy without status epilepticus, unspecified epilepsy type G40.909 Epilepsy type: unspecified Intractability: not intractable Status epilepticus: without status epilepticus (7) Hypothyroidism Hypothyroidism type: acquired Qualified Code(s): E03.9 - Hypothyroidism, unspecified (9) Hypertension Hypertension type: primary hypertension Qualified Code(s): I10 - Essential (primary) hypertension (10) Epilepsy Epilepsy type: unspecified Intractability: not intractable Status epilepticus: without status epilepticus Qualified Code(s): G40.909 - Epilepsy, unspecified, not intractable, without status epilepticus
[2024-03-02] MEDS: DOXYCYCLINE HYCLATE 100 MG CAP PO SCH (19:41)
[2024-03-03 09:20] LABS: Basophils # (auto) 0.03 K/uL (0.00-0.20); Basophils % (auto) 0.8 %; Eosinophils # (auto) 0.18 K/uL (0.00-0.50); Eosinophils % (auto) 4.5 %; Hematocrit (blood only) 37.4 % (37.0-47.0); Hemoglobin 12.4 g/dl (12.0-16.0); Immature Granulocytes # (auto) 0.01 K/uL (0.01-0.20); Immature Granulocytes % (auto) 0.3 %; Lymphocytes # (auto) 0.99 K/uL (1.20-3.40); Lymphocytes % (auto) 24.8 %; Mean Corpuscular Hemoglobin 30.1 pg (25.0-34.0); Mean Corpuscular Hgb Conc 33.2 g/dL (32.0-36.0); Mean Corpuscular Volume 90.8 fL (80.0-100.0); Mean Platelet Volume 11.7 fL (9.4-12.4); Neutrophils # (auto) 2.38 K/uL (1.40-6.50); Neutrophils % (auto) 59.6 %; Platelet Count 144 K/uL (130-400); RDW Standard Deviation 43.1 fL (36.4-46.3); Red Blood Count 4.12 M/uL (4.20-5.40); White Blood Count 3.99 K/ul (4.8-10.8)
[2024-03-03 09:27] LABS: BUN Creatinine Ratio 21.3 (10-20); Calcium 9.1 mg/dl (8.6-10.3); Creatinine Clr Calc Pharmacy 44.9 ml/min; Est GFR (African American) 65.5 ml/min; Est GFR (Non-African American) 56.5 ml/min; Potassium 4.3 mmol/L (3.5-5.1)
[2024-03-03 09:55] LABS: Giant Platelets 1+
--- NOTE | 2024-03-03 20:07 | Hospitalist Progress Note ---
Date of Service March 03, 2024 Assessment & Plan (1) Urinary tract infection: Plan: 2nd GNR s/p 1 dose of omnicef 03/01, followed by daily IV rocephin starting 03/02 await final urine cx blood cx's neg to date prior CT a/p without kidney stones (2) Hypoglycemia: Plan: Presented to [facility] with glucose in the 30s Treated in ED with D50 followed by D10 drip the evening of admission with resolution of hypoglycemia NO recurrent hypoglycemia since then Appreciate pharmacy glycemic team assistance for her DM BSGs remain acceptable (3) Diabetes mellitus type 2 with complications, uncontrolled: Plan: last Hba1c 16% in late November 2023 her a1c has been >10% for several years she was on 70/30 insulin at home and clearly has been struggling with DM control - by report noncompliant with BSG checks, insulin, and diet appreciate pharmacy glycemic assistance cont basal-bolus insulin ideally she remain on basal-bolus insulin regimen but patient no longer going to SNF will be returning home I am uncertain she can perform a 3 or 4-shot regimen every day on her own I spoke with her daughter this evening about this we discussed private care duty nurses that could assist her with her injections discussed that 70/30 insulin is only effective if she has consistent eating habits and consistent use of the insulin itself further, she is only requiring about 20 units of insulin/day here vs the 70 units of 70/30 she was taking at her home (4) Infestation by bed bug: Plan: Decontamination protocol was completed since discovery continue contact isolation precautions no issues since admission will give handout to family (5) Lactate blood increased: Plan: Initial lactate of 2.3 at ER presentation, improving to 1.4 after IV fluids and resolution of hypoglycemia (6) Hypomagnesemia: Plan: replaced resolved (7) Hypothyroidism: Plan: Continue levothyroxine TSH 6.6 late January 2024 last several TSH checks have all been mildly high in light of poorly controlled DM I suspect she is noncompliant with her insulins as well as synthroid would simply repeat TSH in 4 weeks after a period of "forced compliance" while she is in rehab if high in 4 weeks then adjust synthroid then (8) Cerebrovascular disease: Plan: Continue aspirin and statin for secondary prevention 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 Low-grade fever - 2nd to UTI - GNR. COVID/flu/RSV negative; CBC with leukopenia/thrombocytopenia -- ?tick-borne illness? viral? bacterial bone marrow suppression? send anaplasmosis DNA to be complete. Cont PT/OT. Previous attending MD updated her daughter Emani by phone 02/25/24 I updated Emani 03/01/24 and again tonight by phone DVT Proph - heparin 5000 units BID dispo - home with HH services on 03/04 pt would benefit from privately hired nursing help as well thru an agency like [facility], etc. Admission and Anticipated Discharge Date Admission Date: February 23, 2024 Subjective patient sitting in chair anxious to go home "My daughters are ready for me to be home" feels good offers no new complaints denies cp, dyspnea, abd pain, nausea, emesis getting up to the chair and bathroom w/o difficulty Review of Systems Review of Systems: gen - no fevers or chills cv - no chest pain, no orthopnea; +edema pulm - no cough GI - no N/V Physical Exam Physical Exam: gen - NAD, looks well, sitting in chair like prior visits, pleasant; nontoxic mouth - MMM neck - no JVD heart - RRR, s1 s2, no murmur lungs - CTA b/l; no rales or wheezes abd - soft NT ND BS+ ext - <1+ edema b/l (nonpitting edema), pulses 2+ b/l Results & Data Results & Data Vital Signs (Past 12 Hours) Vital Signs Temp Pulse Resp BP Pulse Ox O2 Del Method 03/03/24 15:18 36.6 C 68 18 113/68 96 Room Air 03/03/24 08:58 99/64 L Laboratory Results Laboratory Results - last 24 hr 03/02/24 03/03/24 03/03/24 20:59 07:10 08:25 WBC 3.99 L RBC 4.12 L Hgb 12.4 Hct 37.4 MCV 90.8 MCH 30.1 MCHC 33.2 RDW Std Deviation 43.1 RDW Coeff of Mauro 13.0 Plt Count 144 MPV 11.7 Immature Gran % (Auto) 0.3 Neut % (Auto) 59.6 Lymph % (Auto) 24.8 [place] % (Auto) 10.0 Eos % (Auto) 4.5 Baso % (Auto) 0.8 Neut # (Auto) 2.38 Lymph # (Auto) 0.99 L [place] # (Auto) 0.40 Eos # (Auto) 0.18 Baso # (Auto) 0.03 Immature Gran # (Auto) 0.01 Giant Platelets 1+ Sodium 138 Potassium 4.3 Chloride 102 Carbon Dioxide 30 Anion Gap 6 BUN 20 Creatinine 0.94 Est Cr Clr Drug Dosing 44.9 Est GFR ( Amer) 65.5 Est GFR (Non-Af Amer) 56.5 BUN/Creatinine Ratio 21.3 H Glucose 153 H POC Glucose 153 H 126 H Calcium 9.1 AST 20 ALT 19 Anaplasma Smear See Comment Lyme Disease Screen Negative 03/03/24 03/03/24 11:23 16:45 WBC RBC Hgb Hct MCV MCH MCHC RDW Std Deviation RDW Coeff of Mauro Plt Count MPV Immature Gran % (Auto) Neut % (Auto) Lymph % (Auto) Hampton % (Auto) Eos % (Auto) Baso % (Auto) Neut # (Auto) Lymph # (Auto) [place] # (Auto) Eos # (Auto) Baso # (Auto) Immature Gran # (Auto) Giant Platelets Sodium Potassium Chloride Carbon Dioxide Anion Gap BUN Creatinine Est Cr Clr Drug Dosing Est GFR ( Amer) Est GFR (Non-Af Amer) BUN/Creatinine Ratio Glucose POC Glucose 182 H 110 H Calcium AST ALT Anaplasma Smear Lyme Disease Screen Diagnostic Findings Microbiology 03/02/24 11:06 Blood Aerobic Blood Culture - Preliminary No growth in Aerobic bottle after 24 hours. 03/02/24 11:06 Blood Anaerobic Blood Culture - Final 03/02/24 Unknown Urine,Straight Cath Urine Culture - Preliminary Gram negative bacilli 03/02/24 11:02 Blood Aerobic Blood Culture - Preliminary No growth in Aerobic bottle after 24 hours. 03/02/24 11:02 Blood Anaerobic Blood Culture - Preliminary No growth in Anaerobic bottle after 24 hours. 03/01/24 10:30 Urine,Clean Catch Urine Culture - Final Three types of organisms present, all high counts. Repeat collection recommended. No further identifications or sensitivities to follow. 02/23/24 22:39 Urine,Straight Cath Urine Culture - Final More than three types of organisms present, all moderate counts mixed probable skin caroline. No further identifications or sensitivities to follow. PG Care Time/CCT Total # of Minutes Spent Total Time Spent with Patient: Total time spent is greater than 50% in coordination of care (as documented) at patient's floor/unit and/or counseling patient: Coding Level of Care Code 40270 SUB INP/OBS CARE 2/35MIN Diagnoses Urinary tract infection N39.0 Hypoglycemia E16.2 Diabetes mellitus type 2 with complications, uncontrolled E11.8; E11.65 Infestation by bed bug B88.8 Lactate blood increased R79.89 Hypomagnesemia E83.42 Acquired hypothyroidism E03.9 Hypothyroidism type: acquired Cerebrovascular disease I67.9 Primary hypertension I10 Hypertension type: primary hypertension Nonintractable epilepsy without status epilepticus, unspecified epilepsy type G40.909 Epilepsy type: unspecified Intractability: not intractable Status epilepticus: without status epilepticus (7) Hypothyroidism Hypothyroidism type: acquired Qualified Code(s): E03.9 - Hypothyroidism, unspecified (9) Hypertension Hypertension type: primary hypertension Qualified Code(s): I10 - Essential (primary) hypertension (10) Epilepsy Epilepsy type: unspecified Intractability: not intractable Status epilepticus: without status epilepticus Qualified Code(s): G40.909 - Epilepsy, unspecified, not intractable, without status epilepticus
[2024-03-04 07:15] LABS: Basophils # (auto) 0.03 K/uL (0.00-0.20); Basophils % (auto) 0.7 %; Eosinophils # (auto) 0.19 K/uL (0.00-0.50); Eosinophils % (auto) 4.5 %; Hematocrit (blood only) 36.2 % (37.0-47.0); Hemoglobin 12.1 g/dl (12.0-16.0); Immature Granulocytes # (auto) 0.01 K/uL (0.01-0.20); Immature Granulocytes % (auto) 0.2 %; Lymphocytes # (auto) 1.29 K/uL (1.20-3.40); Lymphocytes % (auto) 30.4 %; Mean Corpuscular Hemoglobin 30.3 pg (25.0-34.0); Mean Corpuscular Hgb Conc 33.4 g/dL (32.0-36.0); Mean Corpuscular Volume 90.7 fL (80.0-100.0); Mean Platelet Volume 11.5 fL (9.4-12.4); Monocytes % (auto) 11.8 %; Neutrophils # (auto) 2.22 K/uL (1.40-6.50); Neutrophils % (auto) 52.4 %; Platelet Count 141 K/uL (130-400); RDW Coefficient of Variation 12.8 % (11.5-14.5); RDW Standard Deviation 42.5 fL (36.4-46.3); Red Blood Count 3.99 M/uL (4.20-5.40); White Blood Count 4.24 K/ul (4.8-10.8)
[2024-03-04] MEDS: LANTUS PER UNIT CHARGE SC SCH (08:30)
[2024-03-04] MEDS ORDERED: LANTUS PER UNIT CHARGE SC SCH (09:00)
[2024-03-04] MEDS: cephALEXin 500 MG CAP PO SCH (10:56)
--- NOTE | 2024-03-04 14:57 | Pharmacy Report ---
Pharmacy Glycemic Short Note 2 - Date of Service March 04, 2024 - Glycemic Short BSG Results (Last 24 hours): 03/03/24 03/03/24 03/04/24 16:45 20:45 07:38 POC Glucose 110 H 130 H 123 H 03/04/24 11:42 POC Glucose 129 H OUTPATIENT ANTIDIABETIC REGIMEN: * Novolin 70/30 - Inject 50 units SC AM + 20 units SC PM * HbA1c: 16% (12/20/23) ASSESSMENT: 03/04: * Donna received 17 units of insulin yesterday (5 were basal) * Fasting BSG within goal range this AM, continue current regimen * Antibiotics changed to Keflex this AM * Post-prandial BSGs elevated, slightly tighten carbohydrate ratio. 02/28: * Patient received total of 26 units of insulin yesterday, of which 10 units were basal insulin * Fasting BSG trending down 105 mg/dL - only day 2 of starting basal so not quite at steady state, basal insulin scaled back this AM * Continue same CF/CR 02/26: * BSGs [phone] mg/dL yesterday * Fasting continues to trend upward, added 10 units of lantus this morning, will titrate upwards * Lunch BSG also elevated, however will hold off on tightening novolog further- plan to tighten tomorrow if BSGs remain elevated throughout day 02/25 * BSGs [phone] mg/dL yesterday with 9 units of prandial/correctional * Fasting slightly elevated this morning but will continue to hold lantus today to see if trend continues (79 mg/dL yesterday) given issues with hypoglycemia * Novolog tightened with lunch for upward trend 02/23 * 83 yo F admitted on 02/23/24 secondary to hypoglycemia, nausea/vomiting. Pharmacy has been consulted to assist with inpatient glycemic management. Patient is a Type 2 diabetic as an outpatient. Please refer to outpatient regimen and most recent HbA1c above. * Presented with BSG of 39 mg/dL. Required 1 amp of D50. BSG improved to 71 mg/dL. * No insulin received yesterday while at hospital. Did receive 50 units of 70/30 prior to admission. * Fasting BSG was 124 mg/dL this AM. No Novolog received and lunchtime BSG was 83 mg/dL. Will hold on any basal insulin today. No change to Novolog but may need loosened. PLAN FOR INPATIENT GLYCEMIC CONTROL: * Basal insulin * 5 units SQ QAM * Bolus insulin * NovoLog per scale ACHS or Q6hrs while NPO * Goal Range: Low 110 mg/dL - High 140 mg/dL * Correction Factor: 30 mg/dL/unit * Nutritional / Prandial insulin per carb ratio of 1 unit per 9 grams CHO consumed
--- NOTE | 2024-03-04 15:24 | Discharge Summary ---
Date of Service March 04, 2024 Admission HPI Per Admitting Provider Donna is an 83-year-old female with PMH of poorly controlled T2DM, depression, dyslipidemia, GERD, HTN, hypothyroidism, pancreatic insufficiency, epilepsy, and memory impairment who presented to the [facility] ED on 02/23/24 with complaints of nausea, vomiting, and hypoglycemia. She was noted to be tachycardic with HR in the 90's but otherwise stable. Labs were significant for a glucose of 33 on arrival, initial lactate of 2.3, mag of 1.6. Chest xray was read as negative for acute findings. The patient eventually required a D10W drip due to persistent hypoglycemia. Prior to admission she was also given 1gm IV mag sulfate and started on NSS at 125 mL/hr x 1 bag. Patient was lying in bed in no acute distress at the time of the exam. States that she has had persistent nausea and vomiting over the past 24 hours. Has been unable to keep food or drink down. Was still taking her insulin as prescribed, Novolog 70-30, 50 units in the am and 20 units in the PM. Last dose was last evening. States she felt generally weak and dizzy prior to arrival, symptoms have resolved after initial treatment. Her nausea and vomiting have improved and she now feels hungry. Last bowel movement was yesterday, believes she is still passing gas today, denies abdominal pain. Denies recent fever, chills, chest pain, cough, SOB, hematemesis, dysuria, hematuria, melena, LE swelling, and recent trauma. She confirms she is a DNR/DNI and her daughter is her POA. Of note, nursing staff found bed bugs on the patient during their initial assessment. Please refer to Dr. Orr's attestation for any changes to the treatment plan Discharge Exam gen - NAD, looks well, sitting in chair like prior visits, pleasant; nontoxic mouth - MMM neck - no JVD heart - RRR, s1 s2, no murmur lungs - CTA b/l; no rales or wheezes abd - soft NT ND BS+ ext - <1+ edema b/l (nonpitting edema), pulses 2+ b/l Discharge Data Allergies Allergy/AdvReac Type Severity Reaction Status Date / Time Sulfa (Sulfonamide Allergy Intermediate SICK TO Verified 02/23/24 16:59 Antibiotics) STOMACH sitagliptin AdvReac Intermediate ABD PAIN Verified 02/23/24 16:59 Consultations 02/23/24 18:17 ED Decision to Admit Stat Hospital Course (1) Urinary tract infection: 2nd GNR s/p 1 dose of omnicef 03/01, followed by daily IV rocephin starting 03/02 await final urine cx blood cx's neg to date prior CT a/p without kidney stones (2) Hypoglycemia: Presented to [facility] with glucose in the 30s Treated in ED with D50 followed by D10 drip the evening of admission with res olution of hypoglycemia NO recurrent hypoglycemia since then Appreciate pharmacy glycemic team assistance for her DM BSGs remain acceptable (3) Diabetes mellitus type 2 with complications, uncontrolled: last Hba1c 16% in late November 2023 her a1c has been >10% for several years she was on 70/30 insulin at home and clearly has been struggling with DM control - by report noncompliant with BSG checks, insulin, and diet appreciate pharmacy glycemic assistance cont basal-bolus insulin ideally she remain on basal-bolus insulin regimen but patient no longer going to SNF will be returning home I am uncertain she can perform a 3 or 4-shot regimen every day on her own I spoke with her daughter this evening about this we discussed private care duty nurses that could assist her with her injections discussed that 70/30 insulin is only effective if she has consistent eating habits and consistent use of the insulin itself further, she is only requiring about 20 units of insulin/day here vs the 70 units of 70/30 she was taking at her home (4) Infestation by bed bug: Decontamination protocol was completed since discovery continue contact isolation precautions no issues since admission will give handout to family (5) Lactate blood increased: Initial lactate of 2.3 at ER presentation, improving to 1.4 after IV fluids and resolution of hypoglycemia (6) Hypomagnesemia: replaced resolved (7) Hypothyroidism: Continue levothyroxine TSH 6.6 late January 2024 last several TSH checks have all been mildly high in light of poorly controlled DM I suspect she is noncompliant with her insulins as well as synthroid would simply repeat TSH in 4 weeks after a period of "forced compliance" while she is in rehab if high in 4 weeks then adjust synthroid then (8) Cerebrovascular disease: Continue aspirin and statin for secondary prevention Previous MRI brain showed 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 Low-grade fever - 2nd to UTI - GNR. COVID/flu/RSV negative; CBC with leukopenia/thrombocytopenia -- ?tick-borne illness? viral? bacterial bone marrow suppression? send anaplasmosis DNA to be complete. Cont PT/OT. Previous attending MD updated her daughter Emani by phone 02/25/24 I updated Emani 03/01/24 and again tonight by phone DVT Proph - heparin 5000 units BID dispo - home with HH services on 03/04 pt would benefit from privately hired nursing help as well thru an agency like [employer], etc. Home Health Attestation I certify that this patient is under my care and that I, or a physicians multimedia production assistant working with me, had a face to-face encounter that meets the home health [id number] encounter requirements with this patient. The encounter with the patient was in whole, or in part, for the following medical condition, which is the primary reason for home health care (list medical condition): I certify that, based on my findings, the following services are medically necessary home health services: My clinical findings support the need for the above services because: Further, I certify that my clinical findings support that this patient is homebound (i.e. absences from home require considerable and taxing effort and are for medical reasons or yarsani services or infrequently or of short duration when for other reasons) because: Certification for Home Health Services: Based on the above findings, I certify that this patient is confined to the home and needs intermittent jail care, physical therapy and/or speech therapy or continues to need occupational therapy. The patient is under my care, and I have initiated the establishment of the plan of care. This patient will be followed by a physician who will periodically review the plan of care. Discharge Plan Discharge Items Patient Disposition: Home - Self-Care Reason For Visit: NAUSEA, VOMITING, HYPOGLYCEMIA, BED BUGS Discharge Diagnosis: 1. nausea/vomiting - resolved 2. hypoglycemia (low blood sugar) - resolved 3. suspected bed bugs - decontamination performed at time of admission 4. urinary tract infection due to e.coli 5. uncontrolled diabetes Activity: Resume your previous activity Non-emergency contact: Primary Care Provider Call non-emergency contact if: you have any medication questions and your symptoms worsen Follow-up/Referrals: Kelli Gates CRNP [Primary Care Provider] - 03/11/24 10:30 am Diet: Carb Consistent or DM2 Diet Texture: Easy to Chew Addtl Attending Provider Instructions: Mrs Hernandez, You were hospitalized due to nausea, vomiting, and low blood sugar. Your blood sugar was 33 upon arrival at [facility]. The cause of the nausea and vomiting was uncertain but possibly related to a urinary tract infection (UTI). You did receive IV/oral antibiotics while here for the UTI. The nausea & vomiting resolved rather quickly at the hospital. During your stay your blood sugars came under better control. We used a combination of lantus & novolog insulins to control your sugars. Over the last 2-3 days before going home your blood sugars were very good. You did not have any recent low blood sugars (last time it was low was the day of admission). Recommendations - 1. You have had widely fluctuating blood sugars for a long time. Diabetes is a difficult medical condition to live with. Without proper monitoring and proper/correct insulin dosing your diabetes can be dangerous to your health. Low blood sugars and high blood sugars can cause considerable problems. I am very nervous to place you back on 70/30 insulin due to your recent low blood sugars. 70/30 insulin also requires you to eat 3 meals daily and to have those meals at the same time every day. You were very well controlled on lantus and novolog during your hospital stay. You have had these insulins before. There is less chance of having low blood sugars with using the below regimen. I would recommend the following - * lantus pen (also known as glargine) -- 5 units every morning; this is a long- acting, 24-hour insulin * novolog pen -- 5 units with breakfast, 5 units with lunch, 5 units with dinner; this is short-acting insulin that covers the meals only * as you are about to start eating your meal you can give yourself the shot of novolog STOP your 70/30 insulin 2. for urinary tract infection take - cephalexin 500mg twice daily x 5 days, with your first dose TONIGHT at home. 3. please check your sugars AT LEAST 3 times daily but preferably 4 times daily (before each meal and at bedtime). 4. we found evidence of bedbugs when you were admitted to the hospital. Bedbugs are common. They are difficult to get rid of. You will need to call an shipmaster to have your house treated. Please see handout on bedbugs. Follow-up - see separate section Return to [facility] if - * you have recurrent LOW blood sugars under 80 * you have difficulty breathing, chest pains, or abdominal pains * you have nausea or vomiting * you have fever over 100 degrees * any other concerns It was our pleasure to care for you! -Dr Vance Pending Studies at Discharge: Yes Studies:: blood cultures but thus far they are negative Stand-Alone Forms: [facility] [employer]ware, Smoking Cessation Medications and DC Order Prescriptions: New insulin glargine [Lantus Solostar U-100 Insulin] 100 unit/mL (3 mL) insulin pen 5 unit subcut DAILY Qty: 15 0RF insulin aspart U-100 [Novolog FlexPen U-100 Insulin] 100 unit/mL (3 mL) insulin pen 5 unit subcut .TID with meals Qty: 15 1RF (DME) pen needle, diabetic [BD Ultra-Fine Mady Pen Needle] 32 gauge x 5/32" needle See Rx Instructions .Route Qty: 100 1RF Rx Instructions: use with lantus & novolog pens for total of 4 injections/day. cephalexin 500 mg Capsule 500 mg PO BID 5 Days Qty: 10 0RF Rx Instructions: first dose PM of 03/04/24. Continued (DME) pen needle, diabetic [Unifine Pentips] 31 gauge x 3/16" needle See Dose Instructions .ROUTE .MEDSUPPLY Qty: 60 11RF Rx Instructions: USE 2 DAILY colestipol 1 gram tablet 1 g PO DAILY PRN (Reason: Diarrhea) Qty: 30 5RF Rx Instructions: TAKE 1 TABLET BY MOUTH DAILY NEEDED FOR BREAKTHROUGH DIARRHA. lisinopril 2.5 mg tablet 2.5 mg PO DAILY Qty: 30 11RF Rx Instructions: bubble pack levothyroxine [Synthroid] 150 mcg tablet 150 mcg PO DAILYBB Qty: 30 11RF Rx Instructions: bubble pack simvastatin 20 mg tablet 20 mg PO HS Qty: 30 11RF Rx Instructions: bubble pack thiamine HCl (vitamin B1) 250 mg tablet 250 mg PO BID Qty: 60 11RF Rx Instructions: bubble pack venlafaxine 75 mg capsule,extended release 24hr 75 mg PO DAILY Qty: 30 11RF Rx Instructions: bubble pack Advanced Probiotic 625 mg (10 billion cell) capsule 2 cap PO DAILY Qty: 60 11RF Rx Instructions: bubble pack cyanocobalamin (vitamin B-12) 1,000 mcg capsule 1,000 mcg PO DAILY Qty: 30 11RF Rx Instructions: bubble pack aspirin 81 mg tablet,delayed release (DR/EC) 81 mg PO DAILY Qty: 30 11RF Rx Instructions: bubble pack cholecalciferol (vitamin D3) [Vitamin D3] 50 mcg (2,000 unit) tablet 2,000 unit PO DAILY Qty: 30 11RF Rx Instructions: bubble pack Sentry Senior 0.4 mg-300 mcg- 250 mcg tablet 1 tab PO DAILY Qty: 30 11RF (DME) blood sugar diagnostic Strip See Rx Instructions .ROUTE .MEDSUPPLY Qty: 300 5RF Rx Instructions: TEST BLOOD SUGAR 3 TIMES DAILY DX:E11.9 (DME) lancets [OneTouch UltraSoft 2 Lancet] 30 gauge misc See Rx Instructions .Route Qty: 100 5RF Rx Instructions: Test twice a day phenobarbital 60 mg tablet 60 mg PO .COMPLEX Qty: 90 5RF Rx Instructions: TAKES 60 MG QAM, THEN 120 MG QHS. diclofenac sodium [Voltaren Arthritis Pain] 1 % gel 4 g EXT QID PRN (Reason: Pain) Rx Instructions: Apply to hip at site of pain (DME) one touch glucose meter See Rx Instructions .Route .MEDSUPPLY Qty: 1 0RF Rx Instructions: test 3-4 times a day (DME) FreeStyle Paige 3 [place] Misc See Rx Instructions .Route Qty: 1 0RF Rx Instructions: test 2-3 times a day (DME) FreeStyle Paige 3 Sensor Device See Rx Instructions .Route Qty: 1 6RF Rx Instructions: test 2-3 times a day omeprazole 40 mg capsule,delayed release(DR/EC) 40 mg PO BID Qty: 30 11RF Rx Instructions: TAKE 1 CAPSULE BY MOUTH DAILY.bubble pack acetaminophen 325 mg tablet 650 mg PO Q4H PRN (Reason: Pain) Changed Creon 36,000-114,000- 180,000 unit capsule,delayed release(DR/EC) 2 cap PO AC Qty: 1 0RF Rx Instructions: TAKE 2 CAPSULES BY MOUTH BEFORE MEALS, 1 capsule with a large snack. Discontinued insulin asp prt-insulin aspart [Novolog Mix 70-30FlexPen U-100] 100 unit/mL (70-30) insulin pen See Rx Instructions subcut BID Qty: 15 11RF Rx Instructions: 50 units in the morning and 20 units in the evening Discharge Orders: Discharge Order (Routine); Ordered 03/04/24 Ordered By: Rock Garcia/Other Patient Handouts: Bedbugs, Hypoglycemia (Low Blood Sugar), Hypoglycemia Tx Steps Admission Data Admit Date/Time: 02/23/24 18:20 Attending Provider: Rock Vance Admit Provider: Cindy Orr Primary Care Provider: Kelli Gates Other Providers: Cindy Orr; [facility]; [place],[facility] Coding Diagnoses Urinary tract infection N39.0 Hypoglycemia E16.2 Diabetes mellitus type 2 with complications, uncontrolled E11.8; E11.65 Infestation by bed bug B88.8 Lactate blood increased R79.89 Hypomagnesemia E83.42 Acquired hypothyroidism E03.9 Hypothyroidism type: acquired Cerebrovascular disease I67.9 Primary hypertension I10 Hypertension type: primary hypertension Nonintractable epilepsy without status epilepticus, unspecified epilepsy type G40.909 Epilepsy type: unspecified Intractability: not intractable Status epilepticus: without status epilepticus
== END 2024-03-04 16:15 | disposition home health service (06) | DRG 638 ==
LOC: ED 13:48 → EDINP 18:20 → SUATTDRO 18:20 → 2E 02-25 03:46 → 3W 02-25 15:46

== ENCOUNTER 2024-04-03 17:59 | Inpatient (IN) ==
--- NOTE | 2024-04-03 18:42 | Emergency Department Note ---
Impression & Plan Hyperglycemia ED Provider Note NAME: RADHA CAMPBELL AGE: 84 SEX: Female INFORMANT: Patient and daughter ED PROVIDER(S): Cesar Moreno MD CHIEF COMPLAINT: Hyperglycemia PLAN: Disposition: Admitted Outpatient prescription management: none Referral: None MEDICAL DECISION MAKING: Patient presented because of hyperglycemia. IV was established. Fluids were administered. Patient had an ECG performed as well as blood work. Catheter urinalysis ordered. Patient was found to be hypoglycemic with sugar 485. No DKA. She was given IV insulin. Her magnesium was low as well at 1.4. She was given IV magnesium. Patient's urinalysis by catheter specimen was very concerning for infection. IV Rocephin was administered. Given her advanced age, concerns with her managing her medications and blood sugar and this UTI I discussed further management in the hospital with the patient and the daughter. Daughter is very much in agreement and patient agrees as well. Discussed with case management regarding the patient's situation. Consultation was made with Dr. Cristian Lennon of the [facility] service. Patient was evaluated in the ER for further management. Care/management discussed with: manager of revenue Level of care consideration(s): After review of the information above and other included data, I feel the patient requires escalation of care to admission Triage Nursing notes: reviewed and agree them. Vital Signs: reviewed and remarkable for no significant abnormalities Additional History obtained from: Patient's daughter. She notes that the patient does have some issues with compliance and does not follow her appropriate diet. Chronic Medical/Social Conditions affecting care: Diabetes Prior/ Outside/ External records reviewed: none Differential Diagnosis: Infection, dehydration, metabolic abnormality, hypo/hyperglycemia, electrolyte disturbance, anemia, hypoxia, cardiac sources, intracerebral event, toxicologic, neurologic, as well as other pathologies. Diagnostics, independently interpreted by me: ECG: Twelve-lead ECG rhythm normal sinus rhythm at 79 bpm. Left axis deviation. Low-voltage QRS. Poor R wave progression. No significant change when compared to 23 Feb 2024 Cardiac Monitoring: Cardiac monitoring ordered by me: The patient was placed on continuous cardiac monitoring and observed. It revealed a sinus rhythm with frequent PVCs at 80 bpm. Medical decision rules: none Imaging studies: Chest x-ray reveals cardiomegaly with mild pulmonary vascular congestion. No infiltrate. HPI: 84 year old Female arrives for evaluation of hyperglycemia. The daughter is present helps with history. Patient reportedly has some issues with compliance regarding her medications but especially her diet. Daughter states that over the last week or blood sugars were typical for her and in the 200 range. The patient's blood sugar was in the 500 range over the last 2 days. Patient did have some feelings of lightheadedness. She notes chronic incontinence and frequent urination. Daughter did state that they are trying to work on long-term care. Pt denies LOC, headache, fevers, chills, diaphoresis, visual changes, neck pain, chest pain, breathing difficulties, nausea, vomiting, abdominal pain, back pain, melena, hematochezia, numbness, weakness, lymphadenopathy, rash, or other complaints. PAST MEDICAL HISTORY: Diabetes, see below PAST SURGICAL HISTORY: See Below, SOCIAL HISTORY: See Below, lives with daughter HOME MEDICATIONS: See Below ALLERGIES: See Below VITALS: See Below PHYSICAL EXAMINATION: GENERAL: Awake, alert, wru-utnvaqmermi-sndbodegl, in no distress HENT: Normocephalic, atraumatic. Oropharynx unremarkable. EYES: Normal conjunctiva. Sclera non-icteric. NECK: Inspection normal. Non-tender. Supple. No nuchal rigidity. FROM. No masses. RESPIRATORY: Clear to auscultation. No wheezes. No rales. Normal respiratory effort. CARDIAC: Normal rate. Normal rhythm. No murmurs. No rubs. Extremities warm and well perfused. Pulses equal. No JVD. GI: Soft, non-distended. No tenderness to palpation. No rebound or guarding. No masses. MUSCULOSKELETAL: Atraumatic. Chest examination reveals no tenderness. The back is symmetrical on inspection without obvious abnormality. There is no CVA tenderness to palpation. No joint edema. LOWER EXTREMITIES: Calves are equal size bilaterally and non-tender. Trace edema. No discoloration. NEURO: Normal sensorium. No sensory or motor deficits noted. SKIN: No rash or jaundice noted. PROCEDURES: none CRITICAL CARE: none OBSERVATION NOTE: none Past Med/Surg History Problem List (Updated 04/03/24 @ 18:42 by Cesar Moreno MD) Hyperglycemia (Acute) Abnormal CBC Vomiting (Acute) Hypoglycemia (Acute) Lactate blood increased Infestation by bed bug (Acute) At high risk for falls Cervical stenosis of spine Cerebrovascular disease Arthritis of knee UTI (urinary tract infection), uncomplicated Weight loss Vitamin B1 deficiency Weakness (Acute) Poor hygiene (Acute) Physical deconditioning Vitamin B12 deficiency Left hip pain History of subdural hematoma Peripheral neuropathy (Chronic) Pancreatic insufficiency (Chronic) Memory impairment (Chronic) Hypothyroidism (Chronic) Hypertension Gait abnormality GERD (gastroesophageal reflux disease) Epilepsy (Chronic) Falls frequently (Chronic) Dyslipidemia (Chronic) Depression (Chronic) Poor compliance with medication Vitamin D deficiency disease (Chronic) Peripheral edema (Chronic) High risk medication use (Chronic) Medical History Osteoarthritis Balance problems Choking episode occurring during daytime Subdural hematoma, chronic Hydronephrosis of right kidney Surgical History History of cholecystectomy History of hysterectomy History of tooth extraction History of nasal surgery History of craniotomy History of cholecystectomy Family History Daughter Family history of diabetes mellitus Colorectal cancer Denies family history of Ovarian cancer Prostate cancer Myocardial infarction Breast cancer Social History Smoking Status: Never smoker Second Hand Exposure: No; Do You Dip or Chew Tobacco: No; Hx Alcohol Use: No Hx Substance Use: No Preferred Language: Colombian Communication Ability: Impaired Hearing Ability: Hard of Hearing Selector Packer Required: No Beliefs That Will Affect Care: None marital status: / Current Living Situation: Family Current Living Situation Comment: daughter current occupational status: retired How many Children do You have: 7 Feels Safe at Home: Yes Childhood Exposure to Second-Hand Smoke: Yes Diet: regular caffeine: Yes Dental Care, Regularly: No Physical Activity Frequency: Does not Exercise Seatbelt Use: always Sunscreen Use: No Assistive Devices: Glasses and Walker Allergies Allergies Allergy/AdvReac Type Severity Reaction Status Date / Time Sulfa (Sulfonamide Allergy Intermediate SICK TO Verified 04/03/24 21:12 Antibiotics) STOMACH sitagliptin AdvReac Intermediate ABD PAIN Verified 04/03/24 21:12 Home Meds Home Medications Medication Instructions Recorded Confirmed diclofenac sodium 1 % topical gel 4 g EXT QID PRN Pain 06/16/23 04/03/24 (Voltaren Arthritis Pain) acetaminophen 325 mg tablet 650 mg PO Q4H PRN Pain 02/23/24 04/03/24 insulin aspart U-100 100 unit/mL 5 unit subcut TIDM 04/03/24 04/03/24 (3 mL) subcutaneous pen (Novolog FlexPen U-100 Insulin aspart) insulin glargine 100 unit/mL (3 10 unit subcut QAM 04/03/24 04/03/24 mL) subcutaneous pen (Lantus Solostar U-100 Insulin) omeprazole 40 mg capsule,delayed 40 mg PO QAM 04/03/24 04/03/24 release phenobarbital 60 mg tablet 60 mg PO QAM 04/03/24 04/03/24 phenobarbital 60 mg tablet 120 mg PO HS 04/03/24 04/03/24 venlafaxine 75 mg capsule,extended 75 mg PO QAM 04/03/24 04/03/24 release 24 hr Previous Rx's Medication Instructions Recorded one touch glucose meter #1 ea 04/08/22 pen needle, diabetic 31 gauge x #60 ea 11/02/22/16" (Unifine Pentips) colestipol 1 gram tablet 1 g PO DAILY PRN Diarrhea #30 tabs 03/13/23 lisinopril 2.5 mg tablet 2.5 mg PO DAILY #30 tabs 08/08/23 L.acidop,casei,lactis,rham-B.lact,andrew 2 cap PO DAILY #60 caps 09/11/23 625 mg (10 billion cell) capsule (Advanced Probiotic) cyanocobalamin (vitamin B-12) 1,000 mcg PO DAILY #30 caps 09/11/23 1,000 mcg capsule levothyroxine 150 mcg tablet 150 mcg PO DAILYBB #30 tabs 09/11/23 (Synthroid) simvastatin 20 mg tablet 20 mg PO HS #30 tabs 09/11/23 thiamine HCl (vitamin B1) 250 mg 250 mg PO BID #60 tabs 09/11/23 tablet aspirin 81 mg tablet,delayed 81 mg PO DAILY #30 tabs 11/07/23 release cholecalciferol (vitamin D3) 50 2,000 unit PO DAILY #30 tabs 11/07/23 mcg (2,000 unit) tablet (Vitamin D3) hpdhjswr-osc-icxzw acid 0.4 1 tab PO DAILY #30 tabs 11/07/23 mg-lycopene 300 mcg-lutein 250 mcg tablet (Sentry Senior) blood sugar diagnostic #300 ea 12/01/23 blood-glucose meter,continuous #1 ea 01/15/24 (FreeStyle Paige 3 Trimble) blood-glucose sensor (FreeStyle #1 ea 01/15/24 Paige 3 Sensor device) rnqlez-bewshvjc-wxwidrm 2 cap PO AC #1 cap 03/01/24 36,000-114,000-180,000 unit capsule,delay rel (Creon) pen needle, diabetic 32 gauge x #100 ea 03/01/24 5/32" (BD Ultra-Fine Mady Pen Needle) blood sugar diagnostic (OneTouch #100 ea 03/18/24 Verio test strips) lancets 30 gauge (OneTouch #100 ea 03/26/24 UltraSoft 2 Lancet) Results & Data (ED) Vital Signs Vital Signs - 24 hr 04/03/24 18:10 04/03/24 18:12 04/03/24 18:18 Temperature Temperature Source Pulse Rate 82 82 Pulse Rate from SpO2 Sensor 82 Respiratory Rate 14 Respiratory Effort / Characteristics Respiratory Depth Blood Pressure 125/69 Blood Pressure Mean 96 Pulse Oximetry 94 Oxygen Delivery Method Sepsis Recent Fever Within 48 Hours Sepsis New/Unexplained Change in Mental Status Sepsis Action Taken by Nursing 04/03/24 18:21 04/03/24 18:27 04/03/24 18:30 Temperature 36.8 C Temperature Source Skin Pulse Rate 80 79 Pulse Rate from SpO2 Sensor 80 Respiratory Rate 18 17 Respiratory Effort / Characteristics Non-Labored Respiratory Depth Normal Blood Pressure 125/69 120/72 Blood Pressure Mean 87 91 Pulse Oximetry 98 93 Oxygen Delivery Method Room Air Sepsis Recent Fever Within 48 Hours No Sepsis New/Unexplained Change in Mental Status No Sepsis Action Taken by Nursing No Action Required 04/03/24 18:33 04/03/24 18:38 04/03/24 18:51 Temperature Temperature Source Pulse Rate 78 80 Pulse Rate from SpO2 Sensor 78 80 Respiratory Rate 20 18 Respiratory Effort / Characteristics Respiratory Depth Blood Pressure Blood Pressure Mean Pulse Oximetry 93 98 95 Oxygen Delivery Method Room Air Sepsis Recent Fever Within 48 Hours Sepsis New/Unexplained Change in Mental Status Sepsis Action Taken by Nursing 04/03/24 19:00 04/03/24 19:03 04/03/24 19:27 Temperature Temperature Source Pulse Rate 85 76 Pulse Rate from SpO2 Sensor 76 Respiratory Rate 20 14 Respiratory Effort / Characteristics Respiratory Depth Blood Pressure 130/70 Blood Pressure Mean 85 Pulse Oximetry 95 Oxygen Delivery Method Sepsis Recent Fever Within 48 Hours Sepsis New/Unexplained Change in Mental Status Sepsis Action Taken by Nursing 04/03/24 19:30 04/03/24 19:30 04/03/24 19:33 Temperature Temperature Source Pulse Rate 77 Pulse Rate from SpO2 Sensor 75 Respiratory Rate 15 Respiratory Effort / Characteristics Respiratory Depth Blood Pressure 140/71 140/71 Blood Pressure Mean 107 107 Pulse Oximetry 97 Oxygen Delivery Method Sepsis Recent Fever Within 48 Hours Sepsis New/Unexplained Change in Mental Status Sepsis Action Taken by Nursing 04/03/24 19:48 04/03/24 20:00 04/03/24 20:06 Temperature Temperature Source Pulse Rate 77 84 Pulse Rate from SpO2 Sensor 77 83 Respiratory Rate 18 17 Respiratory Effort / Characteristics Respiratory Depth Blood Pressure 137/69 Blood Pressure Mean 112 Pulse Oximetry 98 96 Oxygen Delivery Method Sepsis Recent Fever Within 48 Hours Sepsis New/Unexplained Change in Mental Status Sepsis Action Taken by Nursing 04/03/24 20:30 04/03/24 20:30 04/03/24 20:30 Temperature Temperature Source Pulse Rate Pulse Rate from SpO2 Sensor Respiratory Rate Respiratory Effort / Characteristics Respiratory Depth Blood Pressure 142/68 H 142/68 H 142/68 H Blood Pressure Mean 109 109 109 Pulse Oximetry Oxygen Delivery Method Sepsis Recent Fever Within 48 Hours Sepsis New/Unexplained Change in Mental Status Sepsis Action Taken by Nursing 04/03/24 20:30 04/03/24 20:30 04/03/24 20:30 Temperature Temperature Source Pulse Rate 85 Pulse Rate from SpO2 Sensor 84 Respiratory Rate 20 Respiratory Effort / Characteristics Respiratory Depth Blood Pressure 142/68 H 142/68 H Blood Pressure Mean 109 109 Pulse Oximetry 96 Oxygen Delivery Method Sepsis Recent Fever Within 48 Hours Sepsis New/Unexplained Change in Mental Status Sepsis Action Taken by Nursing 04/03/24 21:00 04/03/24 21:00 04/03/24 21:24 Temperature Temperature Source Pulse Rate 81 79 Pulse Rate from SpO2 Sensor 81 79 Respiratory Rate 16 15 Respiratory Effort / Characteristics Respiratory Depth Blood Pressure 136/73 Blood Pressure Mean 95 Pulse Oximetry 97 96 Oxygen Delivery Method Sepsis Recent Fever Within 48 Hours Sepsis New/Unexplained Change in Mental Status Sepsis Action Taken by Nursing 04/03/24 21:30 04/03/24 21:33 04/03/24 21:57 Temperature Temperature Source Pulse Rate 81 Pulse Rate from SpO2 Sensor 76 Respiratory Rate 21 17 Respiratory Effort / Characteristics Respiratory Depth Blood Pressure 133/68 Blood Pressure Mean 107 Pulse Oximetry 96 98 Oxygen Delivery Method Sepsis Recent Fever Within 48 Hours Sepsis New/Unexplained Change in Mental Status Sepsis Action Taken by Nursing 04/03/24 22:03 04/03/24 22:21 04/04/24 01:38 Temperature Temperature Source Pulse Rate 86 92 H 72 Pulse Rate from SpO2 Sensor 84 Respiratory Rate 20 16 Respiratory Effort / Characteristics Respiratory Depth Blood Pressure 140/68 Blood Pressure Mean Pulse Oximetry 98 95 Oxygen Delivery Method Room Air Sepsis Recent Fever Within 48 Hours Sepsis New/Unexplained Change in Mental Status Sepsis Action Taken by Nursing Laboratory Data 04/03/24 18:26 04/03/24 18:26 Lab Results 04/03/24 04/03/24 04/03/24 Range/Units 18:26 18:58 19:05 WBC 5.26 (4.8-10.8) K/ul RBC 3.87 L (4.20-5.40) M/uL Hgb 11.6 L (12.0-16.0) g/dl Hct 34.9 L (37.0-47.0) % MCV 90.2 (80.0-100.0) fL MCH 30.0 (25.0-34.0) pg MCHC 33.2 (32.0-36.0) g/dL RDW Std Deviation 42.0 (36.4-46.3) fL RDW Coeff of Mauro 12.8 (11.5-14.5) % Plt Count 145 (130-400) K/uL MPV 12.0 (9.4-12.4) fL Immature Gran % (Auto) 0.4 % Neut % (Auto) 71.6 % Lymph % (Auto) 16.9 % Page % (Auto) 8.0 % Eos % (Auto) 2.5 % Baso % (Auto) 0.6 % Neut # (Auto) 3.77 (1.40-6.50) K/uL Lymph # (Auto) 0.89 L (1.20-3.40) K/uL Page # (Auto) 0.42 (0.11-0.59) K/uL Eos # (Auto) 0.13 (0.00-0.50) K/uL Baso # (Auto) 0.03 (0.00-0.20) K/uL Immature Gran # (Auto) 0.02 (0.01-0.20) K/uL Sodium 133 L (136-145) mmol/L Potassium 4.8 (3.5-5.1) mmol/L Chloride 99 (98-107) mmol/L Carbon Dioxide 27 (21-32) mmol/L Anion Gap 7 (3-11) BUN 25 H (6-23) mg/dl Creatinine 0.95 (0.6-1.2) mg/dl Est Cr Clr Drug Dosing 46.0 ml/min Est GFR ( Amer) 64.2 ml/min Est GFR (Non-Af Amer) 55.4 ml/min BUN/Creatinine Ratio 26.3 H (10-20) Glucose 485 H* (70-99(Fasting)) mg/dl POC Glucose 452 H* (70-99) mg/dl Calcium 9.0 (8.6-10.3) mg/dl Magnesium 1.4 L (1.7-2.4) mg/dl Total Bilirubin 0.3 (0.2-1.0) mg/dl AST 11 L (13-39) U/L ALT 11 (7-52) U/L Alkaline Phosphatase 96 (34-104) U/L Troponin I High Sens 7.6 (0-14) pg/ml Total Protein 6.5 (6.0-8.3) gm/dl Albumin 3.8 (3.4-5.0) gm/dl Globulin 2.7 (2.5-4.0) gm/dl Albumin/Globulin Ratio 1.4 (0.9-2) TSH 3.495 (0.300-4.500) uIu/ml Urine Color Yellow Urine Appearance Cloudy A (Clear) Urine pH 6.0 (4.5-7.5) Ur Specific [place] 1.021 (1.000-1.030) Urine Protein Trace H (Negative) Urine Glucose (UA) 3+ H (Negative) Urine Ketones Negative (Negative) Urine Blood Trace H (Negative) Urine Nitrite Positive A (Negative) Urine Bilirubin Negative (Negative) Urine Urobilinogen Negative (Negative) Ur Leukocyte Esterase 2+ H (Negative) Urine WBC (Auto) >50 H (0-5) /hpf Urine RBC (Auto) 0-2 (0-2) /hpf U Hyaline Cast (Auto) 0-2 (0-2) /lpf U Epithel Cells (Auto) 0-2 (0-2) /hpf Urine Bacteria (Auto) 4+ H (None Seen) 04/03/24 04/03/24 04/04/24 Range/Units 20:50 23:29 02:21 WBC (4.8-10.8) K/ul RBC (4.20-5.40) M/uL Hgb (12.0-16.0) g/dl Hct (37.0-47.0) % MCV (80.0-100.0) fL MCH (25.0-34.0) pg MCHC (32.0-36.0) g/dL RDW Std Deviation (36.4-46.3) fL RDW Coeff of Mauro (11.5-14.5) % Plt Count (130-400) K/uL MPV (9.4-12.4) fL Immature Gran % (Auto) % Neut % (Auto) % Lymph % (Auto) % Page % (Auto) % Eos % (Auto) % Baso % (Auto) % Neut # (Auto) (1.40-6.50) K/uL Lymph # (Auto) (1.20-3.40) K/uL Page # (Auto) (0.11-0.59) K/uL Eos # (Auto) (0.00-0.50) K/uL Baso # (Auto) (0.00-0.20) K/uL Immature Gran # (Auto) (0.01-0.20) K/uL Sodium (136-145) mmol/L Potassium (3.5-5.1) mmol/L Chloride (98-107) mmol/L Carbon Dioxide (21-32) mmol/L Anion Gap (3-11) BUN (6-23) mg/dl Creatinine (0.6-1.2) mg/dl Est Cr Clr Drug Dosing ml/min Est GFR ( Amer) ml/min Est GFR (Non-Af Amer) ml/min BUN/Creatinine Ratio (10-20) Glucose (70-99(Fasting)) mg/dl POC Glucose 334 H* 329 H* 301 H* (70-99) mg/dl Calcium (8.6-10.3) mg/dl Magnesium (1.7-2.4) mg/dl Total Bilirubin (0.2-1.0) mg/dl AST (13-39) U/L ALT (7-52) U/L Alkaline Phosphatase (34-104) U/L Troponin I High Sens (0-14) pg/ml Total Protein (6.0-8.3) gm/dl Albumin (3.4-5.0) gm/dl Globulin (2.5-4.0) gm/dl Albumin/Globulin Ratio (0.9-2) TSH (0.300-4.500) uIu/ml Urine Color Urine Appearance (Clear) Urine pH (4.5-7.5) Ur Specific [place] (1.000-1.030) Urine Protein (Negative) Urine Glucose (UA) (Negative) Urine Ketones (Negative) Urine Blood (Negative) Urine Nitrite (Negative) Urine Bilirubin (Negative) Urine Urobilinogen (Negative) Ur Leukocyte Esterase (Negative) Urine WBC (Auto) (0-5) /hpf Urine RBC (Auto) (0-2) /hpf U Hyaline Cast (Auto) (0-2) /lpf U Epithel Cells (Auto) (0-2) /hpf Urine Bacteria (Auto) (None Seen) Administered Medications Sodium Chloride (Nss) 1,000 mls @ 125 mls/hr IV .Q8H [facility] Stop: 04/04/24 02:44 Last Admin: 04/03/24 18:58 Dose: 125 mls/hr Documented By: TAMIKO Insulin Glargine (Lantus Per Unit Charge) 8 units SQ BID KIRA Stop: 05/03/24 20:59 Last Admin: 04/03/24 21:04 Dose: 8 units Documented By: TAMIKO Co-signed By: CYNTHIA Discontinued Medications Sodium Chloride (Nss) 500 mls @ 999 mls/hr IV .Q31M KIRA Stop: 04/03/24 19:15 Last Infusion: 04/03/24 19:30 Dose: Infused Documented By: Admin: 04/03/24 18:58 Dose: 999 mls/hr Documented By: TAMIKO Magnesium Sulfate/Dextrose (Magnesium Sulfate / D5w) 1 gm in 100 mls @ 50 mls/hr IV ONE ONE Stop: 04/03/24 21:18 Last Infusion: 04/03/24 21:23 Dose: Infused Documented By: Admin: 04/03/24 19:42 Dose: 50 mls/hr Documented By: TAMIKO Ceftriaxone Sodium (Rocephin) 2,000 mg in 50 mls @ 100 mls/hr IV NOW STA Stop: 04/03/24 20:20 Last Infusion: 04/03/24 22:05 Dose: Infused Documented By: Admin: 04/03/24 21:04 Dose: 100 mls/hr Documented By: TAMIKO Magnesium Sulfate/Dextrose (Magnesium Sulfate / D5w) 1 gm in 100 mls @ 50 mls/hr IV Q2H KIRA Stop: 04/04/24 01:29 Last Admin: 04/04/24 00:54 Dose: 50 mls/hr Documented By: Infusion: 04/04/24 00:48 Dose: Infused Documented By: Admin: 04/03/24 22:48 Dose: 50 mls/hr Documented By: TAMIKO Insulin Aspart (Insulin Aspart Per Unit Charge) 0 units SC Q6 KIRA Stop: 05/03/24 20:44 Last Admin: 04/03/24 21:08 Dose: 5 units Documented By: TAMIKO Co-signed By: CYNTHIA Insulin Human Regular (Novolin-R Insulin Per Unit Charge) 8 units IV NOW STA Stop: 04/03/24 19:20 Last Admin: 04/03/24 19:42 Dose: 8 units Documented By: TAMIKO Co-signed By: Imaging Data Radiologist's Impression: Chest X-Ray 04/03/24 18:33 XR chest 1V portable HISTORY: 84 years-old Female hyperglycemia COMPARISON: 02/23/2024 TECHNIQUE: AP view of the chest FINDINGS: Cardiac silhouette is enlarged. Cholecystectomy. No pneumothorax or pleural effusion. Pulmonary vascular congestion with mild bibasilar atelectasis. Bones appear intact. IMPRESSION: Cardiomegaly with pulmonary vascular congestion. ACT 112: Negative or not required by law. The above report was generated using voice recognition software. It may contain grammatical, syntax or spelling errors. Electronically signed by: Channing Craig M.D. 04/03/2024 7:03 PM Discharge Plan Visit Data Chief Complaint: Hyperglycemia Stated Complaint: HIGH BLOOD SUGAR ED Provider: Maciejczyk,Cesar F Discharge Problem: Hyperglycemia Patient Disposition: Admitted As Inpatient Discharge Instructions Interventions: ED Discharge Assessment Last Done: 04/04/24 01:38 Forms Stand Alone Forms: My [facility] Carney Wikets Prescriptions Prescriptions: No Action (DME) pen needle, diabetic [Unifine Pentips] 31 gauge x 3/16" needle See Dose Instructions .ROUTE .MEDSUPPLY Qty: 60 11RF Rx Instructions: USE 2 DAILY colestipol 1 gram tablet 1 g PO DAILY PRN (Reason: Diarrhea) Qty: 30 5RF Rx Instructions: TAKE 1 TABLET BY MOUTH DAILY NEEDED FOR BREAKTHROUGH DIARRHA. lisinopril 2.5 mg tablet 2.5 mg PO DAILY Qty: 30 11RF Rx Instructions: bubble pack levothyroxine [Synthroid] 150 mcg tablet 150 mcg PO DAILYBB Qty: 30 11RF Rx Instructions: bubble pack simvastatin 20 mg tablet 20 mg PO HS Qty: 30 11RF Rx Instructions: bubble pack thiamine HCl (vitamin B1) 250 mg tablet 250 mg PO BID Qty: 60 11RF Rx Instructions: bubble pack Advanced Probiotic 625 mg (10 billion cell) capsule 2 cap PO DAILY Qty: 60 11RF Rx Instructions: bubble pack cyanocobalamin (vitamin B-12) 1,000 mcg capsule 1,000 mcg PO DAILY Qty: 30 11RF Rx Instructions: bubble pack aspirin 81 mg tablet,delayed release (DR/EC) 81 mg PO DAILY Qty: 30 11RF Rx Instructions: bubble pack cholecalciferol (vitamin D3) [Vitamin D3] 50 mcg (2,000 unit) tablet 2,000 unit PO DAILY Qty: 30 11RF Sentry Senior 0.4 mg-300 mcg- 250 mcg tablet 1 tab PO DAILY Qty: 30 11RF (DME) blood sugar diagnostic Strip See Rx Instructions .ROUTE .MEDSUPPLY Qty: 300 5RF Rx Instructions: TEST BLOOD SUGAR 3 TIMES DAILY DX:E11.9 (DME) OneTouch Verio test strips Strip See Rx Instructions .Route Qty: 100 3RF Rx Instructions: Test 3 times daily (DME) lancets [OneTouch UltraSoft 2 Lancet] 30 gauge misc See Rx Instructions .Route Qty: 100 5RF Rx Instructions: Test twice a day diclofenac sodium [Voltaren Arthritis Pain] 1 % gel 4 g EXT QID PRN (Reason: Pain) Rx Instructions: Apply to hip at site of pain (DME) one touch glucose meter See Rx Instructions .Route .MEDSUPPLY Qty: 1 0RF Rx Instructions: test 3-4 times a day (DME) FreeStyle Paige 3 Trimble Misc See Rx Instructions .Route Qty: 1 0RF Rx Instructions: test 2-3 times a day (DME) FreeStyle Paige 3 Sensor Device See Rx Instructions .Route Qty: 1 6RF Rx Instructions: test 2-3 times a day acetaminophen 325 mg tablet 650 mg PO Q4H PRN (Reason: Pain) (DME) pen needle, diabetic [BD Ultra-Fine Mady Pen Needle] 32 gauge x 5/32" needle See Rx Instructions .Route Qty: 100 1RF Rx Instructions: use with lantus & novolog pens for total of 4 injections/day. Creon 36,000-114,000- 180,000 unit capsule,delayed release(DR/EC) 2 cap PO AC Qty: 1 0RF Rx Instructions: TAKE 2 CAPSULES BY MOUTH BEFORE MEALS, 1 capsule with a large snack. insulin aspart U-100 [Novolog FlexPen U-100 Insulin] 100 unit/mL (3 mL) insulin pen 5 unit subcut TIDM Rx Instructions: 04/03/24- PER DAUGHTER : PT IS NOT COMPLIANT WITH REGARD TO TAKING HER MEDICATIONS, PARTICULARLY HER TWO INSULINS. insulin glargine [Lantus Solostar U-100 Insulin] 100 unit/mL (3 mL) insulin pen 10 unit subcut QAM Rx Instructions: 04/03/24 - PER DAUGHTER : PT IS NOT COMPLIANT WITH REGARD TO TAKING HER MEDICATIONS, PARTICULARLY HER TWO INSULINS. omeprazole 40 mg capsule,delayed release(DR/EC) 40 mg PO QAM Rx Instructions: TAKE 1 CAPSULE BY MOUTH DAILY.bubble pack phenobarbital 60 mg tablet 60 mg PO QAM phenobarbital 60 mg tablet 120 mg PO HS venlafaxine 75 mg capsule,extended release 24hr 75 mg PO QAM Rx Instructions: bubble pack Referrals Referrals: Kelli Gates CRNP [Primary Care Provider] -
[2024-04-03 18:51] LABS: Basophils # (auto) 0.03 K/uL (0.00-0.20); Basophils % (auto) 0.6 %; Eosinophils # (auto) 0.13 K/uL (0.00-0.50); Eosinophils % (auto) 2.5 %; Hematocrit (blood only) 34.9 % (37.0-47.0); Hemoglobin 11.6 g/dl (12.0-16.0); Immature Granulocytes # (auto) 0.02 K/uL (0.01-0.20); Immature Granulocytes % (auto) 0.4 %; Lymphocytes # (auto) 0.89 K/uL (1.20-3.40); Lymphocytes % (auto) 16.9 %; Mean Corpuscular Hgb Conc 33.2 g/dL (32.0-36.0); Mean Corpuscular Volume 90.2 fL (80.0-100.0); Monocytes # (auto) 0.42 K/uL (0.11-0.59); Neutrophils # (auto) 3.77 K/uL (1.40-6.50); Neutrophils % (auto) 71.6 %; Platelet Count 145 K/uL (130-400); RDW Coefficient of Variation 12.8 % (11.5-14.5); Red Blood Count 3.87 M/uL (4.20-5.40); White Blood Count 5.26 K/ul (4.8-10.8)
[2024-04-03] MEDS: SODIUM CHLORIDE 0.9% 1,000 ML IV SCH (18:58)
[2024-04-03] MEDS: SODIUM CHLORIDE 0.9% 500 ML IV SCH (18:58)
--- NOTE | 2024-04-03 19:04 | XRay Report ---
XR chest 1V portable HISTORY: 84 years-old Female hyperglycemia COMPARISON: 02/23/2024 TECHNIQUE: AP view of the chest FINDINGS: Cardiac silhouette is enlarged. Cholecystectomy. No pneumothorax or pleural effusion. Pulmonary vascu lar congestion with mild bibasilar atelectasis. Bones appear intact. IMPRESSION: Cardiomegaly with pulmonary vascular congestion. ACT 112: Negative or not required by law. The above report was generated using voice recognition software. It may contain grammatical, syntax o r spelling errors. Electronically signed by: Channing Craig M.D. 04/03/2024 7:03 PM
[2024-04-03 19:14] LABS: Albumin Globulin Ratio 1.4 (0.9-2); Albumin Level 3.8 gm/dl (3.4-5.0); BUN Creatinine Ratio 26.3 (10-20); Bilirubin,Total 0.3 mg/dl (0.2-1.0); Est GFR (African American) 64.2 ml/min; Est GFR (Non-African American) 55.4 ml/min; Globulin 2.7 gm/dl (2.5-4.0); Magnesium 1.4 mg/dl (1.7-2.4); Potassium 4.8 mmol/L (3.5-5.1); Total Protein 6.5 gm/dl (6.0-8.3)
[2024-04-03 19:16] LABS: Troponin I High Sensitivity 7.6 pg/ml (0-14)
[2024-04-03 19:27] LABS: Thyroid Stimulating Hormone 3.495 uIu/ml (0.300-4.500)
[2024-04-03 19:34] LABS: Appearance Urine Cloudy (Clear); Bacteria Urine Automated 4+ (None Seen); Bilirubin Urine Negative (Negative); Blood Urine Trace (Negative); Cast Urine Automated 0-2 /lpf (0-2); Color Urine Yellow; Epithelial Cell Urine Auto 0-2 /hpf (0-2); Glucose Urine UA 3+ (Negative); Ketones Urine Negative (Negative); Leukocyte Esterase Urine 2+ (Negative); Nitrite Urine Positive (Negative); Protein Urine Trace (Negative); RBC Urine Automated 0-2 /hpf (0-2); Specific Gravity Urine 1.021 (1.000-1.030); Urobilinogen Urine Negative (Negative); WBC Urine Automated >50 /hpf (0-5)
[2024-04-03] MEDS: MAGNESIUM SULFATE / D5W 1 GM/100 ML BAG IV ONE (19:42)
[2024-04-03] MEDS: NovoLIN-R INSULIN PER UNIT CHARGE IV STA (19:42)
--- NOTE | 2024-04-03 20:17 | History & Physical Report ---
Date of Service April 03, 2024 Assessment & Plan (1) Hyperglycemia: Plan: Admit to med/tele Currently stable and nontoxic-appearing Presented to the ED via EMS due to ongoing hyperglycemia due to noncompliance with her insulin Initial blood sugar on arrival was 485, anion gap and bicarb are within normal limits Given 8 units IV insulin 1.5 L NSS in the ED Blood sugar at the time of admission is 334 Will monitor blood sugars every 6 hours overnight until stable, goal is [id number] Start CF of 45 and CR of 15 every 6 hours overnight Will start 8 units Lantus twice daily Pharmacy glycemic consult placed to assist with management moving forward Adjust regimen as needed SQ Lovenox for DVT prophylaxis Heart healthy/DM type II diet with easy to chew texture AM CBC, CMP, mag, PT/INR (2) Urinary tract infection: Plan: UA appears consistent for recurrent UTI Status post 1 dose ceftriaxone in the ED Previous cultures show the patient gross pansensitive E. coli and Klebsiella Will continue ceftriaxone for now Follow urine cultures (3) Hypomagnesemia: Plan: Mag of 1.4 in the ED Status post 1 g IV mag sulfate Potassium stable at 4.8 Will give an additional 2 bags 1 g IV mag sulfate on admission Continue to monitor on crew attendant a.m. mag level (4) Cerebrovascular disease: Plan: Continue aspirin and statin (5) Hypertension: Plan: Currently stable Continue lisinopril (6) Epilepsy: Plan: No recent seizure-like activity Continue phenobarbital Plan The patient was discussed with Dr. Lennon at the time of the admission History of Present Illness Chief Complaint: Hyperglycemia Primary Care Provider: SUDARSHAN Stoner Donna is an 83-year-old female with PMH of poorly controlled T2DM, depression, dyslipidemia, GERD, HTN, hypothyroidism, pancreatic insufficiency, epilepsy, and memory impairment, and recent bed bug infestation who presented to the [facility] ED via EMS from home due to hypoglycemia. Per the intake report, the patient's daughter reported that the patient had been refusing to take her insulin. The patient's daughter has been trying to work on getting the patient placed as she is unable to adequately care for her at home. She remained stable in the ED. Labs were significant for a glucose of 485 anion gap and bicarb within normal limits, corrected sodium of 139, mag 1.4, UA consistent with UTI. Prior to admission the patient was given 1.5 L NSS, a dose of ceftriaxone, 1 g IV mag sulfate, and 8 units regular insulin IV. Patient was sitting in bed in no acute distress at the time of exam with her daughter at bedside history was obtained from both. Patient's daughter explains that the patient has been very stubborn lately and is only taking her insulin "when she wants to", and "eats things she is not supposed to which makes her sugars high". The patient confirmed this while laughing. Otherwise the patient has been in her normal state of health and has no other complaints at this time. They confirm that she is a DNR/DNI and her daughter is her power of divorce attorney. Please refer to Dr. Lennon's attestation for any changes to the treatment plan Allergies Allergy/AdvReac Type Severity Reaction Status Date / Time Sulfa (Sulfonamide Allergy Intermediate SICK TO Verified 04/03/24 21:12 Antibiotics) STOMACH sitagliptin AdvReac Intermediate ABD PAIN Verified 04/03/24 21:12 Home Medications Medication Instructions Recorded Confirmed Type one touch glucose meter #1 ea 04/08/22 03/11/24 Rx pen needle, diabetic 31 gauge x #60 ea 11/02/22 03/11/24 Rx 3/16" (Unifine Pentips) colestipol 1 gram tablet 1 g PO DAILY PRN Diarrhea #30 tabs 03/13/23 04/03/24 Rx diclofenac sodium 1 % topical gel 4 g EXT QID PRN Pain 06/16/23 04/03/24 History (Voltaren Arthritis Pain) lisinopril 2.5 mg tablet 2.5 mg PO DAILY #30 tabs 08/08/23 04/03/24 Rx L.acidop,casei,lactis,rham-B.lact,andrew 2 cap PO DAILY #60 caps 09/11/23 04/03/24 Rx 625 mg (10 billion cell) capsule (Advanced Probiotic) cyanocobalamin (vitamin B-12) 1,000 mcg PO DAILY #30 caps 09/11/23 04/03/24 Rx 1,000 mcg capsule levothyroxine 150 mcg tablet 150 mcg PO DAILYBB #30 tabs 09/11/23 04/03/24 Rx (Synthroid) simvastatin 20 mg tablet 20 mg PO HS #30 tabs 09/11/23 04/03/24 Rx thiamine HCl (vitamin B1) 250 mg 250 mg PO BID #60 tabs 09/11/23 04/03/24 Rx tablet aspirin 81 mg tablet,delayed 81 mg PO DAILY #30 tabs 11/07/23 04/03/24 Rx release cholecalciferol (vitamin D3) 50 2,000 unit PO DAILY #30 tabs 11/07/23 04/03/24 Rx mcg (2,000 unit) tablet (Vitamin D3) oicsoyal-dsf-spvqr acid 0.4 1 tab PO DAILY #30 tabs 11/07/23 04/03/24 Rx mg-lycopene 300 mcg-lutein 250 mcg tablet (Sentry Senior) blood sugar diagnostic #300 ea 12/01/23 03/11/24 Rx blood-glucose meter,continuous #1 ea 01/15/24 03/11/24 Rx (FreeStyle Paige 3 [place]) blood-glucose sensor (FreeStyle #1 ea 01/15/24 03/11/24 Rx Paige 3 Sensor device) acetaminophen 325 mg tablet 650 mg PO Q4H PRN Pain 02/23/24 04/03/24 History egieiu-irmtqlxh-qrajcor 2 cap PO AC #1 cap 03/01/24 04/03/24 Rx 36,000-114,000-180,000 unit capsule,delay rel (Creon) pen needle, diabetic 32 gauge x #100 ea 03/01/24 03/11/24 Rx 5/32" (BD Ultra-Fine Mady Pen Needle) blood sugar diagnostic (OneTouch #100 ea 03/18/24 Rx Verio test strips) lancets 30 gauge (OneTouch #100 ea 03/26/24 Rx UltraSoft 2 Lancet) insulin aspart U-100 100 unit/mL 5 unit subcut TIDM 04/03/24 04/03/24 History (3 mL) subcutaneous pen (Novolog FlexPen U-100 Insulin aspart) insulin glargine 100 unit/mL (3 10 unit subcut QA 04/03/24 04/03/24 History mL) subcutaneous pen (Lantus Solostar U-100 Insulin) omeprazole 40 mg capsule,delayed 40 mg PO QAM 04/03/24 04/03/24 History release phenobarbital 60 mg tablet 60 mg PO QAM 04/03/24 04/03/24 History phenobarbital 60 mg tablet 120 mg PO HS 04/03/24 04/03/24 History venlafaxine 75 mg capsule,extended 75 mg PO QAM 04/03/24 04/03/24 History release 24 hr Past Med/Surg History Problem List (Updated 04/03/24 @ 18:42 by Cesar Moreno MD) Hyperglycemia (Acute) Abnormal CBC Vomiting (Acute) Hypoglycemia (Acute) Lactate blood increased Infestation by bed bug (Acute) At high risk for falls Cervical stenosis of spine Cerebrovascular disease Arthritis of knee UTI (urinary tract infection), uncomplicated Weight loss Vitamin B1 deficiency Weakness (Acute) Poor hygiene (Acute) Physical deconditioning Vitamin B12 deficiency Left hip pain History of subdural hematoma Peripheral neuropathy (Chronic) Pancreatic insufficiency (Chronic) Memory impairment (Chronic) Hypothyroidism (Chronic) Hypertension Gait abnormality GERD (gastroesophageal reflux disease) Epilepsy (Chronic) Falls frequently (Chronic) Dyslipidemia (Chronic) Depression (Chronic) Poor compliance with medication Vitamin D deficiency disease (Chronic) Peripheral edema (Chronic) High risk medication use (Chronic) Medical History Osteoarthritis Balance problems Choking episode occurring during daytime Subdural hematoma, chronic Hydronephrosis of right kidney Surgical History History of cholecystectomy History of hysterectomy History of tooth extraction History of nasal surgery History of craniotomy History of cholecystectomy Family History Daughter Family history of diabetes mellitus Colorectal cancer Denies family history of Ovarian cancer Prostate cancer Myocardial infarction Breast cancer Social History Smoking Status: Never smoker Second Hand Exposure: No; Do You Dip or Chew Tobacco: No; Hx Alcohol Use: No Hx Substance Use: No Preferred Language: Portuguese Communication Ability: Impaired Communication Ability Comment: [place] Hearing Ability: Hard of Hearing Game Programer Required: No Beliefs That Will Affect Care: None marital status: / Current Living Situation: Family Current Living Situation Comment: Resides with daughter current occupational status: retired How many Children do You have: 7 Other Information That Helps Us Care for You: No Feels Safe at Home: Yes Safety Concerns: Feels Safe At This Time Childhood Exposure to Second-Hand Smoke: Yes Diet: regular caffeine: Yes Dental Care, Regularly: No Physical Activity Frequency: Does not Exercise Seatbelt Use: always Sunscreen Use: No Assistive Devices: Glasses and Walker Physical Exam Physical Exam: Physical Exam: General: In no acute distress, stated age, non-toxic appearing HEENT: Normocephalic, atraumatic, no scleral icterus, pupils around round, symmetrical, and reactive to light, moist mucus membranes, trachea midline, no thyromegaly Chest/Pulm: No respiratory distress, symmetrical chest expansion, clear breath sounds throughout Cardiac: RRR, no murmurs noted Abdomen: Negative for ascites and bruising, normoactive bowel sounds, soft, non-tender to palpation throughout Musculoskeletal: Symmetrical and without signs of acute trauma, upper and lower extremities with full ROM, no atrophy, spasticity, or flaccidity Extremities: Radial, dorsalis pedis, and posterior tibial pulses are intact and symmetrical, no edema noted in the BL LE's Skin: Warm, dry, no rashes , lesions, or scars noted Neuro: Alert and oriented to person, place, month, year, and president, no focal defects, no tremors noted Psych: No acute distress, calm and cooperative during the exam Results & Data Results & Data Vital Signs (Past 12 Hours) Vital Signs Temp Pulse Resp BP Pulse Ox O2 Del Method 04/03/24 19:03 85 20 04/03/24 19:00 130/70 04/03/24 18:51 80 18 95 04/03/24 18:38 98 Room Air 04/03/24 18:33 78 20 93 04/03/24 18:30 120/72 04/03/24 18:27 79 17 93 04/03/24 18:21 36.8 C 80 18 125/69 98 Room Air 04/03/24 18:18 82 04/03/24 18:12 82 14 94 04/03/24 18:10 125/69 Laboratory Results Abnormal lab results 04/03/24 04/03/24 04/03/24 Range/Units 18:26 18:58 19:05 RBC 3.87 L (4.20-5.40) M/uL Hgb 11.6 L (12.0-16.0) g/dl Hct 34.9 L (37.0-47.0) % Lymph # (Auto) 0.89 L (1.20-3.40) K/uL Sodium 133 L (136-145) mmol/L BUN 25 H (6-23) mg/dl BUN/Creatinine Ratio 26.3 H (10-20) Glucose 485 H* (70-99(Fasting)) mg/dl POC Glucose 452 H* (70-99) mg/dl Magnesium 1.4 L (1.7-2.4) mg/dl AST 11 L (13-39) U/L Urine Appearance Cloudy A (Clear) Urine Protein Trace H (Negative) Urine Glucose (UA) 3+ H (Negative) Urine Blood Trace H (Negative) Urine Nitrite Positive A (Negative) Ur Leukocyte Esterase 2+ H (Negative) Urine WBC (Auto) >50 H (0-5) /hpf Urine Bacteria (Auto) 4+ H (None Seen) 04/03/24 Range/Units 20:50 RBC (4.20-5.40) M/uL Hgb (12.0-16.0) g/dl Hct (37.0-47.0) % Lymph # (Auto) (1.20-3.40) K/uL Sodium (136-145) mmol/L BUN (6-23) mg/dl BUN/Creatinine Ratio (10-20) Glucose (70-99(Fasting)) mg/dl POC Glucose 334 H* (70-99) mg/dl Magnesium (1.7-2.4) mg/dl AST (13-39) U/L Urine Appearance (Clear) Urine Protein (Negative) Urine Glucose (UA) (Negative) Urine Blood (Negative) Urine Nitrite (Negative) Ur Leukocyte Esterase (Negative) Urine WBC (Auto) (0-5) /hpf Urine Bacteria (Auto) (None Seen) Diagnostic Findings Chest X-Ray 04/03/24 18:33 XR chest 1V portable HISTORY: 84 years-old Female hyperglycemia COMPARISON: 02/23/2024 TECHNIQUE: AP view of the chest FINDINGS: Cardiac silhouette is enlarged. Cholecystectomy. No pneumothorax or pleural effusion. Pulmonary vascular congestion with mild bibasilar atelectasis. Bones appear intact. IMPRESSION: Cardiomegaly with pulmonary vascular congestion. ACT 112: Negative or not required by law. The above report was generated using voice recognition software. It may contain grammatical, syntax or spelling errors. Electronically signed by: Channing Craig M.D. 04/03/2024 7:03 PM ECG Additional Comments: Normal sinus rhythm Left axis deviation Low voltage QRS Possible Anterolateral infarct , age undetermined Abnormal ECG When compared with ECG of 23-FEB-2024 17:33, Borderline criteria for Anterolateral infarct are now Present Code Status & VTE Plan Code Status DNR/DNI VTE Prophylaxis Plan VTE Prophylaxis will be ordered: Yes Supervising Physician Co-Signing Physician Notes Attending addendum: I have physically seen this patient, have supervised the SORAIDA's activities, and agree with the H&P unless as otherwise noted. Assessment and Plan: Hyperglycemia due to diabetes mellitus- Glucose 485 upon admission, with anion gap of 7 Status post 8 units regular insulin IV, normal saline 500 mill IV fluid bolus from the ED with follow-up glucose 334 Will give an additional 1 L IV fluid bolus now Change glargine from 10 units subcu every morning, day units subcu twice daily Placed on Accu-Cheks with NovoLog SSI as noted Pharmacy glycemic consult was ordered Follow serial CBC with differential, chemistry profile, magnesium and PT/INR Elevated sugar likely secondary to patient not taking insulin as directed at home, and physiologic stress of urinary tract infection Urinary tract infection- Follow urine culture and sensitivity Continue ceftriaxone 2 g IV daily begun in the ED Previous cultures show pansensitive E. coli and Klebsiella Hypomagnesemia- Magnesium 1.4 on admission Given the 1 g magnesium sulfate IV by the ED Will add 2 grams magnesium sulfate IV Recheck laboratories as above Cerebrovascular disease/hypertension- Continue aspirin, lisinopril and simvastatin PG Care Time/CCT Total # of Minutes Spent Total Time Spent with Patient: Total time spent is greater than 50% in coordination of care (as documented) at patient's floor/unit and/or counseling patient: Coding [place] [address] INT INP/OBS CARE 2/55MIN Patient Type Established Medical Decision Making Moderate Complexity Diagnoses Hyperglycemia R73.9 Urinary tract infection N39.0 Hypomagnesemia E83.42 Cerebrovascular disease I67.9 Primary hypertension I10 Hypertension type: primary hypertension Nonintractable epilepsy without status epilepticus, unspecified epilepsy type G40.909 Epilepsy type: unspecified Intractability: not intractable Status epilepticus: without status epilepticus (5) Hypertension Hypertension type: primary hypertension Qualified Code(s): I10 - Essential (primary) hypertension (6) Epilepsy Epilepsy type: unspecified Intractability: not intractable Status epilepticus: without status epilepticus Qualified Code(s): G40.909 - Epilepsy, unspecified, not intractable, without status epilepticus
[2024-04-03] MEDS ORDERED: PHARMACY GLYCEMIC MGMT CONSULT PRN (20:40)
[2024-04-03] MEDS ORDERED: GLUCOSE 40% GEL 15 GM TUBE PO PRN (20:40)
[2024-04-03] MEDS ORDERED: GLUCOSE 10 TAB/TUBE PO PRN (20:40)
[2024-04-03] MEDS ORDERED: GLUCAGON FOR INJ 1 MG VIAL SQ PRN (20:40)
[2024-04-03] MEDS ORDERED: CARBOHYDRATES FOR HYPOGLYCEMIA PO PRN (20:40)
[2024-04-03] MEDS ORDERED: DEXTROSE 50% 50 ML SYRINGE IV PRN (20:40)
[2024-04-03] MEDS: cefTRIAXone SODIUM 2,000 MG/50 ML BAG IV STA (21:04)
[2024-04-03] MEDS: LANTUS PER UNIT CHARGE SQ SCH (21:04)
[2024-04-03] MEDS: INSULIN ASPART PER UNIT CHARGE SC SCH (21:08)
[2024-04-03] MEDS: MAGNESIUM SULFATE / D5W 1 GM/100 ML BAG IV SCH (22:48)
[2024-04-04] MEDS ORDERED: INSULIN ASPART PER UNIT CHARGE SC ONE (01:00)
[2024-04-04] MEDS ORDERED: ACETAMINOPHEN 325 MG TAB PO PRN (02:45)
[2024-04-04] MEDS ORDERED: PANCREAZE (LIPASE 10,500U) CAP PO PRN (03:03)
[2024-04-04] MEDS: INSULIN ASPART PER UNIT CHARGE SC STA (03:28)
[2024-04-04] MEDS: LEVOTHYROXINE SODIUM 150 MCG TABLET PO SCH (06:06)
[2024-04-04] MEDS: ENOXAPARIN INJ 40 MG/0.4 ML SYR SQ SCH (06:07)
[2024-04-04] MEDS: INSULIN ASPART PER UNIT CHARGE SC SCH ×3 (06:07→09:25)
[2024-04-04 06:44] LABS: Basophils # (auto) 0.03 K/uL (0.00-0.20); Basophils % (auto) 0.5 %; Eosinophils # (auto) 0.27 K/uL (0.00-0.50); Eosinophils % (auto) 4.6 %; Hematocrit (blood only) 35.2 % (37.0-47.0); Hemoglobin 11.7 g/dl (12.0-16.0); Immature Granulocytes # (auto) 0.05 K/uL (0.01-0.20); Immature Granulocytes % (auto) 0.9 %; Lymphocytes # (auto) 1.48 K/uL (1.20-3.40); Lymphocytes % (auto) 25.5 %; Mean Corpuscular Hemoglobin 30.1 pg (25.0-34.0); Mean Corpuscular Hgb Conc 33.2 g/dL (32.0-36.0); Mean Corpuscular Volume 90.5 fL (80.0-100.0); Mean Platelet Volume 11.9 fL (9.4-12.4); Monocytes # (auto) 0.46 K/uL (0.11-0.59); Monocytes % (auto) 7.9 %; Neutrophils # (auto) 3.52 K/uL (1.40-6.50); Neutrophils % (auto) 60.6 %; Platelet Count 145 K/uL (130-400); RDW Coefficient of Variation 12.4 % (11.5-14.5); Red Blood Count 3.89 M/uL (4.20-5.40); White Blood Count 5.81 K/ul (4.8-10.8)
[2024-04-04 06:59] LABS: Calcium 8.4 mg/dl (8.6-10.3); Creatinine Clr Calc Pharmacy 56.6 ml/min; Est GFR (African American) 86.8 ml/min; Est GFR (Non-African American) 74.9 ml/min; Magnesium 1.9 mg/dl (1.7-2.4)
[2024-04-04 07:06] LABS: Estimated Average Glucose 226 mg/dl; Hemoglobin A1C 9.5 % (4.5-5.6)
[2024-04-04] MEDS: ASPIRIN 81 MG ECTAB PO SCH (09:17)
[2024-04-04] MEDS: PANCREAZE (LIPASE 10,500U) CAP PO SCH (09:17)
[2024-04-04] MEDS: lisinopril 2.5 MG TAB PO SCH (09:17)
[2024-04-04] MEDS: VENLAFAXINE HCL XR 75 MG CAPXR PO SCH (09:18)
[2024-04-04] MEDS: PANTOprazole 40 MG TAB PO SCH (09:18)
--- NOTE | 2024-04-04 09:37 | Pharmacy Report ---
Pharmacy Glycemic Short Note 2 - Date of Service April 04, 2024 - Glycemic Short BSG Results (Last 24 hours): 04/03/24 04/03/24 04/03/24 18:26 18:58 20:50 Glucose 485 H* POC Glucose 452 H* 334 H* 04/03/24 04/04/24 04/04/24 23:29 02:21 05:19 Glucose 264 H POC Glucose 329 H* 301 H* 04/04/24 04/04/24 05:42 09:16 Glucose POC Glucose 230 H 240 H OUTPATIENT ANTIDIABETIC REGIMEN: * Of note: patient not compliant with outpatient insulin regimen * Insulin glargine 10 units SC daily * Insulin aspart 5 units SC TIDM HbA1c: 9.5% (04/04/24) ASSESSMENT: * RT is an 84 year old female who presented to ED with daughter on 04/03/24 for evaluation of ongoing hyperglycemia over past 2 days * Blood sugar on presentation of 485 mg/dL, no concern for DKA based on initial labs (anion gap of 7, serum bicarb of 27) * Blood sugars improved throughout evening into this morning, currently 240 mg/dL * Received 8 units IV, 8 units of basal, and 11 units of bolus overnight * Historically, patient has had intermittent episodes of hypoglycemia, so will be conservative with initial insulin regimen and any changes * Patient with history of recurrent UTI, concern for UTI on this admission as w ell (on ceftriaxone, gram-negative bacilli in culture) * Diet ordered PLAN FOR INPATIENT GLYCEMIC CONTROL: * Basal insulin * Lantus 8-10-12 units SQ BID * Bolus insulin * NovoLog per scale ACHS or Q6hrs while NPO * Goal Range: Low 110 mg/dL - High 140 mg/dL * Correction Factor: 40 mg/dL/unit * Nutritional / Prandial insulin per carb ratio of 1 unit per 10 grams CHO consumed
[2024-04-04] MEDS: THIAMINE HCL 50 MG TABLET PO SCH (10:19)
[2024-04-04] MEDS: PHENobarbitaL 30 MG TAB PO SCH ×2 (10:40→20:18)
--- NOTE | 2024-04-04 10:54 | Hospitalist Progress Note ---
Date of Service April 04, 2024 Assessment & Plan (1) Hyperglycemia: Plan: Patient originally presented to ED on 04/04 with complaint of hypoglyemica. Patient was then further found to have blood glucose of 485. Anion gap/bicarb were WNL. She was admitted for further care. -pharmacy consulted for glycemic management. appreciate recommendations -Lantus 8-10-12 units SQ BID -Novolog per scale ACHS or Q6hr while NPO -goal 110-140, correction factor 40 -Reviewed CBC 04/04: hgb 11.7, WBC WNL -Reviewed BMP 04/04: anion gap 7, bicarb 27, electrolytes stable. AM CBC, BMP (2) Urinary tract infection: Plan: UA appears consistent for recurrent UTI s/p 1 dose ceftriaxone in the ED Previous cultures show the patient gross pansensitive E. coli and Klebsiella Will continue ceftriaxone for now Follow urine cultures (3) Hypomagnesemia: Plan: Mag of 1.4 in the ED Status post 3 bags IV sulfate in ED 04/03 - reviewed magnesium 04/04: improved to 1.9 Potassium stable at 4.8 AM Magnesium Plan Chronic conditions: -Epilepsy: phenobarbital -Hypertension: lisinopril -cerebrovascular disease: aspirin and statin -GERD: pantoprazole -Anxiety/depression: Venlafaxine -hypothyroidism: Synthroid -pancreatic insufficiency: Pancreaze Discussed on phone 04/04 with daughter Emani regarding patients home situation. The family is in agreement and waiting for placement. Consulted case management. DVT prophylaxis: Lovenox Diet: Carb consistent, heart healthy, easy to chew Code status: DNR/DNI Disposition: Continue inpatient stay. Awaiting placement. Admission and Anticipated Discharge Date Admission Date: April 03, 2024 Subjective Patient seen and examined this morning at bedside. Patient reports to be feeling better today. She denies any chest pain or shortness of breath. She denies any urinary issues. Physical Exam 2 Constitutional: WD/WN, vitals as above Eyes: PERRL, conjunctivae normal, anicteric sclerae Respiratory: normal respiratory effort, lungs clear to auscultation Cardiovascular: RRR, no murmur, no edema Psychiatric: A+Ox3, euthymic affect Results & Data Results & Data Vital Signs (Past 12 Hours) Vital Signs Temp Pulse Pulse Resp BP BP BP 04/04/24 07:29 36.6 C 73 16 108/62 04/04/24 02:13 75 04/04/24 01:50 36.4 C L 75 18 137/68 04/04/24 01:38 72 16 140/68 Pulse Ox O2 Del Method 04/04/24 07:29 96 Room Air 04/04/24 02:13 04/04/24 01:50 95 Room Air 04/04/24 01:38 95 Room Air Laboratory Results 04/04/24 05:19 04/04/24 05:19 Diagnostic Findings Chest X-Ray 04/03/24 18:33 XR chest 1V portable HISTORY: 84 years-old Female hyperglycemia COMPARISON: 02/23/2024 TECHNIQUE: AP view of the chest FINDINGS: Cardiac silhouette is enlarged. Cholecystectomy. No pneumothorax or pleural effusion. Pulmonary vascular congestion with mild bibasilar atelectasis. Bones appear intact. IMPRESSION: Cardiomegaly with pulmonary vascular congestion. ACT 112: Negative or not required by law. The above report was generated using voice recognition software. It may contain grammatical, syntax or spelling errors. Electronically signed by: Channing Craig M.D. 04/03/2024 7:03 PM PG Care Time/CCT Total # of Minutes Spent Total Time Spent with Patient: Total time spent is greater than 50% in coordination of care (as documented) at patient's floor/unit and/or counseling patient: Coding Level of Care Code 83896 SUB INP/OBS CARE 3/50MIN Diagnoses Hyperglycemia R73.9 Acute cystitis without hematuria N30.00 Urinary tract infection type: acute cystitis Hematuria presence: without hematuria Hypomagnesemia E83.42 (2) Urinary tract infection Urinary tract infection type: acute cystitis Hematuria presence: without hematuria Qualified Code(s): N30.00 - Acute cystitis without hematuria
--- NOTE | 2024-04-04 13:30 | Electrocardiogram Report ---
Test Reason : Blood Pressure : / mmHG Vent. Rate : 079 BPM Atrial Rate : 079 BPM P-R Int : 190 ms QRS Dur : 110 ms QT Int : 400 ms P-R-T Axes : 061 -51 054 degrees QTc Int : 458 ms Normal sinus rhythm Left axis deviation Low voltage QRS Poor R wave progression, consider anterior RI vs. lead placement vs. LVH Abnormal ECG Confirmed by Efra Garner ([id number]) on 04/04/2024 1:30:26 PM Referred By: Kelli Gates Confirmed By:Antolin Garner
--- OUTSIDE RECORDS SUMMARY | 2024-04-04 17:48 | External Medical Summary ---
Author Name UNSPECIFIED Address Unknown Organization [facility] History of Encounters Reason for Assessment: Start of care - f urther visits planned Inpatient discharge facility: Past 14 Da ys: Discharged From Short Stay Acute Hospital Most Recent Inpatient Discharge Date: Functional Assessment Patient Living Situation: Patient lives with other person(s) in the home: Around the clock When Dyspneic: When walking more th an 20 feet, climbing stairs Urinary Incontinence or Urin kate Catheter Present: Patient is incontinent Bowel Incontinence Frequency: Very rarel y or never has bowel incontinence Cognitive Functioning: Requires promptin g (cueing, repetition, reminders) only under stressful or unfamiliar conditions. When Confused (Reported or Observed): In new or complex situations only When Anxious (Reported or Observed): Les s often than daily Cognitive and Behavioral and Psychiatric Symptoms: None Current Ability: Bathing: able to partic ipate in bathing self in shower or tub, but requires presence of another person throughout the bath for assistance or supervision. Current Ability: Ambulation: Able to wal k only with the supervision or assistance of another person at all times. Current: Management Of Oral Medications: Unable to take medication unless administered by another person Current: Management Of Injec table Medications: Unable to take injectable medication unless administered by another person. Procedures Treated for Urinary Tract Infection in P ast 14 Days: Yes Problems Primary Home Care Diagnosis ICD Code: E1 1.9, Type 2 diabetes mellitus without complications Home Care Diagnosis 1: ICD Code: N39.0, Urinary tract infection, site not specified Home Care Diagnosis 1: Severity Ratin Home Care Diagnosis 2: ICD Code: B96.20, Unsp Escherichia coli as the cause of diseases classd elswhr Home Care Diagnosis 2: Severity Ratin Home Care Diagnosis 3: ICD Code: R26.89, Other abnormalities of gait and mobility Home Care Diagnosis 3: Severity Ratin Home Care Diagnosis 4: ICD Code: M17.0, Bilateral primary osteoarthritis of knee Home Care Diagnosis 4: Severity Ratin Home Care Diagnosis 5: ICD Code: M48.02, Spinal stenosis, cervical region Home Care Diagnosis 5: Severity Ratin
[2024-04-04] MEDS: LANTUS PER UNIT CHARGE SQ SCH (20:17)
[2024-04-04] MEDS: cefTRIAXone SODIUM 2,000 MG/50 ML BAG IV SCH (20:18)
[2024-04-04] MEDS: SIMVASTATIN 20 MG TAB PO SCH (20:19)
[2024-04-04] MEDS: THIAMINE HCL 100 MG TAB PO SCH (20:19)
[2024-04-05 05:56] LABS: Hematocrit (blood only) 39.5 % (37.0-47.0); Mean Corpuscular Hemoglobin 29.5 pg (25.0-34.0); Mean Corpuscular Hgb Conc 32.9 g/dL (32.0-36.0); Mean Corpuscular Volume 89.8 fL (80.0-100.0); Mean Platelet Volume 11.9 fL (9.4-12.4); Platelet Count 156 K/uL (130-400); RDW Coefficient of Variation 12.5 % (11.5-14.5); RDW Standard Deviation 41.6 fL (36.4-46.3); White Blood Count 7.44 K/ul (4.8-10.8)
[2024-04-05 06:31] LABS: Calcium 8.8 mg/dl (8.6-10.3); Magnesium 1.6 mg/dl (1.7-2.4)
[2024-04-05 06:41] LABS: BUN Creatinine Ratio 17.4 (10-20); Creatinine Clr Calc Pharmacy 48.7 ml/min; Est GFR (African American) 72.4 ml/min; Est GFR (Non-African American) 62.5 ml/min
[2024-04-05] MEDS: LANTUS PER UNIT CHARGE SQ SCH (09:19)
--- NOTE | 2024-04-05 09:59 | Hospitalist Progress Note ---
Date of Service April 05, 2024 Assessment & Plan (1) Hyperglycemia: Plan: Patient originally presented to ED on 04/04 with complaint of hypoglyemica. Patient was then further found to have blood glucose of 485. Anion gap/bicarb were WNL. She was admitted for further care. -pharmacy consulted for glycemic management. appreciate recommendations -Lantus 8-10-12 units SQ BID -Novolog per scale ACHS or Q6hr while NPO -goal 110-140, correction factor 40 -Reviewed CBC 04/04: hgb 11.7, WBC WNL -Reviewed BMP 04/04: anion gap 7, bicarb 27, electrolytes stable. AM CBC, BMP (2) Urinary tract infection: Plan: UA appears consistent for recurrent UTI s/p 1 dose ceftriaxone in the ED Previous cultures show the patient gross pansensitive E. coli and Klebsiella Urine cultures consistent with E. Coli - Continue Ceftriaxone. Last dose: 04/09 (3) Hypomagnesemia: Plan: Patients magnesium was 1.4 in the ED. She was given 3 bags Magnesium sulfate on 04/03 for replacement. - reviewed magnesium 04/05:1.6, patient received 1 bag magnesium Potassium stable at 4.0 AM Magnesium Plan Chronic conditions: -Epilepsy: phenobarbital -Hypertension: lisinopril -cerebrovascular disease: aspirin and statin -GERD: pantoprazole -Anxiety/depression: Venlafaxine -hypothyroidism: Synthroid -pancreatic insufficiency: Pancreaze DVT prophylaxis: Lovenox Diet: Carb consistent, heart healthy, easy to chew Code status: DNR/DNI Disposition: Continue inpatient stay. Awaiting placement. Admission and Anticipated Discharge Date Admission Date: April 03, 2024 Subjective Patient seen and examined this morning. Patient had no complaints today. She is feeling well. Reviewed case management notes, referral was placed for [facility] in [place]. Physical Exam 2 Constitutional: WD/WN, vitals as above Eyes: PERRL, conjunctivae normal, anicteric sclerae Respiratory: normal respiratory effort, lungs clear to auscultation Cardiovascular: RRR, no murmur, no edema Skin: no rashes, warm and dry Psychiatric: A+Ox3, euthymic affect Results & Data Results & Data Vital Signs (Past 12 Hours) Vital Signs Temp Pulse Resp BP Pulse Ox O2 Del Method 04/05/24 07:21 36.5 C 81 16 119/73 97 Room Air Laboratory Results 04/05/24 05:39 04/05/24 05:39 PG Care Time/CCT Total # of Minutes Spent Total Time Spent with Patient: Total time spent is greater than 50% in coordination of care (as documented) at patient's floor/unit and/or counseling patient: Coding Level of Care Code 85463 SUB INP/OBS CARE 2/35MIN Diagnoses Hyperglycemia R73.9 Acute cystitis without hematuria N30.00 Hematuria presence: without hematuria Urinary tract infection type: acute cystitis Hypomagnesemia E83.42 (2) Urinary tract infection Hematuria presence: without hematuria Urinary tract infection type: acute cystitis Qualified Code(s): N30.00 - Acute cystitis without hematuria
--- NOTE | 2024-04-05 10:05 | Pharmacy Report ---
Pharmacy Glycemic Short Note 2 - Date of Service April 05, 2024 - Glycemic Short BSG Results (Last 24 hours): 04/04/24 04/04/24 04/04/24 14:23 17:59 20:06 Glucose POC Glucose 245 H 266 H 140 H 04/05/24 04/05/24 05:39 07:41 Glucose 176 H POC Glucose 190 H OUTPATIENT ANTIDIABETIC REGIMEN: * Of note: patient not compliant with outpatient insulin regimen * Insulin glargine 10 units SC daily * Insulin aspart 5 units SC TIDM HbA1c: 9.5% (04/04/24) ASSESSMENT: 04/05/24: * Blood sugars elevated yesterday, ranging 140-266 mg/dL * Received 39 units of insulin (16 units of basal and 23 units of bolus) * Fasting blood sugar of 190 mg/dL this morning * Will increase basal by ~25% today, no change to Novolog parameters 04/04/24: * RT is an 84 year old female who presented to ED with daughter on 04/03/24 for evaluation of ongoing hyperglycemia over past 2 days * Blood sugar on presentation of 485 mg/dL, no concern for DKA based on initial labs (anion gap of 7, serum bicarb of 27) * Blood sugars improved throughout evening into this morning, currently 240 mg/dL * Received 8 units IV, 8 units of basal, and 11 units of bolus overnight * Historically, patient has had intermittent episodes of hypoglycemia, so will be conservative with initial insulin regimen and any changes * Patient with history of recurrent UTI, concern for UTI on this admission as well (on ceftriaxone, gram-negative bacilli in culture) * Diet ordered PLAN FOR INPATIENT GLYCEMIC CONTROL: * Basal insulin * Lantus 10 units SC BID * Bolus insulin * NovoLog per scale ACHS or Q6hrs while NPO * Goal Range: Low 110 mg/dL - High 140 mg/dL * Correction Factor: 30 mg/dL/unit * Nutritional / Prandial insulin per carb ratio of 1 unit per 9 grams CHO consumed
[2024-04-05 10:15] LABS: Basophils # (auto) 0.06 K/uL (0.00-0.20); Basophils % (auto) 0.8 %; Eosinophils % (auto) 3.8 %; Immature Granulocytes # (auto) 0.09 K/uL (0.01-0.20); Immature Granulocytes % (auto) 1.1 %; Lymphocytes # (auto) 2.11 K/uL (1.20-3.40); Lymphocytes % (auto) 26.8 %; Monocytes # (auto) 0.54 K/uL (0.11-0.59); Monocytes % (auto) 6.9 %; Neutrophils # (auto) 4.77 K/uL (1.40-6.50); Neutrophils % (auto) 60.6 %
[2024-04-05] MEDS: MAGNESIUM SULFATE / D5W 1 GM/100 ML BAG IV ONE (16:14)
[2024-04-06 07:02] LABS: Basophils # (auto) 0.04 K/uL (0.00-0.20); Basophils % (auto) 0.6 %; Eosinophils # (auto) 0.28 K/uL (0.00-0.50); Eosinophils % (auto) 4.1 %; Hematocrit (blood only) 39.6 % (37.0-47.0); Hemoglobin 12.9 g/dl (12.0-16.0); Immature Granulocytes # (auto) 0.02 K/uL (0.01-0.20); Immature Granulocytes % (auto) 0.3 %; Lymphocytes # (auto) 1.43 K/uL (1.20-3.40); Lymphocytes % (auto) 21.1 %; Mean Corpuscular Hemoglobin 29.7 pg (25.0-34.0); Mean Corpuscular Hgb Conc 32.6 g/dL (32.0-36.0); Mean Platelet Volume 11.5 fL (9.4-12.4); Monocytes % (auto) 7.4 %; Neutrophils # (auto) 4.52 K/uL (1.40-6.50); Neutrophils % (auto) 66.5 %; Platelet Count 156 K/uL (130-400); RDW Coefficient of Variation 12.7 % (11.5-14.5); RDW Standard Deviation 41.9 fL (36.4-46.3); Red Blood Count 4.35 M/uL (4.20-5.40); White Blood Count 6.79 K/ul (4.8-10.8)
[2024-04-06 07:22] LABS: BUN Creatinine Ratio 23.2 (10-20); Calcium 8.8 mg/dl (8.6-10.3); Creatinine Clr Calc Pharmacy 44.1 ml/min; Est GFR (African American) 64.2 ml/min; Est GFR (Non-African American) 55.4 ml/min; Magnesium 1.8 mg/dl (1.7-2.4); Potassium 4.2 mmol/L (3.5-5.1)
--- NOTE | 2024-04-06 11:13 | Hospitalist Progress Note ---
Date of Service April 06, 2024 Assessment & Plan (1) Hyperglycemia: Plan: Patient originally presented to ED on 04/04 with complaint of hypoglycemia. Patient was then further found to have blood glucose of 485. Anion gap/bicarb were WNL. She was admitted for further care. -pharmacy consulted for glycemic management. appreciate recommendations -Lantus 8-10-12 units SQ BID -Novolog per scale ACHS or Q6hr while NPO -goal 110-140, correction factor 40 -Reviewed CBC 04/05: WNL -Reviewed BMP 04/05: WNL (2) Urinary tract infection: Plan: UA appears consistent for recurrent UTI s/p 1 dose ceftriaxone in the ED Previous cultures show the patient gross pansensitive E. coli and Klebsiella Urine cultures consistent with E. Coli - Continue Ceftriaxone. Last dose: 04/09 (3) Hypomagnesemia: Plan: Patients magnesium was 1.4 in the ED. She was given 3 bags Magnesium sulfate on 04/03 for replacement. -s/p 1g Magnesium IV 04/05. - reviewed magnesium 04/06:1.8 AM Magnesium Plan Chronic conditions: -Epilepsy: phenobarbital -Hypertension: lisinopril -cerebrovascular disease: aspirin and statin -GERD: pantoprazole -Anxiety/depression: Venlafaxine -hypothyroidism: Synthroid -pancreatic insufficiency: Pancreaze DVT prophylaxis: Lovenox Diet: Carb consistent, heart healthy, easy to chew Code status: DNR/DNI Disposition: Continue inpatient stay. Awaiting placement. Admission and Anticipated Discharge Date Admission Date: April 03, 2024 Subjective Patient seen and examined this morning. Patient stated that she feels great today. Explained to patient that she is still in hospital as we are awaiting placement. She verbalized her understanding. She is urinating okay. She denied chest pain or shortness of breath. Physical Exam 2 Constitutional: WD/WN, vitals as above Eyes: PERRL, conjunctivae normal, anicteric sclerae Respiratory: normal respiratory effort, lungs clear to auscultation Cardiovascular: RRR, no murmur, no edema Skin: no rashes, warm and dry Psychiatric: A+Ox3, euthymic affect Results & Data Results & Data Vital Signs (Past 12 Hours) Vital Signs Temp Pulse Resp BP Pulse Ox O2 Del Method 04/06/24 07:36 36.5 C 79 18 134/80 94 Room Air Laboratory Results 04/06/24 06:13 04/06/24 06:13 PG Care Time/CCT Total # of Minutes Spent Total Time Spent with Patient: Total time spent is greater than 50% in coordination of care (as documented) at patient's floor/unit and/or counseling patient: Coding Level of Care Code 07621 SUB INP/OBS CARE 2/35MIN Diagnoses Hyperglycemia R73.9 Acute cystitis without hematuria N30.00 Hematuria presence: without hematuria Urinary tract infection type: acute cystitis Hypomagnesemia E83.42 (2) Urinary tract infection Hematuria presence: without hematuria Urinary tract infection type: acute cystitis Qualified Code(s): N30.00 - Acute cystitis without hematuria
[2024-04-06] MEDS: LANTUS PER UNIT CHARGE SQ SCH (21:23)
[2024-04-07] MEDS: MAGNESIUM SULFATE / D5W 1 GM/100 ML BAG IV ONE (09:32)
--- NOTE | 2024-04-07 12:53 | Hospitalist Progress Note ---
Date of Service April 07, 2024 Assessment & Plan (1) Hyperglycemia: Plan: Patient originally presented to ED on 04/04 with complaint of hypoglycemia. Patient was then further found to have blood glucose of 485. Anion gap/bicarb were WNL. She was admitted for further care. -pharmacy consulted for glycemic management. appreciate recommendations -Lantus 8-10-12 units SQ BID -Novolog per scale ACHS or Q6hr while NPO -goal 110-140, correction factor 40 -Reviewed CBC 04/05: WNL -Reviewed BMP 04/05: WNL (2) Hypomagnesemia: Plan: Patients magnesium was 1.4 in the ED. She was given 3 bags Magnesium sulfate on 04/03 for replacement. -s/p 1g Magnesium IV 04/07. - reviewed magnesium 04/07:1.6 AM Magnesium Plan Chronic conditions: -Epilepsy: phenobarbital -Hypertension: lisinopril -cerebrovascular disease: aspirin and statin -GERD: pantoprazole -Anxiety/depression: Venlafaxine -hypothyroidism: Synthroid -pancreatic insufficiency: Pancreaze DVT prophylaxis: Lovenox Diet: Carb consistent, heart healthy, easy to chew Code status: DNR/DNI Disposition: Continue inpatient stay. Awaiting placement. Admission and Anticipated Discharge Date Admission Date: April 03, 2024 Subjective Patient seen and examined this afternoon. patient is doing well. She has no complaints today. Denies chest pain, shortness of breath, or urinary issues. Physical Exam 2 Constitutional: WD/WN, vitals as above Eyes: PERRL, conjunctivae normal, anicteric sclerae Respiratory: normal respiratory effort, lungs clear to auscultation Cardiovascular: RRR, no murmur, no edema Skin: no rashes, warm and dry Psychiatric: A+Ox3, euthymic affect Results & Data Results & Data Vital Signs (Past 12 Hours) Vital Signs Temp Pulse Resp BP Pulse Ox O2 Del Method 04/07/24 07:46 36.5 C 88 16 113/71 96 Room Air Laboratory Results 04/06/24 06:13 04/06/24 06:13 PG Care Time/CCT Total # of Minutes Spent Total Time Spent with Patient: Total time spent is greater than 50% in coordination of care (as documented) at patient's floor/unit and/or counseling patient: Coding Level of Care Code 83493 SUB INP/OBS CARE 2/35MIN Diagnoses Hyperglycemia R73.9 Hypomagnesemia E83.42
[2024-04-07] MEDS: LANTUS PER UNIT CHARGE SQ SCH (21:21)
--- NOTE | 2024-04-08 12:50 | Hospitalist Progress Note ---
Date of Service April 08, 2024 Assessment & Plan (1) Hyperglycemia: Plan: Patient originally presented to ED on 04/04 with complaint of hyperglycemia. Patient was then further found to have blood glucose of 485. Anion gap/bicarb were WNL. - non complaint with outpatient regiment -pharmacy consulted for glycemic management. appreciate recommendations -Lantus 10 units SQ BID -Novolog per scale ACHS or Q6hr while NPO -goal 110-140, correction factor 30, carb ratio 1:9 Blood sugar levels improving (2) Hypomagnesemia: Plan: Patients magnesium was 1.4 in the ED. She was given 3 bags Magnesium sulfate on 04/03 for replacement. last mag level check was low at 1.6 recheck AM mag and BMP (3) UTI (urinary tract infection), uncomplicated: Plan: Completed course of CTX while inpatient Plan Chronic conditions: -Epilepsy: phenobarbital -Hypertension: lisinopril -cerebrovascular disease: aspirin and statin -GERD: pantoprazole -Anxiety/depression: Venlafaxine -hypothyroidism: Synthroid -pancreatic insufficiency: Pancreaze DVT prophylaxis: Lovenox Disposition: Continue inpatient stay. Awaiting placement. Admission and Anticipated Discharge Date Admission Date: April 03, 2024 Subjective Patient sitting up in the chair working on a word search, no family present at bedside. Patient reports feeling well, no pain, no acute complaints Denies urinary symptoms Review of Systems Review of Systems: All systems reviewed & are unremarkable except as noted in Subjective Physical Exam Physical Exam: General: NAD, VS as above Resp: normal respiratory effort, lungs clear to auscultation CV: RRR, no murmur, Extremities: Moves all extremities, non pitting LE edema Results & Data Results & Data Vital Signs (Past 12 Hours) Vital Signs Temp Pulse Resp BP Pulse Ox O2 Del Method 04/08/24 07:43 36.4 C L 70 18 101/64 98 Room Air 04/08/24 07:40 Room Air Laboratory Results POC glucose results reviewed PG Care Time/CCT Total # of Minutes Spent Total Time Spent with Patient: Total time spent is greater than 50% in coordination of care (as documented) at patient's floor/unit and/or counseling patient: Coding Level of Care Code 37443 SUB INP/OBS CARE 2/35MIN Diagnoses Hyperglycemia R73.9 Hypomagnesemia E83.42 UTI (urinary tract infection), uncomplicated N39.0
[2024-04-09 08:14] LABS: BUN Creatinine Ratio 31.2 (10-20); Calcium 9.2 mg/dl (8.6-10.3); Creatinine Clr Calc Pharmacy 38.4 ml/min; Est GFR (African American) 54.4 ml/min; Est GFR (Non-African American) 46.9 ml/min; Magnesium 1.8 mg/dl (1.7-2.4); Potassium 4.6 mmol/L (3.5-5.1)
--- NOTE | 2024-04-09 10:53 | Hospitalist Progress Note ---
Date of Service April 09, 2024 Assessment & Plan (1) Hyperglycemia: Plan: Patient originally presented to ED on 04/04 with complaint of hyperglycemia. Patient was then further found to have blood glucose of 485. Anion gap/bicarb were WNL. - non complaint with outpatient regiment -pharmacy consulted for glycemic management. appreciate recommendations -Lantus 10 units SQ BID -Novolog per scale ACHS or Q6hr while NPO -goal 110-140, correction factor 30, carb ratio 1:9 Blood sugar levels improving (2) Hypomagnesemia: Plan: Patients magnesium was 1.4 in the ED. She was given 3 bags Magnesium sulfate on 04/03 for replacement. Mag 1.8. K 4.6 Resolved. (3) UTI (urinary tract infection), uncomplicated: Plan: Completed course of CTX while inpatient Plan Chronic conditions: -Epilepsy: phenobarbital -Hypertension: lisinopril -cerebrovascular disease: aspirin and statin -GERD: pantoprazole -Anxiety/depression: Venlafaxine -hypothyroidism: Synthroid -pancreatic insufficiency: Pancreaze DVT prophylaxis: Lovenox Disposition: Continue inpatient stay. Awaiting placement. Admission and Anticipated Discharge Date Admission Date: April 03, 2024 Supervising Physician Co-Signing Physician Notes Attending Attestation: Chart reviewed, care plan d/w JOHANN Sheets. I agree w/ the smyth components of her documentation. Rock Vance MD Subjective Patient sititng up in the chair, working on word search puzzles excited that we have found an accepting facility no acute concerns Review of Systems Review of Systems: All systems reviewed & are unremarkable except as noted in Subjective Physical Exam Physical Exam: General: NAD, VS as above Resp: normal respiratory effort, lungs clear to auscultation CV: RRR, no murmur, Extremities: Moves all extremities, non pitting LE edema Results & Data Results & Data Vital Signs (Past 12 Hours) Vital Signs Temp Pulse Resp BP Pulse Ox O2 Del Method 04/09/24 07:22 36.5 C 82 16 110/68 98 Room Air Laboratory Results POC blood sugars reviewed. BMP and mag reviewed PG Care Time/CCT Total # of Minutes Spent Total Time Spent with Patient: Total time spent is greater than 50% in coordination of care (as documented) at patient's floor/unit and/or counseling patient: Coding Level of Care Code 00879 SUB INP/OBS CARE 2/35MIN Diagnoses Hyperglycemia R73.9 Hypomagnesemia E83.42 UTI (urinary tract infection), uncomplicated N39.0
--- NOTE | 2024-04-09 12:17 | Pharmacy Report ---
Pharmacy Glycemic Short Note 2 - Date of Service April 09, 2024 - Glycemic Short BSG Results (Last 24 hours): 04/08/24 04/08/24 04/09/24 16:44 20:45 07:31 Glucose POC Glucose 102 H 140 H 105 H 04/09/24 04/09/24 07:33 11:36 Glucose 107 H POC Glucose 151 H OUTPATIENT ANTIDIABETIC REGIMEN: * Of note: patient not compliant with outpatient insulin regimen * Insulin glargine 10 units SC daily * Insulin aspart 5 units SC TIDM HbA1c: 9.5% (04/04/24) ASSESSMENT: 04/09/24: * Ms Hernandez's BSGs have been stable on current insulin regimen for the past several days. * No changes required at this time. 04/05/24: * Blood sugars elevated yesterday, ranging 140-266 mg/dL * Received 39 units of insulin (16 units of basal and 23 units of bolus) * Fasting blood sugar of 190 mg/dL this morning * Will increase basal by ~25% today, no change to Novolog parameters 04/04/24: * RT is an 84 year old female who presented to ED with daughter on 04/03/24 for evaluation of ongoing hyperglycemia over past 2 days * Blood sugar on presentation of 485 mg/dL, no concern for DKA based on initial labs (anion gap of 7, serum bicarb of 27) * Blood sugars improved throughout evening into this morning, currently 240 mg/dL * Received 8 units IV, 8 units of basal, and 11 units of bolus overnight * Historically, patient has had intermittent episodes of hypoglycemia, so will be conservative with initial insulin regimen and any changes * Patient with history of recurrent UTI, concern for UTI on this admission as well (on ceftriaxone, gram-negative bacilli in culture) * Diet ordered PLAN FOR INPATIENT GLYCEMIC CONTROL: * Basal insulin * Lantus 10 units SC BID * Bolus insulin * NovoLog per scale ACHS or Q6hrs while NPO * Goal Range: Low 110 mg/dL - High 140 mg/dL * Correction Factor: 30 mg/dL/unit * Nutritional / Prandial insulin per carb ratio of 1 unit per 9 grams CHO consumed
--- NOTE | 2024-04-10 12:08 | Hospitalist Progress Note ---
Date of Service April 10, 2024 Assessment & Plan (1) Hyperglycemia: Plan: Patient originally presented to ED on 04/04 with complaint of hyperglycemia. Patient was then further found to have blood glucose of 485. Anion gap/bicarb were WNL. - non complaint with outpatient regiment -pharmacy consulted for glycemic management. appreciate recommendations -Lantus 10 units SQ BID -Novolog per scale ACHS or Q6hr while NPO -goal 110-140, correction factor 30, carb ratio 1:9 Blood sugar levels improving (2) Hypomagnesemia: Plan: Patients magnesium was 1.4 in the ED. She was given 3 bags Magnesium sulfate on 04/03 for replacement. Mag 1.8. K 4.6 Resolved. (3) UTI (urinary tract infection), uncomplicated: Plan: Completed course of CTX while inpatient Plan Chronic conditions: -Epilepsy: phenobarbital -Hypertension: lisinopril -cerebrovascular disease: aspirin and statin -GERD: pantoprazole -Anxiety/depression: Venlafaxine -hypothyroidism: Synthroid -pancreatic insufficiency: Pancreaze DVT prophylaxis: Lovenox Disposition: Continue inpatient stay. Plan for discharge tomorrow Admission and Anticipated Discharge Date Admission Date: April 03, 2024 Supervising Physician Co-Signing Physician Notes Attending Attestation: Chart reviewed, care plan d/w JOHANN Sheets. I agree w/ the smyth components of her documentation. Rock Vance MD Subjective Patient sititng up in the chair, excited that we have found an accepting facility has finished all her word searches and requesting more no acute concerns Review of Systems Review of Systems: All systems reviewed & are unremarkable except as noted in Subjective Physical Exam Physical Exam: General: NAD, VS as above Resp: normal respiratory effort, lungs clear to auscultation CV: RRR, no murmur, Extremities: Moves all extremities, non pitting LE edema Results & Data Results & Data Vital Signs (Past 12 Hours) Vital Signs Temp Pulse Resp BP Pulse Ox O2 Del Method 04/10/24 07:40 36.7 C 68 20 102/66 94 Room Air Laboratory Results POC BS reviewed PG Care Time/CCT Total # of Minutes Spent Total Time Spent with Patient: Total time spent is greater than 50% in coordination of care (as documented) at patient's floor/unit and/or counseling patient: Coding Level of Care Code 97622 SUB INP/OBS CARE 1/25MIN Diagnoses Hyperglycemia R73.9 Hypomagnesemia E83.42 UTI (urinary tract infection), uncomplicated N39.0
--- NOTE | 2024-04-11 08:52 | Discharge Summary ---
Discharge Summary Date of Service April 11, 2024 Principal Dx & Hospital Course #1 = Principal Diagnosis (1) Hyperglycemia: Patient originally presented to ED on 04/04 with complaint of hyperglycemia. Patient was then further found to have blood glucose of 485. Anion gap/bicarb were WNL. - non complaint with outpatient regiment -pharmacy consulted for glycemic management. appreciate recommendations -Lantus 10 units SQ BID -Novolog per scale ACHS or Q6hr while NPO -goal 110-140, correction factor 30, carb ratio 1:9 Blood sugar levels improving - discharged with the above regiment, hopeful for better compliance with being in assisted living (2) Hypomagnesemia: Patients magnesium was 1.4 in the ED. She was given 3 bags Magnesium sulfate on 04/03 for replacement. Mag 1.8. K 4.6 Resolved. (3) UTI (urinary tract infection), uncomplicated: Completed course of CTX while inpatient Plan Chronic conditions: -Epilepsy: phenobarbital -Hypertension: lisinopril -cerebrovascular disease: aspirin and statin -GERD: pantoprazole -Anxiety/depression: Venlafaxine -hypothyroidism: Synthroid -pancreatic insufficiency: Pancreaze DVT prophylaxis: Lovenox Disposition: discharged to [facility] Notes For Next Care Provider Hospitalized due to elevated blood sugars from not taking her insulin at home. Sugars well controlled here, and will be residing in assisted living facility so hopefully will remain this way. completed course of Abx for UTI while inpatient Admission HPI Per Admitting Provider Donna is an 83-year-old female with PMH of poorly controlled T2DM, depression, dyslipidemia, GERD, HTN, hypothyroidism, pancreatic insufficiency, epilepsy, and memory impairment, and recent bed bug infestation who presented to the [facility] ED via EMS from home due to hypoglycemia. Per the intake report, the patient's daughter reported that the patient had been refusing to take her insulin. The patient's daughter has been trying to work on getting the patient placed as she is unable to adequately care for her at home. She remained stable in the ED. Labs were significant for a glucose of 485 anion gap and bicarb within normal limits, corrected sodium of 139, mag 1.4, UA consistent with UTI. Prior to admission the patient was given 1.5 L NSS, a dose of ceftriaxone, 1 g IV mag sulfate, and 8 units regular insulin IV. Patient was sitting in bed in no acute distress at the time of exam with her daughter at bedside history was obtained from both. Patient's daughter explains that the patient has been very stubborn lately and is only taking her insulin "when she wants to", and "eats things she is not supposed to which makes her sugars high". The patient confirmed this while laughing. Otherwise the patient has been in her normal state of health and has no other complaints at this time. They confirm that she is a DNR/DNI and her daughter is her power of food mixer assembler. Please refer to Dr. Lennon's attestation for any changes to the treatment plan Discharge Exam General: NAD, VS as above Resp: normal respiratory effort, lungs clear to auscultation CV: RRR, no murmur, Extremities: Moves all extremities, non pitting LE edema Updated Medication List Medication Instructions Recorded Confirmed Type one touch glucose meter #1 ea 04/08/22 03/11/24 Rx pen needle, diabetic 31 gauge x #60 ea 11/02/22 03/11/24 Rx 3/16" (Unifine Pentips) colestipol 1 gram tablet 1 g PO DAILY PRN Diarrhea #30 tabs 03/13/23 04/03/24 Rx diclofenac sodium 1 % topical gel 4 g EXT QID PRN Pain 06/16/23 04/03/24 History (Voltaren Arthritis Pain) blood sugar diagnostic #300 ea 12/01/23 03/11/24 Rx blood-glucose meter,continuous #1 ea 01/15/24 03/11/24 Rx (FreeStyle Paige 3 Mccloud) blood-glucose sensor (FreeStyle #1 ea 01/15/24 03/11/24 Rx Paige 3 Sensor device) acetaminophen 325 mg tablet 650 mg PO Q4H PRN Pain 02/23/24 04/03/24 History pen needle, diabetic 32 gauge x #100 ea 03/01/24 03/11/24 Rx 5/32" (BD Ultra-Fine Mady Pen Needle) blood sugar diagnostic (OneTouch #100 ea 03/18/24 Rx Verio test strips) lancets 30 gauge (OneTouch #100 ea 03/26/24 Rx UltraSoft 2 Lancet) L.acidop,casei,lactis,rham-B.lact,andrew 2 cap PO DAILY #60 caps 04/10/24 Rx 625 mg (10 billion cell) capsule (Advanced Probiotic) aspirin 81 mg tablet,delayed 81 mg PO DAILY #30 tabs 04/10/24 Rx release cholecalciferol (vitamin D3) 50 2,000 unit PO DAILY #30 tabs 04/10/24 Rx mcg (2,000 unit) tablet (Vitamin D3) cyanocobalamin (vitamin B-12) 1,000 mcg PO DAILY #30 caps 04/10/24 Rx 1,000 mcg capsule insulin aspart U-100 100 unit/mL 1 sliding scale dose SC ACHS #10 mL 04/10/24 Rx subcutaneous solution (Novolog U-100 Insulin aspart) insulin glargine 100 unit/mL (3 10 unit (0.1 mL) subcut QAM #15 mL 04/10/24 Rx mL) subcutaneous pen (Lantus Solostar U-100 Insulin) levothyroxine 150 mcg tablet 150 mcg PO DAILYBB #30 tabs 04/10/24 Rx (Synthroid) uwmwnc-iityvvku-eguexwl 2 cap PO AC #90 caps 04/10/24 Rx 36,000-114,000-180,000 unit capsule,delay rel (Creon) lisinopril 2.5 mg tablet 2.5 mg PO DAILY #30 tabs 04/10/24 Rx cvlpqrlt-mdh-dlobu acid 0.4 1 tab PO DAILY #30 tabs 04/10/24 Rx mg-lycopene 300 mcg-lutein 250 mcg tablet (Isaura Senior) omeprazole 40 mg capsule,delayed 40 mg PO BID 30 days #60 caps 04/10/24 04/03/24 Rx release phenobarbital 60 mg tablet 60 mg PO QAM 30 days #30 tabs 04/10/24 Rx phenobarbital 60 mg tablet 120 mg (2 x 60 mg) PO HS 30 days 04/10/24 Rx #120 tabs simvastatin 20 mg tablet 20 mg PO HS #30 tabs 04/10/24 Rx thiamine HCl (vitamin B1) 250 mg 250 mg PO BID #60 tabs 04/10/24 Rx tablet venlafaxine 75 mg capsule,extended 75 mg PO QAM 30 days #30 caps 04/10/24 04/03/24 Rx release 24 hr Hospital Stay Data Consultations 04/03/24 21:24 ED Decision to Admit Stat Diagnostic Imagining Performed Chest X-Ray 07/10/24 18:33 XR chest 1V portable HISTORY: 84 years-old Female hyperglycemia COMPARISON: 02/23/2024 TECHNIQUE: AP view of the chest FINDINGS: Cardiac silhouette is enlarged. Cholecystectomy. No pneumothorax or pleural effusion. Pulmonary vascular congestion with mild bibasilar atelectasis. Bones appear intact. IMPRESSION: Cardiomegaly with pulmonary vascular congestion. ACT 112: Negative or not required by law. The above report was generated using voice recognition software. It may contain grammatical, syntax or spelling errors. Electronically signed by: Channing Craig M.D. 04/03/2024 7:03 PM Pending Results Patient Have Any Pending Studies at Discharge: No Discharge Instructions Given to Patient (Per Discharging Provider) Ms. Hernandez, You were hospitalized after having high blood sugars and a urinary tract infection. You were treated for a urinary tract infection with IV antibiotics while you were here. Your sugars have been well controlled while you have been here, getting insulin 4 times a day. You need to continue to check your blood sugar 4 times day. You new insulin regiment is as follows: * Lantus 10 units daily * SSI Aspart Goal 110-140, Correction Factor: 30, Carb ratio: 9 No other changes to your home medications. Please make a follow up appointment with your PCP in 7-10 days. Thanks for allowing us to participate in your care. Jocelyn Sheets PA-C Total Time Total Time Spent Total Time Spent (In Minutes): Time spend day of discharge 25 minutes including direct patient care, medication reconciliation, documentation, review of labs and images, and coordination of care. Coding Level of Care Code 68868 IN/OBS DISCH 30 MIN/LESS Diagnoses Hyperglycemia R73.9 Hypomagnesemia E83.42 UTI (urinary tract infection), uncomplicated N39.0
== END 2024-04-11 11:29 | disposition home or self-care (01) | DRG 638 ==
LOC: ED 17:59 → SUATTDRO 20:40 → 2N 04-04 01:38 → 3N 04-04 21:27